=== PATIENT | male | born 1985 | race Caucasian/White ===

== ENCOUNTER 2017-04-03 18:13 | Emergency (ER) | payer SELFPAY ==
[2017-04-03 18:17] VITALS: BP 144/85; PULSE 75; TEMP 98.4; BMI 39.8
--- NOTE | 2017-04-03 19:11 | PDOC ---
History of Present Illness - General Chief Complaint: Rash Stated Complaint: ALLERGIC REACTION Time Seen by Provider: 04/03/17 18:56 History Source: Patient Exam Limitations: No Limitations - History of Present Illness Initial Comments: 04/03/17 19:11 Pt. is a 31 y/o male with PMH of Asthma who presents to the ED c/o a rash on his shoulders, back and chest. He states that he noticed the rash appear after eating a snickers. Denies itching, shortness of breath, throat tightness, lip swelling, or wheezing. Past History - Travel Traveled outside of the country in the last 30 days: No Close contact w/someone who was outside of country & ill: No - Past Medical History Allergies/Adverse Reactions: Allergies Allergy/AdvReac Type Severity Reaction Status Date / Time shellfish derived Allergy Verified 04/03/17 18:17 Home Medications: Ambulatory Orders NK [No Known Home Medication] 04/03/17 Asthma: Yes - Suicide/Smoking/Psychosocial Hx Smoking History: Never smoked Have you smoked in the past 12 months: No Information on smoking cessation initiated: No Hx Alcohol Use: No Drug/Substance Use Hx: No Substance Use Type: None Review of Systems - Review of Systems Able to Perform ROS?: Yes Comments:: 04/03/17 19:13 CONSTITUTIONAL: Absent: fever, chills, diaphoresis, generalized weakness, malaise, loss of appetite HEENT: Absent: rhinorrhea, nasal congestion, throat pain, throat swelling, difficulty swallowing, mouth swelling, ear pain, eye pain, visual Changes CARDIOVASCULAR: Absent: chest pain, loss of consciousness, palpitations, irregular heart rate, peripheral edema RESPIRATORY: Absent: cough, shortness of breath, dyspnea with exertion, orthopnea, wheezing, stridor, hemoptysis GASTROINTESTINAL: Absent: abdominal pain, abdominal distension, nausea, vomiting, diarrhea, constipation, melena, hematochezia GENITOURINARY: Absent: dysuria, frequency, urgency, hesitancy, hematuria, flank pain, genital pain MUSCULOSKELETAL: Absent: myalgia, arthralgia, joint swelling SKIN: Present: rash Absent: itching, pallor HEMATOLOGIC/IMMUNOLOGIC: Absent: easy bleeding, easy bruising, lymphadenopathy, frequent infections ENDOCRINE: Absent: unexplained weight gain, unexplained weight loss, heat intolerance, cold intolerance NEUROLOGIC: Absent: headache, focal weakness or paresthesias, dizziness, unsteady gait, seizure, mental status changes, bladder or bowel incontinence PSYCHIATRIC: Absent: anxiety, depression, suicidal or homicidal ideation, hallucinations. Is the patient limited Upper Sorbian proficient: No *Physical Exam - Vital Signs Last Vital Signs Temp Pulse Resp BP Pulse Ox 98.4 F 75 18 144/85 98 04/03/17 18:15 04/03/17 18:15 04/03/17 18:15 04/03/17 18:15 04/03/17 18:15 - Physical Exam Comments: 04/03/17 19:13 GENERAL: Well developed, well nourished. Awake and alert. No acute distress. HEENT: Normocephalic, atraumatic. PERRLA, EOMI. No conjunctival pallor. Sclera are non- icteric. Moist mucous membranes. Oropharynx is clear, no swelling of lips or tongue. NECK: Supple. Full ROM. No JVD. Carotid pulses 2+ and symmetric, without bruits. No thyromegaly. No lymphadenopathy. CARDIOVASCULAR: Regular rate and rhythm. No murmurs, rubs, or gallops. Distal pulses are 2+ and symmetric. PULMONARY: No evidence of respiratory distress. Lungs clear to auscultation bilaterally. No wheezing, rales or rhonchi. ABDOMINAL: Soft. Non-tender. Non-distended. No rebound or guarding. No organomegaly. Normoactive bowel sounds. MUSCULOSKELETAL Normal range of motion at all joints. No bony deformities or tenderness. No CVA tenderness. EXTREMITIES: No cyanosis. No clubbing. No edema. No calf tenderness. SKIN: Blanching macular rash on shoulders, chest and back. Warm and dry. Normal capillary refill. No jaundice. NEUROLOGICAL: Alert, awake, appropriate. Cranial nerves 2-12 intact. No deficits to light touch and temperature in face, upper extremities and lower extremities. No motor deficits in the in face, upper extremities and lower extremities. Normoreflexic in the upper and lower extremities. Normal speech. Toes are down- going bilaterally. Gait is normal without ataxia. PSYCHIATRIC: Cooperative. Good eye contact. Appropriate mood and affect. Medical Decision Making - Medical Decision Making 04/03/17 19:14 Pt. is a 31 y/o male past medical history of asthma who presents today with a blanching macular rash after eating a Snickers. The rash does appear to be allergic in nature although there are no hives. Instructed patient to avoid eating stickers or components of Snickers until he figures out what he had a reaction to. Gave referral to Dr. Eamon PHILLIP for allergy testing. He was told that if he experiences itching tonight he may take Benadryl. Informed patient that if he has any tongue swelling throat tightness shortness of breath he should return to the emergency department immediately. *DC/Admit/Observation/Transfer Diagnosis at time of Disposition: Rash Allergic reaction Qualifiers: Encounter type: initial encounter Qualified Code(s): T78.40XA - Allergy, unspecified, initial encounter - Discharge Dispostion Disposition: HOME Condition at time of disposition: Good Admit: No - Referrals Referrals: Daniel Knutson MD [Staff Physician] - - Patient Instructions Printed Discharge Instructions: DI for General Allergic Reactions Additional Instructions: You had a skin reaction. Avoid eating snickers until you find out what you are allergic to. You may take benadryl tonight to help with the rash. Followup with Dr. Knutson for allergy testing. Return to the ED if you have worsening rash, have difficulty breathing, wheezing , feel as if your throat was closing, or any other changes in your symptoms. - Post Discharge Activity Forms/Work/School Notes: Back to Work
== END 2017-04-03 19:15 | disposition home or self-care (01) ==
LOC: JERFT 18:13
DX: T78.40XA Allergy, unspecified, initial encounter (principal); J45.909 Unspecified asthma, uncomplicated; R21 Rash and other nonspecific skin eruption
CPT/HCPCS: 99281-25

== ENCOUNTER 2017-04-17 16:52 | Inpatient (IN) | payer SELFPAY ==
[2017-04-17] MEDS ORDERED: NALOXONE HCL 0.4 MG/ML VIAL ONE (17:03)
[2017-04-17] MEDS ORDERED: DEXAMETHASONE SOD PHOSPHATE 10 MG/1 ML VIAL ONE (17:09)
[2017-04-17] MEDS ORDERED: ALBUTEROL SO4 0.083% IH SOL 2.5 MG/3 ML VIAL.NEB. NEB ONE ×2 (17:11→17:13)
[2017-04-17] MEDS ORDERED: ALTEPLASE 100MG 100 MG IVPB ONE (17:28)
[2017-04-17] MEDS ORDERED: RACEPINEPHRINE IH SOL 2.25% 11.25 MG/0.5 ML VIAL NEB ONE (17:33)
[2017-04-17] MEDS ORDERED: SODIUM BICARBONATE 8.4% - 50 ML ONE ×2 (17:39→17:56)
[2017-04-17] MEDS ORDERED: EPINEPHrine/PF 1 MG/1 ML (1:1,000) AMPULE ONE ×2 (17:48→17:50)
[2017-04-17] MEDS ORDERED: SODIUM BICARBONATE 4.2% 5 MEQ/10 ML DISP.SYRIN IVPUSH ONE (17:56)
[2017-04-17] MEDS ORDERED: SODIUM CHLORIDE 1,000 ML with SODIUM BICARBONATE 8.4% - 150 MEQ IV SCH (18:00)
[2017-04-17] MEDS ORDERED: EPINEPHRINE 1:1,000 - 1,000 MCG in DEXTROSE 5%-WATER - 249 ML IVPB SCH (18:00)
[2017-04-17] MEDS ORDERED: NOREPINEPHRINE BITARTRATE 4 MG/4 ML ML IV ONE (18:03)
[2017-04-17] MEDS ORDERED: NOREPINEPHRINE BITARTRATE 8,000 MCG in DEXTROSE 5%-WATER - 492 ML IV SCH ×2 (18:34→18:45)
[2017-04-17] MEDS ORDERED: VANCOMYCIN 1,000 MG in DEXTROSE 5%-WATER - 250 ML IVPB ONE (18:40)
[2017-04-17] MEDS ORDERED: PIPERACILLIN/TAZOB 4.5 GM 4.5 GM in DEXTROSE 5%-WATER - 100 ML IVPB ONE (18:40)
[2017-04-17] MEDS ORDERED: KETAMINE HCL 200 MG/20 ML VIAL ONE ×2 (18:41→19:02)
[2017-04-17] MEDS ORDERED: KETAMINE HCL 200 MG/20 ML VIAL IVPUSH ONE (18:41)
[2017-04-17] MEDS: EPINEPHRINE 1:1,000 - 1,000 MCG in DEXTROSE 5%-WATER - 249 ML IVPB SCH (18:43)
[2017-04-17] MEDS ORDERED: VANCOMYCIN 1 GRAM (PRE-DOCKED) 250 ML IVPB ONE (18:44)
[2017-04-17] MEDS ORDERED: MIDAZOLAM HCL 2 MG/2 ML SINGLE DOSE VIAL ONE (19:08)
[2017-04-17] MEDS ORDERED: MIDAZOLAM HCL 2 MG/2 ML SINGLE DOSE VIAL IVPUSH ONE (19:10)
--- NOTE | 2017-04-17 19:13 | PDOC ---
*Physical Exam - Vital Signs Last Vital Signs Temp Pulse Resp BP Pulse Ox 112 H 16 106/66 100 04/17/17 18:49 04/17/17 18:49 04/17/17 18:49 04/17/17 18:49 ED Treatment Course - LABORATORY CBC & Chemistry Diagram: 04/21/17 05:45 04/21/17 05:45 - Medications Given in the ED: ED Medications Discontinued Medications Generic Name Dose Route Start Last Admin Trade Name Freq PRN Reason Stop Dose Admin Epinephrine HCl 1,000 mcg/ 250 mls @ 221 mls/hr 04/17/17 18:00 04/17/17 18:26 Dextrose IVPB Not Given TITR YOAV Protocol Ketamine HCl 100 mg 04/17/17 18:41 04/17/17 18:42 Ketalar - IVPUSH 04/17/17 18:42 100 mg ONCE ONE Administration *DC/Admit/Observation/Transfer Diagnosis at time of Disposition: Respiratory arrest, Cardiac arrest, Signs of return of spontaneous circulation - Discharge Dispostion Condition at time of disposition: Critical Admit: Yes - Referrals - Patient Instructions - Post Discharge Activity
[2017-04-17] MEDS: MIDAZOLAM 100 MG in SODIUM CHLORIDE 100 ML IVPB SCH (19:20)
[2017-04-17 19:51] LABS: MCH 28.8 pg (25.7-33.7); MEAN CELL VOLUME 87.3 fl (80-96); RDW 13.9 % (11.9-15.9); WHITE BLOOD COUNT 29.6 K/mm3 (4.0-10.0)
[2017-04-17 20:07] LABS: INR 1.04 (0.82-1.09); PROTHROMBIN TIME (PATIENT) 11.8 SEC (9.98-11.88)
[2017-04-17 20:09] LABS: ACTIVATED PTT 31.1 SECONDS (26.9-34.4)
--- NOTE | 2017-04-17 20:10 | PDOC ---
History of Present Illness - General Chief Complaint: Respiratory Arrest Stated Complaint: CARDIAC ARREST Time Seen by Provider: 04/17/17 17:57 - History of Present Illness Initial Comments: 04/17/17 19:28 31-year-old male history of asthma presents in cardiac arrest. Patient was found down in front of his halal cart across the street from the hospital 10 minutes prior to arrival to the ED. On arrival to the emergency department, pt was getting chest compressions via the Bassam. Unknown rhythm in the field. An IO was placed in the right tibia for access. The pads were placed and the Bassam was removed to place the zoll pads. Initial rhythm was asystole. THe patient was intubated via Glidescope with direct visualization of 7.0 ET tube passing through the cords. Copious amounts of emesis was suctioned from the airway. Upon auscultation, pt had poor air movement, with diminished BS on the right and diffuse mild wheezing. CPR was continued immediately for approximately 30 min with multiple doses of epinephrine and bicarbonate. Patient was also given 1 dose of narcan, dexamethasone, magnesium, calcium, and dextrose. Multiple doses of albuterol were given through the ET tube. Bedside US during pulse checks with cardiac standstill and no sign of tamponade or large pericardial effusion. While initial rhythm was asystole, the rhythm became PEA then VFib for which the patient was defibrillated 3 times at 200 J btwn chest compressions. The patient was given 300 mg of amiodarone at that time. ROSC was obtained for 1-2 minutes where an EKG revealed atrial fibrillation with no ST elevations. The patient became bradycardic and lost his pulse again with initial rhythm asystole and then PEA and then ROSC was obtained after approximately another 20 minutes of CPR. Pt's rhythm is AF, rate of 107, BP of 110/70. Low dose levophed was started for support and quickly turned off with improvement in BP to 150s systolic. CXR with good ET tube placement. A sterile US guided IJ CVC was placed with good return of dark venous blood. Vanc/Zosyn/ Azithro were ordered for PNA coverage. Given the pt's young age and possible resp arrest, I discussed possible ecmo options with Dr Christensen from CT surgery at [facility], however given pt had ROSC for 20 mins at this point, and prolonged downtime , they stated he was not an ecmo candidate. PT was accepted to Dr. Mondragon for admission in our ICU. Past History - Past Medical History Allergies/Adverse Reactions: Allergies Allergy/AdvReac Type Severity Reaction Status Date / Time No Known Drug Allergies Allergy Verified 04/17/17 18:05 shellfish derived Allergy Verified 04/17/17 17:20 Home Medications: Ambulatory Orders Albuterol Sulfate Inhaler - [Ventolin Hfa Inhaler -] 1 puff IH PRN PRN 04/17/17 Asthma: Yes COPD: No - Suicide/Smoking/Psychosocial Hx Smoking History: Current every day smoker Have you smoked in the past 12 months: Yes Number of Cigarettes Smoked Daily: 10 Information on smoking cessation initiated: No Hx Alcohol Use: No Drug/Substance Use Hx: No Substance Use Type: None *Physical Exam - Vital Signs Last Vital Signs Temp Pulse Resp BP Pulse Ox 112 H 16 106/66 100 04/17/17 18:49 04/17/17 18:49 04/17/17 18:49 04/17/17 18:49 - Physical Exam Comments: 04/17/17 20:10 GENERAL: intubated, non responsive HEAD: No signs of trauma EYES: Pupils dilated b/l, non reactive ENT: +vomitus in oropharynx LUNGS: diminished BS b/l, tight, minimal diffuse wheezing HEART: pulseless ABDOMEN: distended EXTREMITIES: no evidence of trauma, no evidence of track carrizales SKIN: diffuse mottling Procedures - Central Line Central Line Lumen: triple Central Line Position: internal jugular (R) Complications: none Post Central Line Insertion: sutured, good blood return, position confirmed w/ CXR - Bedside Ultrasound Bedside Ultrasound: Cardiac - Intubation Intubation Method: orotracheal Blade used: Glidescope Tube Size (Fr): 7.0 Tube position @ lip (cm): 21 Tube position confirmed by: Direct visualization, CO2 detector, Chest x-ray, Breath sounds Breath Sounds after Intubation: left greater than right Intubation Complications: apparent aspiration Post Intubation Xray: Yes (Tube above andrzej) Heart Score/ECG Review #1 04/17/17 20:31 Twelve-lead EKG was performed and reviewed by me. [place] fib, rate 111. Normal axis. No ST elevations. [address] depressions in leads V4 through V6 and leads 1 and 2 ED Treatment Course - LABORATORY CBC & Chemistry Diagram: 04/18/17 07:20 04/18/17 07:20 - RADIOLOGY Radiology Studies Ordered: Category Date Time Status CHEST X-RAY PORTABLE* [RAD] Stat Radiology 04/17/17 17:54 Completed CHEST X-RAY PORTABLE* [RAD] Stat Radiology 04/17/17 19:27 Ordered - Medications Given in the ED: ED Medications Discontinued Medications Generic Name Dose Route Start Last Admin Trade Name Freq PRN Reason Stop Dose Admin Epinephrine HCl 1,000 mcg/ 250 mls @ 221 mls/hr 04/17/17 18:00 04/17/17 18:26 Dextrose IVPB Not Given TITR YOAV Protocol Ketamine HCl 100 mg 04/17/17 18:41 04/17/17 18:42 Ketalar - IVPUSH 04/17/17 18:42 100 mg ONCE ONE Administration Medical Decision Making - Critical Care Time Total Critical Care Time (minutes): 120 Critical Care Statement: The care of this patient involved high complexity decision making to prevent further life threatening deterioration of the patient 's condition and/or to evaluate & treat vital organ system(s) failure or risk of failure. - Medical Decision Making 04/18/17 09:29 04/17/17 20:32 Cardiac arrest of unknown etiology, possible respiratory 2/2 asthma however it appears sxs came on rather quickly (pt's states that he was at his baseline 1 hour prior to arrest) vs cardiac (NSTEMI) vs PE given sudden onset of sxs. Neurologic etiology such as ICH also a possibility and warrants a CTH, which should be performed when pt is more stable. Pt is admitted to ICU for further mgmt where hypothermic protocol will be initiated. *DC/Admit/Observation/Transfer Diagnosis at time of Disposition: Respiratory arrest, Cardiac arrest, Signs of return of spontaneous circulation - Discharge Dispostion Condition at time of disposition: Critical Admit: Yes - Referrals - Patient Instructions - Post Discharge Activity - Attestations Physician Attestion: 04/17/17 20:33 I, Dr. Nicolas Tolentino MD, attest that this document has been prepared under my direction and personally reviewed by me in its entirety. I further attest, that it accurately reflects all work, treatment, procedures and medical decision -making performed by me.
[2017-04-17 20:25] LABS: ALBUMIN 3.4 g/dl (3.4-5.0); ANION GAP 19 (8-16); CALCIUM 8.3 mg/dL (8.5-10.1); CO2 18 mmol/L (21-32)
[2017-04-17 20:30] LABS: ARTERIAL BLD GAS O2 SATURATION 97.6 % (90-98.9); ARTERIAL BLOOD GAS HCO3 16.6 meq/L (22-26)
[2017-04-17 20:36] LABS: METHEMOGLOBIN 0.8 % (0.4-1.5)
[2017-04-17 20:42] LABS: ALLENS TEST POSITIVE; ART PUNCT SITE LEFT RADIAL; ARTERIAL BLOOD GAS BASE EXCESS -14.3 meq/l (-2-2); ARTERIAL BLOOD GAS pH 7.09 (7.35-7.45); PT. ON O2? YES
[2017-04-17 20:42] LABS: ALK PHOS 169 U/L (45-117); BILIRUBIN,TOTAL 1.1 mg/dL (0.2-1.0); CREATININE 1.7 mg/dL (0.7-1.3); SGPT/ALT 175 U/L (12-78); TOT PROT 6.4 g/dl (6.4-8.2)
[2017-04-17 20:43] LABS: LPM/O2% 100; MECH. VENT. YES; TYPE OF O2 MECH VENT
[2017-04-17 20:44] LABS: VENT RATE 14; VT/PRESS 500
[2017-04-17 20:44] LABS: CPK 1111 IU/L (39-308); SGOT/AST 247 U/L (15-37)
[2017-04-17 20:46] LABS: GLUCOSE,RANDOM 352 mg/dL (74-106); TROPONIN I 3.48 ng/ml (0.00-0.05)
[2017-04-17 20:57] LABS: METAMYELOCYTE 3 % (0-2); MYELOCYTE 3 % (0-2); PLATELET COUNT 251 K/MM3 (134-434); PLATELET ESTIMATE ADEQUATE (NORMAL); REACTIVE LYMPHOCYTES 3 % (0-80); SMUDGE CELLS FEW; TOTAL CELLS COUNTED 100
[2017-04-17] MEDS ORDERED: PROPOFOL 100 ML ONE (20:57)
[2017-04-17] MEDS ORDERED: ASPIRIN 81 MG CHEWABLE TABLETS PO ONE (21:19)
[2017-04-17] MEDS ORDERED: CLOPIDOGREL BISULFATE 300 MG TABLET PO ONE (21:20)
[2017-04-17] MEDS ORDERED: HEPARIN NA (PORCINE) 5,000 UNITS/ML 1ML VIAL IVPUSH PRN ×2 (21:20)
--- NOTE | 2017-04-17 21:22 | CON.CARD ---
Consult Consult Specialty:: cardiology Reason for Consultation:: cardiac arrest - History of Present Illness History of Present Illness: 31-year-old male history of asthma, cigarettes, obesity, presents in cardiac arrest. Patient was found down in front of his halal cart across the street from the hospital 10 minutes prior to arrival to the ED. On arrival to the emergency department, pt was getting chest compressions via the Bassam. Unknown rhythm in the field. An IO was placed in the right tibia for access. The pads were placed and the Bassam was removed to place the zoll pads. Initial rhythm was asystole. THe patient was intubated via Glidescope with direct visualization of 7.0 ET tube passing through the cords. Copious amounts of emesis was suctioned from the airway. Upon auscultation, pt had poor air movement, with diminished BS on the right and diffuse mild wheezing. CPR was continued immediately for approximately 30 min with multiple doses of epinephrine and bicarbonate. Patient was also given 1 dose of narcan, dexamethasone, magnesium, calcium, and dextrose. Multiple doses of albuterol were given through the ET tube. Bedside US during pulse checks with cardiac standstill and no sign of tamponade or large pericardial effusion. While initial rhythm was asystole, the rhythm became PEA then VFib for which the patient was defibrillated 3 times at 200 J btwn chest compressions. The patient was given 300 mg of amiodarone at that time. ROSC was obtained for 1-2 minutes where an EKG revealed atrial fibrillation with no ST elevations. The patient became bradycardic and lost his pulse again with initial rhythm asystole and then PEA and then ROSC was obtained after approximately another 20 minutes of CPR. Pt's rhythm is AF, rate of 107, BP of 110/70. Low dose levophed was started for support and quickly turned off with improvement in BP to 150s systolic. CXR with good ET tube placement. A sterile US guided IJ CVC was placed with good return of dark venous blood. Vanc/Zosyn/Azithro were ordered for PNA coverage. Given the pt's young age and possible resp arrest, Dr Tolentino discussed possible ecmo options with Dr Christensen from CT surgery at [facility], however given pt had ROSC for 20 mins at this point, and prolonged downtime, they stated he was not an ecmo candidate. PT was accepted to Dr. Mondragon for admission in our ICU. - History Source History Provided By: Family Member, Medical Record Limitations to Obtaining History: Unresponsive - Past Medical History Cardio/Vascular: Yes: AFIB (reportedly noted transiently while undergoing resuscitation) Pulmonary: Yes: Asthma Gastrointestinal: Yes: Other (elevated LFTS this admission) Renal/: Yes: Renal Inusuff Heme/Onc: No: Anemia - Alcohol/Substance Use Hx Alcohol Use: No - Smoking History Smoking history: Current every day smoker Have you smoked in the past 12 months: Yes Aproximately how many cigarettes per day: 10 - Social History Usual Living Arrangement: With Spouse Home Medications - Allergies Allergies/Adverse Reactions: Allergies Allergy/AdvReac Type Severity Reaction Status Date / Time No Known Drug Allergies Allergy Verified 04/17/17 18:05 shellfish derived Allergy Verified 04/17/17 17:20 - Home Medications Home Medications: Ambulatory Orders Albuterol Sulfate Inhaler - [Ventolin Hfa Inhaler -] 1 puff IH PRN PRN 04/17/17 Review of Systems Unable to obtain ROS, reason: pt is intubated, sedated, - Review of Systems Constitutional: reports: No Symptoms Eyes: reports: No Symptoms HENT: reports: No Symptoms Neck: reports: No Symptoms - Risk Factors Known Risk Factors: Yes: Gender, Physical Inactivity, Smoking Vital Signs: Vital Signs Temperature Pulse Rate 117 H 04/17/17 20:00 Respiratory Rate 22 04/17/17 20:00 Blood Pressure 140/92 04/17/17 20:00 O2 Sat by Pulse Oximetry (%) 100 04/17/17 20:00 Constitutional: Yes: Obese Eyes: Yes: Other (fixed pupils) HENT: Yes: Normocephalic Neck: Yes: Decreased ROM Respiratory: Yes: Intubated, Mechanically Ventilated Gastrointestinal: Yes: Soft, Abdomen, Obese Renal/: No: Anuria Cardiovascular: Yes: Tachycardia JVD: No Carotid Bruit: No PMI: Non-Displaced Heart Sounds: Yes: S1, S2 Murmur: Yes: Systolic Murmur, Grade 1 Musculoskeletal: Yes: Other Extremities: Yes: Cool Edema: No Peripheral Pulses WNL: No Peripheral Pulses: 1+ Left Doralis Pedis, 1+ Right Dorsalis Pedis Integumentary: Yes: WNL Neurological: Yes: Unresponsive Psychiatric: Yes: Other - Other Data Labs, Other Data: CBC, BMP 04/17/17 19:40 04/17/17 19:40 INR, PTT INR 1.04 (0.82-1.09) 04/17/17 19:40 Troponin, BNP 04/17/17 19:40 Troponin I 3.48 H* Troponin, BNP 04/17/17 19:40 Troponin I 3.48 H* Imaging - Results Chest X-ray: Image Reviewed (patchy consolidation) EKG: Image Reviewed (Initial EKG 17:47:29 : AF with RVR; incomplete LBBB; STT changes: r/o inferolateral ischemia EKG 3 hrs later (20:55:17): sinus tachycardia;lateral STT changes are less evident) Problem List - Problems (1) Rash Code(s): R21 - RASH AND OTHER NONSPECIFIC SKIN ERUPTION (2) Leukocytosis Code(s): D72.829 - ELEVATED WHITE BLOOD CELL COUNT, UNSPECIFIED (3) Cardiorespiratory arrest Assessment/Plan: Initial aystole; now in sinus. Intubated; Fluctuating blood pressure; Elevated TNI, with mildly elevated CK/MB relative index; f/u serially. Serial EKG (reportedly initial ST elevation, with subsequent "nonspecific" ST-T abnormalities). Marked leukocytosis and hyperglycemia. F/u cultures; HGBA1c; TSH; Hb. Blood in NG tube makes starting ASA, clopidogrel, IV heparin problematic; f/u this development, and consider starting these medications if cleared by GI, hematology. Statin also unable to be started (elevated transaminases). Hx asthma, wheezing precludes beta blockers; BP is also tenuous. Maintain hydration (worsening renal picture). ECHO for LVEF, wall motion, valve status. Code(s): I46.9 - CARDIAC ARREST, CAUSE UNSPECIFIED (4) Paroxysmal atrial fibrillation Assessment/Plan: Ntoed on initial EKG; converted to sinus tachycardia no later than 3 hours after. Obtain prior cardiac hx. Would have low threshold for starting amiodarone. On anticoagulation (if cleared by GI and neuro) for resumed acute coronary syndrome. Code(s): I48.0 - PAROXYSMAL ATRIAL FIBRILLATION
[2017-04-17] MEDS ORDERED: HEPARIN - 25,000 UNIT in SODIUM CHLORIDE 495 ML IV SCH (21:30)
[2017-04-17] MEDS ORDERED: METOPROLOL TARTRATE 25 MG TABLET (FP) PO SCH (21:30)
[2017-04-17] MEDS: FENTANYL INJECTION 500 MCG in DEXTROSE 5%-WATER - 90 ML IJ SCH (21:30)
[2017-04-17] MEDS ORDERED: HEPARIN INFUSION - 500 ML IVPB SCH (21:45)
[2017-04-17] MEDS ORDERED: ENALAPRIL MALEATE 10 MG TABLET (FP) PO SCH ×2 (22:00)
--- NOTE | 2017-04-17 22:07 | CONSULT ---
Consult Consult Specialty:: Pulmonary and critical care - History of Present Illness History of Present Illness: This is a 31 year old man with a pmhx of asthma (no home meds, no hospitalizations) presented to the ED s/p cardiac arrest of unclear etiology. Patient was in his usual state of health and on the phone with his when he reported feeling "pain", hung up the phone, and dialed 911. He was found down, pulseless and received CPR and was brought to the ED. ACLS efforts continued and he was intubated. Copious amounts of emesis were suctioned from the airway. Upon auscultation, pt had poor air movement, with diminished BS on the right and diffuse mild wheezing. ACLS efforts took place for a total of approximately 50 minutes prior to achieving ROSC (had briefly achieved ROSC at minute 30). Low dose levophed required transiently for mild hypotension. RIJ placed. Vanc/ Zosyn/Azithro were ordered for empiric antibiotic coverage. He was transferred to the ICU for further care - History Source History Provided By: Family Member - Past Medical History Pulmonary: Yes: Asthma - Alcohol/Substance Use Hx Alcohol Use: No - Smoking History Smoking history: Current every day smoker Have you smoked in the past 12 months: Yes Aproximately how many cigarettes per day: 10 Home Medications - Allergies Allergies/Adverse Reactions: Allergies Allergy/AdvReac Type Severity Reaction Status Date / Time No Known Drug Allergies Allergy Verified 04/17/17 18:05 shellfish derived Allergy Verified 04/17/17 17:20 - Home Medications Home Medications: Ambulatory Orders Albuterol Sulfate Inhaler - [Ventolin Hfa Inhaler -] 1 puff IH PRN PRN 04/17/17 Review of Systems Unable to obtain ROS, reason: as patient is intubated a Physical Exam Vital Signs: Vital Signs Temperature Pulse Rate 117 H 04/17/17 20:00 Respiratory Rate 22 04/17/17 20:00 Blood Pressure 140/92 04/17/17 20:00 O2 Sat by Pulse Oximetry (%) 100 04/17/17 20:00 Constitutional: Yes: Well Nourished, No Distress Eyes: Yes: Other (Pupils large, round, dilated, sluggish but reactive) HENT: Yes: Other (Pupils large, round, very sluggish reaction to light) Neck: Yes: WNL Cardiovascular: Yes: Regular Rate and Rhythm Respiratory: Yes: CTA Bilaterally, Accessory Muscle Use, Tachypnea Gastrointestinal: Yes: WNL Renal/: Yes: WNL Musculoskeletal: Yes: WNL Extremities: Yes: WNL Edema: LUE: 1+, RUE: 1+, LLE: 1+, RLE: 1+ Neurological: Yes: Unresponsive Labs: CBC, BMP 04/17/17 19:40 04/17/17 19:40 Imaging - Results Chest X-ray: Report Reviewed Assessment/Plan 31 year old man s/p prolonged cardiac arrest of unclear etiology; significant bandemia and leukocytosis #Please increase RR on vent to compensate for respiratory component to acidosis #Repeat ABG #Please advance ETT and repeat CXR #Please keep very sedated for ventilator synchrony to optimize gas exchange #Add Fentanyl continuous infusion for any pain from chest compressions/sedation ; continue use of Versed, consider d/c Propofol #Vancomycin and Zosyn #Check blood, urine, sputum, respiratory swab, urine antigens #Trend troponin #EKG #TTE #Therapeutic hypothermia #EEG tomorrow #Head CT when stable Prognosis is guarded. 35' mins CC time
[2017-04-17 22:08] LABS: INR 1.11 (0.82-1.09); PROTHROMBIN TIME (PATIENT) 12.5 SEC (9.98-11.88)
[2017-04-17 22:11] LABS: ACTIVATED PTT 33.2 SECONDS (26.9-34.4)
[2017-04-17 22:26] LABS: ARTERIAL BLOOD GAS PO2 85.3 mmHg (80-100)
[2017-04-17 22:28] LABS: ALLENS TEST POSITIVE
[2017-04-17 22:29] LABS: ART PUNCT SITE RIGHT BRACHIAL; LPM/O2% 100%; MECH. VENT. YES; PT. ON O2? YES; TYPE OF O2 VENT; VENT RATE 32; VT/PRESS 500
[2017-04-17] MEDS: CHLORHEXIDINE GLUCONATE 4% CLEANSER FOR DECOLONIZATION TP SCH (22:29)
[2017-04-17 22:31] LABS: ARTERIAL BLOOD GAS pH 7.22 (7.35-7.45)
[2017-04-17 22:32] LABS: ARTERIAL BLOOD GAS BASE EXCESS -12.8 meq/l (-2-2)
[2017-04-17 22:35] LABS: URINE MARIJUANA THC NEGATIVE ng/ml (CUTOFF=50)
[2017-04-17] MEDS: ATORVASTATIN CA 80 MG TABLET (FP) PO SCH (22:39)
[2017-04-17] MEDS: PROPOFOL 100 ML IVPB SCH (22:40)
[2017-04-17] MEDS: MUPIROCIN 2% TOPICAL OINTMENT FOR DECOLONIZATION NS SCH (22:41)
[2017-04-17] MEDS ORDERED: ALBUTEROL SO4 2.5/IPRATROPIUM 0.5 INH SOL 3 ML VIAL.NEB. NEB ONE (22:42)
[2017-04-17] MEDS: CHLORHEXIDINE GLUCONATE 0.12% 15ML CUP MM SCH (22:49)
[2017-04-17 22:56] LABS: CHOLESTEROL 207 mg/dL (50-200)
--- NOTE | 2017-04-17 22:59 | CON.ID ---
Consult Consult Specialty:: infectious diseases Reason for Consultation:: pneumonia resp failure - History of Present Illness History of Present Illness: 31 year old man with a pmhx of asthma admitted s/p cardiac arrest of unclear etiology. Patient was in his usual state of health and on the phone with his when he reported feeling "pain", hung up the phone, and dialed 911. He was found down, pulseless and received CPR and was brought to the ED. ACLS efforts continued and he was intubated. Copious amounts of emesis were suctioned from the airway. Upon auscultation, pt had poor air movement, with diminished BS on the right and diffuse mild wheezing. ACLS efforts took place for a total of approximately 50 minutes prior to achieving ROSC (had briefly achieved ROSC at minute 30). Low dose levophed required transiently for mild hypotension. RIJ placed. Vanc/Zosyn/Azithro were ordered for empiric antibiotic coverage. He is in the ICU for further care the above history taken from the charts as patient is intubated - History Source History Provided By: Medical Record Limitations to Obtaining History: Clinical Condition - Past Medical History Pulmonary: Yes: Asthma - Alcohol/Substance Use Hx Alcohol Use: No - Smoking History Smoking history: Current every day smoker Have you smoked in the past 12 months: Yes Aproximately how many cigarettes per day: 10 Home Medications - Allergies Allergies/Adverse Reactions: Allergies Allergy/AdvReac Type Severity Reaction Status Date / Time No Known Drug Allergies Allergy Verified 04/17/17 18:05 shellfish derived Allergy Verified 04/17/17 17:20 - Home Medications Home Medications: Ambulatory Orders Albuterol Sulfate Inhaler - [Ventolin Hfa Inhaler -] 1 puff IH PRN PRN 04/17/17 Review of Systems Unable to obtain ROS, reason: unable to obtian Physical Exam Vital Signs: Vital Signs Temperature Pulse Rate 117 H 04/17/17 20:00 Respiratory Rate 22 04/17/17 20:00 Blood Pressure 140/92 04/17/17 20:00 O2 Sat by Pulse Oximetry (%) 100 04/17/17 20:00 Constitutional: Yes: Other Eyes: Yes: Other (reactive sluggish) Cardiovascular: Yes: Tachycardia, S1, S2 Respiratory: Yes: Intubated, Mechanically Ventilated, Rhonchi Gastrointestinal: Yes: Normal Bowel Sounds, Soft Musculoskeletal: Yes: WNL Extremities: Yes: WNL Neurological: Yes: Other Psychiatric: Yes: Other Labs: CBC, BMP 04/17/17 19:40 04/17/17 19:40 Imaging - Results Chest X-ray: Report Reviewed, Image Reviewed Assessment/Plan Problem List - Problems (1) Cardiorespiratory arrest Code(s): I46.9 - CARDIAC ARREST, CAUSE UNSPECIFIED (2) Leukocytosis Code(s): D72.829 - ELEVATED WHITE BLOOD CELL COUNT, UNSPECIFIED (3) Troponin level elevated Code(s): R74.8 - ABNORMAL LEVELS OF OTHER SERUM ENZYMES (4) LFT elevation Code(s): R79.89 - OTHER SPECIFIED ABNORMAL FINDINGS OF BLOOD CHEMISTRY (5) GI bleed Code(s): K92.2 - GASTROINTESTINAL HEMORRHAGE, UNSPECIFIED plan will continue zosyn and vanco close watch on mental status high chances of having pna rest continue as per icu cc time 40 min
[2017-04-17] MEDS: ALBUTEROL SO4 2.5/IPRATROPIUM 0.5 INH SOL 3 ML VIAL.NEB. NEB SCH (23:02)
[2017-04-17 23:14] LABS: TROPONIN I 5.59 ng/ml (0.00-0.05)
[2017-04-17 23:17] LABS: AMYLASE 2462 U/L (25-115)
[2017-04-17 23:22] VITALS: BMI 40.5
[2017-04-17 23:30] LABS: URINE APPEARANCE SLCLOUDY; URINE BILIRUBIN NEGATIVE (NEGATIVE); URINE BLOOD 3+ (NEGATIVE); URINE COLOR LTYELLOW; URINE GLUCOSE (UA) 3+ (NEGATIVE); URINE KETONE NEGATIVE (NEGATIVE); URINE NITRITE NEGATIVE (NEGATIVE); URINE PROTEIN 2+ (NEGATIVE); URINE UROBILINOGEN NEGATIVE mg/dL (0.2-1.0)
[2017-04-17 23:35] LABS: URINE MUCUS FEW; URINE RBC 10 /hpf (0-3); URINE WBC 21 /hpf (3-5)
[2017-04-18 00:13] LABS: PHOSPHOROUS 7.7 mg/dL (2.5-4.9)
[2017-04-18 00:17] LABS: MAGNESIUM 3.1 mg/dL (1.8-2.4)
[2017-04-18 00:22] LABS: ALBUMIN 3.3 g/dl (3.4-5.0); ANION GAP 25 (8-16); CALCIUM 7.8 mg/dL (8.5-10.1); CO2 15 mmol/L (21-32); CREATININE 2.2 mg/dL (0.7-1.3); SGPT/ALT 185 U/L (12-78); TOT PROT 5.9 g/dl (6.4-8.2)
[2017-04-18 00:23] LABS: ALK PHOS 155 U/L (45-117)
[2017-04-18 00:25] LABS: SGOT/AST 338 U/L (15-37)
[2017-04-18 00:27] LABS: GLUCOSE,RANDOM 405 mg/dL (74-106)
[2017-04-18] MEDS: PIPERACILLIN/TAZOB 4.5 GM 100 ML IVPB SCH ×3 (01:12→17:20)
[2017-04-18] MEDS: PROPOFOL 100 ML IVPB SCH ×6 (01:12→17:39)
[2017-04-18] MEDS: INSULIN SLIDING SCALE (NOVOLOG) 1 VIAL SQ SCH ×5 (01:12→23:06)
[2017-04-18] MEDS: FENTANYL INJECTION 500 MCG in DEXTROSE 5%-WATER - 90 ML IJ SCH ×3 (01:13→17:43)
[2017-04-18] MEDS: MIDAZOLAM 100 MG in SODIUM CHLORIDE 100 ML IVPB SCH ×2 (03:00→15:21)
[2017-04-18] MEDS ORDERED: HEMOQUE CONTROL SOLUTION ONE (03:34)
[2017-04-18 07:28] LABS: ALBUMIN 3.2 g/dl (3.4-5.0); ALK PHOS 126 U/L (45-117); ANION GAP 22 (8-16); CALCIUM 7.3 mg/dL (8.5-10.1); CO2 14 mmol/L (21-32); CREATININE 2.8 mg/dL (0.7-1.3); PHOSPHOROUS 5.6 mg/dL (2.5-4.9); SGPT/ALT 185 U/L (12-78); TOT PROT 5.9 g/dl (6.4-8.2)
[2017-04-18 07:43] LABS: ACTIVATED PTT 28.2 SECONDS (26.9-34.4); INR 1.12 (0.82-1.09); PROTHROMBIN TIME (PATIENT) 12.7 SEC (9.98-11.88)
[2017-04-18 07:44] LABS: ARTERIAL BLD GAS O2 SATURATION 99.9 % (90-98.9); ARTERIAL BLOOD GAS BASE EXCESS -11.8 meq/l (-2-2); ARTERIAL BLOOD GAS HCO3 13.6 meq/L (22-26)
[2017-04-18 07:46] LABS: ALLENS TEST POSITIVE; ART PUNCT SITE LEFT RADIAL; LPM/O2% 100; PT. ON O2? YES; TYPE OF O2 MEC VENT
[2017-04-18 07:47] LABS: MECH. VENT. ESPRIT; PT'S TEMP 95.2; VENT RATE 32; VT/PRESS 500
--- NOTE | 2017-04-18 07:53 | HP ---
Admitting History and Physical - Admission History of Present Illness: 31 year old man with a pmhx of asthma (no home meds, no hospitalizations) presented to the ED s/p cardiac arrest of unclear etiology. Patient was in his usual state of health and on the phone with his when he reported feeling "pain", hung up the phone, and dialed 911. He was found down, pulseless and received CPR and was brought to the ED. ACLS efforts continued and he was intubated. Copious amounts of emesis were suctioned from the airway. Upon auscultation, pt had poor air movement, with diminished BS on the right and diffuse mild wheezing. ACLS efforts took place for a total of approximately 50 minutes prior to achieving ROSC (had briefly achieved ROSC at minute 30). Low dose levophed required transiently for mild hypotension. RIJ placed. Vanc/Zosyn/ Azithro were ordered for empiric antibiotic coverage. He is in the ICU for further care - Past Medical History Cardiovascular: Yes: AFIB (reportedly noted transiently while undergoing resuscitation) Pulmonary: Yes: Asthma - Smoking History Smoking history: Current every day smoker Have you smoked in the past 12 months: Yes Aproximately how many cigarettes per day: 10 - Alcohol/Substance Use Hx Alcohol Use: No Home Medications - Allergies Allergies/Adverse Reactions: Allergies Allergy/AdvReac Type Severity Reaction Status Date / Time No Known Drug Allergies Allergy Verified 04/17/17 18:05 shellfish derived Allergy Verified 04/17/17 17:20 - Home Medications Home Medications: Ambulatory Orders Albuterol Sulfate Inhaler - [Ventolin Hfa Inhaler -] 1 puff IH PRN PRN 04/17/17 Physical Examination Vital Signs: Vital Signs Temperature 95.1 F L 04/18/17 06:00 Pulse Rate 104 H 04/18/17 06:00 Respiratory Rate 32 H 04/18/17 06:30 Blood Pressure 127/79 04/18/17 06:00 O2 Sat by Pulse Oximetry (%) 100 04/17/17 23:27 Cardiovascular: Yes: S1, S2 Respiratory: Yes: Diminished, Intubated, Mechanically Ventilated Gastrointestinal: Yes: Hypoactive Bowel Sounds Neurological: Yes: Unresponsive Problem List - Problems (1) Cardiorespiratory arrest Assessment/Plan: UNCLEAR ETIOLOGY FOLLOW LABS VENT SUPPORT EEG NEUROLOGY PRESSERS D/W CURRENT STATUS AND FINDINGS Code(s): I46.9 - CARDIAC ARREST, CAUSE UNSPECIFIED (2) Leukocytosis Assessment/Plan: CULTURES IV ABX ID ON BOARD Code(s): D72.829 - ELEVATED WHITE BLOOD CELL COUNT, UNSPECIFIED (3) Troponin level elevated Assessment/Plan: FOLLOW CE CARDIO ON BOARD ECHO DUE TO BLOOD IN NGT UNABLE TO GIVE ASA/PLAVIX/HEPARIN Code(s): R74.8 - ABNORMAL LEVELS OF OTHER SERUM ENZYMES (4) LFT elevation Assessment/Plan: FOLLOW LABS MAYBE DUE TO ISCHEMIA GI Code(s): R79.89 - OTHER SPECIFIED ABNORMAL FINDINGS OF BLOOD CHEMISTRY (5) GI bleed Assessment/Plan: GI CONSULT FOLLOW CBC Code(s): K92.2 - GASTROINTESTINAL HEMORRHAGE, UNSPECIFIED
[2017-04-18 08:18] LABS: CPK 4647 IU/L (39-308)
[2017-04-18 08:19] LABS: MAGNESIUM 2.7 mg/dL (1.8-2.4); SGOT/AST 382 U/L (15-37)
[2017-04-18 08:23] LABS: GLUCOSE,RANDOM 420 mg/dL (74-106)
[2017-04-18 08:26] LABS: MCH 28.5 pg (25.7-33.7); MCHC 32.6 g/dl (32.0-35.9); MEAN CELL VOLUME 87.4 fl (80-96); MEAN PLT VOLUME 9.5 fl (7.5-11.1); PLATELET COUNT 165 K/MM3 (134-434); RDW 13.8 % (11.9-15.9)
[2017-04-18 09:09] LABS: THYROID STIMULATING HORMONE 0.33 uIU/ml (0.358-3.74)
[2017-04-18] MEDS ORDERED: ASPIRIN 81 MG CHEWABLE TABLETS PO SCH (10:00)
[2017-04-18] MEDS ORDERED: NOREPINEPHRINE BITARTRATE 4 MG/4 ML ML IV ONE (10:00)
[2017-04-18] MEDS ORDERED: CLOPIDOGREL BISULFATE 75 MG TABLET (FP) PO SCH (10:00)
[2017-04-18] MEDS: PANTOPRAZOLE SODIUM 80 MG in SODIUM CHLORIDE 100 ML IVPB SCH ×2 (10:03→18:53)
[2017-04-18 10:13] LABS: AMYLASE 2469 U/L (25-115)
[2017-04-18] MEDS: CHLORHEXIDINE GLUCONATE 0.12% 15ML CUP MM SCH ×2 (10:50→22:02)
[2017-04-18] MEDS: PANTOPRAZOLE SODIUM 40 MG VIAL IVPUSH SCH (10:50)
[2017-04-18] MEDS: MUPIROCIN 2% TOPICAL OINTMENT FOR DECOLONIZATION NS SCH ×2 (10:58→22:01)
[2017-04-18] MEDS ORDERED: VASOPRESSIN 20 UNITS/ML VIAL IV ONE (11:05)
[2017-04-18] MEDS ORDERED: VASOPRESSIN 50 UNITS in SODIUM CHLORIDE 97.5 ML IVPB SCH (11:15)
[2017-04-18] MEDS ORDERED: fentaNYL CITRATE 250 MCG/5 ML VIAL ONE ×2 (11:46→17:41)
[2017-04-18] MEDS: NOREPINEPHRINE BITARTRATE 8,000 MCG in DEXTROSE 5%-WATER - 492 ML IV SCH (11:57)
[2017-04-18] MEDS: ALBUTEROL SO4 2.5/IPRATROPIUM 0.5 INH SOL 3 ML VIAL.NEB. NEB SCH (12:00)
--- NOTE | 2017-04-18 12:09 | PN ---
Progress Note, Physician History of Present Illness: 31-year-old male history of asthma, cigarettes, obesity, presents in cardiac arrest. Patient was found down in front of his halal cart across the street from the hospital 10 minutes prior to arrival to the ED. On arrival to the emergency department, pt was getting chest compressions via the Bassam. Unknown rhythm in the field. An IO was placed in the right tibia for access. The pads were placed and the Bassam was removed to place the zoll pads. Initial rhythm was asystole. THe patient was intubated via Glidescope with direct visualization of 7.0 ET tube passing through the cords. Copious amounts of emesis was suctioned from the airway. Upon auscultation, pt had poor air movement, with diminished BS on the right and diffuse mild wheezing. CPR was continued immediately for approximately 30 min with multiple doses of epinephrine and bicarbonate. Patient was also given 1 dose of narcan, dexamethasone, magnesium, calcium, and dextrose. Multiple doses of albuterol were given through the ET tube. Bedside US during pulse checks with cardiac standstill and no sign of tamponade or large pericardial effusion. While initial rhythm was asystole, the rhythm became PEA then VFib for which the patient was defibrillated 3 times at 200 J btwn chest compressions. The patient was given 300 mg of amiodarone at that time. ROSC was obtained for 1-2 minutes where an EKG revealed atrial fibrillation with no ST elevations. The patient became bradycardic and lost his pulse again with initial rhythm asystole and then PEA and then ROSC was obtained after approximately another 20 minutes of CPR. Pt's rhythm is AF, rate of 107, BP of 110/70. Low dose levophed was started for support and quickly turned off with improvement in BP to 150s systolic. CXR with good ET tube placement. A sterile US guided IJ CVC was placed with good return of dark venous blood. Vanc/Zosyn/Azithro were ordered for PNA coverage. Given the pt's young age and possible resp arrest, Dr Tolentino discussed possible ecmo options with Dr Christensen from CT surgery at [facility], however given pt had ROSC for 20 mins at this point, and prolonged downtime, they stated he was not an ecmo candidate. PT was accepted to Dr. Mondragon for admission in our ICU. - Current Medication List Current Medications: Active Medications Albuterol/Ipratropium (Duoneb -) 1 amp NEB QIDR [facility] Last Admin: 04/17/17 23:02 Dose: 1 amp Atorvastatin Calcium (Lipitor -) 80 mg PO HS [facility] Last Admin: 04/17/17 22:39 Dose: 80 mg Chlorhexidine Gluconate (Hibiclens For Decolonization -) 1 applic TP HS [facility] Last Admin: 04/17/17 22:29 Dose: 1 applic Chlorhexidine Gluconate (Peridex -) 15 ml MM BID [facility] Last Admin: 04/18/17 10:50 Dose: 15 ml Epinephrine HCl 1,000 mcg/ (Dextrose) 250 mls @ 221.12 mls/hr IVPB ASDIR YOAV PRN Reason: 0.1 MCG/KG/MIN Last Admin: 04/17/17 18:43 Dose: Not Given Midazolam HCl 100 mg/ Sodium (Chloride) 100 mls @ 1 mls/hr IVPB TITR YOAV; 1 MG/ HR PRN Reason: Protocol Last Admin: 04/18/17 03:00 Dose: 8 mg/hr, 8 mls/hr Fentanyl 500 mcg/ Dextrose 100 mls @ 20 mls/hr IJ TITR YOAV PRN Reason: 100 MCG/HR Stop: 04/18/17 21:29 Last Admin: 04/18/17 11:30 Dose: 100 mcg/hr, 20 mls/hr Propofol (Diprivan -) 100 mls @ 8.845 mls/hr IVPB TITR YOAV; 10 MCG/KG/MIN PRN Reason: Protocol Last Admin: 04/18/17 10:50 Dose: 48.5 mcg/kg/min, 42.9 mls/hr Piperacillin/Tazobactam/Dextrose (Zosyn 4.5gm Ivpb (Premix)) 100 mls @ 200 mls/ hr IVPB Q8H-IV YOAV PRN Reason: Protocol Last Admin: 04/18/17 09:54 Dose: 200 mls/hr Pantoprazole Sodium 80 mg/ (Sodium Chloride) 100 mls @ 10 mls/hr IVPB Q10H YOAV PRN Reason: 8 MG/HR Last Admin: 04/18/17 10:03 Dose: 10 mls/hr Norepinephrine Bitartrate 8, (000 mcg/ Dextrose) 500 mls @ 18.75 mls/hr IV TITR YOAV; 5 MCG/MIN PRN Reason: Protocol Last Titration: 04/18/17 11:58 Dose: 10 mcg/min, 37.5 mls/hr Vasopressin 50 units/ Sodium (Chloride) 100 mls @ 4 mls/hr IVPB ASDIR YOAV; 2 UNITS/HR PRN Reason: Protocol Last Admin: 04/18/17 11:57 Dose: 2 units/hr, 4 mls/hr Insulin Aspart (Novolog Vial Sliding Scale -) 1 vial SQ ACHS YOAV PRN Reason: Protocol Last Admin: 04/18/17 11:00 Dose: 10 units Mupirocin (Bactroban Ointment (For Decolonization) -) 1 applic NS BID YOAV Stop: 04/22/17 21:59 Last Admin: 04/18/17 10:58 Dose: 1 applic Pantoprazole Sodium (Protonix Iv) 40 mg IVPUSH DAILY YOAV Last Admin: 04/18/17 10:50 Dose: Not Given - Objective Vital Signs: Vital Signs Temperature 95.1 F L 04/18/17 11:00 Pulse Rate 96 H 04/18/17 11:57 Respiratory Rate 32 H 04/18/17 11:00 Blood Pressure 70/45 04/18/17 11:57 O2 Sat by Pulse Oximetry (%) 99 04/18/17 10:00 Eyes: Yes: WNL, Conjunctiva Clear, EOM Intact HENT: Yes: WNL, Atraumatic, Normocephalic Neck: Yes: WNL, Supple, Trachea Midline Cardiovascular: Yes: WNL, Regular Rate and Rhythm Respiratory: Yes: Intubated, Mechanically Ventilated Gastrointestinal: Yes: WNL, Normal Bowel Sounds Genitourinary: Yes: WNL Musculoskeletal: Yes: WNL Extremities: Yes: WNL Edema: No Integumentary: Yes: WNL Neurological: Yes: Unresponsive ...Motor Strength: WNL Psychiatric: Yes: WNL Labs: CBC, BMP 04/18/17 07:20 04/18/17 07:20 INR, PTT INR 1.12 (0.82-1.09) 04/18/17 07:20 Laboratory Tests 04/17/17 04/17/17 04/17/17 19:40 19:40 19:40 WBC 29.6 H RBC 5.39 Hgb 15.5 Hct 47.1 MCV 87.3 MCH 28.8 MCHC 33.0 RDW 13.9 Plt Count 251 MPV 9.0 Total Counted 100 Neutrophils % No Result Required. Neutrophils % (Manual) 52 Band Neuts % (Manual) 10 Lymphocytes % No Result Required. Lymphocytes % (Manual) 26 Monocytes % (Manual) 2 L Eosinophils % (Manual) 1 Myelocytes % (Man) 3 H Smudge Cells Few Platelet Estimate Adequate Platelet Comment No clumping noted PT with INR 11.80 INR 1.04 PTT (Actin FS) 31.1 Anticoagulation Therapy Puncture Site Patient Temperature ABG pH ABG pCO2 at Pt Temp ABG pO2 at Pt Temp ABG HCO3 ABG O2 Sat (Measured) ABG O2 Content ABG Base Excess Avtar Test Carboxyhemoglobin Methemoglobin O2 Delivery Device Oxygen Flow Rate Vent Mode Vent Rate Mechanical Rate PEEP Pressure Support Vent Sodium 139 Potassium 4.1 Chloride 102 Carbon Dioxide 18 L Anion Gap 19 H BUN 15 Creatinine 1.7 H Creat Clearance w eGFR 46.94 POC Glucometer Random Glucose 352 H* Hemoglobin A1c % Lactic Acid Calcium 8.3 L Phosphorus Magnesium Total Bilirubin 1.1 H AST 247 H ALT 175 H Alkaline Phosphatase 169 H Creatine Kinase 1111 H Creatine Kinase Index 2.5 CK-MB (CK-2) 28.477 H Troponin I 3.48 H* C-Reactive Protein B-Natriuretic Peptide Total Protein 6.4 Albumin 3.4 Triglycerides Cholesterol Total LDL Cholesterol HDL Cholesterol Total Amylase Lipase TSH Urine Color Urine Appearance Urine pH Ur Specific [place] Urine Protein Urine Glucose (UA) Urine Ketones Urine Blood Urine Nitrite Urine Bilirubin Urine Urobilinogen Urine RBC Urine WBC Ur Epithelial Cells Urine Mucus Opiates Screen Methadone Screen Barbiturate Screen Phencyclidine Screen Ur Amphetamines Screen MDMA (Ecstasy) Screen Benzodiazepines Screen Cocaine Screen U Marijuana (THC) Screen 04/17/17 04/17/17 04/17/17 20:08 21:00 21:35 WBC RBC Hgb Hct MCV MCH MCHC RDW Plt Count MPV Total Counted Neutrophils % Neutrophils % (Manual) Band Neuts % (Manual) Lymphocytes % Lymphocytes % (Manual) Monocytes % (Manual) Eosinophils % (Manual) Myelocytes % (Man) Smudge Cells Platelet Estimate Platelet Comment PT with INR INR PTT (Actin FS) Anticoagulation Therapy Puncture Site Left radial Patient Temperature ABG pH 7.09 L* ABG pCO2 at Pt Temp 56.9 H ABG pO2 at Pt Temp 138.0 H ABG HCO3 16.6 L ABG O2 Sat (Measured) 97.6 ABG O2 Content 21.9 ABG Base Excess -14.3 L* Avtar Test Positive Carboxyhemoglobin 1.6 Methemoglobin 0.8 O2 Delivery Device Mech vent Oxygen Flow Rate 100 Vent Mode Hc Vent Rate 14 Mechanical Rate Yes PEEP 5.0 Pressure Support Vent 500 Sodium Potassium Chloride Carbon Dioxide Anion Gap BUN Creatinine Creat Clearance w eGFR POC Glucometer Random Glucose Hemoglobin A1c % Lactic Acid Calcium Phosphorus Magnesium Total Bilirubin AST ALT Alkaline Phosphatase Creatine Kinase Creatine Kinase Index CK-MB (CK-2) Troponin I C-Reactive Protein 1.4 H B-Natriuretic Peptide Total Protein Albumin Triglycerides Cholesterol Total LDL Cholesterol HDL Cholesterol Total Amylase Lipase TSH Urine Color Ltyellow Urine Appearance Slcloudy Urine pH 7.0 Ur Specific [place] 1.007 Urine Protein 2+ H Urine Glucose (UA) 3+ H Urine Ketones Negative Urine Blood 3+ H Urine Nitrite Negative Urine Bilirubin Negative Urine Urobilinogen Negative Urine RBC 10 Urine WBC 21 Ur Epithelial Cells Rare Urine Mucus Few Opiates Screen Methadone Screen Barbiturate Screen Phencyclidine Screen Ur Amphetamines Screen MDMA (Ecstasy) Screen Benzodiazepines Screen Cocaine Screen U Marijuana (THC) Screen 04/17/17 04/17/17 04/17/17 21:35 21:35 21:35 WBC RBC Hgb Hct MCV MCH MCHC RDW Plt Count MPV Total Counted Neutrophils % Neutrophils % (Manual) Band Neuts % (Manual) Lymphocytes % Lymphocytes % (Manual) Monocytes % (Manual) Eosinophils % (Manual) Myelocytes % (Man) Smudge Cells Platelet Estimate Platelet Comment PT with INR 12.50 H INR 1.11 PTT (Actin FS) 33.2 Anticoagulation Therapy Puncture Site Patient Temperature ABG pH ABG pCO2 at Pt Temp ABG pO2 at Pt Temp ABG HCO3 ABG O2 Sat (Measured) ABG O2 Content ABG Base Excess Avtar Test Carboxyhemoglobin Methemoglobin O2 Delivery Device Oxygen Flow Rate Vent Mode Vent Rate Mechanical Rate PEEP Pressure Support Vent Sodium Potassium Chloride Carbon Dioxide Anion Gap BUN Creatinine Creat Clearance w eGFR POC Glucometer Random Glucose Hemoglobin A1c % Lactic Acid 9.3 H* Calcium Phosphorus Magnesium Total Bilirubin AST ALT Alkaline Phosphatase Creatine Kinase Creatine Kinase Index CK-MB (CK-2) Troponin I C-Reactive Protein B-Natriuretic Peptide Total Protein Albumin Triglycerides Cholesterol Total LDL Cholesterol HDL Cholesterol Total Amylase 2462 H Lipase 198 TSH Urine Color Urine Appearance Urine pH Ur Specific [place] Urine Protein Urine Glucose (UA) Urine Ketones Urine Blood Urine Nitrite Urine Bilirubin Urine Urobilinogen Urine RBC Urine WBC Ur Epithelial Cells Urine Mucus Opiates Screen Methadone Screen Barbiturate Screen Phencyclidine Screen Ur Amphetamines Screen MDMA (Ecstasy) Screen Benzodiazepines Screen Cocaine Screen U Marijuana (THC) Screen 04/17/17 04/17/17 04/17/17 21:35 21:35 21:45 WBC RBC Hgb Hct MCV MCH MCHC RDW Plt Count MPV Total Counted Neutrophils % Neutrophils % (Manual) Band Neuts % (Manual) Lymphocytes % Lymphocytes % (Manual) Monocytes % (Manual) Eosinophils % (Manual) Myelocytes % (Man) Smudge Cells Platelet Estimate Platelet Comment PT with INR INR PTT (Actin FS) Anticoagulation Therapy Puncture Site Patient Temperature ABG pH ABG pCO2 at Pt Temp ABG pO2 at Pt Temp ABG HCO3 ABG O2 Sat (Measured) ABG O2 Content ABG Base Excess Avtar Test Carboxyhemoglobin Methemoglobin O2 Delivery Device Oxygen Flow Rate Vent Mode Vent Rate Mechanical Rate PEEP Pressure Support Vent Sodium Potassium Chloride Carbon Dioxide Anion Gap BUN Creatinine Creat Clearance w eGFR POC Glucometer Random Glucose Hemoglobin A1c % Lactic Acid Calcium Phosphorus Magnesium Total Bilirubin AST ALT Alkaline Phosphatase Creatine Kinase 2726 H Creatine Kinase Index 1.9 CK-MB (CK-2) 53.781 H Troponin I 5.59 H* D C-Reactive Protein B-Natriuretic Peptide Total Protein Albumin Triglycerides 162 H Cholesterol 207 H Total LDL Cholesterol 146 H HDL Cholesterol 37 L Total Amylase Lipase TSH Urine Color Urine Appearance Urine pH Ur Specific [place] Urine Protein Urine Glucose (UA) Urine Ketones Urine Blood Urine Nitrite Urine Bilirubin Urine Urobilinogen Urine RBC Urine WBC Ur Epithelial Cells Urine Mucus Opiates Screen Negative Methadone Screen Negative Barbiturate Screen Negative Phencyclidine Screen Negative Ur Amphetamines Screen Negative MDMA (Ecstasy) Screen Negative Benzodiazepines Screen Negative Cocaine Screen Negative U Marijuana (THC) Screen Negative 04/17/17 04/17/17 04/17/17 21:54 22:05 23:20 WBC RBC Hgb Hct MCV MCH MCHC RDW Plt Count MPV Total Counted Neutrophils % Neutrophils % (Manual) Band Neuts % (Manual) Lymphocytes % Lymphocytes % (Manual) Monocytes % (Manual) Eosinophils % (Manual) Myelocytes % (Man) Smudge Cells Platelet Estimate Platelet Comment PT with INR INR PTT (Actin FS) Anticoagulation Therapy Y Puncture Site Right brachial Patient Temperature ABG pH 7.22 L* ABG pCO2 at Pt Temp 35.2 D ABG pO2 at Pt Temp 85.3 D ABG HCO3 14.0 L* ABG O2 Sat (Measured) 95.0 ABG O2 Content 20.5 ABG Base Excess -12.8 L* Avtar Test Positive Carboxyhemoglobin Methemoglobin O2 Delivery Device Vent Oxygen Flow Rate 100% Vent Mode A/c Vent Rate 32 Mechanical Rate Yes PEEP 5.0 Pressure Support Vent 500 Sodium Potassium Chloride Carbon Dioxide Anion Gap BUN Creatinine Creat Clearance w eGFR POC Glucometer Random Glucose Hemoglobin A1c % Lactic Acid Calcium Phosphorus 7.7 H Magnesium 3.1 H Total Bilirubin AST ALT Alkaline Phosphatase Creatine Kinase Creatine Kinase Index CK-MB (CK-2) Troponin I C-Reactive Protein B-Natriuretic Peptide 88.48 Total Protein Albumin Triglycerides Cholesterol Total LDL Cholesterol HDL Cholesterol Total Amylase Lipase TSH Urine Color Urine Appearance Urine pH Ur Specific [place] Urine Protein Urine Glucose (UA) Urine Ketones Urine Blood Urine Nitrite Urine Bilirubin Urine Urobilinogen Urine RBC Urine WBC Ur Epithelial Cells Urine Mucus Opiates Screen Methadone Screen Barbiturate Screen Phencyclidine Screen Ur Amphetamines Screen MDMA (Ecstasy) Screen Benzodiazepines Screen Cocaine Screen U Marijuana (THC) Screen 04/17/17 04/18/17 04/18/17 23:20 07:20 07:20 WBC 25.0 H RBC 5.31 Hgb 15.2 Hct 46.4 MCV 87.4 MCH 28.5 MCHC 32.6 RDW 13.8 Plt Count 165 D MPV 9.5 Total Counted Neutrophils % No Result Required. Neutrophils % (Manual) Band Neuts % (Manual) Lymphocytes % No Result Required. Lymphocytes % (Manual) Monocytes % (Manual) Eosinophils % (Manual) Myelocytes % (Man) Smudge Cells Platelet Estimate Platelet Comment PT with INR 12.70 H INR 1.12 PTT (Actin FS) 28.2 Anticoagulation Therapy Puncture Site Patient Temperature ABG pH ABG pCO2 at Pt Temp ABG pO2 at Pt Temp ABG HCO3 ABG O2 Sat (Measured) ABG O2 Content ABG Base Excess Avtar Test Carboxyhemoglobin Methemoglobin O2 Delivery Device Oxygen Flow Rate Vent Mode Vent Rate Mechanical Rate PEEP Pressure Support Vent Sodium 140 Potassium 3.2 L D Chloride 100 Carbon Dioxide 15 L Anion Gap 25 H BUN 20 H D Creatinine 2.2 H D Creat Clearance w eGFR 34.86 POC Glucometer Random Glucose 405 H* Hemoglobin A1c % Lactic Acid Calcium 7.8 L Phosphorus Magnesium Total Bilirubin 2.0 H D AST 338 H D ALT 185 H Alkaline Phosphatase 155 H Creatine Kinase Creatine Kinase Index CK-MB (CK-2) Troponin I C-Reactive Protein B-Natriuretic Peptide Total Protein 5.9 L Albumin 3.3 L Triglycerides Cholesterol Total LDL Cholesterol HDL Cholesterol Total Amylase Lipase TSH Urine Color Urine Appearance Urine pH Ur Specific [place] Urine Protein Urine Glucose (UA) Urine Ketones Urine Blood Urine Nitrite Urine Bilirubin Urine Urobilinogen Urine RBC Urine WBC Ur Epithelial Cells Urine Mucus Opiates Screen Methadone Screen Barbiturate Screen Phencyclidine Screen Ur Amphetamines Screen MDMA (Ecstasy) Screen Benzodiazepines Screen Cocaine Screen U Marijuana (THC) Screen 04/18/17 04/18/17 04/18/17 07:20 07:20 07:34 WBC RBC Hgb Hct MCV MCH MCHC RDW Plt Count MPV Total Counted Neutrophils % Neutrophils % (Manual) Band Neuts % (Manual) Lymphocytes % Lymphocytes % (Manual) Monocytes % (Manual) Eosinophils % (Manual) Myelocytes % (Man) Smudge Cells Platelet Estimate Platelet Comment PT with INR INR PTT (Actin FS) Anticoagulation Therapy Puncture Site Left radial Patient Temperature 95.2 ABG pH 7.30 L ABG pCO2 at Pt Temp 27.6 L D ABG pO2 at Pt Temp 482.0 H* ABG HCO3 13.6 L* ABG O2 Sat (Measured) 99.9 H* ABG O2 Content 23.0 H ABG Base Excess -11.8 L* Avtar Test Positive Carboxyhemoglobin Methemoglobin O2 Delivery Device Mec vent Oxygen Flow Rate 100 Vent Mode A/c Vent Rate 32 Mechanical Rate Esprit PEEP 5.0 Pressure Support Vent 500 Sodium 139 Potassium 3.2 L Chloride 103 Carbon Dioxide 14 L Anion Gap 22 H BUN 24 H Creatinine 2.8 H D Creat Clearance w eGFR 26.39 POC Glucometer [phone] Random Glucose 420 H* Hemoglobin A1c % Lactic Acid Calcium 7.3 L Phosphorus 5.6 H D Magnesium 2.7 H Total Bilirubin 2.0 H AST 382 H ALT 185 H Alkaline Phosphatase 126 H Creatine Kinase 4647 H Creatine Kinase Index 2.5 CK-MB (CK-2) 118.788 H Troponin I 10.10 H* D C-Reactive Protein B-Natriuretic Peptide Total Protein 5.9 L Albumin 3.2 L Triglycerides Cholesterol Total LDL Cholesterol HDL Cholesterol Total Amylase 2469 H Lipase 204 TSH 0.33 L Urine Color Urine Appearance Urine pH Ur Specific [place] Urine Protein Urine Glucose (UA) Urine Ketones Urine Blood Urine Nitrite Urine Bilirubin Urine Urobilinogen Urine RBC Urine WBC Ur Epithelial Cells Urine Mucus Opiates Screen Methadone Screen Barbiturate Screen Phencyclidine Screen Ur Amphetamines Screen MDMA (Ecstasy) Screen Benzodiazepines Screen Cocaine Screen U Marijuana (THC) Screen 04/18/17 08:35 WBC RBC Hgb Hct MCV MCH MCHC RDW Plt Count MPV Total Counted Neutrophils % Neutrophils % (Manual) Band Neuts % (Manual) Lymphocytes % Lymphocytes % (Manual) Monocytes % (Manual) Eosinophils % (Manual) Myelocytes % (Man) Smudge Cells Platelet Estimate Platelet Comment PT with INR INR PTT (Actin FS) Anticoagulation Therapy Puncture Site Patient Temperature ABG pH ABG pCO2 at Pt Temp ABG pO2 at Pt Temp ABG HCO3 ABG O2 Sat (Measured) ABG O2 Content ABG Base Excess [place]tar Test Carboxyhemoglobin Methemoglobin O2 Delivery Device Oxygen Flow Rate Vent Mode Vent Rate Mechanical Rate PEEP Pressure Support Vent Sodium Potassium Chloride Carbon Dioxide Anion Gap BUN Creatinine Creat Clearance w eGFR POC Glucometer Random Glucose Hemoglobin A1c % 5.2 Lactic Acid Calcium Phosphorus Magnesium Total Bilirubin AST ALT Alkaline Phosphatase Creatine Kinase Creatine Kinase Index CK-MB (CK-2) Troponin I C-Reactive Protein B-Natriuretic Peptide Total Protein Albumin Triglycerides Cholesterol Total LDL Cholesterol HDL Cholesterol Total Amylase Lipase TSH Urine Color Urine Appearance Urine pH Ur Specific [place] Urine Protein Urine Glucose (UA) Urine Ketones Urine Blood Urine Nitrite Urine Bilirubin Urine Urobilinogen Urine RBC Urine WBC Ur Epithelial Cells Urine Mucus Opiates Screen Methadone Screen Barbiturate Screen Phencyclidine Screen Ur Amphetamines Screen MDMA (Ecstasy) Screen Benzodiazepines Screen Cocaine Screen U Marijuana (THC) Screen Problem List - Problems (1) Cardiorespiratory arrest Code(s): I46.9 - CARDIAC ARREST, CAUSE UNSPECIFIED (2) GI bleed Code(s): K92.2 - GASTROINTESTINAL HEMORRHAGE, UNSPECIFIED (3) LFT elevation Code(s): R79.89 - OTHER SPECIFIED ABNORMAL FINDINGS OF BLOOD CHEMISTRY (4) Leukocytosis Code(s): D72.829 - ELEVATED WHITE BLOOD CELL COUNT, UNSPECIFIED (5) Signs of return of spontaneous circulation Code(s): EJI1463 - (6) Troponin level elevated Code(s): R74.8 - ABNORMAL LEVELS OF OTHER SERUM ENZYMES (7) Allergic reaction Code(s): T78.40XA - ALLERGY, UNSPECIFIED, INITIAL ENCOUNTER Qualifiers: Encounter type: initial encounter Qualified Code(s): T78.40XA - Allergy, unspecified, initial encounter (8) Rash Code(s): R21 - RASH AND OTHER NONSPECIFIC SKIN ERUPTION Assessment/Plan s/p cardiorespiratory arrest prolong resuscitation elevated tni's septic huey ?aspiration PNA respiratory failure transient AF incomplete LBBB plan echo ICU supportive rx pressors abx mechanical ventilation neuro eval re extent of the brain damage due to prolonged resuscitation post cardiac arrest prognosis is poor cc time 37 min
[2017-04-18 12:43] LABS: TOTAL CELLS COUNTED 100
[2017-04-18 12:44] LABS: PLATELET ESTIMATE ADEQUATE (NORMAL)
[2017-04-18 12:55] LABS: FREE T4 1.21 ng/dl (0.76-1.16)
--- NOTE | 2017-04-18 14:02 | PN ---
Physical Exam: SUBJECTIVE: Patient seen and examined at bedside. Over past 24 hrs, pt hypothermic 92F, with hematuria seen via Brown, as well as elevated troponin. Troponin has reached 10 as of this AM. Will follow troponin trend. Currently resting, sedated with propofol, on vent. Family at bedside. Pt also on levophed and vaso pressors. Current vent settings: A/C RR 32, 500 TV, Fi02 100%, PEEP5 OBJECTIVE: Vital Signs Period Temp Pulse Resp BP Sys/Yeh Pulse Ox Last 24 Hr 92.7 F-95.1 F 91-120 12-38 0-174/0-115 60-100 GENERAL: The patient is vented and sedated, in no acute distress HEAD: Normal with no signs of trauma. EYES: dilated pupils, unable to assess EOM NECK: Trachea midline, full range of motion, supple. LUNGS: coarse breath sounds HEART: Regular rate and rhythm, S1, S2 without murmur, rub or gallop. ABDOMEN: Soft, nontender, nondistended, hypoactive BS EXTREMITIES: 2+ posterior tibial pulses, no edema. NEUROLOGICAL:difficult to assess as pt is sedated Laboratory Results - last 24 hr 04/17/17 04/17/17 04/17/17 19:40 19:40 19:40 WBC 29.6 H RBC 5.39 Hgb 15.5 Hct 47.1 MCV 87.3 MCH 28.8 MCHC 33.0 RDW 13.9 Plt Count 251 MPV 9.0 Total Counted 100 Neutrophils % No Result Required. Neutrophils % (Manual) 52 Band Neuts % (Manual) 10 Lymphocytes % No Result Required. Lymphocytes % (Manual) 26 Monocytes % (Manual) 2 L Eosinophils % (Manual) 1 Myelocytes % (Man) 3 H Smudge Cells Few Platelet Estimate Adequate Platelet Comment No clumping noted PT with INR 11.80 INR 1.04 PTT (Actin FS) 31.1 Anticoagulation Therapy Puncture Site Patient Temperature ABG pH ABG pCO2 at Pt Temp ABG pO2 at Pt Temp ABG HCO3 ABG O2 Sat (Measured) ABG O2 Content ABG Base Excess Avtar Test Carboxyhemoglobin Methemoglobin O2 Delivery Device Oxygen Flow Rate Vent Mode Vent Rate Mechanical Rate PEEP Pressure Support Vent Sodium 139 Potassium 4.1 Chloride 102 Carbon Dioxide 18 L Anion Gap 19 H BUN 15 Creatinine 1.7 H Creat Clearance w eGFR 46.94 POC Glucometer Random Glucose 352 H* Hemoglobin A1c % Lactic Acid Calcium 8.3 L Phosphorus Magnesium Total Bilirubin 1.1 H AST 247 H ALT 175 H Alkaline Phosphatase 169 H Creatine Kinase 1111 H Creatine Kinase Index 2.5 CK-MB (CK-2) 28.477 H Troponin I 3.48 H* C-Reactive Protein B-Natriuretic Peptide Total Protein 6.4 Albumin 3.4 Triglycerides Cholesterol Total LDL Cholesterol HDL Cholesterol Total Amylase Lipase TSH Free T4 Urine Color Urine Appearance Urine pH Ur Specific M[place]ie Urine Protein Urine Glucose (UA) Urine Ketones Urine Blood Urine Nitrite Urine Bilirubin Urine Urobilinogen Urine RBC Urine WBC Ur Epithelial Cells Urine Mucus Opiates Screen Methadone Screen Barbiturate Screen Phencyclidine Screen Ur Amphetamines Screen MDMA (Ecstasy) Screen Benzodiazepines Screen Cocaine Screen U Marijuana (THC) Screen 04/17/17 04/17/17 04/17/17 20:08 21:00 21:35 WBC RBC Hgb Hct MCV MCH MCHC RDW Plt Count MPV Total Counted Neutrophils % Neutrophils % (Manual) Band Neuts % (Manual) Lymphocytes % Lymphocytes % (Manual) Monocytes % (Manual) Eosinophils % (Manual) Myelocytes % (Man) Smudge Cells Platelet Estimate Platelet Comment PT with INR INR PTT (Actin FS) Anticoagulation Therapy Puncture Site Left radial Patient Temperature ABG pH 7.09 L* ABG pCO2 at Pt Temp 56.9 H ABG pO2 at Pt Temp 138.0 H ABG HCO3 16.6 L ABG O2 Sat (Measured) 97.6 ABG O2 Content 21.9 ABG Base Excess -14.3 L* Avtar Test Positive Carboxyhemoglobin 1.6 Methemoglobin 0.8 O2 Delivery Device Mech vent Oxygen Flow Rate 100 Vent Mode Hc Vent Rate 14 Mechanical Rate Yes PEEP 5.0 Pressure Support Vent 500 Sodium Potassium Chloride Carbon Dioxide Anion Gap BUN Creatinine Creat Clearance w eGFR POC Glucometer Random Glucose Hemoglobin A1c % Lactic Acid Calcium Phosphorus Magnesium Total Bilirubin AST ALT Alkaline Phosphatase Creatine Kinase Creatine Kinase Index CK-MB (CK-2) Troponin I C-Reactive Protein 1.4 H B-Natriuretic Peptide Total Protein Albumin Triglycerides Cholesterol Total LDL Cholesterol HDL Cholesterol Total Amylase Lipase TSH Free T4 Urine Color Ltyellow Urine Appearance Slcloudy Urine pH 7.0 Ur Specific Mousie 1.007 Urine Protein 2+ H Urine Glucose (UA) 3+ H Urine Ketones Negative Urine Blood 3+ H Urine Nitrite Negative Urine Bilirubin Negative Urine Urobilinogen Negative Urine RBC 10 Urine WBC 21 Ur Epithelial Cells Rare Urine Mucus Few Opiates Screen Methadone Screen Barbiturate Screen Phencyclidine Screen Ur Amphetamines Screen MDMA (Ecstasy) Screen Benzodiazepines Screen Cocaine Screen U Marijuana (THC) Screen 04/17/17 04/17/17 04/17/17 21:35 21:35 21:35 WBC RBC Hgb Hct MCV MCH MCHC RDW Plt Count MPV Total Counted Neutrophils % Neutrophils % (Manual) Band Neuts % (Manual) Lymphocytes % Lymphocytes % (Manual) Monocytes % (Manual) Eosinophils % (Manual) Myelocytes % (Man) Smudge Cells Platelet Estimate Platelet Comment PT with INR 12.50 H INR 1.11 PTT (Actin FS) 33.2 Anticoagulation Therapy Puncture Site Patient Temperature ABG pH ABG pCO2 at Pt Temp ABG pO2 at Pt Temp ABG HCO3 ABG O2 Sat (Measured) ABG O2 Content ABG Base Excess Avtar Test Carboxyhemoglobin Methemoglobin O2 Delivery Device Oxygen Flow Rate Vent Mode Vent Rate Mechanical Rate PEEP Pressure Support Vent Sodium Potassium Chloride Carbon Dioxide Anion Gap BUN Creatinine Creat Clearance w eGFR POC Glucometer Random Glucose Hemoglobin A1c % Lactic Acid 9.3 H* Calcium Phosphorus Magnesium Total Bilirubin AST ALT Alkaline Phosphatase Creatine Kinase Creatine Kinase Index CK-MB (CK-2) Troponin I C-Reactive Protein B-Natriuretic Peptide Total Protein Albumin Triglycerides Cholesterol Total LDL Cholesterol HDL Cholesterol Total Amylase 2462 H Lipase 198 TSH Free T4 Urine Color Urine Appearance Urine pH Ur Specific M[place]ie Urine Protein Urine Glucose (UA) Urine Ketones Urine Blood Urine Nitrite Urine Bilirubin Urine Urobilinogen Urine RBC Urine WBC Ur Epithelial Cells Urine Mucus Opiates Screen Methadone Screen Barbiturate Screen Phencyclidine Screen Ur Amphetamines Screen MDMA (Ecstasy) Screen Benzodiazepines Screen Cocaine Screen U Marijuana (THC) Screen 04/17/17 04/17/17 04/17/17 21:35 21:35 21:45 WBC RBC Hgb Hct MCV MCH MCHC RDW Plt Count MPV Total Counted Neutrophils % Neutrophils % (Manual) Band Neuts % (Manual) Lymphocytes % Lymphocytes % (Manual) Monocytes % (Manual) Eosinophils % (Manual) Myelocytes % (Man) Smudge Cells Platelet Estimate Platelet Comment PT with INR INR PTT (Actin FS) Anticoagulation Therapy Puncture Site Patient Temperature ABG pH ABG pCO2 at Pt Temp ABG pO2 at Pt Temp ABG HCO3 ABG O2 Sat (Measured) ABG O2 Content ABG Base Excess Avtar Test Carboxyhemoglobin Methemoglobin O2 Delivery Device Oxygen Flow Rate Vent Mode Vent Rate Mechanical Rate PEEP Pressure Support Vent Sodium Potassium Chloride Carbon Dioxide Anion Gap BUN Creatinine Creat Clearance w eGFR POC Glucometer Random Glucose Hemoglobin A1c % Lactic Acid Calcium Phosphorus Magnesium Total Bilirubin AST ALT Alkaline Phosphatase Creatine Kinase 2726 H Creatine Kinase Index 1.9 CK-MB (CK-2) 53.781 H Troponin I 5.59 H* D C-Reactive Protein B-Natriuretic Peptide Total Protein Albumin Triglycerides 162 H Cholesterol 207 H Total LDL Cholesterol 146 H HDL Cholesterol 37 L Total Amylase Lipase TSH Free T4 Urine Color Urine Appearance Urine pH Ur Specific [place] Urine Protein Urine Glucose (UA) Urine Ketones Urine Blood Urine Nitrite Urine Bilirubin Urine Urobilinogen Urine RBC Urine WBC Ur Epithelial Cells Urine Mucus Opiates Screen Negative Methadone Screen Negative Barbiturate Screen Negative Phencyclidine Screen Negative Ur Amphetamines Screen Negative MDMA (Ecstasy) Screen Negative Benzodiazepines Screen Negative Cocaine Screen Negative U Marijuana (THC) Screen Negative 04/17/17 04/17/17 04/17/17 21:54 22:05 23:20 WBC RBC Hgb Hct MCV MCH MCHC RDW Plt Count MPV Total Counted Neutrophils % Neutrophils % (Manual) Band Neuts % (Manual) Lymphocytes % Lymphocytes % (Manual) Monocytes % (Manual) Eosinophils % (Manual) Myelocytes % (Man) Smudge Cells Platelet Estimate Platelet Comment PT with INR INR PTT (Actin FS) Anticoagulation Therapy Y Puncture Site Right brachial Patient Temperature ABG pH 7.22 L* ABG pCO2 at Pt Temp 35.2 D ABG pO2 at Pt Temp 85.3 D ABG HCO3 14.0 L* ABG O2 Sat (Measured) 95.0 ABG O2 Content 20.5 ABG Base Excess -12.8 L* Avtar Test Positive Carboxyhemoglobin Methemoglobin O2 Delivery Device Vent Oxygen Flow Rate 100% Vent Mode A/c Vent Rate 32 Mechanical Rate Yes PEEP 5.0 Pressure Support Vent 500 Sodium Potassium Chloride Carbon Dioxide Anion Gap BUN Creatinine Creat Clearance w eGFR POC Glucometer Random Glucose Hemoglobin A1c % Lactic Acid Calcium Phosphorus 7.7 H Magnesium 3.1 H Total Bilirubin AST ALT Alkaline Phosphatase Creatine Kinase Creatine Kinase Index CK-MB (CK-2) Troponin I C-Reactive Protein B-Natriuretic Peptide 88.48 Total Protein Albumin Triglycerides Cholesterol Total LDL Cholesterol HDL Cholesterol Total Amylase Lipase TSH Free T4 Urine Color Urine Appearance Urine pH Ur Specific M[place]ie Urine Protein Urine Glucose (UA) Urine Ketones Urine Blood Urine Nitrite Urine Bilirubin Urine Urobilinogen Urine RBC Urine WBC Ur Epithelial Cells Urine Mucus Opiates Screen Methadone Screen Barbiturate Screen Phencyclidine Screen Ur Amphetamines Screen MDMA (Ecstasy) Screen Benzodiazepines Screen Cocaine Screen U Marijuana (THC) Screen 04/17/17 04/18/17 04/18/17 23:20 07:20 07:20 WBC 25.0 H RBC 5.31 Hgb 15.2 Hct 46.4 MCV 87.4 MCH 28.5 MCHC 32.6 RDW 13.8 Plt Count 165 D MPV 9.5 Total Counted 100 Neutrophils % No Result Required. Neutrophils % (Manual) 91 H* D Band Neuts % (Manual) 4 D Lymphocytes % No Result Required. Lymphocytes % (Manual) 3 L D Monocytes % (Manual) 2 L Eosinophils % (Manual) Myelocytes % (Man) Smudge Cells Platelet Estimate Adequate Platelet Comment PT with INR 12.70 H INR 1.12 PTT (Actin FS) 28.2 Anticoagulation Therapy Puncture Site Patient Temperature ABG pH ABG pCO2 at Pt Temp ABG pO2 at Pt Temp ABG HCO3 ABG O2 Sat (Measured) ABG O2 Content ABG Base Excess Avtar Test Carboxyhemoglobin Methemoglobin O2 Delivery Device Oxygen Flow Rate Vent Mode Vent Rate Mechanical Rate PEEP Pressure Support Vent Sodium 140 Potassium 3.2 L D Chloride 100 Carbon Dioxide 15 L Anion Gap 25 H BUN 20 H D Creatinine 2.2 H D Creat Clearance w eGFR 34.86 POC Glucometer Random Glucose 405 H* Hemoglobin A1c % Lactic Acid Calcium 7.8 L Phosphorus Magnesium Total Bilirubin 2.0 H D AST 338 H D ALT 185 H Alkaline Phosphatase 155 H Creatine Kinase Creatine Kinase Index CK-MB (CK-2) Troponin I C-Reactive Protein B-Natriuretic Peptide Total Protein 5.9 L Albumin 3.3 L Triglycerides Cholesterol Total LDL Cholesterol HDL Cholesterol Total Amylase Lipase TSH Free T4 Urine Color Urine Appearance Urine pH Ur Specific [place]ie Urine Protein Urine Glucose (UA) Urine Ketones Urine Blood Urine Nitrite Urine Bilirubin Urine Urobilinogen Urine RBC Urine WBC Ur Epithelial Cells Urine Mucus Opiates Screen Methadone Screen Barbiturate Screen Phencyclidine Screen Ur Amphetamines Screen MDMA (Ecstasy) Screen Benzodiazepines Screen Cocaine Screen U Marijuana (THC) Screen 04/18/17 04/18/17 04/18/17 07:20 07:20 07:34 WBC RBC Hgb Hct MCV MCH MCHC RDW Plt Count MPV Total Counted Neutrophils % Neutrophils % (Manual) Band Neuts % (Manual) Lymphocytes % Lymphocytes % (Manual) Monocytes % (Manual) Eosinophils % (Manual) Myelocytes % (Man) Smudge Cells Platelet Estimate Platelet Comment PT with INR INR PTT (Actin FS) Anticoagulation Therapy Puncture Site Left radial Patient Temperature 95.2 ABG pH 7.30 L ABG pCO2 at Pt Temp 27.6 L D ABG pO2 at Pt Temp 482.0 H* ABG HCO3 13.6 L* ABG O2 Sat (Measured) 99.9 H* ABG O2 Content 23.0 H ABG Base Excess -11.8 L* Avtar Test Positive Carboxyhemoglobin Methemoglobin O2 Delivery Device Mec vent Oxygen Flow Rate 100 Vent Mode A/c Vent Rate 32 Mechanical Rate Esprit PEEP 5.0 Pressure Support Vent 500 Sodium 139 Potassium 3.2 L Chloride 103 Carbon Dioxide 14 L Anion Gap 22 H BUN 24 H Creatinine 2.8 H D Creat Clearance w eGFR 26.39 POC Glucometer [phone] Random Glucose 420 H* Hemoglobin A1c % Lactic Acid Calcium 7.3 L Phosphorus 5.6 H D Magnesium 2.7 H Total Bilirubin 2.0 H AST 382 H ALT 185 H Alkaline Phosphatase 126 H Creatine Kinase 4647 H Creatine Kinase Index 2.5 CK-MB (CK-2) 118.788 H Troponin I 10.10 H* D C-Reactive Protein B-Natriuretic Peptide Total Protein 5.9 L Albumin 3.2 L Triglycerides Cholesterol Total LDL Cholesterol HDL Cholesterol Total Amylase 2469 H Lipase 204 TSH 0.33 L Free T4 1.21 H Urine Color Urine Appearance Urine pH Ur Specific [place] Urine Protein Urine Glucose (UA) Urine Ketones Urine Blood Urine Nitrite Urine Bilirubin Urine Urobilinogen Urine RBC Urine WBC Ur Epithelial Cells Urine Mucus Opiates Screen Methadone Screen Barbiturate Screen Phencyclidine Screen Ur Amphetamines Screen MDMA (Ecstasy) Screen Benzodiazepines Screen Cocaine Screen U Marijuana (THC) Screen 04/18/17 04/18/17 08:35 12:30 WBC RBC Hgb Hct MCV MCH MCHC RDW Plt Count MPV Total Counted Neutrophils % Neutrophils % (Manual) Band Neuts % (Manual) Lymphocytes % Lymphocytes % (Manual) Monocytes % (Manual) Eosinophils % (Manual) Myelocytes % (Man) Smudge Cells Platelet Estimate Platelet Comment PT with INR INR PTT (Actin FS) Anticoagulation Therapy Puncture Site Patient Temperature ABG pH ABG pCO2 at Pt Temp ABG pO2 at Pt Temp ABG HCO3 ABG O2 Sat (Measured) ABG O2 Content ABG Base Excess Avtar Test Carboxyhemoglobin Methemoglobin O2 Delivery Device Oxygen Flow Rate Vent Mode Vent Rate Mechanical Rate PEEP Pressure Support Vent Sodium Potassium Chloride Carbon Dioxide Anion Gap BUN Creatinine Creat Clearance w eGFR POC Glucometer > 400 Random Glucose Hemoglobin A1c % 5.2 Lactic Acid Calcium Phosphorus Magnesium Total Bilirubin AST ALT Alkaline Phosphatase Creatine Kinase Creatine Kinase Index CK-MB (CK-2) Troponin I C-Reactive Protein B-Natriuretic Peptide Total Protein Albumin Triglycerides Cholesterol Total LDL Cholesterol HDL Cholesterol Total Amylase Lipase TSH Free T4 Urine Color Urine Appearance Urine pH Ur Specific Mousie Urine Protein Urine Glucose (UA) Urine Ketones Urine Blood Urine Nitrite Urine Bilirubin Urine Urobilinogen Urine RBC Urine WBC Ur Epithelial Cells Urine Mucus Opiates Screen Methadone Screen Barbiturate Screen Phencyclidine Screen Ur Amphetamines Screen MDMA (Ecstasy) Screen Benzodiazepines Screen Cocaine Screen U Marijuana (THC) Screen Active Medications Generic Name Dose Route Start Last Admin Trade Name Freq PRN Reason Stop Dose Admin Albuterol/Ipratropium 1 amp 04/18/17 00:00 04/17/17 23:02 Duoneb - NEB 1 amp QIDR YOAV Administration Atorvastatin Calcium 80 mg 04/17/17 22:00 04/17/17 22:39 Lipitor - PO 80 mg HS YOAV Administration Chlorhexidine Gluconate 1 applic 04/17/17 22:00 04/17/17 22:29 Hibiclens For Decolonization - TP 1 applic HS YOAV Administration Chlorhexidine Gluconate 15 ml 04/17/17 22:45 04/18/17 10:50 Peridex - MM 15 ml BID YOAV Administration Epinephrine HCl 1,000 mcg/ 250 mls @ 221.12 mls/hr 04/17/17 18:15 04/17/17 18 :43 Dextrose IVPB Not Given ASDIR YOAV 0.1 MCG/KG/MIN Midazolam HCl 100 mg/ Sodium 100 mls @ 1 mls/hr 04/17/17 18:45 04/18/17 03:00 Chloride IVPB 8 mg/hr TITR YOAV 8 mls/hr Protocol Administration 1 MG/HR Fentanyl 500 mcg/ Dextrose 100 mls @ 20 mls/hr 04/17/17 21:30 04/18/17 11:30 IJ 04/18/17 21:29 100 mcg/hr TITR YOAV 20 mls/hr 100 MCG/HR Administration Propofol 100 mls @ 8.845 mls/hr 04/17/17 22:45 04/18/17 10:50 Diprivan - IVPB 48.5 mcg/kg/min TITR YOAV 42.9 mls/hr Protocol Administration 10 MCG/KG/MIN Piperacillin/Tazobactam/Dextrose 100 mls @ 200 mls/hr 04/18/17 02:00 09:54 Zosyn 4.5gm Ivpb (Premix) IVPB 200 mls/hr Q8H-IV YOAV Administration Protocol Pantoprazole Sodium 80 mg/ 100 mls @ 10 mls/hr 04/18/17 09:00 04/18/17 10:03 Sodium Chloride IVPB 10 mls/hr Q10H YOAV Administration 8 MG/HR Norepinephrine Bitartrate 8, 500 mls @ 18.75 mls/hr 04/18/17 11:15 04/18/17 11:58 000 mcg/ Dextrose IV 10 mcg/min TITR YOAV 37.5 mls/hr Protocol Titration 5 MCG/MIN Vasopressin 50 units/ Sodium 100 mls @ 4 mls/hr 04/18/17 11:15 04/18/17 11:57 Chloride IVPB 2 units/hr ASDIR YOAV 4 mls/hr Protocol Administration 2 UNITS/HR Insulin Aspart 1 vial 04/18/17 07:00 04/18/17 11:00 Novolog Vial Sliding Scale - SQ 10 units ACHS YOAV Administration Protocol Mupirocin 1 applic 04/17/17 22:00 04/18/17 10:58 Bactroban Ointment (For Decolonization) - NS 04/22/17 21:59 1 applic BID YOAV Administration Pantoprazole Sodium 40 mg 04/18/17 10:00 04/18/17 10:50 Protonix Iv IVPUSH Not Given DAILY YOAV ASSESSMENT/PLAN: 31 y/o M with Hx asthma, who presented to the ED in cardiac arrest. While pt was brought to the ED, compressions were being done. Pt then became asystolic, went into PEA, vfib and then was defibrillated three times. He then received amiodarone. Pulse was lost, and pt went back into asystole, PEA, before ROSC. Pt subsequently transferred to ICU for continued management. NEURO -sedated on propofol, on vent. Dilated pupils -Head CT w/o contrast: diffuse anoxic injury, transtentorial and tonsillar herniation, without evidence of ICH -followed by Dr. Monsalve -Once hypothermia protocol is complete, can d/c sedation -Will follow recs as per neuro CARDIO, s/p cardiac arrest -recent EKG: ST changes, QT prolongation -ECHO: cannot rule out MV vegetation -Continue to trend troponins until peak, last trop 10 -pt on levo and vaso pressors, goal MAP > 65 -Continue to monitor CVP, aim for 8-12 -Will f/u Lactate levels PULM -Will try to wean off vent as necessary -Fi02 decreased to 60% this afternoon -F/u ABG tomorrow r/o PE -F/u lower ext doppler ID -pt on vanc and zosyn (Today is Day1) ENDOCRINE -pt hyperglycemic, may be 2/2 to cardiac arrest. Will wait for HbA1c to determine -F/u HbA1c -F/u TSH, free t3, t4 RENAL -creatinine level rising -will follow UO, daily CMPs F/E/N -will follow electrolytes -once more stable, will decide dietary status Prophylaxis GI: protonix IV DVT: SCD's Disposition poor prognosis, continued ICU management. Visit type - Emergency Visit Emergency Visit: No - New Patient This patient is new to me today: Yes Date on this admission: 04/18/17 - Critical Care Critical Care patient: Yes Total Critical Care Time (in minutes): 42 Critical Care Statement: The care of this patient involved high complexity decision making to prevent further life threatening deterioration of the patient 's condition and/or to evaluate & treat vital organ system(s) failure or risk of failure.
--- NOTE | 2017-04-18 15:20 | PN ---
Teaching Attending Note Name of Resident: Iraida Henry ATTENDING PHYSICIAN STATEMENT I saw and evaluated the patient. I reviewed the resident's note and discussed the case with the resident. I agree with the resident's findings and plan as documented. SUBJECTIVE: Pt seen and examined in the ICU. Remains intubated, sedated. Started on levophed gtt. CT head showing evidence of anoxic encephalopathy and transtentorial and tonsillar herniation. OBJECTIVE: Last Vital Signs Temp Pulse Resp BP Pulse Ox 95.1 F L 98 H 32 H 112/61 60 L 04/18/17 14:00 04/18/17 14:00 04/18/17 14:00 04/18/17 14:00 04/18/17 10:00 Intake & Output 04/15/17 04/16/17 04/17/17 04/18/17 23:59 23:59 23:59 23:59 Intake Total 1800 Output Total 2200 600 Balance -2200 1200 Weight 315 lb 7.704 oz 315 lb 8 oz Gen: intubated, unresponsive Heart: RRR Lung: decreased breath sounds at the bases Abd: soft, nontender Ext: no edema CBC, BMP 04/18/17 07:20 04/18/17 07:20 Active Medications Albuterol/Ipratropium (Duoneb -) 1 amp NEB QIDR [facility] Last Admin: 04/17/17 23:02 Dose: 1 amp Atorvastatin Calcium (Lipitor -) 80 mg PO HS [facility] Last Admin: 04/17/17 22:39 Dose: 80 mg Chlorhexidine Gluconate (Hibiclens For Decolonization -) 1 applic TP HS [facility] Last Admin: 04/17/17 22:29 Dose: 1 applic Chlorhexidine Gluconate (Peridex -) 15 ml MM BID [facility] Last Admin: 04/18/17 10:50 Dose: 15 ml Epinephrine HCl 1,000 mcg/ (Dextrose) 250 mls @ 221.12 mls/hr IVPB ASDIR YOAV PRN Reason: 0.1 MCG/KG/MIN Last Admin: 04/17/17 18:43 Dose: Not Given Midazolam HCl 100 mg/ Sodium (Chloride) 100 mls @ 1 mls/hr IVPB TITR YOAV; 1 MG/ HR PRN Reason: Protocol Last Admin: 04/18/17 03:00 Dose: 8 mg/hr, 8 mls/hr Fentanyl 500 mcg/ Dextrose 100 mls @ 20 mls/hr IJ TITR YOAV PRN Reason: 100 MCG/HR Stop: 04/18/17 21:29 Last Admin: 04/18/17 11:30 Dose: 100 mcg/hr, 20 mls/hr Propofol (Diprivan -) 100 mls @ 8.845 mls/hr IVPB TITR YOAV; 10 MCG/KG/MIN PRN Reason: Protocol Last Admin: 04/18/17 10:50 Dose: 48.5 mcg/kg/min, 42.9 mls/hr Piperacillin/Tazobactam/Dextrose (Zosyn 4.5gm Ivpb (Premix)) 100 mls @ 200 mls/ hr IVPB Q8H-IV YOAV PRN Reason: Protocol Last Admin: 04/18/17 09:54 Dose: 200 mls/hr Pantoprazole Sodium 80 mg/ (Sodium Chloride) 100 mls @ 10 mls/hr IVPB Q10H YOAV PRN Reason: 8 MG/HR Last Admin: 04/18/17 10:03 Dose: 10 mls/hr Norepinephrine Bitartrate 8, (000 mcg/ Dextrose) 500 mls @ 18.75 mls/hr IV TITR YOAV; 5 MCG/MIN PRN Reason: Protocol Last Titration: 04/18/17 11:58 Dose: 10 mcg/min, 37.5 mls/hr Vasopressin 50 units/ Sodium (Chloride) 100 mls @ 4 mls/hr IVPB ASDIR YOAV; 2 UNITS/HR PRN Reason: Protocol Last Admin: 04/18/17 11:57 Dose: 2 units/hr, 4 mls/hr Insulin Aspart (Novolog Vial Sliding Scale -) 1 vial SQ ACHS YOAV PRN Reason: Protocol Last Admin: 04/18/17 11:00 Dose: 10 units Mupirocin (Bactroban Ointment (For Decolonization) -) 1 applic NS BID YOAV Stop: 04/22/17 21:59 Last Admin: 04/18/17 10:58 Dose: 1 applic Pantoprazole Sodium (Protonix Iv) 40 mg IVPUSH DAILY YOAV Last Admin: 04/18/17 10:50 Dose: Not Given ASSESSMENT AND PLAN: s/p Cardiopulmonary Arrest r/o Acute KS Anoxic Encephalopathy Septic vs Cardiogenic vs Neurogenic Shock Acute Kidney Injury Lactic Acidosis Elevated LFTs likely Ischemic Injury Hyperglycemia - complete hypothermic protocol - continue empiric antibiotics - f/u cultures - titrate pressors to maintain MAP >65 - replete lytes - trend cardiac enzymes - trend lactate, LFTs - hold sedation after hypothermia protocol complete to assess mental status - taper FiO2 to keep SpO2 >90% - DVT/GI prophylaxis - poor overall prognosis for meaningful recovery - continue ICU monitoring critical care time spent in reviewing chart, evaluating patient and formulating plan 45 min
--- NOTE | 2017-04-18 16:35 | EKG ---
Test Reason : Blood Pressure : / mmHG Vent. Rate : 097 BPM Atrial Rate : 097 BPM P-R Int : 154 ms QRS Dur : 100 ms QT Int : 444 ms P-R-T Axes : 068 064 047 degrees QTc Int : 563 ms NORMAL SINUS RHYTHM NONSPECIFIC ST ABNORMALITY PROLONGED QT ABNORMAL ECG WHEN COMPARED WITH ECG OF 17-APR-2017 20:55, T WAVE INVERSION NO LONGER EVIDENT IN INFERIOR LEADS Confirmed by PHILIP PINO, MACY ([id number]) on 04/18/2017 4:34:57 PM Referred By: ANTOLIN MCDONALD DR Confirmed By:MACY PALACIOS MD
[2017-04-18] MEDS: KCL 10 MEQ IVPB 10 MEQ/100 ML INFUS.BAG IVPB SCH ×3 (17:35→18:46)
[2017-04-18] MEDS: EPINEPHRINE 1:1,000 - 1,000 MCG in DEXTROSE 5%-WATER - 249 ML IVPB SCH (18:15)
--- NOTE | 2017-04-18 18:15 | PN ---
Progress Note (short form) - Note Progress Note: Gastric lavage performed by GI bedside. No evidence of upper GI bleed. Brown bag free of blood. Will resume ASA & Plavix at this time.
[2017-04-18 18:24] LABS: URINE LEUK ESTERASE Negative (NEGATIVE)
[2017-04-18] MEDS: ASPIRIN 81 MG CHEWABLE TABLETS NGT SCH (18:33)
[2017-04-18] MEDS: CLOPIDOGREL BISULFATE 75 MG TABLET (FP) NGT SCH (18:34)
[2017-04-18] MEDS ORDERED: HEPARIN NA (PORCINE) 5,000 UNITS/ML 1ML VIAL IVPUSH PRN (19:09)
--- NOTE | 2017-04-18 19:31 | CONSULT ---
Consult - text type - Consultation Consultation Note: NEUROLOGY CONSULTATION is greatly appreciated: Events reviewed and discussed with RNs and Resident staff. 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 Intubated in ER and pulse restored with CPR, etc. Last night was unresponsive but had rapid, shallow spontaneous respirations requiring sedation to assure ventilation. Still on Propofol, midazolam and fentanyl drips. 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 EXAM: No response to pain. No spontaneous respirations. Fixed dilated pupils. Corneals absent B/L No EOM's to Doll's head. Flaccid, areflexic tetraplegia. No response to pain IMP: No evidence of cerebral or brainstem function. SUGGEST: Taper and D/C fentanyl, propofol and midazolam. Consider cerebral Blood flow scan. Will reexamine when off sedatives. Thank you very much, Luis Monsalve MD
[2017-04-18] MEDS: CHLORHEXIDINE GLUCONATE 4% CLEANSER FOR DECOLONIZATION TP SCH (22:01)
[2017-04-18] MEDS: ATORVASTATIN CA 80 MG TABLET (FP) PO SCH (22:01)
[2017-04-18] MEDS: HEPARIN - 25,000 UNIT in SODIUM CHLORIDE 495 ML IV SCH (22:15)
[2017-04-19] MEDS ORDERED: NOREPINEPHRINE BITARTRATE 4 MG/4 ML ML IV ONE ×2 (00:09→16:58)
[2017-04-19] MEDS: ALBUTEROL SO4 2.5/IPRATROPIUM 0.5 INH SOL 3 ML VIAL.NEB. NEB SCH ×5 (00:16→23:03)
[2017-04-19] MEDS: PIPERACILLIN/TAZOB 4.5 GM 100 ML IVPB SCH ×3 (01:59→17:13)
[2017-04-19] MEDS: INSULIN SLIDING SCALE (NOVOLOG) 1 VIAL SQ SCH ×4 (06:28→23:37)
[2017-04-19] MEDS: PANTOPRAZOLE SODIUM 80 MG in SODIUM CHLORIDE 100 ML IVPB SCH (06:28)
[2017-04-19 06:46] LABS: BASOPHIL 0.2 % (0-2.0); MCH 29.1 pg (25.7-33.7); MCHC 35.5 g/dl (32.0-35.9); MEAN CELL VOLUME 82.1 fl (80-96); MEAN PLT VOLUME 9.1 fl (7.5-11.1); NEUTROPHILS 84.6 % (42.8-82.8); PLATELET COUNT 148 K/MM3 (134-434); RDW 13.5 % (11.9-15.9); WHITE BLOOD COUNT 22.3 K/mm3 (4.0-10.0)
[2017-04-19 07:10] LABS: ALBUMIN 2.6 g/dl (3.4-5.0); ANION GAP 16 (8-16); CALCIUM 7.5 mg/dL (8.5-10.1); CO2 17 mmol/L (21-32); CREATININE 4.3 mg/dL (0.7-1.3); GLUCOSE,RANDOM 82 mg/dL (74-106); SGOT/AST 152 U/L (15-37); SGPT/ALT 116 U/L (12-78)
[2017-04-19 07:11] LABS: ALK PHOS 85 U/L (45-117); BILIRUBIN,TOTAL 0.9 mg/dL (0.2-1.0)
[2017-04-19 08:00] LABS: ARTERIAL BLD GAS O2 SATURATION 99.5 % (90-98.9); ARTERIAL BLOOD GAS BASE EXCESS -6.2 meq/l (-2-2); ARTERIAL BLOOD GAS HCO3 16.1 meq/L (22-26); ARTERIAL BLOOD GAS pH 7.44 (7.35-7.45)
[2017-04-19 08:04] LABS: ALLENS TEST POSITIVE; ART PUNCT SITE LEFT BRACHIAL; LPM/O2% 60; PT. ON O2? YES; TYPE OF O2 VENT
[2017-04-19 08:05] LABS: MECH. VENT. YES; VENT RATE 32; VT/PRESS 500
[2017-04-19] MEDS ORDERED: PT OWN MED DRAWER 7, Y5N ONE ×3 (08:09→16:49)
[2017-04-19] MEDS: HEPARIN NA (PORCINE) 5,000 UNITS/ML 1ML VIAL IVPUSH PRN (08:11)
--- NOTE | 2017-04-19 08:58 | PN ---
Progress Note, Physician Chief Complaint: Pt is intubated; off sedation; unresponsive; fixed, dilated pupils. History of Present Illness: 31-year-old male history of asthma, cigarettes, obesity, presents in cardiac arrest. Patient was found down in front of his halal cart across the street from the hospital 10 minutes prior to arrival to the ED. On arrival to the emergency department, pt was getting chest compressions via the Bassam. Unknown rhythm in the field. An IO was placed in the right tibia for access. The pads were placed and the Bassam was removed to place the zoll pads. Initial rhythm was asystole. THe patient was intubated via Glidescope with direct visualization of 7.0 ET tube passing through the cords. Copious amounts of emesis was suctioned from the airway. Upon auscultation, pt had poor air movement, with diminished BS on the right and diffuse mild wheezing. CPR was continued immediately for approximately 30 min with multiple doses of epinephrine and bicarbonate. Patient was also given 1 dose of narcan, dexamethasone, magnesium, calcium, and dextrose. Multiple doses of albuterol were given through the ET tube. Bedside US during pulse checks with cardiac standstill and no sign of tamponade or large pericardial effusion. While initial rhythm was asystole, the rhythm became PEA then VFib for which the patient was defibrillated 3 times at 200 J btwn chest compressions. The patient was given 300 mg of amiodarone at that time. ROSC was obtained for 1-2 minutes where an EKG revealed atrial fibrillation with no ST elevations. The patient became bradycardic and lost his pulse again with initial rhythm asystole and then PEA and then ROSC was obtained after approximately another 20 minutes of CPR. Pt's rhythm is AF, rate of 107, BP of 110/70. Low dose levophed was started for support and quickly turned off with improvement in BP to 150s systolic. CXR with good ET tube placement. A sterile US guided IJ CVC was placed with good return of dark venous blood. Vanc/Zosyn/Azithro were ordered for PNA coverage. Given the pt's young age and possible resp arrest, Dr Tolentino discussed possible ecmo options with Dr Christensen from CT surgery at [facility], however given pt had ROSC for 20 mins at this point, and prolonged downtime, they stated he was not an ecmo candidate. PT was accepted to Dr. Mondragon for admission in our ICU. - Current Medication List Current Medications: Active Medications Albuterol/Ipratropium (Duoneb -) 1 amp NEB QIDR [facility] Last Admin: 04/19/17 06:16 Dose: 1 amp Aspirin (Asa -) 81 mg NGT DAILY [facility] Last Admin: 04/18/17 18:33 Dose: 81 mg Atorvastatin Calcium (Lipitor -) 80 mg PO HS [facility] Last Admin: 04/18/17 22:01 Dose: 80 mg Chlorhexidine Gluconate (Hibiclens For Decolonization -) 1 applic TP HS [facility] Last Admin: 04/18/17 22:01 Dose: 1 applic Chlorhexidine Gluconate (Peridex -) 15 ml MM BID [facility] Last Admin: 04/18/17 22:02 Dose: 15 ml Clopidogrel Bisulfate (Plavix -) 75 mg NGT DAILY [facility] Last Admin: 04/18/17 18:34 Dose: 75 mg Heparin Sodium (Porcine) (Heparin -) 1,000 unit IVPUSH PRN PRN PRN Reason: Heparin Heparin Sodium (Porcine) (Heparin -) 5,000 unit IVPUSH PRN PRN PRN Reason: Heparin Last Admin: 04/19/17 08:11 Dose: 5,000 unit Epinephrine HCl 1,000 mcg/ (Dextrose) 250 mls @ 221.12 mls/hr IVPB ASDIR YOAV PRN Reason: 0.1 MCG/KG/MIN Last Admin: 04/18/17 18:15 Dose: Not Given Piperacillin/Tazobactam/Dextrose (Zosyn 4.5gm Ivpb (Premix)) 100 mls @ 200 mls/ hr IVPB Q8H-IV YOAV PRN Reason: Protocol Last Admin: 04/19/17 01:59 Dose: 200 mls/hr Pantoprazole Sodium 80 mg/ (Sodium Chloride) 100 mls @ 10 mls/hr IVPB Q10H YOAV PRN Reason: 8 MG/HR Last Admin: 04/19/17 06:28 Dose: 10 mls/hr Norepinephrine Bitartrate 8, (000 mcg/ Dextrose) 500 mls @ 18.75 mls/hr IV TITR YOAV; 5 MCG/MIN PRN Reason: Protocol Last Titration: 04/19/17 07:01 Dose: 5 mcg/min, 18.75 mls/hr Vasopressin 50 units/ Sodium (Chloride) 100 mls @ 4 mls/hr IVPB ASDIR YOAV; 2 UNITS/HR PRN Reason: Protocol Last Titration: 04/19/17 03:39 Dose: 0 units/hr, 0 mls/hr Heparin Sodium (Porcine) 25, (000 unit/ Sodium Chloride) 500 mls @ 20 mls/hr IV TITR YOAV; 1,000 UNIT/HR PRN Reason: Protocol Last Titration: 04/19/17 08:05 Dose: 1,150 unit/hr, 23 mls/hr Insulin Aspart (Novolog Vial Sliding Scale -) 1 vial SQ ACHS YOAV PRN Reason: Protocol Last Admin: 04/19/17 06:28 Dose: Not Given Mupirocin (Bactroban Ointment (For Decolonization) -) 1 applic NS BID YOAV Stop: 04/22/17 21:59 Last Admin: 04/18/17 22:01 Dose: 1 applic Pantoprazole Sodium (Protonix Iv) 40 mg IVPUSH DAILY [facility] Last Admin: 04/18/17 10:50 Dose: Not Given - Objective Vital Signs: Vital Signs Temperature 98.7 F 04/19/17 06:00 Pulse Rate 109 H 04/19/17 08:00 Respiratory Rate 20 04/19/17 08:00 Blood Pressure 101/52 04/19/17 08:00 O2 Sat by Pulse Oximetry (%) 100 04/18/17 21:00 Labs: CBC, BMP 04/19/17 06:10 04/19/17 06:10 INR, PTT INR 1.12 (0.82-1.09) 04/18/17 07:20 Problem List - Problems (1) Rash Code(s): R21 - RASH AND OTHER NONSPECIFIC SKIN ERUPTION (2) Leukocytosis Code(s): D72.829 - ELEVATED WHITE BLOOD CELL COUNT, UNSPECIFIED (3) Cardiorespiratory arrest Assessment/Plan: On norepinephrine for pressure support. TNi increased to >10; elevated CK, with low relative index. Treat as NSTEMI ( regional wall motion abonrmalities on EKG; preserved LVEF). Pt may also have had VT arrest; ?hx prolonged QT syndrome. On ASA, clopidogrel; on high dose atorvastation. Telemetry: NSR; periods of sinus tachycardia. EKG: NSR; prolonged QT. Replete K+; keep 4-4.5; Mg and PO4 are WNL. CXR: no acute pathology. Mildly elevated free T4. If pt develops VT, can start amiodarone. Code(s): I46.9 - CARDIAC ARREST, CAUSE UNSPECIFIED (4) H/O prolonged Q-T interval on ECG Assessment/Plan: Pt's gave hx of pt c/o feeling bad earlier this summer while seted, then losing consciousness for about a minute.He was seen at an ER at that time. EKGs this admission show prolonged QT. It is possible pt has prolonged QT syndrome, with VT as etiology of syncopal attacks resulting in this unfortunate outcome. Code(s): Z87.898 - PERSONAL HISTORY OF OTHER SPECIFIED CONDITIONS (5) Brain Assessment/Plan: Prestent status was explained to by neurologist. Code(s): G93.82 - BRAIN (6) Smokes cigarettes Code(s): F17.210 - NICOTINE DEPENDENCE, CIGARETTES, UNCOMPLICATED (7) Hyperlipidemia Code(s): E78.5 - HYPERLIPIDEMIA, UNSPECIFIED (8) Obesity Code(s): E66.9 - OBESITY, UNSPECIFIED Assessment/Plan cc time spent: 50 minutes
--- NOTE | 2017-04-19 10:02 | PN ---
Progress Note (short form) - Note Progress Note: NEUROLOGY FOLLOW-UP: Events reviewed and discussed with Dr. Watts and ICU staff. Pt examined in presence of his and case discussed. No off all sedation. EXAM: No spontaneous respirations. No response to pain Pupils fixed and dilated. Absent corneals. No EOM's to doll's head Flaccid, areflexic tetraplegia No withdrawal to pain. IMP: No evidence of cerebral or brainstem function. No off sedation. SUGGEST: Begin brain protocol. Have pulmonary/ hadoop engineer perform apnea testing. Cerebral blood flow scan (confirmatory testing requested by the family). Thank you very much, Luis Monsalve MD
--- NOTE | 2017-04-19 10:02 | PN ---
Physical Exam: SUBJECTIVE: Patient seen and examined at bedside. 24 hr events -night staff tried to decrease levo dose, but systolic BP went into 80s, so put back on levo -heparin protocol started, as no sign of active bleed -Tmin 94.6F at midnight Today -off sedation, however pt unresponsive -intubated, on vent settings A/C: 32/500/60%/5 -CBF study unofficial report: no flow -IO access removed from RLE -updated family on current situation, they have not made a decision yet concerning GOC OBJECTIVE: Vital Signs Period Temp Pulse Resp BP Sys/Yeh Pulse Ox Last 24 Hr 94.6 F-98.7 F 91-112 12-32 70-138/38-98 60-100 GENERAL: The patient is unresponsive, intubated. Family at bedside HEAD: Normal with no signs of trauma. EYES: pupils not reactive to light, fixed and dilated ENT: serous fluid from nares NECK: Trachea midline, supple. LUNGS: rhonchi appreciated b/l HEART: tachycardic rate and rhythm, S1, S2 without murmur, rub or gallop. ABDOMEN: Soft, obese, nontender, normoactive bowel sounds EXTREMITIES: 2+ dorsalis pedis pulses, 1+ pitting edema b/l NEUROLOGICAL: unable to assess, pt unresponsive to verbal stimuli Laboratory Results - last 24 hr 04/17/17 04/18/17 04/18/17 21:00 07:20 07:20 WBC RBC Hgb Hct MCV MCH MCHC RDW Plt Count MPV Total Counted 100 Neutrophils % (Manual) 91 H* D Band Neuts % (Manual) 4 D Lymphocytes % (Manual) 3 L D Neutrophils % Monocytes % (Manual) 2 L Lymphocytes % Monocytes % Eosinophils % Basophils % Platelet Estimate Adequate PTT (Actin FS) Puncture Site ABG pH ABG pCO2 at Pt Temp ABG pO2 at Pt Temp ABG HCO3 ABG O2 Sat (Measured) ABG O2 Content ABG Base Excess Avtar Test O2 Delivery Device Oxygen Flow Rate Vent Mode Vent Rate Mechanical Rate PEEP Pressure Support Vent Sodium 139 Potassium 3.2 L Chloride 103 Carbon Dioxide 14 L Anion Gap 22 H BUN 24 H Creatinine 2.8 H D Creat Clearance w eGFR 26.39 POC Glucometer Random Glucose 420 H* Hemoglobin A1c % Calcium 7.3 L Phosphorus 5.6 H D Magnesium 2.7 H Total Bilirubin 2.0 H AST 382 H ALT 185 H Alkaline Phosphatase 126 H Creatine Kinase 4647 H Creatine Kinase Index 2.5 CK-MB (CK-2) 118.788 H Troponin I 10.10 H* D Total Protein 5.9 L Albumin 3.2 L Total Amylase 2469 H Lipase 204 TSH 0.33 L Free T4 1.21 H Free T3 Ur Leukocyte Esterase Negative 04/18/17 04/18/17 04/18/17 07:34 08:35 12:30 WBC RBC Hgb Hct MCV MCH MCHC RDW Plt Count MPV Total Counted Neutrophils % (Manual) Band Neuts % (Manual) Lymphocytes % (Manual) Neutrophils % Monocytes % (Manual) Lymphocytes % Monocytes % Eosinophils % Basophils % Platelet Estimate PTT (Actin FS) Puncture Site ABG pH ABG pCO2 at Pt Temp ABG pO2 at Pt Temp ABG HCO3 ABG O2 Sat (Measured) ABG O2 Content ABG Base Excess Avtar Test O2 Delivery Device Oxygen Flow Rate Vent Mode Vent Rate Mechanical Rate PEEP Pressure Support Vent Sodium Potassium Chloride Carbon Dioxide Anion Gap BUN Creatinine Creat Clearance w eGFR POC Glucometer 397.16605 > 400 Random Glucose Hemoglobin A1c % 5.2 Calcium Phosphorus Magnesium Total Bilirubin AST ALT Alkaline Phosphatase Creatine Kinase Creatine Kinase Index CK-MB (CK-2) Troponin I Total Protein Albumin Total Amylase Lipase TSH Free T4 Free T3 Ur Leukocyte Esterase 04/18/17 04/18/17 04/18/17 14:50 14:50 16:23 WBC RBC Hgb Hct MCV MCH MCHC RDW Plt Count MPV Total Counted Neutrophils % (Manual) Band Neuts % (Manual) Lymphocytes % (Manual) Neutrophils % Monocytes % (Manual) Lymphocytes % Monocytes % Eosinophils % Basophils % Platelet Estimate PTT (Actin FS) Puncture Site ABG pH ABG pCO2 at Pt Temp ABG pO2 at Pt Temp ABG HCO3 ABG O2 Sat (Measured) ABG O2 Content ABG Base Excess Avtar Test O2 Delivery Device Oxygen Flow Rate Vent Mode Vent Rate Mechanical Rate PEEP Pressure Support Vent Sodium Potassium Chloride Carbon Dioxide Anion Gap BUN Creatinine Creat Clearance w eGFR POC Glucometer [phone] Random Glucose Hemoglobin A1c % Calcium Phosphorus Magnesium Total Bilirubin AST ALT Alkaline Phosphatase Creatine Kinase Creatine Kinase Index CK-MB (CK-2) Troponin I 10.40 H* Total Protein Albumin Total Amylase Lipase TSH Free T4 Free T3 2.4 Ur Leukocyte Esterase 04/18/17 04/18/1704/19/17 18:30 22:14 02:00 WBC RBC Hgb Hct MCV MCH MCHC RDW Plt Count MPV Total Counted Neutrophils % (Manual) Band Neuts % (Manual) Lymphocytes % (Manual) Neutrophils % Monocytes % (Manual) Lymphocytes % Monocytes % Eosinophils % Basophils % Platelet Estimate PTT (Actin FS) Puncture Site ABG pH ABG pCO2 at Pt Temp ABG pO2 at Pt Temp ABG HCO3 ABG O2 Sat (Measured) ABG O2 Content ABG Base Excess Avtar Test O2 Delivery Device Oxygen Flow Rate Vent Mode Vent Rate Mechanical Rate PEEP Pressure Support Vent Sodium Potassium Chloride Carbon Dioxide Anion Gap BUN Creatinine Creat Clearance w eGFR POC Glucometer 178.87174 Random Glucose Hemoglobin A1c % Calcium Phosphorus Magnesium Total Bilirubin AST ALT Alkaline Phosphatase Creatine Kinase Creatine Kinase Index CK-MB (CK-2) Troponin I 10.50 H* 9.30 H* Total Protein Albumin Total Amylase Lipase TSH Free T4 Free T3 Ur Leukocyte Esterase 04/19/17 04/19/17 04/19/17 06:10 06:10 06:10 WBC 22.3 H RBC 4.54 Hgb 13.2 D Hct 37.3 D MCV 82.1 MCH 29.1 MCHC 35.5 RDW 13.5 Plt Count 148 MPV 9.1 Total Counted Neutrophils % (Manual) Band Neuts % (Manual) Lymphocytes % (Manual) Neutrophils % 84.6 H Monocytes % (Manual) Lymphocytes % 8.2 Monocytes % 7.0 Eosinophils % 0.0 Basophils % 0.2 Platelet Estimate PTT (Actin FS) 33.5 Puncture Site ABG pH ABG pCO2 at Pt Temp ABG pO2 at Pt Temp ABG HCO3 ABG O2 Sat (Measured) ABG O2 Content ABG Base Excess Avtar Test O2 Delivery Device Oxygen Flow Rate Vent Mode Vent Rate Mechanical Rate PEEP Pressure Support Vent Sodium 141 Potassium 3.5 Chloride 108 H Carbon Dioxide 17 L D Anion Gap 16 BUN 43 H D Creatinine 4.3 H D Creat Clearance w eGFR 16.09 POC Glucometer Random Glucose 82 D Hemoglobin A1c % Calcium 7.5 L Phosphorus Magnesium Total Bilirubin 0.9 D AST 152 H D ALT 116 H D Alkaline Phosphatase 85 D Creatine Kinase Creatine Kinase Index CK-MB (CK-2) Troponin I Total Protein 5.0 L Albumin 2.6 L Total Amylase Lipase TSH Free T4 Free T3 Ur Leukocyte Esterase 04/19/17 04/19/17 06:26 07:10 WBC RBC Hgb Hct MCV MCH MCHC RDW Plt Count MPV Total Counted Neutrophils % (Manual) Band Neuts % (Manual) Lymphocytes % (Manual) Neutrophils % Monocytes % (Manual) Lymphocytes % Monocytes % Eosinophils % Basophils % Platelet Estimate PTT (Actin FS) Puncture Site Left brachial ABG pH 7.44 ABG pCO2 at Pt Temp 24.1 L ABG pO2 at Pt Temp 158.0 H* ABG HCO3 16.1 L ABG O2 Sat (Measured) 99.5 H ABG O2 Content 18.3 ABG Base Excess -6.2 L Avtar Test Positive O2 Delivery Device Vent Oxygen Flow Rate 60 Vent Mode A/c Vent Rate 32 Mechanical Rate Yes PEEP 5.0 Pressure Support Vent 500 Sodium Potassium Chloride Carbon Dioxide Anion Gap BUN Creatinine Creat Clearance w eGFR POC Glucometer 81.58534 Random Glucose Hemoglobin A1c % Calcium Phosphorus Magnesium Total Bilirubin AST ALT Alkaline Phosphatase Creatine Kinase Creatine Kinase Index CK-MB (CK-2) Troponin I Total Protein Albumin Total Amylase Lipase TSH Free T4 Free T3 Ur Leukocyte Esterase Active Medications Generic Name Dose Route Start Last Admin Trade Name Freq PRN Reason Stop Dose Admin Albuterol/Ipratropium 1 amp 04/18/17 00:00 04/19/17 06:16 Duoneb - NEB 1 amp QIDR YOAV Administration Aspirin 81 mg 04/18/17 18:15 04/18/17 18:33 Asa - NGT 81 mg DAILY YOAV Administration Atorvastatin Calcium 80 mg 04/17/17 22:00 04/18/17 22:01 Lipitor - PO 80 mg HS YOAV Administration Chlorhexidine Gluconate 1 applic 04/17/17 22:00 04/18/17 22:01 Hibiclens For Decolonization - TP 1 applic HS YOAV Administration Chlorhexidine Gluconate 15 ml 04/17/17 22:45 04/18/17 22:02 Peridex - MM 15 ml BID YOAV Administration Clopidogrel Bisulfate 75 mg 04/18/17 18:15 04/18/17 18:34 Plavix - NGT 75 mg DAILY YOAV Administration Heparin Sodium (Porcine) 1,000 unit 04/18/17 19:09 Heparin - IVPUSH PRN PRN Heparin Heparin Sodium (Porcine) 5,000 unit 04/18/17 19:09 04/19/17 08:11 Heparin - IVPUSH 5,000 unit PRN PRN Administration Heparin Epinephrine HCl 1,000 mcg/ 250 mls @ 221.12 mls/hr 04/17/17 18:15 04/18/17 18 :15 Dextrose IVPB Not Given ASDIR YOAV 0.1 MCG/KG/MIN Piperacillin/Tazobactam/Dextrose 100 mls @ 200 mls/hr 04/18/17 02:00 01:59 Zosyn 4.5gm Ivpb (Premix) IVPB 200 mls/hr Q8H-IV YOAV Administration Protocol Pantoprazole Sodium 80 mg/ 100 mls @ 10 mls/hr 04/18/17 09:00 04/19/17 06:28 Sodium Chloride IVPB 10 mls/hr Q10H YOAV Administration 8 MG/HR Norepinephrine Bitartrate 8, 500 mls @ 18.75 mls/hr 04/18/17 11:15 04/19/17 07:01 000 mcg/ Dextrose IV 5 mcg/min TITR YOAV 18.75 mls/hr Protocol Titration 5 MCG/MIN Vasopressin 50 units/ Sodium 100 mls @ 4 mls/hr 04/18/17 11:15 04/19/17 03:39 Chloride IVPB 0 units/hr ASDIR YOAV 0 mls/hr Protocol Titration 2 UNITS/HR Heparin Sodium (Porcine) 25, 500 mls @ 20 mls/hr 04/18/17 19:15 04/19/17 08: 05 000 unit/ Sodium Chloride IV 1,150 unit/hr TITR YOAV 23 mls/hr Protocol Titration 1,000 UNIT/HR Insulin Aspart 1 vial 04/18/17 07:00 04/19/17 06:28 Novolog Vial Sliding Scale - SQ Not Given ACHS YOAV Protocol Mupirocin 1 applic 04/17/17 22:00 04/18/17 22:01 Bactroban Ointment (For Decolonization) - NS 04/22/17 21:59 1 applic BID YOAV Administration Pantoprazole Sodium 40 mg 04/18/17 10:00 04/18/17 10:50 Protonix Iv IVPUSH Not Given DAILY YOAV ASSESSMENT/PLAN: 31 y/o M with Hx asthma, who presented to the ED in cardiac arrest. While pt was brought to the ED, compressions were being done. Pt then became asystolic, went into PEA, vfib and then was defibrillated three times. He then received amiodarone. Pulse was lost, and pt went back into asystole, PEA, before ROSC. Pt subsequently transferred to ICU for continued management. NEURO -off sedation, however pt unresponsive. still intubated, vented -Head CT w/o contrast: diffuse anoxic injury, transtentorial and tonsillar herniation, without evidence of ICH -followed by Dr. Monsalve -hypothermia protocol is complete -unofficial CBF results: no flow CARDIO, s/p cardiac arrest -recent EKG: ST changes, QT prolongation -ECHO: cannot rule out MV vegetation -trops peaked at 10.5 (11/8, at 6pm) -pt on levo, goal MAP > 65 -Continue to monitor CVP, aim for 8-12 -will f/u lactate levels PULM -Will try to wean off vent as necessary -F/u ABG tomorrow r/o PE -negative for DVT ID -pt on vanc and zosyn (Today is Day2) -cx negative ENDOCRINE -pt hyperglycemic, may be 2/2 to cardiac arrest. Will wait for HbA1c to determine -F/u HbA1c -F/u TSH, t3 -free t4: 1.21 RENAL -creatinine level rising -will follow UO, daily CMPs F/E/N -will follow electrolytes -once more stable, will decide dietary status Prophylaxis GI: protonix IV DVT: SCD's Disposition poor prognosis, continued ICU management. Visit type - Emergency Visit Emergency Visit: No - New Patient This patient is new to me today: No - Critical Care Critical Care patient: Yes Total Critical Care Time (in minutes): 42 Critical Care Statement: The care of this patient involved high complexity decision making to prevent further life threatening deterioration of the patient 's condition and/or to evaluate & treat vital organ system(s) failure or risk of failure.
--- NOTE | 2017-04-19 10:42 | PN ---
Progress Note, Physician Chief Complaint: patient seen and examined in the ICU off sedation - Current Medication List Current Medications: Active Medications Albuterol/Ipratropium (Duoneb -) 1 amp NEB QIDR [facility] Last Admin: 04/19/17 06:16 Dose: 1 amp Aspirin (Asa -) 81 mg NGT DAILY [facility] Last Admin: 04/18/17 18:33 Dose: 81 mg Atorvastatin Calcium (Lipitor -) 80 mg PO HS [facility] Last Admin: 04/18/17 22:01 Dose: 80 mg Chlorhexidine Gluconate (Hibiclens For Decolonization -) 1 applic TP HS [facility] Last Admin: 04/18/17 22:01 Dose: 1 applic Chlorhexidine Gluconate (Peridex -) 15 ml MM BID [facility] Last Admin: 04/18/17 22:02 Dose: 15 ml Clopidogrel Bisulfate (Plavix -) 75 mg NGT DAILY [facility] Last Admin: 04/18/17 18:34 Dose: 75 mg Heparin Sodium (Porcine) (Heparin -) 1,000 unit IVPUSH PRN PRN PRN Reason: Heparin Heparin Sodium (Porcine) (Heparin -) 5,000 unit IVPUSH PRN PRN PRN Reason: Heparin Last Admin: 04/19/17 08:11 Dose: 5,000 unit Epinephrine HCl 1,000 mcg/ (Dextrose) 250 mls @ 221.12 mls/hr IVPB ASDIR YOAV PRN Reason: 0.1 MCG/KG/MIN Last Admin: 04/18/17 18:15 Dose: Not Given Piperacillin/Tazobactam/Dextrose (Zosyn 4.5gm Ivpb (Premix)) 100 mls @ 200 mls/ hr IVPB Q8H-IV YOAV PRN Reason: Protocol Last Admin: 04/19/17 01:59 Dose: 200 mls/hr Pantoprazole Sodium 80 mg/ (Sodium Chloride) 100 mls @ 10 mls/hr IVPB Q10H YOAV PRN Reason: 8 MG/HR Last Admin: 04/19/17 06:28 Dose: 10 mls/hr Norepinephrine Bitartrate 8, (000 mcg/ Dextrose) 500 mls @ 18.75 mls/hr IV TITR YOAV; 5 MCG/MIN PRN Reason: Protocol Last Titration: 04/19/17 07:01 Dose: 5 mcg/min, 18.75 mls/hr Vasopressin 50 units/ Sodium (Chloride) 100 mls @ 4 mls/hr IVPB ASDIR YOAV; 2 UNITS/HR PRN Reason: Protocol Last Titration: 04/19/17 03:39 Dose: 0 units/hr, 0 mls/hr Heparin Sodium (Porcine) 25, (000 unit/ Sodium Chloride) 500 mls @ 20 mls/hr IV TITR YOAV; 1,000 UNIT/HR PRN Reason: Protocol Last Titration: 04/19/17 08:05 Dose: 1,150 unit/hr, 23 mls/hr Insulin Aspart (Novolog Vial Sliding Scale -) 1 vial SQ ACHS YOAV PRN Reason: Protocol Last Admin: 04/19/17 06:28 Dose: Not Given Mupirocin (Bactroban Ointment (For Decolonization) -) 1 applic NS BID YOAV Stop: 04/22/17 21:59 Last Admin: 04/18/17 22:01 Dose: 1 applic Pantoprazole Sodium (Protonix Iv) 40 mg IVPUSH DAILY [facility] Last Admin: 04/18/17 10:50 Dose: Not Given - Objective Vital Signs: Vital Signs Temperature 98.7 F 04/19/17 06:00 Pulse Rate 109 H 04/19/17 08:00 Respiratory Rate 20 04/19/17 08:00 Blood Pressure 101/52 04/19/17 08:00 O2 Sat by Pulse Oximetry (%) 100 04/18/17 21:00 Constitutional: Yes: Calm Cardiovascular: Yes: Regular Rate and Rhythm, S1 Respiratory: Yes: Mechanically Ventilated Gastrointestinal: Yes: Normal Bowel Sounds, Soft Edema: No Neurological: Yes: Other (pupils fixed dilated no withdrawal to pain) Labs: CBC, BMP 04/19/17 06:10 04/19/17 06:10 INR, PTT INR 1.12 (0.82-1.09) 04/18/17 07:20 Problem List - Problems (1) Brain Assessment/Plan: neuro saw patient to get cerebral brain flow scan today ct head noted for anoxic injury and transtentorial and tonsillar herniation no withdrawal to pain pupils fixed dilated off sedation right now at bedside Code(s): G93.82 - BRAIN (2) Cardiorespiratory arrest Assessment/Plan: intubated -on ventilator icu montoring cardio/pulm on board Code(s): I46.9 - CARDIAC ARREST, CAUSE UNSPECIFIED (3) Leukocytosis Assessment/Plan: ID on board iv abx septic /cardiogenic shock on presors Code(s): D72.829 - ELEVATED WHITE BLOOD CELL COUNT, UNSPECIFIED (4) Troponin level elevated Assessment/Plan: heparin drip echo Code(s): R74.8 - ABNORMAL LEVELS OF OTHER SERUM ENZYMES
[2017-04-19] MEDS: NOREPINEPHRINE BITARTRATE 8,000 MCG in DEXTROSE 5%-WATER - 492 ML IV SCH (11:29)
[2017-04-19] MEDS: ASPIRIN 81 MG CHEWABLE TABLETS NGT SCH (11:35)
[2017-04-19] MEDS: CLOPIDOGREL BISULFATE 75 MG TABLET (FP) NGT SCH (11:37)
[2017-04-19] MEDS: PANTOPRAZOLE SODIUM 40 MG VIAL IVPUSH SCH (11:40)
[2017-04-19] MEDS: MUPIROCIN 2% TOPICAL OINTMENT FOR DECOLONIZATION NS SCH ×2 (11:46→22:17)
[2017-04-19] MEDS: CHLORHEXIDINE GLUCONATE 0.12% 15ML CUP MM SCH ×2 (11:46→22:17)
[2017-04-19] MEDS ORDERED: HEMOQUE TEST 1 EACH EACH ONE (11:49)
--- NOTE | 2017-04-19 13:15 | PN ---
Teaching Attending Note Name of Resident: Iraida Henry ATTENDING PHYSICIAN STATEMENT I saw and evaluated the patient. I reviewed the resident's note and discussed the case with the resident. I agree with the resident's findings and plan as documented. SUBJECTIVE: Pt seen and examined and examined in the ICU. Remains intubated, unresponsive off sedation. Evaluated by neurology, cranial reflexes absent. Pt with spontaneous breaths when backup rate turned down. Remains on levophed gtt, off vasopressin gtt. OBJECTIVE: Last Vital Signs Temp Pulse Resp BP Pulse Ox 98.7 F 110 H 18 98/50 98 04/19/17 10:00 04/19/17 10:00 04/19/17 11:32 04/19/17 10:00 04/19/17 09:35 Intake & Output 04/16/17 04/17/17 04/18/17 04/19/17 23:59 23:59 23:59 23:59 Intake Total 4882 1903 Output Total 2200 1100 100 Balance -2200 3782 1803 Weight 315 lb 7.704 oz 315 lb 8 oz 321 lb 13.998 oz Gen: intubated, unresponsive Heart: tachycardic, regular Lung: decreased breath sounds at the bases Abd: soft, nontender Ext: + edema CBC, BMP 04/19/17 06:10 04/19/17 06:10 Active Medications Albuterol/Ipratropium (Duoneb -) 1 amp NEB QIDR [facility] Last Admin: 04/19/17 11:32 Dose: 1 amp Aspirin (Asa -) 81 mg NGT DAILY [facility] Last Admin: 04/19/17 11:35 Dose: 81 mg Atorvastatin Calcium (Lipitor -) 80 mg PO HS [facility] Last Admin: 04/18/17 22:01 Dose: 80 mg Chlorhexidine Gluconate (Hibiclens For Decolonization -) 1 applic TP HS [facility] Last Admin: 04/18/17 22:01 Dose: 1 applic Chlorhexidine Gluconate (Peridex -) 15 ml MM BID [facility] Last Admin: 04/19/17 11:46 Dose: 15 ml Clopidogrel Bisulfate (Plavix -) 75 mg NGT DAILY [facility] Last Admin: 04/19/17 11:37 Dose: 75 mg Heparin Sodium (Porcine) (Heparin -) 1,000 unit IVPUSH PRN PRN PRN Reason: Heparin Heparin Sodium (Porcine) (Heparin -) 5,000 unit IVPUSH PRN PRN PRN Reason: Heparin Last Admin: 04/19/17 08:11 Dose: 5,000 unit Epinephrine HCl 1,000 mcg/ (Dextrose) 250 mls @ 221.12 mls/hr IVPB ASDIR YOAV PRN Reason: 0.1 MCG/KG/MIN Last Admin: 04/18/17 18:15 Dose: Not Given Piperacillin/Tazobactam/Dextrose (Zosyn 4.5gm Ivpb (Premix)) 100 mls @ 200 mls/ hr IVPB Q8H-IV [facility]OAV PRN Reason: Protocol Last Admin: 04/19/17 11:36 Dose: 200 mls/hr Pantoprazole Sodium 80 mg/ (Sodium Chloride) 100 mls @ 10 mls/hr IVPB Q10H [facility]OAV PRN Reason: 8 MG/HR Last Admin: 04/19/17 06:28 Dose: 10 mls/hr Norepinephrine Bitartrate 8, (000 mcg/ Dextrose) 500 mls @ 18.75 mls/hr IV TITR YOAV; 5 MCG/MIN PRN Reason: Protocol Last Admin: 04/19/17 11:29 Dose: 5 mcg/min, 18.75 mls/hr Vasopressin 50 units/ Sodium (Chloride) 100 mls @ 4 mls/hr IVPB ASDIR YOAV; 2 UNITS/HR PRN Reason: Protocol Last Titration: 04/19/17 11:28 Dose: 0 units/hr, 0 mls/hr Heparin Sodium (Porcine) 25, (000 unit/ Sodium Chloride) 500 mls @ 20 mls/hr IV TITR YOAV; 1,000 UNIT/HR PRN Reason: Protocol Last Titration: 04/19/17 08:05 Dose: 1,150 unit/hr, 23 mls/hr Insulin Aspart (Novolog Vial Sliding Scale -) 1 vial SQ ACHS [facility]OAV PRN Reason: Protocol Last Admin: 04/19/17 11:52 Dose: Not Given Mupirocin (Bactroban Ointment (For Decolonization) -) 1 applic NS BID [facility] Stop: 04/22/17 21:59 Last Admin: 04/19/17 11:46 Dose: 1 applic Pantoprazole Sodium (Protonix Iv) 40 mg IVPUSH DAILY [facility] Last Admin: 04/19/17 11:40 Dose: 40 mg ASSESSMENT AND PLAN: s/p Cardiopulmonary Arrest r/o Acute SC Anoxic Encephalopathy Septic vs Cardiogenic vs Neurogenic Shock Acute Kidney Injury Lactic Acidosis Elevated LFTs likely Ischemic Injury Hyperglycemia - completed hypothermic protocol - continue empiric antibiotics - f/u cultures - titrate pressors to maintain MAP >65 - trend cardiac enzymes - trend lactate, LFTs - hold all sedation to assess mental status - taper FiO2 to keep SpO2 >90% - DVT/GI prophylaxis - poor overall prognosis for meaningful recovery - not a candidate for apnea testing as he is spontaneously breathing - continue ICU monitoring critical care time spent in reviewing chart, evaluating patient and formulating plan 45 min
--- NOTE | 2017-04-19 16:02 | CONSULT ---
Consult Consult Specialty:: Nephrology Reason for Consultation:: NARINDER - History of Present Illness Chief Complaint: brought in with cardiac arrest History of Present Illness: Pt is a 31 year old male with pmhx of asthma and obesity who was brought to the ER after a cardiac arrest. Pt was found in from of his food cart which is down the street from the hospital. He was on the floor for about 10 minuted until ems arrived. Pt was brought to the ER where compressions continued for about 30 minutes. His hear rythms during the arrest included asystole, PEA, vfib and afib. ER chart was reviewed. Pt was admitted to the ICU. His renal function has been worsening. I was called to evaluate him. I discussed his care with his family. He did not have any history of kidney disease. - History Source History Provided By: Medical Record - Past Medical History Pulmonary: Yes: Asthma - Alcohol/Substance Use Hx Alcohol Use: No - Smoking History Smoking history: Current every day smoker Have you smoked in the past 12 months: Yes Aproximately how many cigarettes per day: 10 - Social History Usual Living Arrangement: With Spouse Home Medications - Allergies Allergies/Adverse Reactions: Allergies Allergy/AdvReac Type Severity Reaction Status Date / Time No Known Drug Allergies Allergy Verified 04/17/17 18:05 shellfish derived Allergy Verified 04/17/17 17:20 - Home Medications Home Medications: Ambulatory Orders Albuterol Sulfate Inhaler - [Ventolin Hfa Inhaler -] 1 puff IH PRN PRN 04/17/17 Family Disease History - Family Disease History Family History: Unable to Obtain Review of Systems Unable to obtain ROS, reason: pt intubated Physical Exam Vital Signs: Vital Signs Temperature 98.0 F 04/19/17 14:00 Pulse Rate 108 H 04/19/17 14:00 Respiratory Rate 18 04/19/17 14:12 Blood Pressure 74/42 04/19/17 14:00 O2 Sat by Pulse Oximetry (%) 98 04/19/17 10:00 Constitutional: Yes: Calm Eyes: Yes: Conjunctiva Clear HENT: Yes: Atraumatic Cardiovascular: Yes: Tachycardia, S1, S2 Respiratory: Yes: Mechanically Ventilated Gastrointestinal: Yes: Soft, Abdomen, Obese Renal/: Yes: Brown Present, Oliguria Musculoskeletal: Yes: Muscle Weakness Edema: No Integumentary: No: Rash Neurological: Yes: Lethargy Labs: CBC, BMP 11/09/17 06:10 04/19/17 06:10 Laboratory Tests 04/17/17 04/17/17 04/17/17 19:40 19:40 20:08 WBC 29.6 H Hgb Plt Count PT with INR INR PTT (Actin FS) Patient Temperature ABG pH 7.09 L* ABG pCO2 at Pt Temp ABG pO2 at Pt Temp ABG HCO3 ABG O2 Sat (Measured) Sodium Potassium Chloride Carbon Dioxide Anion Gap BUN Creatinine 1.7 H Troponin I 04/17/17 04/17/17 04/18/17 22:05 23:20 07:20 WBC 25.0 H Hgb 15.2 Plt Count 165 D PT with INR INR PTT (Actin FS) Patient Temperature ABG pH 7.22 L* ABG pCO2 at Pt Temp ABG pO2 at Pt Temp ABG HCO3 ABG O2 Sat (Measured) Sodium Potassium Chloride Carbon Dioxide Anion Gap BUN Creatinine 2.2 H D Troponin I 04/18/17 04/18/17 04/18/17 07:20 07:20 07:20 WBC Hgb Plt Count PT with INR 12.70 H INR 1.12 PTT (Actin FS) 28.2 Patient Temperature 95.2 ABG pH ABG pCO2 at Pt Temp ABG pO2 at Pt Temp ABG HCO3 ABG O2 Sat (Measured) Sodium Potassium Chloride Carbon Dioxide Anion Gap BUN Creatinine 2.8 H D Troponin I 04/19/17 04/19/17 04/19/17 02:00 06:10 06:10 WBC 22.3 H Hgb 13.2 D Plt Count 148 PT with INR INR PTT (Actin FS) Patient Temperature ABG pH ABG pCO2 at Pt Temp ABG pO2 at Pt Temp ABG HCO3 ABG O2 Sat (Measured) Sodium 141 Potassium 3.5 Chloride 108 H Carbon Dioxide 17 L D Anion Gap 16 BUN 43 H D Creatinine 4.3 H D Troponin I 9.30 H* 04/19/17 07:10 WBC Hgb Plt Count PT with INR INR PTT (Actin FS) Patient Temperature ABG pH 7.44 ABG pCO2 at Pt Temp 24.1 L ABG pO2 at Pt Temp 158.0 H* ABG HCO3 16.1 L ABG O2 Sat (Measured) 99.5 H Sodium Potassium Chloride Carbon Dioxide Anion Gap BUN Creatinine Troponin I Imaging - Results Chest X-ray: Report Reviewed Problem List - Problems (1) NARINDER (acute kidney injury) Code(s): N17.9 - ACUTE KIDNEY FAILURE, UNSPECIFIED (2) Cardiorespiratory arrest Code(s): I46.9 - CARDIAC ARREST, CAUSE UNSPECIFIED (3) LFT elevation Code(s): R79.89 - OTHER SPECIFIED ABNORMAL FINDINGS OF BLOOD CHEMISTRY (4) Obesity Code(s): E66.9 - OBESITY, UNSPECIFIED (5) Paroxysmal atrial fibrillation Code(s): I48.0 - PAROXYSMAL ATRIAL FIBRILLATION Assessment/Plan Current Medications Generic Name Dose Route Start Last Admin Trade Name Freq PRN Reason Stop Dose Admin Albuterol/Ipratropium 1 amp 04/18/17 00:00 04/19/17 11:32 Duoneb - NEB 1 amp QIDR [facility] Administration Aspirin 81 mg 04/18/17 18:15 04/19/17 11:35 Asa - NGT 81 mg DAILY [facility] Administration Atorvastatin Calcium 80 mg 04/17/17 22:00 04/18/17 22:01 Lipitor - PO 80 mg HS [facility]OAV Administration Chlorhexidine Gluconate 1 applic 04/17/17 22:00 04/18/17 22:01 Hibiclens For Decolonization - TP 1 applic HS [facility] Administration Chlorhexidine Gluconate 15 ml 04/17/17 22:45 04/19/17 11:46 Peridex - MM 15 ml BID [facility] Administration Clopidogrel Bisulfate 75 mg 04/18/17 18:15 04/19/17 11:37 Plavix - NGT 75 mg DAILY [facility] Administration Heparin Sodium (Porcine) 1,000 unit 04/18/17 19:09 Heparin - IVPUSH PRN PRN Heparin Heparin Sodium (Porcine) 5,000 unit 04/18/17 19:09 04/19/17 08:11 Heparin - IVPUSH 5,000 unit PRN PRN Administration Heparin Epinephrine HCl 1,000 mcg/ 250 mls @ 221.12 mls/hr 04/17/17 18:15 04/18/17 18 :15 Dextrose IVPB Not Given ASDIR YOAV 0.1 MCG/KG/MIN Piperacillin/Tazobactam/Dextrose 100 mls @ 200 mls/hr 04/18/17 02:00 11:36 Zosyn 4.5gm Ivpb (Premix) IVPB 200 mls/hr Q8H-IV [facility] Administration Protocol Norepinephrine Bitartrate 8, 500 mls @ 18.75 mls/hr 04/18/17 11:15 04/19/17 11:29 000 mcg/ Dextrose IV 5 mcg/min TITR YOAV 18.75 mls/hr Protocol Administration 5 MCG/MIN Vasopressin 50 units/ Sodium 100 mls @ 4 mls/hr 04/18/17 11:15 04/19/17 11:28 Chloride IVPB 0 units/hr ASDIR YOAV 0 mls/hr Protocol Titration 2 UNITS/HR Heparin Sodium (Porcine) 25, 500 mls @ 20 mls/hr 04/18/17 19:15 04/19/17 14: 30 000 unit/ Sodium Chloride IV 1,150 unit/hr TITR YOAV 23 mls/hr Protocol Titration 1,000 UNIT/HR Insulin Aspart 1 vial 04/18/17 07:00 04/19/17 16:46 Novolog Vial Sliding Scale - SQ Not Given ACHS YOAV Protocol Mupirocin 1 applic 04/17/17 22:00 04/19/17 11:46 Bactroban Ointment (For Decolonization) - NS 04/22/17 21:59 1 applic BID YOAV Administration Pantoprazole Sodium 40 mg 04/18/17 10:00 04/19/17 11:40 Protonix Iv IVPUSH 40 mg DAILY [facility] Administration Impression 1. NARINDER 2. cardiac arrest 3. respiratory failure requiring intubation 4. obesity 5. transaminitis 6. a-fib 7. shock 8. hypotension 9. anoxic encephalopathy Plan - likely etiology of NARINDER is ATN from prolonged hypotension - vent support - neuro follow up - case discussed at length with pts and multiple family members - no cerebral flow or perfusion seen on brain flow exam - cont pressors to maintain a MAP of 65 - repeat labs in am - monitor urine output - no indication for HD at this point - discussed with ICU team as well Dr Marshall
--- NOTE | 2017-04-19 17:42 | PN ---
Progress Note, Physician History of Present Illness: patient not doing well continues to be intubated going into multiorgan failure neuro note noted on pressors - Current Medication List Current Medications: Active Medications Albuterol/Ipratropium (Duoneb -) 1 amp NEB QIDR [facility] Last Admin: 04/19/17 17:36 Dose: 1 amp Aspirin (Asa -) 81 mg NGT DAILY [facility] Last Admin: 04/19/17 11:35 Dose: 81 mg Atorvastatin Calcium (Lipitor -) 80 mg PO HS [facility] Last Admin: 04/18/17 22:01 Dose: 80 mg Chlorhexidine Gluconate (Hibiclens For Decolonization -) 1 applic TP HS [facility] Last Admin: 04/18/17 22:01 Dose: 1 applic Chlorhexidine Gluconate (Peridex -) 15 ml MM BID [facility] Last Admin: 04/19/17 11:46 Dose: 15 ml Clopidogrel Bisulfate (Plavix -) 75 mg NGT DAILY [facility] Last Admin: 04/19/17 11:37 Dose: 75 mg Heparin Sodium (Porcine) (Heparin -) 1,000 unit IVPUSH PRN PRN PRN Reason: Heparin Heparin Sodium (Porcine) (Heparin -) 5,000 unit IVPUSH PRN PRN PRN Reason: Heparin Last Admin: 04/19/17 08:11 Dose: 5,000 unit Epinephrine HCl 1,000 mcg/ (Dextrose) 250 mls @ 221.12 mls/hr IVPB ASDIR YOAV PRN Reason: 0.1 MCG/KG/MIN Last Admin: 04/18/17 18:15 Dose: Not Given Piperacillin/Tazobactam/Dextrose (Zosyn 4.5gm Ivpb (Premix)) 100 mls @ 200 mls/ hr IVPB Q8H-IV [facility] PRN Reason: Protocol Last Admin: 04/19/17 17:13 Dose: 200 mls/hr Norepinephrine Bitartrate 8, (000 mcg/ Dextrose) 500 mls @ 18.75 mls/hr IV TITR YOAV; 5 MCG/MIN PRN Reason: Protocol Last Admin: 04/19/17 11:29 Dose: 5 mcg/min, 18.75 mls/hr Vasopressin 50 units/ Sodium (Chloride) 100 mls @ 4 mls/hr IVPB ASDIR YOAV; 2 UNITS/HR PRN Reason: Protocol Last Titration: 04/19/17 11:28 Dose: 0 units/hr, 0 mls/hr Heparin Sodium (Porcine) 25, (000 unit/ Sodium Chloride) 500 mls @ 20 mls/hr IV TITR YOAV; 1,000 UNIT/HR PRN Reason: Protocol Last Titration: 04/19/17 14:30 Dose: 1,150 unit/hr, 23 mls/hr Insulin Aspart (Novolog Vial Sliding Scale -) 1 vial SQ ACHS YOAV PRN Reason: Protocol Last Admin: 04/19/17 16:46 Dose: Not Given Mupirocin (Bactroban Ointment (For Decolonization) -) 1 applic NS BID [facility] Stop: 04/22/17 21:59 Last Admin: 04/19/17 11:46 Dose: 1 applic Pantoprazole Sodium (Protonix Iv) 40 mg IVPUSH DAILY [facility] Last Admin: 04/19/17 11:40 Dose: 40 mg - Objective Vital Signs: Vital Signs Temperature 98.3 F 04/19/17 16:00 Pulse Rate 115 H 04/19/17 16:00 Respiratory Rate 18 04/19/17 17:35 Blood Pressure 116/50 04/19/17 16:00 O2 Sat by Pulse Oximetry (%) 100 04/19/17 17:20 Constitutional: Yes: Other Cardiovascular: Yes: S1, S2 Respiratory: Yes: Intubated, Mechanically Ventilated Musculoskeletal: Yes: WNL Extremities: Yes: WNL Neurological: Yes: Other Labs: CBC, BMP 04/19/17 06:10 04/19/17 06:10 INR, PTT INR 1.12 (0.82-1.09) 04/18/17 07:20 Assessment/Plan emains intubated, unresponsive off sedation. Evaluated by neurology, cranial reflexes absent. n. Remains on levophed Problem List - Problems (1) Cardiorespiratory arrest Code(s): I46.9 - CARDIAC ARREST, CAUSE UNSPECIFIED (2) Leukocytosis Code(s): D72.829 - ELEVATED WHITE BLOOD CELL COUNT, UNSPECIFIED (3) Troponin level elevated Code(s): R74.8 - ABNORMAL LEVELS OF OTHER SERUM ENZYMES (4) LFT elevation Code(s): R79.89 - OTHER SPECIFIED ABNORMAL FINDINGS OF BLOOD CHEMISTRY (5) GI bleed Code(s): K92.2 - GASTROINTESTINAL HEMORRHAGE, UNSPECIFIED plan continue abx rest as per icu patient with poor prognosis rest as per primary cc time 40 min
[2017-04-19] MEDS: HEPARIN - 25,000 UNIT in SODIUM CHLORIDE 495 ML IV SCH (19:15)
[2017-04-19] MEDS ORDERED: ACETAMINOPHEN 1000 MG/100 ML VIAL (NON FORMULARY) IVPB ONE (20:09)
[2017-04-19] MEDS: ATORVASTATIN CA 80 MG TABLET (FP) PO SCH (22:17)
[2017-04-19] MEDS: CHLORHEXIDINE GLUCONATE 4% CLEANSER FOR DECOLONIZATION TP SCH (22:17)
[2017-04-20] MEDS: PIPERACILLIN/TAZOB 4.5 GM 100 ML IVPB SCH ×3 (02:53→17:11)
[2017-04-20 06:06] LABS: BASOPHIL 0.2 % (0-2.0); EOSINOPHIL 0.1 % (0-4.5); MCHC 34.1 g/dl (32.0-35.9); MEAN PLT VOLUME 9.6 fl (7.5-11.1); NEUTROPHILS 81.5 % (42.8-82.8); PLATELET COUNT 129 K/MM3 (134-434); RDW 13.6 % (11.9-15.9); WHITE BLOOD COUNT 18.2 K/mm3 (4.0-10.0)
[2017-04-20 06:29] LABS: ALBUMIN 2.1 g/dl (3.4-5.0); ALK PHOS 93 U/L (45-117); ANION GAP 13 (8-16); BILIRUBIN,TOTAL 0.8 mg/dL (0.2-1.0); CALCIUM 7.1 mg/dL (8.5-10.1); CO2 16 mmol/L (21-32); CREATININE 6.3 mg/dL (0.7-1.3); GLUCOSE,RANDOM 110 mg/dL (74-106); SGOT/AST 208 U/L (15-37); SGPT/ALT 80 U/L (12-78); TOT PROT 4.7 g/dl (6.4-8.2)
[2017-04-20] MEDS: INSULIN SLIDING SCALE (NOVOLOG) 1 VIAL SQ SCH ×4 (06:31→23:55)
[2017-04-20] MEDS: ALBUTEROL SO4 2.5/IPRATROPIUM 0.5 INH SOL 3 ML VIAL.NEB. NEB SCH ×4 (06:33→23:09)
[2017-04-20] MEDS ORDERED: NOREPINEPHRINE BITARTRATE 4 MG/4 ML ML IV ONE (06:44)
[2017-04-20 07:52] LABS: ARTERIAL BLD GAS O2 SATURATION 97.8 % (90-98.9); ARTERIAL BLOOD GAS BASE EXCESS -8.3 meq/l (-2-2); ARTERIAL BLOOD GAS HCO3 18.5 meq/L (22-26); ARTERIAL BLOOD GAS PO2 98.8 mmHg (80-100); ARTERIAL BLOOD GAS pH 7.24 (7.35-7.45)
[2017-04-20 07:57] LABS: ALLENS TEST POSITIVE; ART PUNCT SITE LEFT RADIAL; LPM/O2% 60; PT. ON O2? YES
[2017-04-20 07:58] LABS: TYPE OF O2 VENT
[2017-04-20 07:59] LABS: MECH. VENT. YES; VENT RATE 18; VT/PRESS 500
[2017-04-20] MEDS: HEPARIN NA (PORCINE) 5,000 UNITS/ML 1ML VIAL IVPUSH PRN (08:44)
[2017-04-20] MEDS: ASPIRIN 81 MG CHEWABLE TABLETS NGT SCH (09:02)
[2017-04-20] MEDS: CLOPIDOGREL BISULFATE 75 MG TABLET (FP) NGT SCH (09:02)
[2017-04-20] MEDS: PANTOPRAZOLE SODIUM 40 MG VIAL IVPUSH SCH (09:14)
[2017-04-20] MEDS: MUPIROCIN 2% TOPICAL OINTMENT FOR DECOLONIZATION NS SCH ×2 (09:15→21:49)
[2017-04-20] MEDS: CHLORHEXIDINE GLUCONATE 0.12% 15ML CUP MM SCH ×2 (09:15→21:52)
[2017-04-20] MEDS: ALBUTEROL SO4 0.083% IH SOL 2.5 MG/3 ML VIAL.NEB. NEB SCH ×4 (09:30→10:45)
[2017-04-20] MEDS ORDERED: SODIUM POLYSTYRENE SULFONATE 15 GM/60 ML BOTTLE PO ONE (09:30)
[2017-04-20] MEDS ORDERED: INSULIN REGULAR HUMAN 100 UNITS/ML *VIAL IVPUSH ONE (09:30)
[2017-04-20] MEDS ORDERED: INSULIN REGULAR HUMAN 100 UNITS/ML *VIAL ONE (09:55)
[2017-04-20] MEDS ORDERED: CEFTRIAXONE 1 GM in DEXTROSE 5%-WATER - 50 ML IVPB SCH (10:00)
[2017-04-20] MEDS ORDERED: AZITHROMYCIN IVPB 500 MG in DEXTROSE 5%-WATER - 250 ML IVPB SCH (10:00)
--- NOTE | 2017-04-20 11:19 | EKG ---
Test Reason : Blood Pressure : / mmHG Vent. Rate : 117 BPM Atrial Rate : 117 BPM P-R Int : 122 ms QRS Dur : 096 ms QT Int : 362 ms P-R-T Axes : 045 055 007 degrees QTc Int : 504 ms SINUS TACHYCARDIA ABNORMAL ECG Confirmed by VICKY CHADWICK MD ([id number]) on 04/20/2017 11:18:43 AM Referred By: Confirmed By:VICKY CHADWICK MD
--- NOTE | 2017-04-20 11:21 | EKG ---
Test Reason : Blood Pressure : / mmHG Vent. Rate : 111 BPM Atrial Rate : 136 BPM P-R Int : 000 ms QRS Dur : 118 ms QT Int : 382 ms P-R-T Axes : 000 087 207 degrees QTc Int : 519 ms ATRIAL FIBRILLATION WITH RAPID VENTRICULAR RESPONSE INCOMPLETE LEFT BUNDLE BRANCH BLOCK ABNORMAL ECG WHEN COMPARED WITH ECG OF 17-APR-2017 17:46, NO SIGNIFICANT CHANGE WAS FOUND Confirmed by VICKY CHADWICK MD ([id number]) on 04/20/2017 11:20:32 AM Referred By: Confirmed By:VICKY CHADWICK MD
--- NOTE | 2017-04-20 11:21 | EKG ---
Test Reason : Blood Pressure : / mmHG Vent. Rate : 110 BPM Atrial Rate : 093 BPM P-R Int : 000 ms QRS Dur : 114 ms QT Int : 370 ms P-R-T Axes : 000 083 200 degrees QTc Int : 500 ms ATRIAL FIBRILLATION WITH RAPID VENTRICULAR RESPONSE INCOMPLETE LEFT BUNDLE BRANCH BLOCK ABNORMAL ECG NO PREVIOUS ECGS AVAILABLE Confirmed by VICKY CHADWICK MD ([id number]) on 04/20/2017 11:20:43 AM Referred By: Confirmed By:VICKY CHADWICK MD
--- NOTE | 2017-04-20 12:14 | PN ---
Progress Note, Physician Chief Complaint: cerebral brain flow test noted- no cerebral blood flow or perfusion noted - Current Medication List Current Medications: Active Medications Albuterol/Ipratropium (Duoneb -) 1 amp NEB QIDR [facility] Last Admin: 04/20/17 06:33 Dose: 1 amp Aspirin (Asa -) 81 mg NGT DAILY [facility] Last Admin: 04/20/17 09:02 Dose: 81 mg Atorvastatin Calcium (Lipitor -) 80 mg PO HS [facility] Last Admin: 04/19/17 22:17 Dose: 80 mg Chlorhexidine Gluconate (Hibiclens For Decolonization -) 1 applic TP HS [facility] Last Admin: 04/19/17 22:17 Dose: 1 applic Chlorhexidine Gluconate (Peridex -) 15 ml MM BID [facility] Last Admin: 04/20/17 09:15 Dose: 15 ml Clopidogrel Bisulfate (Plavix -) 75 mg NGT DAILY [facility] Last Admin: 04/20/17 09:02 Dose: 75 mg Heparin Sodium (Porcine) (Heparin -) 1,000 unit IVPUSH PRN PRN PRN Reason: Heparin Heparin Sodium (Porcine) (Heparin -) 5,000 unit IVPUSH PRN PRN PRN Reason: Heparin Last Admin: 04/20/17 08:44 Dose: 5,000 unit Piperacillin/Tazobactam/Dextrose (Zosyn 4.5gm Ivpb (Premix)) 100 mls @ 200 mls/ hr IVPB Q8H-IV [facility] PRN Reason: Protocol Last Admin: 04/20/17 09:04 Dose: 200 mls/hr Norepinephrine Bitartrate 8, (000 mcg/ Dextrose) 500 mls @ 18.75 mls/hr IV TITR YOAV; 5 MCG/MIN PRN Reason: Protocol Last Titration: 04/20/17 07:19 Dose: 7 mcg/min, 26.25 mls/hr Heparin Sodium (Porcine) 25, (000 unit/ Sodium Chloride) 500 mls @ 20 mls/hr IV TITR YOAV; 1,000 UNIT/HR PRN Reason: Protocol Last Titration: 04/20/17 08:40 Dose: 1,300 unit/hr, 26 mls/hr Insulin Aspart (Novolog Vial Sliding Scale -) 1 vial SQ ACHS YOAV PRN Reason: Protocol Last Admin: 04/20/17 10:38 Dose: Not Given Mupirocin (Bactroban Ointment (For Decolonization) -) 1 applic NS BID [facility] Stop: 04/22/17 21:59 Last Admin: 04/20/17 09:15 Dose: 1 applic Pantoprazole Sodium (Protonix Iv) 40 mg IVPUSH DAILY [facility] Last Admin: 04/20/17 09:14 Dose: 40 mg - Objective Vital Signs: Vital Signs Temperature 99.4 F 04/20/17 06:00 Pulse Rate 115 H 04/20/17 10:20 Respiratory Rate 18 04/20/17 11:49 Blood Pressure 111/51 04/20/17 07:19 O2 Sat by Pulse Oximetry (%) 97 04/20/17 10:20 Labs: CBC, BMP 04/20/17 05:45 04/20/17 05:45 INR, PTT INR 1.12 (0.82-1.09) 04/18/17 07:20 Problem List - Problems (1) Brain Assessment/Plan: neuro saw patient to get cerebral brain flow scan today ct head noted for anoxic injury and transtentorial and tonsillar herniation no withdrawal to pain pupils fixed dilated off sedation right now at bedside Code(s): G93.82 - BRAIN (2) Cardiorespiratory arrest Assessment/Plan: intubated -on ventilator icu montoring cardio/pulm on board Code(s): I46.9 - CARDIAC ARREST, CAUSE UNSPECIFIED (3) Leukocytosis Assessment/Plan: ID on board iv abx septic /cardiogenic shock on presors elevated WBC Code(s): D72.829 - ELEVATED WHITE BLOOD CELL COUNT, UNSPECIFIED (4) Troponin level elevated Assessment/Plan: heparin drip echo Code(s): R74.8 - ABNORMAL LEVELS OF OTHER SERUM ENZYMES (5) NARINDER (acute kidney injury) Assessment/Plan: renal on board elevated bun/cr noted Code(s): N17.9 - ACUTE KIDNEY FAILURE, UNSPECIFIED (6) LFT elevation Assessment/Plan: multiorgan failure- Code(s): R79.89 - OTHER SPECIFIED ABNORMAL FINDINGS OF BLOOD CHEMISTRY
--- NOTE | 2017-04-20 12:52 | PN ---
Physical Exam: SUBJECTIVE: Patient seen and examined at bedside. 24 hr events -levophed decreased to 7 mcg -as per nurse, pt has not been overbreathing the vent -CVP 9 -oliguric, but with change of del angel, 1600 ml out. Seen on bladder scan -Tmax 100.5F Today -spontaneous respirations seen on rounds -continued on vent, A/C: RR18/500 TV/ 60% FiO2/ PEEP 5 -family at bedside OBJECTIVE: Vital Signs Period Temp Pulse Resp BP Sys/Yeh Pulse Ox Last 24 Hr 98.0 F-100.5 F 108-132 18-21 74-140/41-65 97-100 GENERAL: The patient is unresponsive, intubated. Family at bedside HEAD: Normal with no signs of trauma. EYES: pupils not reactive to light, fixed and dilated ENT: serous fluid from nares NECK: Trachea midline, supple. LUNGS: rhonchi appreciated b/l. spontaneous respirations HEART: tachycardic rate and rhythm, S1, S2 without murmur, rub or gallop. ABDOMEN: Soft, obese, nontender, normoactive bowel sounds EXTREMITIES: 2+ dorsalis pedis pulses, 1+ pitting edema b/l NEUROLOGICAL: unable to assess, pt unresponsive to verbal stimuli Laboratory Results - last 24 hr 04/19/17 04/19/17 04/19/17 06:10 10:31 10:31 WBC RBC Hgb Hct MCV MCH MCHC RDW Plt Count MPV Neutrophils % Lymphocytes % Monocytes % Eosinophils % Basophils % PTT (Actin FS) Puncture Site ABG pH ABG pCO2 at Pt Temp ABG pO2 at Pt Temp ABG HCO3 ABG O2 Sat (Measured) ABG O2 Content ABG Base Excess Avtar Test O2 Delivery Device Oxygen Flow Rate Vent Rate Mechanical Rate PEEP Pressure Support Vent Sodium Potassium Chloride Carbon Dioxide Anion Gap BUN Creatinine Creat Clearance w eGFR POC Glucometer Random Glucose Calcium Total Bilirubin AST ALT Alkaline Phosphatase Troponin I 12.20 H* D Total Protein Albumin U Random Total Protein 111 H Ur Random Sodium 56 Ur Random Potassium 16.2 Ur Random Chloride 28 Urine Creatinine 21.0 Protein/Creatinin Ratio 5.3 Blood Type Antibody Screen 04/19/17 04/19/17 04/19/17 14:15 16:45 23:35 WBC RBC Hgb Hct MCV MCH MCHC RDW Plt Count MPV Neutrophils % Lymphocytes % Monocytes % Eosinophils % Basophils % PTT (Actin FS) 54.0 H D Puncture Site ABG pH ABG pCO2 at Pt Temp ABG pO2 at Pt Temp ABG HCO3 ABG O2 Sat (Measured) ABG O2 Content ABG Base Excess Avtar Test O2 Delivery Device Oxygen Flow Rate Vent Rate Mechanical Rate PEEP Pressure Support Vent Sodium Potassium Chloride Carbon Dioxide Anion Gap BUN Creatinine Creat Clearance w eGFR POC Glucometer 99.23292 128.55647 Random Glucose Calcium Total Bilirubin AST ALT Alkaline Phosphatase Troponin I Total Protein Albumin U Random Total Protein Ur Random Sodium Ur Random Potassium Ur Random Chloride Urine Creatinine Protein/Creatinin Ratio Blood Type Antibody Screen 04/20/17 04/20/17 04/20/17 05:45 05:45 05:45 WBC 18.2 H RBC 4.01 Hgb 11.6 L D Hct 34.1 L MCV 85.0 MCH 29.0 MCHC 34.1 RDW 13.6 Plt Count 129 L MPV 9.6 Neutrophils % 81.5 Lymphocytes % 9.1 Monocytes % 9.1 Eosinophils % 0.1 D Basophils % 0.2 PTT (Actin FS) 37.7 H D Puncture Site ABG pH ABG pCO2 at Pt Temp ABG pO2 at Pt Temp ABG HCO3 ABG O2 Sat (Measured) ABG O2 Content ABG Base Excess Avtar Test O2 Delivery Device Oxygen Flow Rate Vent Rate Mechanical Rate PEEP Pressure Support Vent Sodium Potassium Chloride Carbon Dioxide Anion Gap BUN Creatinine Creat Clearance w eGFR POC Glucometer Random Glucose Calcium Total Bilirubin AST ALT Alkaline Phosphatase Troponin I Total Protein Albumin U Random Total Protein Ur Random Sodium Ur Random Potassium Ur Random Chloride Urine Creatinine Protein/Creatinin Ratio Blood Type O POSITIVE Antibody Screen Negative 04/20/17 04/20/17 04/20/17 05:45 05:50 07:20 WBC RBC Hgb Hct MCV MCH MCHC RDW Plt Count MPV Neutrophils % Lymphocytes % Monocytes % Eosinophils % Basophils % PTT (Actin FS) Puncture Site Left radial ABG pH 7.24 L* D ABG pCO2 at Pt Temp 44.8 D ABG pO2 at Pt Temp 98.8 D ABG HCO3 18.5 L ABG O2 Sat (Measured) 97.8 ABG O2 Content 17.0 ABG Base Excess -8.3 L Avtar Test Positive O2 Delivery Device Vent Oxygen Flow Rate 60 Vent Rate 18 Mechanical Rate Yes PEEP 5.0 Pressure Support Vent 500 Sodium 139 Potassium 5.3 H D Chloride 110 H Carbon Dioxide 16 L Anion Gap 13 BUN 50 H Creatinine 6.3 H D Creat Clearance w eGFR 10.35 POC Glucometer 121.35707 Random Glucose 110 H D Calcium 7.1 L Total Bilirubin 0.8 AST 208 H D ALT 80 H D Alkaline Phosphatase 93 Troponin I Total Protein 4.7 L Albumin 2.1 L U Random Total Protein Ur Random Sodium Ur Random Potassium Ur Random Chloride Urine Creatinine Protein/Creatinin Ratio Blood Type Antibody Screen 04/20/17 10:34 WBC RBC Hgb Hct MCV MCH MCHC RDW Plt Count MPV Neutrophils % Lymphocytes % Monocytes % Eosinophils % Basophils % PTT (Actin FS) Puncture Site ABG pH ABG pCO2 at Pt Temp ABG pO2 at Pt Temp ABG HCO3 ABG O2 Sat (Measured) ABG O2 Content ABG Base Excess Avtar Test O2 Delivery Device Oxygen Flow Rate Vent Rate Mechanical Rate PEEP Pressure Support Vent Sodium Potassium Chloride Carbon Dioxide Anion Gap BUN Creatinine Creat Clearance w eGFR POC Glucometer 110.10638 Random Glucose Calcium Total Bilirubin AST ALT Alkaline Phosphatase Troponin I Total Protein Albumin U Random Total Protein Ur Random Sodium Ur Random Potassium Ur Random Chloride Urine Creatinine Protein/Creatinin Ratio Blood Type Antibody Screen Active Medications Generic Name Dose Route Start Last Admin Trade Name Freq PRN Reason Stop Dose Admin Albuterol/Ipratropium 1 amp 04/18/17 00:00 04/20/17 06:33 Duoneb - NEB 1 amp QIDR YOAV Administration Aspirin 81 mg 04/18/17 18:15 04/20/17 09:02 Asa - NGT 81 mg DAILY YOAV Administration Atorvastatin Calcium 80 mg 04/17/17 22:00 04/19/17 22:17 Lipitor - PO 80 mg HS YOAV Administration Chlorhexidine Gluconate 1 applic 04/17/17 22:00 04/19/17 22:17 Hibiclens For Decolonization - TP 1 applic HS YOAV Administration Chlorhexidine Gluconate 15 ml 04/17/17 22:45 04/20/17 09:15 Peridex - MM 15 ml BID YOAV Administration Clopidogrel Bisulfate 75 mg 04/18/17 18:15 04/20/17 09:02 Plavix - NGT 75 mg DAILY YOAV Administration Heparin Sodium (Porcine) 1,000 unit 04/18/17 19:09 Heparin - IVPUSH PRN PRN Heparin Heparin Sodium (Porcine) 5,000 unit 04/18/17 19:09 04/20/17 08:44 Heparin - IVPUSH 5,000 unit PRN PRN Administration Heparin Piperacillin/Tazobactam/Dextrose 100 mls @ 200 mls/hr 04/18/17 02:00 09:04 Zosyn 4.5gm Ivpb (Premix) IVPB 200 mls/hr Q8H-IV YOAV Administration Protocol Norepinephrine Bitartrate 8, 500 mls @ 18.75 mls/hr 04/18/17 11:15 04/20/17 07:19 000 mcg/ Dextrose IV 7 mcg/min TITR YOAV 26.25 mls/hr Protocol Titration 5 MCG/MIN Heparin Sodium (Porcine) 25, 500 mls @ 20 mls/hr 04/18/17 19:15 04/20/17 08: 40 000 unit/ Sodium Chloride IV 1,300 unit/hr TITR YOAV 26 mls/hr Protocol Titration 1,000 UNIT/HR Insulin Aspart 1 vial 04/18/17 07:00 04/20/17 10:38 Novolog Vial Sliding Scale - SQ Not Given ACHS YOAV Protocol Mupirocin 1 applic 04/17/17 22:00 04/20/17 09:15 Bactroban Ointment (For Decolonization) - NS 04/22/17 21:59 1 applic BID YOAV Administration Pantoprazole Sodium 40 mg 04/18/17 10:00 04/20/17 09:14 Protonix Iv IVPUSH 40 mg DAILY YOAV Administration ASSESSMENT/PLAN: 31 y/o M with Hx asthma, who presented to the ED in cardiac arrest. While pt was brought to the ED, compressions were being done. Pt then became asystolic, went into PEA, vfib and then was defibrillated three times. He then received amiodarone. Pulse was lost, and pt went back into asystole, PEA, before ROSC. Pt subsequently transferred to ICU for continued management. NEURO -off sedation, however pt still unresponsive. still intubated, vented -Head CT w/o contrast: diffuse anoxic injury, transtentorial and tonsillar herniation, without evidence of ICH -followed by Dr. Monsalve -hypothermia protocol is complete -CBF results: no flow CARDIO, s/p cardiac arrest -recent EKG: ST changes, QT prolongation -ECHO: cannot rule out MV vegetation -trops peaked at 10.5 (04/18, at 6pm) -pt on levo, goal MAP > 65 -Continue to monitor CVP, aim for 8-12 PULM -Will try to wean off vent as necessary -spontaneous respirations seen on rounds- not candidate for apnea testing r/o PE -negative for DVT ID -pt on vanc and zosyn (Today is Day3) -vanc trough before next dose -cx negative ENDOCRINE -pt hyperglycemic, may be 2/2 to cardiac arrest. Will wait for HbA1c to determine -F/u HbA1c -F/u TSH, t3 -free t4: 1.21 RENAL -creatinine level rising - today 6.3 -will follow UO, daily CMPs PALLIATIVE -continued discussions with family, to discuss GOC - is waiting for rest of family in order to make decision F/E/N -will follow electrolytes -once more stable, will decide dietary status Prophylaxis GI: protonix IV DVT: SCD's Disposition poor prognosis, continued ICU management. Visit type - Emergency Visit Emergency Visit: No - New Patient This patient is new to me today: No - Critical Care Critical Care patient: Yes Total Critical Care Time (in minutes): 40 Critical Care Statement: The care of this patient involved high complexity decision making to prevent further life threatening deterioration of the patient 's condition and/or to evaluate & treat vital organ system(s) failure or risk of failure.
--- NOTE | 2017-04-20 12:55 | PN ---
Teaching Attending Note Name of Resident: Iraida Henry ATTENDING PHYSICIAN STATEMENT I saw and evaluated the patient. I reviewed the resident's note and discussed the case with the resident. I agree with the resident's findings and plan as documented. SUBJECTIVE: Patient seen and examined and examined in the ICU. Remains intubated, unresponsive off sedation. Patient with spontaneous respirations when on non-supported mode of vent. Remains on 7 mcq NE for hemodynamic support. Intake & Output 04/17/17 04/18/17 04/19/17 04/20/17 23:59 23:59 23:59 23:59 Intake Total 4882 3640 475.1 Output Total 2200 1636 179 9024 Balance -2200 3782 3365 -1124.9 Weight 315 lb 7.704 oz 315 lb 8 oz 321 lb 13.998 oz 3306 lb 14.94 oz Last Vital Signs Temp Pulse Resp BP Pulse Ox 99.3 F 114 H 18 115/65 97 04/20/17 12:00 04/20/17 12:00 04/20/17 12:00 04/20/17 12:00 04/20/17 10:20 Active Medications Albuterol/Ipratropium (Duoneb -) 1 amp NEB QIDR [facility] Last Admin: 04/20/17 06:33 Dose: 1 amp Aspirin (Asa -) 81 mg NGT DAILY [facility] Last Admin: 04/20/17 09:02 Dose: 81 mg Atorvastatin Calcium (Lipitor -) 80 mg PO HS [facility] Last Admin: 04/19/17 22:17 Dose: 80 mg Chlorhexidine Gluconate (Hibiclens For Decolonization -) 1 applic TP HS [facility] Last Admin: 04/19/17 22:17 Dose: 1 applic Chlorhexidine Gluconate (Peridex -) 15 ml MM BID [facility] Last Admin: 04/20/17 09:15 Dose: 15 ml Clopidogrel Bisulfate (Plavix -) 75 mg NGT DAILY [facility] Last Admin: 04/20/17 09:02 Dose: 75 mg Heparin Sodium (Porcine) (Heparin -) 1,000 unit IVPUSH PRN PRN PRN Reason: Heparin Heparin Sodium (Porcine) (Heparin -) 5,000 unit IVPUSH PRN PRN PRN Reason: Heparin Last Admin: 04/20/17 08:44 Dose: 5,000 unit Piperacillin/Tazobactam/Dextrose (Zosyn 4.5gm Ivpb (Premix)) 100 mls @ 200 mls/ hr IVPB Q8H-IV YOAV PRN Reason: Protocol Last Admin: 04/20/17 09:04 Dose: 200 mls/hr Norepinephrine Bitartrate 8, (000 mcg/ Dextrose) 500 mls @ 18.75 mls/hr IV TITR YOAV; 5 MCG/MIN PRN Reason: Protocol Last Titration: 04/20/17 07:19 Dose: 7 mcg/min, 26.25 mls/hr Heparin Sodium (Porcine) 25, (000 unit/ Sodium Chloride) 500 mls @ 20 mls/hr IV TITR YOAV; 1,000 UNIT/HR PRN Reason: Protocol Last Titration: 04/20/17 08:40 Dose: 1,300 unit/hr, 26 mls/hr Insulin Aspart (Novolog Vial Sliding Scale -) 1 vial SQ ACHS YOAV PRN Reason: Protocol Last Admin: 04/20/17 10:38 Dose: Not Given Mupirocin (Bactroban Ointment (For Decolonization) -) 1 applic NS BID YOAV Stop: 04/22/17 21:59 Last Admin: 04/20/17 09:15 Dose: 1 applic Pantoprazole Sodium (Protonix Iv) 40 mg IVPUSH DAILY YOAV Last Admin: 04/20/17 09:14 Dose: 40 mg Gen: intubated, unresponsive Heart: tachycardic, regular Lung: decreased breath sounds at the bases Abd: soft, nontender Ext: + edema Laboratory Results - last 24 hr 04/19/17 04/19/17 04/19/17 06:10 10:31 10:31 WBC RBC Hgb Hct MCV MCH MCHC RDW Plt Count MPV Neutrophils % Lymphocytes % Monocytes % Eosinophils % Basophils % PTT (Actin FS) Puncture Site ABG pH ABG pCO2 at Pt Temp ABG pO2 at Pt Temp ABG HCO3 ABG O2 Sat (Measured) ABG O2 Content ABG Base Excess Avtar Test O2 Delivery Device Oxygen Flow Rate Vent Rate Mechanical Rate PEEP Pressure Support Vent Sodium Potassium Chloride Carbon Dioxide Anion Gap BUN Creatinine Creat Clearance w eGFR POC Glucometer Random Glucose Calcium Total Bilirubin AST ALT Alkaline Phosphatase Troponin I 12.20 H* D Total Protein Albumin U Random Total Protein 111 H Ur Random Sodium 56 Ur Random Potassium 16.2 Ur Random Chloride 28 Urine Creatinine 21.0 Protein/Creatinin Ratio 5.3 Blood Type Antibody Screen 04/19/17 04/19/17 04/19/17 14:15 16:45 23:35 WBC RBC Hgb Hct MCV MCH MCHC RDW Plt Count MPV Neutrophils % Lymphocytes % Monocytes % Eosinophils % Basophils % PTT (Actin FS) 54.0 H D Puncture Site ABG pH ABG pCO2 at Pt Temp ABG pO2 at Pt Temp ABG HCO3 ABG O2 Sat (Measured) ABG O2 Content ABG Base Excess Avtar Test O2 Delivery Device Oxygen Flow Rate Vent Rate Mechanical Rate PEEP Pressure Support Vent Sodium Potassium Chloride Carbon Dioxide Anion Gap BUN Creatinine Creat Clearance w eGFR POC Glucometer 99.98501 128.87862 Random Glucose Calcium Total Bilirubin AST ALT Alkaline Phosphatase Troponin I Total Protein Albumin U Random Total Protein Ur Random Sodium Ur Random Potassium Ur Random Chloride Urine Creatinine Protein/Creatinin Ratio Blood Type Antibody Screen 04/20/17 04/20/17 04/20/17 05:45 05:45 05:45 WBC 18.2 H RBC 4.01 Hgb 11.6 L D Hct 34.1 L MCV 85.0 MCH 29.0 MCHC 34.1 RDW 13.6 Plt Count 129 L MPV 9.6 Neutrophils % 81.5 Lymphocytes % 9.1 Monocytes % 9.1 Eosinophils % 0.1 D Basophils % 0.2 PTT (Actin FS) 37.7 H D Puncture Site ABG pH ABG pCO2 at Pt Temp ABG pO2 at Pt Temp ABG HCO3 ABG O2 Sat (Measured) ABG O2 Content ABG Base Excess Avtar Test O2 Delivery Device Oxygen Flow Rate Vent Rate Mechanical Rate PEEP Pressure Support Vent Sodium Potassium Chloride Carbon Dioxide Anion Gap BUN Creatinine Creat Clearance w eGFR POC Glucometer Random Glucose Calcium Total Bilirubin AST ALT Alkaline Phosphatase Troponin I Total Protein Albumin U Random Total Protein Ur Random Sodium Ur Random Potassium Ur Random Chloride Urine Creatinine Protein/Creatinin Ratio Blood Type O POSITIVE Antibody Screen Negative 04/20/17 04/20/17 04/20/17 05:45 05:50 07:20 WBC RBC Hgb Hct MCV MCH MCHC RDW Plt Count MPV Neutrophils % Lymphocytes % Monocytes % Eosinophils % Basophils % PTT (Actin FS) Puncture Site Left radial ABG pH 7.24 L* D ABG pCO2 at Pt Temp 44.8 D ABG pO2 at Pt Temp 98.8 D ABG HCO3 18.5 L ABG O2 Sat (Measured) 97.8 ABG O2 Content 17.0 ABG Base Excess -8.3 L Avtar Test Positive O2 Delivery Device Vent Oxygen Flow Rate 60 Vent Rate 18 Mechanical Rate Yes PEEP 5.0 Pressure Support Vent 500 Sodium 139 Potassium 5.3 H D Chloride 110 H Carbon Dioxide 16 L Anion Gap 13 BUN 50 H Creatinine 6.3 H D Creat Clearance w eGFR 10.35 POC Glucometer 121.60752 Random Glucose 110 H D Calcium 7.1 L Total Bilirubin 0.8 AST 208 H D ALT 80 H D Alkaline Phosphatase 93 Troponin I Total Protein 4.7 L Albumin 2.1 L U Random Total Protein Ur Random Sodium Ur Random Potassium Ur Random Chloride Urine Creatinine Protein/Creatinin Ratio Blood Type Antibody Screen 04/20/17 10:34 WBC RBC Hgb Hct MCV MCH MCHC RDW Plt Count MPV Neutrophils % Lymphocytes % Monocytes % Eosinophils % Basophils % PTT (Actin FS) Puncture Site ABG pH ABG pCO2 at Pt Temp ABG pO2 at Pt Temp ABG HCO3 ABG O2 Sat (Measured) ABG O2 Content ABG Base Excess Avtar Test O2 Delivery Device Oxygen Flow Rate Vent Rate Mechanical Rate PEEP Pressure Support Vent Sodium Potassium Chloride Carbon Dioxide Anion Gap BUN Creatinine Creat Clearance w eGFR POC Glucometer 110.37638 Random Glucose Calcium Total Bilirubin AST ALT Alkaline Phosphatase Troponin I Total Protein Albumin U Random Total Protein Ur Random Sodium Ur Random Potassium Ur Random Chloride Urine Creatinine Protein/Creatinin Ratio Blood Type Antibody Screen CXR: No change ASSESSMENT AND PLAN: S/P Cardiopulmonary Arrest (?) Acute CO Anoxic Encephalopathy Septic vs Cardiogenic vs Neurogenic Shock Acute Kidney Injury Lactic Acidosis Elevated LFTs likely Ischemic Injury Hyperglycemia - completed hypothermic protocol - Noted empiric antibiotics - titrate pressors to maintain MAP >65 - hold all sedation to assess mental status - taper FiO2 to keep SpO2 >90% - DVT/GI prophylaxis - poor overall prognosis for meaningful recovery - not a candidate for apnea testing as he is spontaneously breathing - continue ICU monitoring Dr Richardson critical care time spent in reviewing chart, evaluating patient and formulating plan 45 min
--- NOTE | 2017-04-20 13:08 | PN ---
Progress Note, Physician Chief Complaint: patient seen and examined in icu. off sedation on pressors had a meeting with Dr. Richardson and the family including the about the current condition of the patient patient was noted to have spontaneous breath today on non-supported mode today - Current Medication List Current Medications: Active Medications Albuterol/Ipratropium (Duoneb -) 1 amp NEB QIDR [facility] Last Admin: 04/20/17 06:33 Dose: 1 amp Aspirin (Asa -) 81 mg NGT DAILY [facility] Last Admin: 04/20/17 09:02 Dose: 81 mg Atorvastatin Calcium (Lipitor -) 80 mg PO HS YOAV Last Admin: 04/19/17 22:17 Dose: 80 mg Chlorhexidine Gluconate (Hibiclens For Decolonization -) 1 applic TP HS [facility] Last Admin: 04/19/17 22:17 Dose: 1 applic Chlorhexidine Gluconate (Peridex -) 15 ml MM BID YOAV Last Admin: 04/20/17 09:15 Dose: 15 ml Clopidogrel Bisulfate (Plavix -) 75 mg NGT DAILY [facility] Last Admin: 04/20/17 09:02 Dose: 75 mg Heparin Sodium (Porcine) (Heparin -) 1,000 unit IVPUSH PRN PRN PRN Reason: Heparin Heparin Sodium (Porcine) (Heparin -) 5,000 unit IVPUSH PRN PRN PRN Reason: Heparin Last Admin: 04/20/17 08:44 Dose: 5,000 unit Piperacillin/Tazobactam/Dextrose (Zosyn 4.5gm Ivpb (Premix)) 100 mls @ 200 mls/ hr IVPB Q8H-IV YOAV PRN Reason: Protocol Last Admin: 04/20/17 09:04 Dose: 200 mls/hr Norepinephrine Bitartrate 8, (000 mcg/ Dextrose) 500 mls @ 18.75 mls/hr IV TITR YOAV; 5 MCG/MIN PRN Reason: Protocol Last Titration: 04/20/17 07:19 Dose: 7 mcg/min, 26.25 mls/hr Heparin Sodium (Porcine) 25, (000 unit/ Sodium Chloride) 500 mls @ 20 mls/hr IV TITR YOAV; 1,000 UNIT/HR PRN Reason: Protocol Last Titration: 04/20/17 08:40 Dose: 1,300 unit/hr, 26 mls/hr Insulin Aspart (Novolog Vial Sliding Scale -) 1 vial SQ ACHS [facility] PRN Reason: Protocol Last Admin: 04/20/17 10:38 Dose: Not Given Mupirocin (Bactroban Ointment (For Decolonization) -) 1 applic NS BID [facility] Stop: 04/22/17 21:59 Last Admin: 04/20/17 09:15 Dose: 1 applic Pantoprazole Sodium (Protonix Iv) 40 mg IVPUSH DAILY [facility] Last Admin: 04/20/17 09:14 Dose: 40 mg - Objective Vital Signs: Vital Signs Temperature 99.3 F 04/20/17 12:00 Pulse Rate 117 H 04/20/17 13:01 Respiratory Rate 18 04/20/17 13:01 Blood Pressure 116/63 04/20/17 13:01 O2 Sat by Pulse Oximetry (%) 97 04/20/17 10:20 Constitutional: Yes: Calm, Other (intubated) Neck: Yes: Other Cardiovascular: Yes: Tachycardia, S1, S2 Respiratory: Yes: Mechanically Ventilated Gastrointestinal: Yes: Soft Labs: CBC, BMP 04/20/17 05:45 04/20/17 05:45 INR, PTT INR 1.12 (0.82-1.09) 04/18/17 07:20 Problem List - Problems (1) Cardiorespiratory arrest Assessment/Plan: intubated -on ventilator, pressors, off sedation icu montoring cardio/pulm on board unclear eitology spontaneous respirations noted on non supported mode today cerebral brain flow scan noted shows no blood flow or perfusion to the brain Code(s): I46.9 - CARDIAC ARREST, CAUSE UNSPECIFIED (2) Leukocytosis Assessment/Plan: ID on board iv abx septic /cardiogenic shock on presors elevated WBC Code(s): D72.829 - ELEVATED WHITE BLOOD CELL COUNT, UNSPECIFIED (3) Troponin level elevated Assessment/Plan: heparin drip echo noted shows basal posterlateral wall akinesis ? acute NE Code(s): R74.8 - ABNORMAL LEVELS OF OTHER SERUM ENZYMES (4) NARINDER (acute kidney injury) Assessment/Plan: renal on board elevated bun/cr noted renal and bladder ultrasound shows morphologically normal kidney NARINDER possibly secondary to ischemia ? Code(s): N17.9 - ACUTE KIDNEY FAILURE, UNSPECIFIED (5) LFT elevation Assessment/Plan: will monitor the liver function elevated posssibly secondary to ischemia? Code(s): R79.89 - OTHER SPECIFIED ABNORMAL FINDINGS OF BLOOD CHEMISTRY
--- NOTE | 2017-04-20 13:58 | PN ---
Progress Note, Physician History of Present Illness: Pt seen and examined at bedside. He remains in the ICU. Pt remains intubated. Discussed with ICU team, he does take spontaneous breaths. His renal function continues to worsen. - Current Medication List Current Medications: Active Medications Albuterol/Ipratropium (Duoneb -) 1 amp NEB QIDR [facility] Last Admin: 04/20/17 06:33 Dose: 1 amp Aspirin (Asa -) 81 mg NGT DAILY [facility] Last Admin: 04/20/17 09:02 Dose: 81 mg Atorvastatin Calcium (Lipitor -) 80 mg PO HS [facility] Last Admin: 04/19/17 22:17 Dose: 80 mg Chlorhexidine Gluconate (Hibiclens For Decolonization -) 1 applic TP HS [facility] Last Admin: 04/19/17 22:17 Dose: 1 applic Chlorhexidine Gluconate (Peridex -) 15 ml MM BID [facility] Last Admin: 04/20/17 09:15 Dose: 15 ml Clopidogrel Bisulfate (Plavix -) 75 mg NGT DAILY [facility] Last Admin: 04/20/17 09:02 Dose: 75 mg Heparin Sodium (Porcine) (Heparin -) 1,000 unit IVPUSH PRN PRN PRN Reason: Heparin Heparin Sodium (Porcine) (Heparin -) 5,000 unit IVPUSH PRN PRN PRN Reason: Heparin Last Admin: 04/20/17 08:44 Dose: 5,000 unit Piperacillin/Tazobactam/Dextrose (Zosyn 4.5gm Ivpb (Premix)) 100 mls @ 200 mls/ hr IVPB Q8H-IV YOAV PRN Reason: Protocol Last Admin: 04/20/17 09:04 Dose: 200 mls/hr Norepinephrine Bitartrate 8, (000 mcg/ Dextrose) 500 mls @ 18.75 mls/hr IV TITR YOAV; 5 MCG/MIN PRN Reason: Protocol Last Titration: 04/20/17 07:19 Dose: 7 mcg/min, 26.25 mls/hr Heparin Sodium (Porcine) 25, (000 unit/ Sodium Chloride) 500 mls @ 20 mls/hr IV TITR YOAV; 1,000 UNIT/HR PRN Reason: Protocol Last Titration: 04/20/17 08:40 Dose: 1,300 unit/hr, 26 mls/hr Insulin Aspart (Novolog Vial Sliding Scale -) 1 vial SQ ACHS YOAV PRN Reason: Protocol Last Admin: 04/20/17 10:38 Dose: Not Given Mupirocin (Bactroban Ointment (For Decolonization) -) 1 applic NS BID [facility] Stop: 04/22/17 21:59 Last Admin: 04/20/17 09:15 Dose: 1 applic Pantoprazole Sodium (Protonix Iv) 40 mg IVPUSH DAILY [facility] Last Admin: 04/20/17 09:14 Dose: 40 mg - Objective Vital Signs: Vital Signs Temperature 99.3 F 04/20/17 12:00 Pulse Rate 117 H 04/20/17 13:01 Respiratory Rate 18 04/20/17 13:01 Blood Pressure 116/63 04/20/17 13:01 O2 Sat by Pulse Oximetry (%) 97 04/20/17 10:20 Constitutional: Yes: Calm Eyes: Yes: Conjunctiva Clear HENT: Yes: Atraumatic Cardiovascular: Yes: Tachycardia, S1, S2 Respiratory: Yes: Mechanically Ventilated Gastrointestinal: Yes: Soft, Abdomen, Obese Genitourinary: Yes: Brown Present Musculoskeletal: Yes: Muscle Weakness Edema: Yes Edema: LUE: Trace, RUE: Trace, LLE: Trace, RLE: Trace Integumentary: No: Rash Neurological: Yes: Lethargy Labs: CBC, BMP 04/20/17 05:45 04/20/17 05:45 INR, PTT INR 1.12 (0.82-1.09) 04/18/17 07:20 - ....Imaging Chest X-ray: Report Reviewed Problem List - Problems (1) NARINDER (acute kidney injury) Code(s): N17.9 - ACUTE KIDNEY FAILURE, UNSPECIFIED (2) Cardiorespiratory arrest Code(s): I46.9 - CARDIAC ARREST, CAUSE UNSPECIFIED (3) LFT elevation Code(s): R79.89 - OTHER SPECIFIED ABNORMAL FINDINGS OF BLOOD CHEMISTRY (4) Obesity Code(s): E66.9 - OBESITY, UNSPECIFIED (5) Paroxysmal atrial fibrillation Code(s): I48.0 - PAROXYSMAL ATRIAL FIBRILLATION Assessment/Plan Current Medications Generic Name Dose Route Start Last Admin Trade Name Freq PRN Reason Stop Dose Admin Albuterol/Ipratropium 1 amp 04/18/17 00:00 04/20/17 06:33 Duoneb - NEB 1 amp QIDR YOAV Administration Aspirin 81 mg 04/18/17 18:15 04/20/17 09:02 Asa - NGT 81 mg DAILY YOAV Administration Atorvastatin Calcium 80 mg 04/17/17 22:00 04/19/17 22:17 Lipitor - PO 80 mg HS YOAV Administration Chlorhexidine Gluconate 1 applic 04/17/17 22:00 04/19/17 22:17 Hibiclens For Decolonization - TP 1 applic HS YOAV Administration Chlorhexidine Gluconate 15 ml 04/17/17 22:45 04/20/17 09:15 Peridex - MM 15 ml BID YOAV Administration Clopidogrel Bisulfate 75 mg 04/18/17 18:15 04/20/17 09:02 Plavix - NGT 75 mg DAILY YO[facility] Administration Heparin Sodium (Porcine) 1,000 unit 04/18/17 19:09 Heparin - IVPUSH PRN PRN Heparin Heparin Sodium (Porcine) 5,000 unit 04/18/17 19:09 04/20/17 08:44 Heparin - IVPUSH 5,000 unit PRN PRN Administration Heparin Piperacillin/Tazobactam/Dextrose 100 mls @ 200 mls/hr 04/18/17 02:00 09:04 Zosyn 4.5gm Ivpb (Premix) IVPB 200 mls/hr Q8H-IV YOAV Administration Protocol Norepinephrine Bitartrate 8, 500 mls @ 18.75 mls/hr 04/18/17 11:15 04/20/17 07:19 000 mcg/ Dextrose IV 7 mcg/min TITR YOAV 26.25 mls/hr Protocol Titration 5 MCG/MIN Heparin Sodium (Porcine) 25, 500 mls @ 20 mls/hr 04/18/17 19:15 04/20/17 08: 40 000 unit/ Sodium Chloride IV 1,300 unit/hr TITR YOAV 26 mls/hr Protocol Titration 1,000 UNIT/HR Insulin Aspart 1 vial 04/18/17 07:00 04/20/17 10:38 Novolog Vial Sliding Scale - SQ Not Given ACHS [facility] Protocol Mupirocin 1 applic 04/17/17 22:00 04/20/17 09:15 Bactroban Ointment (For Decolonization) - NS 04/22/17 21:59 1 applic BID YOAV Administration Pantoprazole Sodium 40 mg 04/18/17 10:00 04/20/17 09:14 Protonix Iv IVPUSH 40 mg DAILY YO[facility] Administration Impression 1. NARINDER 2. cardiac arrest 3. respiratory failure requiring intubation 4. obesity 5. transaminitis 6. a-fib 7. shock 8. hypotension 9. anoxic encephalopathy 10. hyperkalemia Plan - renal function continues to worsen - pt likely has ATN - cont vent support - cont pressors to a MAP of 65 - monitor renal function and urine output - potassium treated medically - may need HD if renal function continues to worsen or potassium becomes difficult to control - discussed with ICU team - prognosis is poor - will follow closely Dr Marshall
--- NOTE | 2017-04-20 15:22 | PN ---
Progress Note, Physician History of Present Illness: 31-year-old male history of asthma, cigarettes, obesity, presents in cardiac arrest. Patient was found down in front of his halal cart across the street from the hospital 10 minutes prior to arrival to the ED. On arrival to the emergency department, pt was getting chest compressions via the Bassam. Unknown rhythm in the field. An IO was placed in the right tibia for access. The pads were placed and the Bassam was removed to place the zoll pads. Initial rhythm was asystole. THe patient was intubated via Glidescope with direct visualization of 7.0 ET tube passing through the cords. Copious amounts of emesis was suctioned from the airway. Upon auscultation, pt had poor air movement, with diminished BS on the right and diffuse mild wheezing. CPR was continued immediately for approximately 30 min with multiple doses of epinephrine and bicarbonate. Patient was also given 1 dose of narcan, dexamethasone, magnesium, calcium, and dextrose. Multiple doses of albuterol were given through the ET tube. Bedside US during pulse checks with cardiac standstill and no sign of tamponade or large pericardial effusion. While initial rhythm was asystole, the rhythm became PEA then VFib for which the patient was defibrillated 3 times at 200 J btwn chest compressions. The patient was given 300 mg of amiodarone at that time. ROSC was obtained for 1-2 minutes where an EKG revealed atrial fibrillation with no ST elevations. The patient became bradycardic and lost his pulse again with initial rhythm asystole and then PEA and then ROSC was obtained after approximately another 20 minutes of CPR. Pt's rhythm is AF, rate of 107, BP of 110/70. Low dose levophed was started for support and quickly turned off with improvement in BP to 150s systolic. CXR with good ET tube placement. A sterile US guided IJ CVC was placed with good return of dark venous blood. Vanc/Zosyn/Azithro were ordered for PNA coverage. Given the pt's young age and possible resp arrest, Dr Tolentino discussed possible ecmo options with Dr Christensen from CT surgery at [facility], however given pt had ROSC for 20 mins at this point, and prolonged downtime, they stated he was not an ecmo candidate. PT was accepted to Dr. Mondragon for admission in our ICU. - Current Medication List Current Medications: Active Medications Albuterol/Ipratropium (Duoneb -) 1 amp NEB QIDR [facility] Last Admin: 04/20/17 06:33 Dose: 1 amp Aspirin (Asa -) 81 mg NGT DAILY [facility] Last Admin: 04/20/17 09:02 Dose: 81 mg Atorvastatin Calcium (Lipitor -) 80 mg PO HS [facility] Last Admin: 04/19/17 22:17 Dose: 80 mg Chlorhexidine Gluconate (Hibiclens For Decolonization -) 1 applic TP HS [facility] Last Admin: 04/19/17 22:17 Dose: 1 applic Chlorhexidine Gluconate (Peridex -) 15 ml MM BID [facility] Last Admin: 04/20/17 09:15 Dose: 15 ml Clopidogrel Bisulfate (Plavix -) 75 mg NGT DAILY [facility] Last Admin: 04/20/17 09:02 Dose: 75 mg Heparin Sodium (Porcine) (Heparin -) 1,000 unit IVPUSH PRN PRN PRN Reason: Heparin Heparin Sodium (Porcine) (Heparin -) 5,000 unit IVPUSH PRN PRN PRN Reason: Heparin Last Admin: 04/20/17 08:44 Dose: 5,000 unit Piperacillin/Tazobactam/Dextrose (Zosyn 4.5gm Ivpb (Premix)) 100 mls @ 200 mls/ hr IVPB Q8H-IV YOAV PRN Reason: Protocol Last Admin: 04/20/17 09:04 Dose: 200 mls/hr Norepinephrine Bitartrate 8, (000 mcg/ Dextrose) 500 mls @ 18.75 mls/hr IV TITR YOAV; 5 MCG/MIN PRN Reason: Protocol Last Titration: 04/20/17 07:19 Dose: 7 mcg/min, 26.25 mls/hr Heparin Sodium (Porcine) 25, (000 unit/ Sodium Chloride) 500 mls @ 20 mls/hr IV TITR YOAV; 1,000 UNIT/HR PRN Reason: Protocol Last Titration: 04/20/17 08:40 Dose: 1,300 unit/hr, 26 mls/hr Insulin Aspart (Novolog Vial Sliding Scale -) 1 vial SQ ACHS YOAV PRN Reason: Protocol Last Admin: 04/20/17 10:38 Dose: Not Given Mupirocin (Bactroban Ointment (For Decolonization) -) 1 applic NS BID [facility] Stop: 04/22/17 21:59 Last Admin: 04/20/17 09:15 Dose: 1 applic Pantoprazole Sodium (Protonix Iv) 40 mg IVPUSH DAILY [facility] Last Admin: 04/20/17 09:14 Dose: 40 mg - Objective Vital Signs: Vital Signs Temperature 99.3 F 04/20/17 12:00 Pulse Rate 117 H 04/20/17 13:01 Respiratory Rate 18 04/20/17 13:01 Blood Pressure 116/63 04/20/17 13:01 O2 Sat by Pulse Oximetry (%) 97 04/20/17 10:20 Eyes: Yes: Other (fixed dilated) HENT: Yes: WNL, Atraumatic, Normocephalic Neck: Yes: WNL, Supple, Trachea Midline Cardiovascular: Yes: WNL, Regular Rate and Rhythm Respiratory: Yes: Mechanically Ventilated Gastrointestinal: Yes: WNL, Normal Bowel Sounds Genitourinary: Yes: WNL Musculoskeletal: Yes: WNL Extremities: Yes: WNL Edema: No Integumentary: Yes: WNL Neurological: Yes: Unresponsive ...Motor Strength: WNL Psychiatric: Yes: WNL Labs: CBC, BMP 04/20/17 05:45 04/20/17 05:45 INR, PTT INR 1.12 (0.82-1.09) 04/18/17 07:20 Problem List - Problems (1) Cardiorespiratory arrest Code(s): I46.9 - CARDIAC ARREST, CAUSE UNSPECIFIED (2) GI bleed Code(s): K92.2 - GASTROINTESTINAL HEMORRHAGE, UNSPECIFIED (3) LFT elevation Code(s): R79.89 - OTHER SPECIFIED ABNORMAL FINDINGS OF BLOOD CHEMISTRY (4) Leukocytosis Code(s): D72.829 - ELEVATED WHITE BLOOD CELL COUNT, UNSPECIFIED (5) Signs of return of spontaneous circulation Code(s): XOG2304 - (6) Troponin level elevated Code(s): R74.8 - ABNORMAL LEVELS OF OTHER SERUM ENZYMES (7) Allergic reaction Code(s): T78.40XA - ALLERGY, UNSPECIFIED, INITIAL ENCOUNTER Qualifiers: Encounter type: initial encounter Qualified Code(s): T78.40XA - Allergy, unspecified, initial encounter (8) Rash Code(s): R21 - RASH AND OTHER NONSPECIFIC SKIN ERUPTION Assessment/Plan (1) Rash Code(s): R21 - RASH AND OTHER NONSPECIFIC SKIN ERUPTION (2) Leukocytosis Code(s): D72.829 - ELEVATED WHITE BLOOD CELL COUNT, UNSPECIFIED (3) Cardiorespiratory arrest Assessment/Plan: On norepinephrine for pressure support. TNi increased to >10; elevated CK, with low relative index. Treat as NSTEMI ( regional wall motion abonrmalities on EKG; preserved LVEF). Pt may also have had VT arrest; ?hx prolonged QT syndrome. On ASA, clopidogrel; on high dose atorvastation. Telemetry: NSR; periods of sinus tachycardia. EKG: NSR; prolonged QT. Replete K+; keep 4-4.5; Mg and PO4 are WNL. CXR: no acute pathology. Mildly elevated free T4. If pt develops VT, can start amiodarone. Code(s): I46.9 - CARDIAC ARREST, CAUSE UNSPECIFIED (4) H/O prolonged Q-T interval on ECG Assessment/Plan: Pt's gave hx of pt c/o feeling bad earlier this summer while seted, then losing consciousness for about a minute.He was seen at an ER at that time. EKGs this admission show prolonged QT. It is possible pt has prolonged QT syndrome, with VT as etiology of syncopal attacks resulting in this unfortunate outcome. Code(s): Z87.898 - PERSONAL HISTORY OF OTHER SPECIFIED CONDITIONS (5) Brain Assessment/Plan: Prestent status was explained to by neurologist. no brain perfusion some spontaneus respirations noted Code(s): G93.82 - BRAIN (6) Smokes cigarettes Code(s): F17.210 - NICOTINE DEPENDENCE, CIGARETTES, UNCOMPLICATED (7) Hyperlipidemia Code(s): E78.5 - HYPERLIPIDEMIA, UNSPECIFIED (8) Obesity Code(s): E66.9 - OBESITY, UNSPECIFIED Assessment/Plan cc time spent: 50 minutes
--- NOTE | 2017-04-20 16:36 | PN ---
Progress Note, Physician History of Present Illness: continues to be intubated spontaneous breath as per icu team - Current Medication List Current Medications: Active Medications Albuterol/Ipratropium (Duoneb -) 1 amp NEB QIDR [facility] Last Admin: 04/20/17 11:45 Dose: 1 amp Aspirin (Asa -) 81 mg NGT DAILY [facility] Last Admin: 04/20/17 09:02 Dose: 81 mg Atorvastatin Calcium (Lipitor -) 80 mg PO HS [facility] Last Admin: 04/19/17 22:17 Dose: 80 mg Chlorhexidine Gluconate (Hibiclens For Decolonization -) 1 applic TP HS [facility] Last Admin: 04/19/17 22:17 Dose: 1 applic Chlorhexidine Gluconate (Peridex -) 15 ml MM BID [facility] Last Admin: 04/20/17 09:15 Dose: 15 ml Clopidogrel Bisulfate (Plavix -) 75 mg NGT DAILY [facility] Last Admin: 04/20/17 09:02 Dose: 75 mg Heparin Sodium (Porcine) (Heparin -) 1,000 unit IVPUSH PRN PRN PRN Reason: Heparin Heparin Sodium (Porcine) (Heparin -) 5,000 unit IVPUSH PRN PRN PRN Reason: Heparin Last Admin: 04/20/17 08:44 Dose: 5,000 unit Piperacillin/Tazobactam/Dextrose (Zosyn 4.5gm Ivpb (Premix)) 100 mls @ 200 mls/ hr IVPB Q8H-IV YOAV PRN Reason: Protocol Last Admin: 04/20/17 09:04 Dose: 200 mls/hr Norepinephrine Bitartrate 8, (000 mcg/ Dextrose) 500 mls @ 18.75 mls/hr IV TITR YOAV; 5 MCG/MIN PRN Reason: Protocol Last Titration: 04/20/17 07:19 Dose: 7 mcg/min, 26.25 mls/hr Heparin Sodium (Porcine) 25, (000 unit/ Sodium Chloride) 500 mls @ 20 mls/hr IV TITR YOAV; 1,000 UNIT/HR PRN Reason: Protocol Last Titration: 04/20/17 08:40 Dose: 1,300 unit/hr, 26 mls/hr Insulin Aspart (Novolog Vial Sliding Scale -) 1 vial SQ ACHS YOAV PRN Reason: Protocol Last Admin: 04/20/17 10:38 Dose: Not Given Mupirocin (Bactroban Ointment (For Decolonization) -) 1 applic NS BID [facility] Stop: 04/22/17 21:59 Last Admin: 04/20/17 09:15 Dose: 1 applic Pantoprazole Sodium (Protonix Iv) 40 mg IVPUSH DAILY [facility] Last Admin: 04/20/17 09:14 Dose: 40 mg - Objective Vital Signs: Vital Signs Temperature 99.3 F 04/20/17 12:00 Pulse Rate 117 H 04/20/17 13:01 Respiratory Rate 18 04/20/17 14:10 Blood Pressure 116/63 04/20/17 13:01 O2 Sat by Pulse Oximetry (%) 97 04/20/17 10:20 Constitutional: Yes: Other Cardiovascular: Yes: S1, S2 Respiratory: Yes: Intubated, Mechanically Ventilated Gastrointestinal: Yes: Normal Bowel Sounds, Soft Musculoskeletal: Yes: WNL Extremities: Yes: WNL Labs: CBC, BMP 04/20/17 05:45 04/20/17 05:45 INR, PTT INR 1.12 (0.82-1.09) 04/18/17 07:20 Assessment/Plan emains intubated, unresponsive off sedation. Evaluated by neurology, cranial reflexes absent. n. Remains on levophed Problem List - Problems (1) Cardiorespiratory arrest Code(s): I46.9 - CARDIAC ARREST, CAUSE UNSPECIFIED (2) Leukocytosis Code(s): D72.829 - ELEVATED WHITE BLOOD CELL COUNT, UNSPECIFIED (3) Troponin level elevated Code(s): R74.8 - ABNORMAL LEVELS OF OTHER SERUM ENZYMES (4) LFT elevation Code(s): R79.89 - OTHER SPECIFIED ABNORMAL FINDINGS OF BLOOD CHEMISTRY (5) GI bleed Code(s): K92.2 - GASTROINTESTINAL HEMORRHAGE, UNSPECIFIED plan continue abx rest as per icu patient with poor prognosis rest as per primary cc time 40 min
--- NOTE | 2017-04-20 19:37 | PN ---
Progress Note (short form) - Note Progress Note: NEUROLOGY FOLLOW-UP: Events reviewed. Patient examined with family present. Both Drs Giancarlo (04/19) and Dylan (04/20) indicate that this patient exhibited spontaneous respirations. Remains off sedation. Exam: Pt is disconnected from the ventilator x 3 mins without spontaneous respirations. I allowed pulse to reach 125 and reconnected the vent. No response to pain. Pupils fixed and dilated. No corneal responses No EOM's to Doll's head. No withdrawal to pinch. IMP: No evidence of cerebral or brainstem function. Suggest: The Pulmonary intensivists will follow his respiratory status. Please call if I can be of further assistance. Thank you very much Luis Monsalve MD
[2017-04-20 19:54] LABS: URINE APPEARANCE CLOUDY; URINE BILIRUBIN NEGATIVE (NEGATIVE); URINE BLOOD 2+ (NEGATIVE); URINE COLOR LTYELLOW; URINE GLUCOSE (UA) NEGATIVE (NEGATIVE); URINE KETONE NEGATIVE (NEGATIVE); URINE NITRITE NEGATIVE (NEGATIVE); URINE PROTEIN NEGATIVE (NEGATIVE); URINE UROBILINOGEN NEGATIVE mg/dL (0.2-1.0)
[2017-04-20 20:02] LABS: URINE BACTERIA RARE /hpf (NONE SEEN); URINE MUCUS RARE; URINE RBC 2; URINE WBC 7; YEAST FEW
[2017-04-20 20:03] LABS: SODIUM,RANDOM URINE 12 MMOL/L
[2017-04-20 21:31] LABS: URINE LEUK ESTERASE TRACE (NEGATIVE)
[2017-04-20] MEDS: CHLORHEXIDINE GLUCONATE 4% CLEANSER FOR DECOLONIZATION TP SCH (21:52)
[2017-04-20] MEDS: ATORVASTATIN CA 80 MG TABLET (FP) PO SCH (21:52)
[2017-04-20 23:42] LABS: ARTERIAL BLD GAS O2 SATURATION 97.1 % (90-98.9); ARTERIAL BLOOD GAS BASE EXCESS -7.6 meq/l (-2-2); ARTERIAL BLOOD GAS HCO3 18.5 meq/L (22-26); ARTERIAL BLOOD GAS PO2 91.6 mmHg (80-100); ARTERIAL BLOOD GAS pH 7.27 (7.35-7.45)
[2017-04-20 23:44] LABS: ALLENS TEST POSITIVE; ART PUNCT SITE LEFT RADIAL; LPM/O2% 60; PT. ON O2? YES; TYPE OF O2 MECH VENT
[2017-04-20 23:45] LABS: MECH. VENT. YES; VENT RATE 18; VT/PRESS 500
[2017-04-20] MEDS ORDERED: PNEUMOC 13-VAL CONJ-DIP CRM/PF 0.5 ML DISP.SYRIN IM ONE (23:46)
[2017-04-21] MEDS: PIPERACILLIN/TAZOB 4.5 GM 100 ML IVPB SCH ×3 (01:27→17:36)
[2017-04-21] MEDS ORDERED: NOREPINEPHRINE BITARTRATE 4 MG/4 ML ML IV ONE ×2 (01:55→23:20)
[2017-04-21 06:30] LABS: BASOPHIL 0.2 % (0-2.0); EOSINOPHIL 1.1 % (0-4.5); MCH 28.7 pg (25.7-33.7); MEAN CELL VOLUME 84.5 fl (80-96); MEAN PLT VOLUME 9.3 fl (7.5-11.1); NEUTROPHILS 83.8 % (42.8-82.8); PLATELET COUNT 120 K/MM3 (134-434); RDW 13.8 % (11.9-15.9); WHITE BLOOD COUNT 17.4 K/mm3 (4.0-10.0)
[2017-04-21] MEDS: ALBUTEROL SO4 2.5/IPRATROPIUM 0.5 INH SOL 3 ML VIAL.NEB. NEB SCH ×4 (06:56→23:56)
[2017-04-21 07:10] LABS: ANION GAP 16 (8-16); CALCIUM 7.8 mg/dL (8.5-10.1); CO2 16 mmol/L (21-32); GLUCOSE,RANDOM 105 mg/dL (74-106)
[2017-04-21 07:19] LABS: CREATININE 7.7 mg/dL (0.7-1.3)
[2017-04-21 07:42] LABS: ARTERIAL BLD GAS O2 SATURATION 98.1 % (90-98.9); ARTERIAL BLOOD GAS BASE EXCESS -6.5 meq/l (-2-2); ARTERIAL BLOOD GAS HCO3 17.3 meq/L (22-26); ARTERIAL BLOOD GAS pH 7.37 (7.35-7.45)
[2017-04-21 07:43] LABS: ALLENS TEST POSITIVE
[2017-04-21 07:44] LABS: ART PUNCT SITE LEFT RADIAL; LPM/O2% 60; PT. ON O2? YES; TYPE OF O2 VENT
[2017-04-21 07:45] LABS: MECH. VENT. YES; VENT RATE 26; VT/PRESS 500
--- NOTE | 2017-04-21 07:58 | PN ---
Progress Note, Physician Chief Complaint: Coverage for [employer] Intubated. Unresponsive. TELE: NSR, Sinus tach, rare single VPCs - Current Medication List Current Medications: Active Medications Albuterol/Ipratropium (Duoneb -) 1 amp NEB QIDR [facility] Last Admin: 04/21/17 06:56 Dose: 1 amp Aspirin (Asa -) 81 mg NGT DAILY [facility] Last Admin: 04/20/17 09:02 Dose: 81 mg Atorvastatin Calcium (Lipitor -) 80 mg PO HS [facility] Last Admin: 04/20/17 21:52 Dose: 80 mg Chlorhexidine Gluconate (Peridex -) 15 ml MM BID [facility] Last Admin: 04/20/17 21:52 Dose: 15 ml Clopidogrel Bisulfate (Plavix -) 75 mg NGT DAILY [facility] Last Admin: 04/20/17 09:02 Dose: 75 mg Heparin Sodium (Porcine) (Heparin -) 1,000 unit IVPUSH PRN PRN PRN Reason: Heparin Heparin Sodium (Porcine) (Heparin -) 5,000 unit IVPUSH PRN PRN PRN Reason: Heparin Last Admin: 04/20/17 08:44 Dose: 5,000 unit Piperacillin/Tazobactam/Dextrose (Zosyn 4.5gm Ivpb (Premix)) 100 mls @ 200 mls/ hr IVPB Q8H-IV YOAV PRN Reason: Protocol Last Admin: 04/21/17 01:27 Dose: 200 mls/hr Norepinephrine Bitartrate 8, (000 mcg/ Dextrose) 500 mls @ 18.75 mls/hr IV TITR YOAV; 5 MCG/MIN PRN Reason: Protocol Last Titration: 04/21/17 07:00 Dose: 7 mcg/min, 26.25 mls/hr Heparin Sodium (Porcine) 25, (000 unit/ Sodium Chloride) 500 mls @ 20 mls/hr IV TITR YOAV; 1,000 UNIT/HR PRN Reason: Protocol Last Titration: 04/20/17 15:00 Dose: 1,300 unit/hr, 26 mls/hr Pantoprazole Sodium (Protonix Iv) 40 mg IVPUSH DAILY [facility] Last Admin: 04/20/17 09:14 Dose: 40 mg Pneumococcal Polyvalent Vaccine (Pneumovax -) 0.5 ml IM .ONCE ONE Stop: 04/21/17 10:01 - Objective Vital Signs: Vital Signs Temperature 98.8 F 04/21/17 06:00 Pulse Rate 95 H 04/21/17 07:00 Respiratory Rate 26 H 04/21/17 07:20 Blood Pressure 107/58 04/21/17 07:00 O2 Sat by Pulse Oximetry (%) 100 04/21/17 00:51 HENT: Yes: Other (+ ETT) Cardiovascular: Yes: Regular Rate and Rhythm Respiratory: Yes: Other (= breath sounds b/l) Gastrointestinal: Yes: Soft Edema: No Labs: CBC, BMP 04/21/17 05:45 04/21/17 05:45 INR, PTT INR 1.12 (0.82-1.09) 04/18/17 07:20 Microbiology 04/17/17 19:40 Blood - Peripheral Venous Blood Culture - Preliminary NO GROWTH OBTAINED AFTER 72 HOURS, INCUBATION TO CONTINUE FOR 2 DAYS. 04/17/17 19:40 Blood - Peripheral Venous Blood Culture - Preliminary NO GROWTH OBTAINED AFTER 72 HOURS, INCUBATION TO CONTINUE FOR 2 DAYS. Laboratory Tests 04/20/17 04/21/17 04/21/17 15:00 05:45 05:45 WBC 17.4 H Hgb 11.3 L Plt Count 120 L PTT (Actin FS) 57.8 H D Pending ABG pH ABG pCO2 at Pt Temp ABG pO2 at Pt Temp Oxygen Flow Rate Vent Mode Vent Rate Sodium Potassium BUN Creatinine 04/21/17 04/21/17 05:45 07:10 WBC Hgb Plt Count PTT (Actin FS) ABG pH 7.37 ABG pCO2 at Pt Temp 31.0 L D ABG pO2 at Pt Temp 107.0 H Oxygen Flow Rate 60 Vent Mode A/c Vent Rate 26 Sodium 143 Potassium 4.4 BUN 61 H D Creatinine 7.7 H* D - ....Imaging EKG: Image Reviewed Assessment/Plan - Assessment/Plan (1) Cardiorespiratory arrest Assessment/Plan: On norepinephrine for pressure support. Treat as NSTEMI (preserved LVEF). Pt may also have had VT arrest; ?hx prolonged QT syndrome. On ASA, clopidogrel; on high dose atorvastation. Telemetry: NSR; periods of sinus tachycardia. Replete K+; keep 4-4.5; Keep Mg around 2.0 If pt develops VT, can start amiodarone. Code(s): I46.9 - CARDIAC ARREST, CAUSE UNSPECIFIED (2) H/O prolonged Q-T interval on ECG Assessment/Plan: Pt's gave hx of pt c/o feeling bad earlier this summer while seted, then losing consciousness for about a minute.He was seen at an ER at that time. EKGs this admission show prolonged QT. It is possible pt has prolonged QT syndrome, with VT as etiology of syncopal attacks resulting in this unfortunate outcome. Code(s): Z87.898 - PERSONAL HISTORY OF OTHER SPECIFIED CONDITIONS (3) Brain Assessment/Plan: Prestent status was explained to by neurologist. no brain perfusion some spontaneus respirations noted Code(s): G93.82 - BRAIN Coverage for [place]igh
[2017-04-21] MEDS ORDERED: PNEUMOCOCCAL 23 VACCINE 0.5 ML VIAL IM ONE (10:00)
[2017-04-21] MEDS: PANTOPRAZOLE SODIUM 40 MG VIAL IVPUSH SCH (10:09)
[2017-04-21] MEDS: CLOPIDOGREL BISULFATE 75 MG TABLET (FP) NGT SCH (10:09)
[2017-04-21] MEDS: ASPIRIN 81 MG CHEWABLE TABLETS NGT SCH (10:09)
[2017-04-21] MEDS: CHLORHEXIDINE GLUCONATE 0.12% 15ML CUP MM SCH ×2 (10:10→22:54)
--- NOTE | 2017-04-21 10:20 | PN ---
Progress Note (short form) - Note Progress Note: PULMONARY/CCM Pt seen and examined in the ICU. Remains intubated, unresponsive off sedation on levophed gtt. No clear spontaneous breaths when back up rate lowered. Last Vital Signs Temp Pulse Resp BP Pulse Ox 98.1 F 95 H 26 H 103/57 100 04/21/17 08:00 04/21/17 08:00 04/21/17 09:00 04/21/17 08:00 04/21/17 09:00 Intake & Output 04/18/17 04/19/17 04/20/17 04/21/17 23:59 23:59 23:59 23:59 Intake Total 4882 3640 1023.1 724 Output Total 0073 522 4546 800 Balance 3782 3365 -1376.9 -76 Weight 315 lb 8 oz 321 lb 13.998 oz 330 lb 6 oz 326 lb 15.128 oz Gen: intubated, unresponsive Heart: RRR Lung: decreased breath sounds at the bases Abd: soft, nontender Ext: + edema CBC, BMP 04/21/17 05:45 04/21/17 05:45 Active Medications Albuterol/Ipratropium (Duoneb -) 1 amp NEB QIDR [facility] Last Admin: 04/21/17 06:56 Dose: 1 amp Aspirin (Asa -) 81 mg NGT DAILY [facility] Last Admin: 04/21/17 10:09 Dose: 81 mg Atorvastatin Calcium (Lipitor -) 80 mg PO HS [facility] Last Admin: 04/20/17 21:52 Dose: 80 mg Chlorhexidine Gluconate (Peridex -) 15 ml MM BID [facility] Last Admin: 04/21/17 10:10 Dose: 15 ml Clopidogrel Bisulfate (Plavix -) 75 mg NGT DAILY [facility] Last Admin: 04/21/17 10:09 Dose: 75 mg Heparin Sodium (Porcine) (Heparin -) 1,000 unit IVPUSH PRN PRN PRN Reason: Heparin Heparin Sodium (Porcine) (Heparin -) 5,000 unit IVPUSH PRN PRN PRN Reason: Heparin Last Admin: 04/20/17 08:44 Dose: 5,000 unit Piperacillin/Tazobactam/Dextrose (Zosyn 4.5gm Ivpb (Premix)) 100 mls @ 200 mls/ hr IVPB Q8H-IV [facility] PRN Reason: Protocol Last Admin: 04/21/17 09:29 Dose: 200 mls/hr Norepinephrine Bitartrate 8, (000 mcg/ Dextrose) 500 mls @ 18.75 mls/hr IV TITR [facility]; 5 MCG/MIN PRN Reason: Protocol Last Titration: 04/21/17 07:00 Dose: 7 mcg/min, 26.25 mls/hr Heparin Sodium (Porcine) 25, (000 unit/ Sodium Chloride) 500 mls @ 20 mls/hr IV TITR [facility]; 1,000 UNIT/HR PRN Reason: Protocol Last Titration: 04/20/17 15:00 Dose: 1,300 unit/hr, 26 mls/hr Pantoprazole Sodium (Protonix Iv) 40 mg IVPUSH DAILY [facility] Last Admin: 04/21/17 10:09 Dose: 40 mg A/P s/p Cardiopulmonary Arrest r/o Acute AL Anoxic Encephalopathy Septic vs Cardiogenic vs Neurogenic Shock Acute Kidney Injury Lactic Acidosis Elevated LFTs likely Ischemic Injury Hyperglycemia - will perform apnea test - continue empiric antibiotics - titrate pressors to maintain MAP >65 - hold all sedation to assess mental status - taper FiO2 to keep SpO2 >90% - DVT/GI prophylaxis - poor overall prognosis for meaningful recovery - continue ICU monitoring critical care time spent in reviewing chart, evaluating patient and formulating plan 45 min
--- NOTE | 2017-04-21 10:21 | PN ---
Progress Note (short form) - Note Progress Note: RENAL Pt seen and examined he is intubated and unresponsive Last Vital Signs Temp Pulse Resp BP Pulse Ox 98.1 F 95 H 26 H 103/57 100 04/21/17 08:00 04/21/17 08:00 04/21/17 09:00 04/21/17 08:00 04/21/17 09:00 heent fixed and dilated pupils cvs s1s2 rr abd soft ext +edema making some urine neuro unresponsive, has some spontaneous breaths when the machine is stopped skin no obvious rash Current Medications Generic Name Dose Route Start Last Admin Trade Name Freq PRN Reason Stop Dose Admin Albuterol/Ipratropium 1 amp 04/18/17 00:00 04/21/17 06:56 Duoneb - NEB 1 amp QIDR [facility] Administration Aspirin 81 mg 04/18/17 18:15 04/21/17 10:09 Asa - NGT 81 mg DAILY [facility] Administration Atorvastatin Calcium 80 mg 04/17/17 22:00 04/20/17 21:52 Lipitor - PO 80 mg HS [facility] Administration Chlorhexidine Gluconate 15 ml 04/17/17 22:45 04/21/17 10:10 Peridex - MM 15 ml BID [facility] Administration Clopidogrel Bisulfate 75 mg 04/18/17 18:15 04/21/17 10:09 Plavix - NGT 75 mg DAILY [facility] Administration Heparin Sodium (Porcine) 1,000 unit 04/18/17 19:09 Heparin - IVPUSH PRN PRN Heparin Heparin Sodium (Porcine) 5,000 unit 04/18/17 19:09 04/20/17 08:44 Heparin - IVPUSH 5,000 unit PRN PRN Administration Heparin Piperacillin/Tazobactam/Dextrose 100 mls @ 200 mls/hr 04/18/17 02:00 09:29 Zosyn 4.5gm Ivpb (Premix) IVPB 200 mls/hr Q8H-IV [facility] Administration Protocol Norepinephrine Bitartrate 8, 500 mls @ 18.75 mls/hr 04/18/17 11:15 04/21/17 07:00 000 mcg/ Dextrose IV 7 mcg/min TITR [facility] 26.25 mls/hr Protocol Titration 5 MCG/MIN Heparin Sodium (Porcine) 25, 500 mls @ 20 mls/hr 04/18/17 19:15 04/20/17 15: 00 000 unit/ Sodium Chloride IV 1,300 unit/hr TITR [facility] 26 mls/hr Protocol Titration 1,000 UNIT/HR Pantoprazole Sodium 40 mg 04/18/17 10:00 04/21/17 10:09 Protonix Iv IVPUSH 40 mg DAILY [facility] Administration CBC, BMP 04/21/17 05:45 04/21/17 05:45 1. NARINDER 2. cardiac arrest 3. respiratory failure requiring intubation 4. obesity 5. transaminitis 6. a-fib 7. shock 8. hypotension 9. anoxic encephalopathy 10. hyperkalemia Plan I had a discussion with patients and CCM. If patient is brain I would not consider dialysis unless its a bridge to harvesting his organs. If he is not brain , uremia may make it more difficult for him to have any sort of response. He does not meet emergent criteria for hemodialysis. So will delay this decision until tomorrow. MV
[2017-04-21 10:29] LABS: ARTERIAL BLD GAS O2 SATURATION 99.5 % (90-98.9); ARTERIAL BLOOD GAS BASE EXCESS -7.3 meq/l (-2-2); ARTERIAL BLOOD GAS HCO3 17.7 meq/L (22-26); ARTERIAL BLOOD GAS pH 7.31 (7.35-7.45)
[2017-04-21 10:30] LABS: ALLENS TEST POSITIVE; ART PUNCT SITE LEFT RADIAL; LPM/O2% 100%; PT. ON O2? YES; TYPE OF O2 MEC VENT
[2017-04-21 10:31] LABS: VENT RATE 26; VT/PRESS 500
[2017-04-21 10:42] LABS: ARTERIAL BLD GAS O2 SATURATION 98.7 % (90-98.9); ARTERIAL BLOOD GAS BASE EXCESS -7.4 meq/l (-2-2); ARTERIAL BLOOD GAS HCO3 19.5 meq/L (22-26); ARTERIAL BLOOD GAS pH 7.24 (7.35-7.45)
[2017-04-21 10:44] LABS: ALLENS TEST POSITIVE; ART PUNCT SITE LEFT RADIAL; LPM/O2% 15; PT. ON O2? YES; TYPE OF O2 N/C
[2017-04-21 10:47] LABS: ARTERIAL BLOOD GAS pH 7.19 (7.35-7.45)
[2017-04-21 10:49] LABS: ALLENS TEST POSITIVE; ART PUNCT SITE LEFT RADIAL; LPM/O2% 15; PT. ON O2? YES; TYPE OF O2 N/C
--- NOTE | 2017-04-21 10:56 | PN ---
Progress Note (short form) - Note Progress Note: CCM Apnea performed, baseline pCO2 35. Pt removed from mechanical ventilation and observed, no spontaneous breaths noted. ABG at 5 minutes with pCO2 54.4 and pH 7.19. Previous brain scan without cerebral blood flow. Pt clinically brain . Robert Mondragon MD
[2017-04-21] MEDS: HEPARIN - 25,000 UNIT in SODIUM CHLORIDE 495 ML IV SCH (11:11)
[2017-04-21] MEDS ORDERED: LORazepam 2 MG/ML SDV VIAL ONE (14:32)
--- NOTE | 2017-04-21 14:55 | EKG ---
Test Reason : Blood Pressure : / mmHG Vent. Rate : 095 BPM Atrial Rate : 095 BPM P-R Int : 150 ms QRS Dur : 094 ms QT Int : 390 ms P-R-T Axes : 045 054 034 degrees QTc Int : 490 ms NORMAL SINUS RHYTHM NONSPECIFIC T WAVE ABNORMALITY PROLONGED QT ABNORMAL ECG WHEN COMPARED WITH ECG OF 18-APR-2017 09:17, NONSPECIFIC T WAVE ABNORMALITY NOW EVIDENT IN INFERIOR LEADS NONSPECIFIC T WAVE ABNORMALITY NOW EVIDENT IN ANTERIOR LEADS QT HAS SHORTENED REPEAT EKG IF CLINICALLY INDICATED Confirmed by WON HOUSTON MD ([id number] on 04/21/2017 2:55:18 PM Referred By: Kaitlynn COHEN Confirmed By:WON HOUSTON MD
[2017-04-21] MEDS ORDERED: LORazepam 2 MG/ML SDV VIAL IVPUSH PRN (15:16)
[2017-04-21] MEDS ORDERED: PT OWN MED DRAWER 7, Y5N ONE ×3 (16:25→22:14)
--- NOTE | 2017-04-21 17:02 | PN ---
Progress Note, Physician History of Present Illness: continues to be intubated spontaneous breath as per icu team patient probably brain family thinking over - Current Medication List Current Medications: Active Medications Albuterol/Ipratropium (Duoneb -) 1 amp NEB QIDR [facility] Last Admin: 04/21/17 11:20 Dose: 1 amp Aspirin (Asa -) 81 mg NGT DAILY [facility] Last Admin: 04/21/17 10:09 Dose: 81 mg Atorvastatin Calcium (Lipitor -) 80 mg PO HS [facility] Last Admin: 04/20/17 21:52 Dose: 80 mg Chlorhexidine Gluconate (Peridex -) 15 ml MM BID [facility] Last Admin: 04/21/17 10:10 Dose: 15 ml Clopidogrel Bisulfate (Plavix -) 75 mg NGT DAILY [facility] Last Admin: 04/21/17 10:09 Dose: 75 mg Heparin Sodium (Porcine) (Heparin -) 1,000 unit IVPUSH PRN PRN PRN Reason: Heparin Heparin Sodium (Porcine) (Heparin -) 5,000 unit IVPUSH PRN PRN PRN Reason: Heparin Last Admin: 04/20/17 08:44 Dose: 5,000 unit Piperacillin/Tazobactam/Dextrose (Zosyn 4.5gm Ivpb (Premix)) 100 mls @ 200 mls/ hr IVPB Q8H-IV [facility] PRN Reason: Protocol Last Admin: 04/21/17 09:29 Dose: 200 mls/hr Norepinephrine Bitartrate 8, (000 mcg/ Dextrose) 500 mls @ 18.75 mls/hr IV TITR [facility]; 5 MCG/MIN PRN Reason: Protocol Last Titration: 04/21/17 07:00 Dose: 7 mcg/min, 26.25 mls/hr Heparin Sodium (Porcine) 25, (000 unit/ Sodium Chloride) 500 mls @ 20 mls/hr IV TITR [facility]; 1,000 UNIT/HR PRN Reason: Protocol Last Admin: 04/21/17 11:11 Dose: 1,300 unit/hr, 26 mls/hr Lorazepam (Ativan Injection -) 2 mg IVPUSH Q2H PRN PRN Reason: SEIZURES Last Admin: 04/21/17 14:35 Dose: 2 mg Pantoprazole Sodium (Protonix Iv) 40 mg IVPUSH DAILY [facility] Last Admin: 04/21/17 10:09 Dose: 40 mg - Objective Vital Signs: Vital Signs Temperature 97.9 F 04/21/17 14:00 Pulse Rate 95 H 04/21/17 14:00 Respiratory Rate 26 H 04/21/17 16:38 Blood Pressure 111/61 04/21/17 14:00 O2 Sat by Pulse Oximetry (%) 100 04/21/17 09:00 Constitutional: Yes: Obese, Other Cardiovascular: Yes: Regular Rate and Rhythm Respiratory: Yes: Intubated, Mechanically Ventilated Gastrointestinal: Yes: Hypoactive Bowel Sounds, Other Musculoskeletal: Yes: WNL Extremities: Yes: WNL Labs: CBC, BMP 04/21/17 05:45 04/21/17 05:45 INR, PTT INR 1.12 (0.82-1.09) 04/18/17 07:20 Assessment/Plan emains intubated, unresponsive off sedation. Evaluated by neurology, cranial reflexes absent. n. Remains on levophed Problem List - Problems (1) Cardiorespiratory arrest Code(s): I46.9 - CARDIAC ARREST, CAUSE UNSPECIFIED (2) Leukocytosis Code(s): D72.829 - ELEVATED WHITE BLOOD CELL COUNT, UNSPECIFIED (3) Troponin level elevated Code(s): R74.8 - ABNORMAL LEVELS OF OTHER SERUM ENZYMES (4) LFT elevation Code(s): R79.89 - OTHER SPECIFIED ABNORMAL FINDINGS OF BLOOD CHEMISTRY (5) GI bleed Code(s): K92.2 - GASTROINTESTINAL HEMORRHAGE, UNSPECIFIED plan continue abx rest as per icu patient with poor prognosis rest as per primary await for family plan cc time 40 min
--- NOTE | 2017-04-21 18:01 | PN ---
Progress Note, Physician Chief Complaint: Respiratory arrest History of Present Illness: Patient came in with respiratory arrest, on mechanical vent clinically brain on brain flow scan and upon taking off the mechanical vent family apprehensive about terminal weaning, awaiting family arrival from [place] and discussion with the [facility]. Starting to have seizure activity - Current Medication List Current Medications: Active Medications Albuterol/Ipratropium (Duoneb -) 1 amp NEB QIDR [facility] Last Admin: 04/21/17 11:20 Dose: 1 amp Aspirin (Asa -) 81 mg NGT DAILY [facility] Last Admin: 04/21/17 10:09 Dose: 81 mg Atorvastatin Calcium (Lipitor -) 80 mg PO HS [facility] Last Admin: 04/20/17 21:52 Dose: 80 mg Chlorhexidine Gluconate (Peridex -) 15 ml MM BID [facility] Last Admin: 04/21/17 10:10 Dose: 15 ml Clopidogrel Bisulfate (Plavix -) 75 mg NGT DAILY [facility] Last Admin: 04/21/17 10:09 Dose: 75 mg Heparin Sodium (Porcine) (Heparin -) 1,000 unit IVPUSH PRN PRN PRN Reason: Heparin Heparin Sodium (Porcine) (Heparin -) 5,000 unit IVPUSH PRN PRN PRN Reason: Heparin Last Admin: 04/20/17 08:44 Dose: 5,000 unit Piperacillin/Tazobactam/Dextrose (Zosyn 4.5gm Ivpb (Premix)) 100 mls @ 200 mls/ hr IVPB Q8H-IV [facility] PRN Reason: Protocol Last Admin: 04/21/17 17:36 Dose: 200 mls/hr Norepinephrine Bitartrate 8, (000 mcg/ Dextrose) 500 mls @ 18.75 mls/hr IV TITR [facility]; 5 MCG/MIN PRN Reason: Protocol Last Titration: 04/21/17 07:00 Dose: 7 mcg/min, 26.25 mls/hr Heparin Sodium (Porcine) 25, (000 unit/ Sodium Chloride) 500 mls @ 20 mls/hr IV TITR [facility]; 1,000 UNIT/HR PRN Reason: Protocol Last Admin: 04/21/17 11:11 Dose: 1,300 unit/hr, 26 mls/hr Lorazepam (Ativan Injection -) 2 mg IVPUSH Q2H PRN PRN Reason: SEIZURES Last Admin: 04/21/17 14:35 Dose: 2 mg Pantoprazole Sodium (Protonix Iv) 40 mg IVPUSH DAILY [facility] Last Admin: 04/21/17 10:09 Dose: 40 mg - Objective Vital Signs: Vital Signs Temperature 97.9 F 04/21/17 14:00 Pulse Rate 95 H 04/21/17 14:00 Respiratory Rate 26 H 04/21/17 16:38 Blood Pressure 111/61 04/21/17 14:00 O2 Sat by Pulse Oximetry (%) 100 04/21/17 09:00 Constitutional: Yes: Well Nourished, No Distress Cardiovascular: Yes: Regular Rate and Rhythm Respiratory: Yes: Mechanically Ventilated Labs: CBC, BMP 04/21/17 05:45 04/21/17 05:45 INR, PTT INR 1.12 (0.82-1.09) 04/18/17 07:20 Problem List - Problems (1) NARINDER (acute kidney injury) Assessment/Plan: -nephrology consult -discussed the implications of dialysis vs no dialysis - is unsure Code(s): N17.9 - ACUTE KIDNEY FAILURE, UNSPECIFIED (2) Cardiorespiratory arrest Assessment/Plan: -clinically brain -on IVF -mechanical vent -pulmonary on board -Organ donation should the family consider Code(s): I46.9 - CARDIAC ARREST, CAUSE UNSPECIFIED (3) Brain Code(s): G93.82 - BRAIN (4) LFT elevation Assessment/Plan: likely 2/2 to ischemia Code(s): R79.89 - OTHER SPECIFIED ABNORMAL FINDINGS OF BLOOD CHEMISTRY Assessment/Plan see problem list
[2017-04-21] MEDS: ATORVASTATIN CA 80 MG TABLET (FP) PO SCH (22:54)
[2017-04-21] MEDS: NOREPINEPHRINE BITARTRATE 8,000 MCG in DEXTROSE 5%-WATER - 492 ML IV SCH (23:50)
[2017-04-22] MEDS: HEPARIN - 25,000 UNIT in SODIUM CHLORIDE 495 ML IV SCH (00:50)
[2017-04-22] MEDS: PIPERACILLIN/TAZOB 4.5 GM 100 ML IVPB SCH ×3 (01:10→18:56)
[2017-04-22] MEDS: ALBUTEROL SO4 2.5/IPRATROPIUM 0.5 INH SOL 3 ML VIAL.NEB. NEB SCH ×4 (06:01→23:03)
[2017-04-22 06:47] LABS: BASOPHIL 0.3 % (0-2.0); EOSINOPHIL 3.3 % (0-4.5); MCH 28.3 pg (25.7-33.7); MCHC 33.3 g/dl (32.0-35.9); MEAN CELL VOLUME 84.8 fl (80-96); MEAN PLT VOLUME 9.2 fl (7.5-11.1); NEUTROPHILS 78.9 % (42.8-82.8); PLATELET COUNT 142 K/MM3 (134-434); RDW 14.1 % (11.9-15.9); WHITE BLOOD COUNT 14.3 K/mm3 (4.0-10.0)
[2017-04-22 07:21] LABS: ALBUMIN 1.8 g/dl (3.4-5.0); ALK PHOS 181 U/L (45-117); ANION GAP 13 (8-16); BILIRUBIN,TOTAL 1.1 mg/dL (0.2-1.0); CALCIUM 8.1 mg/dL (8.5-10.1); CO2 18 mmol/L (21-32); GLUCOSE,RANDOM 101 mg/dL (74-106); PHOSPHOROUS 4.5 mg/dL (2.5-4.9); SGOT/AST 254 U/L (15-37); SGPT/ALT 50 U/L (12-78)
[2017-04-22 07:26] LABS: CREATININE 8.2 mg/dL (0.7-1.3)
[2017-04-22 07:39] LABS: ARTERIAL BLD GAS O2 SATURATION 97.2 % (90-98.9); ARTERIAL BLOOD GAS BASE EXCESS -6.9 meq/l (-2-2); ARTERIAL BLOOD GAS HCO3 17.1 meq/L (22-26); ARTERIAL BLOOD GAS PO2 84.7 mmHg (80-100); ARTERIAL BLOOD GAS pH 7.37 (7.35-7.45)
[2017-04-22 07:41] LABS: ALLENS TEST POSITIVE; ART PUNCT SITE RIGHT RADIAL; LPM/O2% 60; PT. ON O2? YES
[2017-04-22 07:42] LABS: MECH. VENT. YES; TYPE OF O2 MEC VENT; VENT RATE 26; VT/PRESS 500
--- NOTE | 2017-04-22 08:44 | PN ---
Progress Note, Physician Chief Complaint: intubated, at bedside Remains on pressors AC mode Unresponsive TELE: No sig V ectopy - Current Medication List Current Medications: Active Medications Albuterol/Ipratropium (Duoneb -) 1 amp NEB QIDR [facility] Last Admin: 04/22/17 06:01 Dose: 1 amp Aspirin (Asa -) 81 mg NGT DAILY [facility] Last Admin: 04/21/17 10:09 Dose: 81 mg Atorvastatin Calcium (Lipitor -) 80 mg PO HS [facility] Last Admin: 04/21/17 22:54 Dose: 80 mg Chlorhexidine Gluconate (Peridex -) 15 ml MM BID [facility] Last Admin: 04/21/17 22:54 Dose: 15 ml Clopidogrel Bisulfate (Plavix -) 75 mg NGT DAILY [facility] Last Admin: 04/21/17 10:09 Dose: 75 mg Heparin Sodium (Porcine) (Heparin -) 1,000 unit IVPUSH PRN PRN PRN Reason: Heparin Heparin Sodium (Porcine) (Heparin -) 5,000 unit IVPUSH PRN PRN PRN Reason: Heparin Last Admin: 04/20/17 08:44 Dose: 5,000 unit Piperacillin/Tazobactam/Dextrose (Zosyn 4.5gm Ivpb (Premix)) 100 mls @ 200 mls/ hr IVPB Q8H-IV [facility] PRN Reason: Protocol Last Admin: 04/22/17 01:10 Dose: 200 mls/hr Norepinephrine Bitartrate 8, (000 mcg/ Dextrose) 500 mls @ 18.75 mls/hr IV TITR [facility]; 5 MCG/MIN PRN Reason: Protocol Last Titration: 04/22/17 07:13 Dose: 5 mcg/min, 18.75 mls/hr Heparin Sodium (Porcine) 25, (000 unit/ Sodium Chloride) 500 mls @ 20 mls/hr IV TITR [facility]; 1,000 UNIT/HR PRN Reason: Protocol Last Admin: 04/22/17 00:50 Dose: 1,300 unit/hr, 26 mls/hr Lorazepam (Ativan Injection -) 2 mg IVPUSH Q2H PRN PRN Reason: SEIZURES Last Admin: 04/21/17 14:35 Dose: 2 mg Pantoprazole Sodium (Protonix Iv) 40 mg IVPUSH DAILY [facility] Last Admin: 04/21/17 10:09 Dose: 40 mg - Objective Vital Signs: Vital Signs Temperature 97.5 F L 04/22/17 06:00 Pulse Rate 94 H 04/22/17 07:13 Respiratory Rate 26 H 04/22/17 07:11 Blood Pressure 85/34 04/22/17 07:13 O2 Sat by Pulse Oximetry (%) 100 04/22/17 04:48 Constitutional: Yes: Other (+ ETT) Cardiovascular: Yes: Regular Rate and Rhythm, Other (no murmurs) Respiratory: Yes: Other (= breath sounds b/l, no rales, no wheezing) Gastrointestinal: Yes: Soft, Abdomen, Obese Edema: No Neurological: Yes: Other (Unresponsive) Labs: CBC, BMP 04/22/17 05:45 04/22/17 05:45 INR, PTT INR 1.12 (0.82-1.09) 04/18/17 07:20 Microbiology 04/17/17 19:40 Blood - Peripheral Venous Blood Culture - Preliminary NO GROWTH OBTAINED AFTER 96 HOURS, INCUBATION TO CONTINUE FOR 1 DAYS. 04/17/17 19:40 Blood - Peripheral Venous Blood Culture - Preliminary NO GROWTH OBTAINED AFTER 96 HOURS, INCUBATION TO CONTINUE FOR 1 DAYS. Laboratory Tests 04/22/17 04/22/17 05:45 05:45 WBC 14.3 H Hgb 10.8 L Plt Count 142 Sodium 148 H Potassium 4.1 BUN 71 H Creatinine 8.2 H* Calcium 8.1 L Total Bilirubin 1.1 H D AST 254 H D ALT 50 D Alkaline Phosphatase 181 H D - ....Imaging EKG: Image Reviewed Assessment/Plan Assessment/Plan (1) Cardiorespiratory arrest Assessment/Plan: On norepinephrine for pressure support. Treating as NSTEMI (preserved LVEF). Pt may also have had VT arrest; ?hx prolonged QT syndrome. On ASA, clopidogrel and atorvastation. Replete K+; keep 4-4.5; Keep Mg around 2.0 If pt develops VT, can start amiodarone. Code(s): I46.9 - CARDIAC ARREST, CAUSE UNSPECIFIED (2) H/O prolonged Q-T interval on ECG Assessment/Plan: Pt's gave hx of pt c/o feeling bad earlier this summer while seated, then losing consciousness for about a minute.He was seen at an ER at that time. EKGs this admission show prolonged QT. It is possible pt has prolonged QT syndrome, with VT as etiology of syncopal attacks resulting in this unfortunate outcome. Code(s): Z87.898 - PERSONAL HISTORY OF OTHER SPECIFIED CONDITIONS (3) Brain Assessment/Plan: -status was explained to by neurologist. no brain perfusion some spontaneus respirations noted Code(s): G93.82 - BRAIN Poor prognosis for meaningful recovery Coverage for [facility]
[2017-04-22] MEDS ORDERED: PT OWN MED DRAWER 7, Y5N ONE ×2 (09:04→17:59)
[2017-04-22] MEDS: ASPIRIN 81 MG CHEWABLE TABLETS NGT SCH (09:21)
[2017-04-22] MEDS: CLOPIDOGREL BISULFATE 75 MG TABLET (FP) NGT SCH (09:21)
--- NOTE | 2017-04-22 09:42 | PN ---
Progress Note (short form) - Note Progress Note: PULMONARY/CCM Pt seen and examined in the ICU. Apnea test performed yesterday consistent with clinical brain . Remains intubated, unresponsive. Last Vital Signs Temp Pulse Resp BP Pulse Ox 97.5 F L 91 H 26 H 112/69 99 04/22/17 06:00 04/22/17 08:00 04/22/17 09:00 04/22/17 08:00 04/22/17 09:00 Intake & Output 04/19/17 04/20/17 04/21/17 04/22/17 23:59 23:59 23:59 23:59 Intake Total 3640 1023.1 1856 370 Output Total 275 2400 2300 600 Balance 3365 -1376.9 -444 -230 Weight 321 lb 13.998 oz 330 lb 6 oz 326 lb 15.128 oz 313 lb 7.957 oz Gen: intubated, unresponsive Heart: RRR Lung: decreased breath sounds at the bases Abd: soft, nontender Ext: trace edema CBC, BMP 04/22/17 05:45 04/22/17 05:45 Active Medications Albuterol/Ipratropium (Duoneb -) 1 amp NEB QIDR [facility] Last Admin: 04/22/17 06:01 Dose: 1 amp Aspirin (Asa -) 81 mg NGT DAILY [facility] Last Admin: 04/22/17 09:21 Dose: 81 mg Atorvastatin Calcium (Lipitor -) 80 mg PO HS [facility] Last Admin: 04/21/17 22:54 Dose: 80 mg Chlorhexidine Gluconate (Peridex -) 15 ml MM BID [facility] Last Admin: 04/21/17 22:54 Dose: 15 ml Clopidogrel Bisulfate (Plavix -) 75 mg NGT DAILY [facility] Last Admin: 04/22/17 09:21 Dose: 75 mg Heparin Sodium (Porcine) (Heparin -) 1,000 unit IVPUSH PRN PRN PRN Reason: Heparin Heparin Sodium (Porcine) (Heparin -) 5,000 unit IVPUSH PRN PRN PRN Reason: Heparin Last Admin: 04/20/17 08:44 Dose: 5,000 unit Piperacillin/Tazobactam/Dextrose (Zosyn 4.5gm Ivpb (Premix)) 100 mls @ 200 mls/ hr IVPB Q8H-IV [facility] PRN Reason: Protocol Last Admin: 04/22/17 01:10 Dose: 200 mls/hr Norepinephrine Bitartrate 8, (000 mcg/ Dextrose) 500 mls @ 18.75 mls/hr IV TITR [facility]; 5 MCG/MIN PRN Reason: Protocol Last Titration: 04/22/17 07:13 Dose: 5 mcg/min, 18.75 mls/hr Heparin Sodium (Porcine) 25, (000 unit/ Sodium Chloride) 500 mls @ 20 mls/hr IV TITR [facility]; 1,000 UNIT/HR PRN Reason: Protocol Last Admin: 04/22/17 00:50 Dose: 1,300 unit/hr, 26 mls/hr Lorazepam (Ativan Injection -) 2 mg IVPUSH Q2H PRN PRN Reason: SEIZURES Last Admin: 04/21/17 14:35 Dose: 2 mg Pantoprazole Sodium (Protonix Iv) 40 mg IVPUSH DAILY [facility] Last Admin: 04/21/17 10:09 Dose: 40 mg A/P s/p Cardiopulmonary Arrest r/o Acute NM Anoxic Encephalopathy Septic vs Cardiogenic vs Neurogenic Shock Acute Kidney Injury Lactic Acidosis Elevated LFTs likely Ischemic Injury Hyperglycemia Clinical Brain - continue empiric antibiotics - titrate pressors to maintain MAP >65 - hold all sedation - taper FiO2 to keep SpO2 >90% - DVT/GI prophylaxis - poor overall prognosis for meaningful recovery - not a candidate for dialysis as pt clinically brain - continue ICU monitoring - continue discussions with family regarding compassionate extubation critical care time spnet in reviewing chart, evaluating patient and formulating plan 35 min
[2017-04-22] MEDS: SODIUM CHLORIDE 0.45% 1,000 ML IV SCH (10:16)
--- NOTE | 2017-04-22 10:32 | PN ---
Progress Note (short form) - Note Progress Note: RENAL Pt seen and examined he is intubated and unresponsive Last Vital Signs Temp Pulse Resp BP Pulse Ox 98.1 F 92 H 26 H 132/78 99 04/22/17 10:00 04/22/17 10:00 04/22/17 10:00 04/22/17 10:00 04/22/17 09:00 heent fixed and dilated pupils cvs s1s2 rr abd soft ext +edema making some urine neuro unresponsive, has some spontaneous breaths when the machine is stopped skin no obvious rash Current Medications Generic Name Dose Route Start Last Admin Trade Name Freq PRN Reason Stop Dose Admin Albuterol/Ipratropium 1 amp 04/18/17 00:00 04/22/17 06:01 Duoneb - NEB 1 amp QIDR [facility] Administration Aspirin 81 mg 04/18/17 18:15 04/22/17 09:21 Asa - NGT 81 mg DAILY [facility] Administration Atorvastatin Calcium 80 mg 04/17/17 22:00 04/21/17 22:54 Lipitor - PO 80 mg HS [facility] Administration Chlorhexidine Gluconate 15 ml 04/17/17 22:45 04/21/17 22:54 Peridex - MM 15 ml BID [facility] Administration Clopidogrel Bisulfate 75 mg 04/18/17 18:15 04/22/17 09:21 Plavix - NGT 75 mg DAILY [facility] Administration Heparin Sodium (Porcine) 1,000 unit 04/18/17 19:09 Heparin - IVPUSH PRN PRN Heparin Heparin Sodium (Porcine) 5,000 unit 04/18/17 19:09 04/20/17 08:44 Heparin - IVPUSH 5,000 unit PRN PRN Administration Heparin Piperacillin/Tazobactam/Dextrose 100 mls @ 200 mls/hr 04/18/17 02:00 10:15 Zosyn 4.5gm Ivpb (Premix) IVPB 200 mls/hr Q8H-IV [facility] Administration Protocol Norepinephrine Bitartrate 8, 500 mls @ 18.75 mls/hr 04/18/17 11:15 04/22/17 07:13 000 mcg/ Dextrose IV 5 mcg/min TITR [facility] 18.75 mls/hr Protocol Titration 5 MCG/MIN Heparin Sodium (Porcine) 25, 500 mls @ 20 mls/hr 04/18/17 19:15 04/22/17 00: 50 000 unit/ Sodium Chloride IV 1,300 unit/hr TITR [facility] 26 mls/hr Protocol Administration 1,000 UNIT/HR Sodium Chloride 1,000 mls @ 83 mls/hr 04/22/17 10:15 04/22/17 10:16 1/2 Normal Saline IV 83 mls/hr ASDIR [facility] Administration Lorazepam 2 mg 04/21/17 15:16 04/21/17 14:35 Ativan Injection - IVPUSH 2 mg Q2H PRN Administration SEIZURES Pantoprazole Sodium 40 mg 04/18/17 10:00 04/21/17 10:09 Protonix Iv IVPUSH 40 mg DAILY [facility] Administration CBC, BMP 04/22/17 05:45 04/22/17 05:45 1. NARINDER 2. cardiac arrest- brain 3. respiratory failure requiring intubation 4. obesity 5. transaminitis 6. a-fib 7. shock 8. hypotension 9. anoxic encephalopathy 10. hyperkalemia Plan Pts seems to accept his brain would continue current management. She wants some family members to see him would keep on fluids. He will likely develop DI. Regional transplant team already present should family accept donation MV
--- NOTE | 2017-04-22 12:53 | PN ---
Progress Note, Physician History of Present Illness: continues to be intubated no changes - Current Medication List Current Medications: Active Medications Albuterol/Ipratropium (Duoneb -) 1 amp NEB QIDR [facility] Last Admin: 04/22/17 11:30 Dose: 1 amp Aspirin (Asa -) 81 mg NGT DAILY YOAV Last Admin: 04/22/17 09:21 Dose: 81 mg Atorvastatin Calcium (Lipitor -) 80 mg PO HS YOAV Last Admin: 04/21/17 22:54 Dose: 80 mg Chlorhexidine Gluconate (Peridex -) 15 ml MM BID YOAV Last Admin: 04/21/17 22:54 Dose: 15 ml Clopidogrel Bisulfate (Plavix -) 75 mg NGT DAILY [facility] Last Admin: 04/22/17 09:21 Dose: 75 mg Heparin Sodium (Porcine) (Heparin -) 1,000 unit IVPUSH PRN PRN PRN Reason: Heparin Heparin Sodium (Porcine) (Heparin -) 5,000 unit IVPUSH PRN PRN PRN Reason: Heparin Last Admin: 04/20/17 08:44 Dose: 5,000 unit Piperacillin/Tazobactam/Dextrose (Zosyn 4.5gm Ivpb (Premix)) 100 mls @ 200 mls/ hr IVPB Q8H-IV YOAV PRN Reason: Protocol Last Admin: 04/22/17 10:15 Dose: 200 mls/hr Norepinephrine Bitartrate 8, (000 mcg/ Dextrose) 500 mls @ 18.75 mls/hr IV TITR YOAV; 5 MCG/MIN PRN Reason: Protocol Last Titration: 04/22/17 07:13 Dose: 5 mcg/min, 18.75 mls/hr Heparin Sodium (Porcine) 25, (000 unit/ Sodium Chloride) 500 mls @ 20 mls/hr IV TITR YOAV; 1,000 UNIT/HR PRN Reason: Protocol Last Admin: 04/22/17 00:50 Dose: 1,300 unit/hr, 26 mls/hr Sodium Chloride (1/2 Normal Saline) 1,000 mls @ 83 mls/hr IV ASDIR YOAV Last Admin: 04/22/17 10:16 Dose: 83 mls/hr Lorazepam (Ativan Injection -) 2 mg IVPUSH Q2H PRN PRN Reason: SEIZURES Last Admin: 04/21/17 14:35 Dose: 2 mg Pantoprazole Sodium (Protonix Iv) 40 mg IVPUSH DAILY YOAV Last Admin: 04/21/17 10:09 Dose: 40 mg - Objective Vital Signs: Vital Signs Temperature 98.1 F 04/22/17 10:00 Pulse Rate 92 H 04/22/17 10:00 Respiratory Rate 26 H 04/22/17 11:20 Blood Pressure 132/78 04/22/17 10:00 O2 Sat by Pulse Oximetry (%) 99 04/22/17 09:00 Constitutional: Yes: Other Cardiovascular: Yes: S1, S2 Respiratory: Yes: Intubated, Mechanically Ventilated Gastrointestinal: Yes: Hypoactive Bowel Sounds Labs: CBC, BMP 04/22/17 05:45 04/22/17 05:45 INR, PTT INR 1.12 (0.82-1.09) 04/18/17 07:20 - ....Imaging Chest X-ray: Report Reviewed, Image Reviewed Assessment/Plan emains intubated, unresponsive off sedation. Evaluated by neurology, cranial reflexes absent. n. Remains on levophed Problem List - Problems (1) Cardiorespiratory arrest Code(s): I46.9 - CARDIAC ARREST, CAUSE UNSPECIFIED (2) Leukocytosis Code(s): D72.829 - ELEVATED WHITE BLOOD CELL COUNT, UNSPECIFIED (3) Troponin level elevated Code(s): R74.8 - ABNORMAL LEVELS OF OTHER SERUM ENZYMES (4) LFT elevation Code(s): R79.89 - OTHER SPECIFIED ABNORMAL FINDINGS OF BLOOD CHEMISTRY (5) GI bleed Code(s): K92.2 - GASTROINTESTINAL HEMORRHAGE, UNSPECIFIED plan continue current mgmt rest as per icu patient with poor prognosis rest as per primary await for family plan cc time 40 min
[2017-04-22] MEDS ORDERED: NOREPINEPHRINE BITARTRATE 4 MG/4 ML ML IV ONE (18:00)
[2017-04-22] MEDS: CHLORHEXIDINE GLUCONATE 0.12% 15ML CUP MM SCH ×2 (18:44→21:39)
[2017-04-22] MEDS: PANTOPRAZOLE SODIUM 40 MG VIAL IVPUSH SCH (18:44)
[2017-04-22] MEDS: ATORVASTATIN CA 80 MG TABLET (FP) PO SCH (21:39)
--- NOTE | 2017-04-22 22:11 | PN ---
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 Starting to have seizure activity - Current Medication List Current Medications: Active Medications Albuterol/Ipratropium (Duoneb -) 1 amp NEB QIDR [facility] Last Admin: 04/22/17 18:15 Dose: 1 amp Aspirin (Asa -) 81 mg NGT DAILY [facility] Last Admin: 04/22/17 09:21 Dose: 81 mg Atorvastatin Calcium (Lipitor -) 80 mg PO HS YOAV Last Admin: 04/22/17 21:39 Dose: 80 mg Chlorhexidine Gluconate (Peridex -) 15 ml MM BID [facility] Last Admin: 04/22/17 21:39 Dose: 15 ml Clopidogrel Bisulfate (Plavix -) 75 mg NGT DAILY [facility] Last Admin: 04/22/17 09:21 Dose: 75 mg Heparin Sodium (Porcine) (Heparin -) 1,000 unit IVPUSH PRN PRN PRN Reason: Heparin Heparin Sodium (Porcine) (Heparin -) 5,000 unit IVPUSH PRN PRN PRN Reason: Heparin Last Admin: 04/20/17 08:44 Dose: 5,000 unit Piperacillin/Tazobactam/Dextrose (Zosyn 4.5gm Ivpb (Premix)) 100 mls @ 200 mls/ hr IVPB Q8H-IV YOAV PRN Reason: Protocol Last Admin: 04/22/17 18:56 Dose: 200 mls/hr Norepinephrine Bitartrate 8, (000 mcg/ Dextrose) 500 mls @ 18.75 mls/hr IV TITR YOAV; 5 MCG/MIN PRN Reason: Protocol Last Titration: 04/22/17 07:13 Dose: 5 mcg/min, 18.75 mls/hr Heparin Sodium (Porcine) 25, (000 unit/ Sodium Chloride) 500 mls @ 20 mls/hr IV TITR YOAV; 1,000 UNIT/HR PRN Reason: Protocol Last Admin: 04/22/17 00:50 Dose: 1,300 unit/hr, 26 mls/hr Sodium Chloride (1/2 Normal Saline) 1,000 mls @ 83 mls/hr IV ASDIR YOAV Last Admin: 04/22/17 10:16 Dose: 83 mls/hr Lorazepam (Ativan Injection -) 2 mg IVPUSH Q2H PRN PRN Reason: SEIZURES Last Admin: 04/21/17 14:35 Dose: 2 mg Pantoprazole Sodium (Protonix Iv) 40 mg IVPUSH DAILY [facility] Last Admin: 04/22/17 18:44 Dose: 40 mg - Objective Vital Signs: Vital Signs Temperature 99.2 F 04/22/17 21:59 Pulse Rate 94 H 04/22/17 21:59 Respiratory Rate 26 H 04/22/17 21:59 Blood Pressure 92/50 04/22/17 21:59 O2 Sat by Pulse Oximetry (%) 99 04/22/17 21:00 Constitutional: Yes: Well Nourished, No Distress Cardiovascular: Yes: Regular Rate and Rhythm Respiratory: Yes: Mechanically Ventilated Gastrointestinal: Yes: Abdomen, Obese Labs: CBC, BMP 04/22/17 05:45 04/22/17 05:45 INR, PTT INR 1.12 (0.82-1.09) 04/18/17 07:20 Problem List - Problems (1) NARINDER (acute kidney injury) Assessment/Plan: -nephrology consult -discussed the implications of dialysis vs no dialysis - is unsure Code(s): N17.9 - ACUTE KIDNEY FAILURE, UNSPECIFIED (2) Cardiorespiratory arrest Assessment/Plan: -clinically brain -on IVF -mechanical vent -pulmonary on board -Organ donation should the family consider Code(s): I46.9 - CARDIAC ARREST, CAUSE UNSPECIFIED (3) Brain Assessment/Plan: - accepts the clinical course -awaiting on family -compassionate weaning when ready Code(s): G93.82 - BRAIN (4) LFT elevation Assessment/Plan: likely 2/2 to ischemia Code(s): R79.89 - OTHER SPECIFIED ABNORMAL FINDINGS OF BLOOD CHEMISTRY Assessment/Plan see problem list
[2017-04-23] MEDS ORDERED: PT OWN MED DRAWER 7, Y5N ONE ×2 (01:39→13:32)
[2017-04-23] MEDS: PIPERACILLIN/TAZOB 4.5 GM 100 ML IVPB SCH ×3 (01:41→17:05)
[2017-04-23 06:20] LABS: BASOPHIL 0.2 % (0-2.0); EOSINOPHIL 4.8 % (0-4.5); MCH 29.2 pg (25.7-33.7); MCHC 34.2 g/dl (32.0-35.9); MEAN CELL VOLUME 85.4 fl (80-96); MEAN PLT VOLUME 9.2 fl (7.5-11.1); NEUTROPHILS 70.8 % (42.8-82.8); PLATELET COUNT 167 K/MM3 (134-434); RDW 14.4 % (11.9-15.9)
[2017-04-23 07:05] LABS: ALBUMIN 1.7 g/dl (3.4-5.0); ANION GAP 14 (8-16); CO2 16 mmol/L (21-32); GLUCOSE,RANDOM 91 mg/dL (74-106)
[2017-04-23 07:16] LABS: ALK PHOS 301 U/L (45-117); BILIRUBIN,TOTAL 1.4 mg/dL (0.2-1.0); PHOSPHOROUS 6.2 mg/dL (2.5-4.9); SGPT/ALT 46 U/L (12-78); TOT PROT 5.1 g/dl (6.4-8.2)
[2017-04-23 07:56] LABS: MAGNESIUM 3.2 mg/dL (1.8-2.4); SGOT/AST 231 U/L (15-37)
[2017-04-23] MEDS: SODIUM CHLORIDE 0.45% 1,000 ML IV SCH ×3 (08:00→13:43)
[2017-04-23 08:12] LABS: ARTERIAL BLD GAS O2 SATURATION 98.6 % (90-98.9); ARTERIAL BLOOD GAS HCO3 16.8 meq/L (22-26); ARTERIAL BLOOD GAS pH 7.32 (7.35-7.45)
[2017-04-23 08:13] LABS: ALLENS TEST POSITIVE; ART PUNCT SITE RIGHT RADIAL; PT. ON O2? YES
[2017-04-23 08:14] LABS: LPM/O2% 60; MECH. VENT. YES; TYPE OF O2 VENT; VENT RATE 26; VT/PRESS 500
[2017-04-23] MEDS ORDERED: INSULIN REGULAR HUMAN 100 UNITS/ML *VIAL IVPUSH ONE (08:36)
[2017-04-23] MEDS ORDERED: DEXTROSE 50%-WATER - 25 GM/50 ML VIAL IVPUSH ONE (08:37)
[2017-04-23] MEDS ORDERED: DEXTROSE 50%-WATER 25 GM/50 ML DISP.SYRIN ONE (09:28)
[2017-04-23] MEDS: ASPIRIN 81 MG CHEWABLE TABLETS NGT SCH (09:30)
[2017-04-23] MEDS: CLOPIDOGREL BISULFATE 75 MG TABLET (FP) NGT SCH (09:31)
[2017-04-23] MEDS: PANTOPRAZOLE SODIUM 40 MG VIAL IVPUSH SCH (09:31)
[2017-04-23] MEDS: CHLORHEXIDINE GLUCONATE 0.12% 15ML CUP MM SCH ×2 (09:33→23:00)
--- NOTE | 2017-04-23 09:47 | PN ---
Physical Exam: SUBJECTIVE: Patient seen and examined at bedside. No acute events overnight. Pt intubated not sedated. OBJECTIVE: Vital Signs Period Temp Pulse Resp BP Sys/Yeh Pulse Ox Last 24 Hr 98.1 F-99.6 F 92-100 14-26 92-132/49-78 99-100 GENERAL:Pt intubated. HEAD: Normal with no signs of trauma. EYES: Nonreactive pupils. sclera anicteric, conjunctiva clear. No ptosis. ENT: Intubated NECK: Trachea midline, full range of motion, supple. LUNGS: Breath sounds equal, clear to auscultation bilaterally, no wheezes, no crackles, no accessory muscle use. HEART: Regular rate and rhythm, S1, S2 without murmur, rub or gallop. ABDOMEN: Soft, nondistended, normoactive bowel sounds, no guarding, no rebound, no hepatosplenomegaly, no masses. EXTREMITIES: 2+ pulses, warm, well-perfused, no edema. NEUROLOGICAL: Inubated PSYCH: Intubated SKIN: Warm, dry, normal turgor, no rashes or lesions noted Laboratory Results - last 24 hr 04/23/17 04/23/17 04/23/17 06:00 06:00 06:00 WBC 10.0 D RBC 3.57 L Hgb 10.4 L Hct 30.5 L MCV 85.4 MCH 29.2 MCHC 34.2 RDW 14.4 Plt Count 167 MPV 9.2 Neutrophils % 70.8 Lymphocytes % 12.2 D Monocytes % 12.0 H Eosinophils % 4.8 H Basophils % 0.2 PTT (Actin FS) 38.2 H Puncture Site ABG pH ABG pCO2 at Pt Temp ABG pO2 at Pt Temp ABG HCO3 ABG O2 Sat (Measured) ABG O2 Content ABG Base Excess Avtar Test O2 Delivery Device Oxygen Flow Rate Vent Mode Vent Rate Mechanical Rate PEEP Pressure Support Vent Sodium 150 H Potassium 5.2 H D Chloride 120 H Carbon Dioxide 16 L Anion Gap 14 BUN 82 H Creatinine 9.0 H* Creat Clearance w eGFR 6.77 Random Glucose 91 Calcium 8.0 L Phosphorus 6.2 H D Magnesium 3.2 H Total Bilirubin 1.4 H D AST 231 H ALT 46 Alkaline Phosphatase 301 H D Total Protein 5.1 L Albumin 1.7 L 04/23/17 07:15 WBC RBC Hgb Hct MCV MCH MCHC RDW Plt Count MPV Neutrophils % Lymphocytes % Monocytes % Eosinophils % Basophils % PTT (Actin FS) Puncture Site Right radial ABG pH 7.32 L ABG pCO2 at Pt Temp 33.8 L ABG pO2 at Pt Temp 125.0 H D ABG HCO3 16.8 L ABG O2 Sat (Measured) 98.6 ABG O2 Content 13.8 L ABG Base Excess -8.0 L Avtar Test Positive O2 Delivery Device Vent Oxygen Flow Rate 60 Vent Mode A/c Vent Rate 26 Mechanical Rate Yes PEEP 5.0 Pressure Support Vent 500 Sodium Potassium Chloride Carbon Dioxide Anion Gap BUN Creatinine Creat Clearance w eGFR Random Glucose Calcium Phosphorus Magnesium Total Bilirubin AST ALT Alkaline Phosphatase Total Protein Albumin Active Medications Generic Name Dose Route Start Last Admin Trade Name Freq PRN Reason Stop Dose Admin Aspirin 81 mg 04/18/17 18:15 04/23/17 09:30 Asa - NGT 81 mg DAILY YOAV Administration Atorvastatin Calcium 80 mg 04/17/17 22:00 04/22/17 21:39 Lipitor - PO 80 mg HS YOAV Administration Chlorhexidine Gluconate 15 ml 04/17/17 22:45 04/23/17 09:33 Peridex - MM 15 ml BID YOAV Administration Clopidogrel Bisulfate 75 mg 04/18/17 18:15 04/23/17 09:31 Plavix - NGT 75 mg DAILY YOAV Administration Heparin Sodium (Porcine) 1,000 unit 04/18/17 19:09 Heparin - IVPUSH PRN PRN Heparin Heparin Sodium (Porcine) 5,000 unit 04/18/17 19:09 04/20/17 08:44 Heparin - IVPUSH 5,000 unit PRN PRN Administration Heparin Piperacillin/Tazobactam/Dextrose 100 mls @ 200 mls/hr 04/18/17 02:00 01:41 Zosyn 4.5gm Ivpb (Premix) IVPB 200 mls/hr Q8H-IV YOAV Administration Protocol Norepinephrine Bitartrate 8, 500 mls @ 18.75 mls/hr 04/18/17 11:15 04/22/17 07:13 000 mcg/ Dextrose IV 5 mcg/min TITR YOAV 18.75 mls/hr Protocol Titration 5 MCG/MIN Heparin Sodium (Porcine) 25, 500 mls @ 20 mls/hr 04/18/17 19:15 04/22/17 00: 50 000 unit/ Sodium Chloride IV 1,300 unit/hr TITR YOAV 26 mls/hr Protocol Administration 1,000 UNIT/HR Sodium Chloride 1,000 mls @ 83 mls/hr 04/22/17 10:15 04/23/17 08:00 1/2 Normal Saline IV 83 mls/hr ASDIR YOAV Administration Lorazepam 2 mg 04/21/17 15:16 04/21/17 14:35 Ativan Injection - IVPUSH 2 mg Q2H PRN Administration SEIZURES Pantoprazole Sodium 40 mg 04/18/17 10:00 04/23/17 09:31 Protonix Iv IVPUSH 40 mg DAILY YOAV Administration ASSESSMENT/PLAN: Pt is a 31 M w/ no significant PMH who was brought to ED in cardiac arrest of unknown origin. Pt was coded in ED for approximately 50 min and transferred to ICU. Pt has made no meaningful clinical improvement and has been declared braindead. #s/p cardiopulm arrest -unable to r/o [place]. Pt made troponin, but source unclear -heparin -ASA -plavix #Anoxic encephalopathy -Pt required nearly an hour of resuscitation with several shocks before ROSC was achieved -Pt currently intubated #Shock -etiology unclear: septic/cardiogenic/neurogenic -currently on pressors and fluids #NARINDER -recent [employer] 9.0 -likely 2/2 hypoperfusion -will not need HD at this time considering clinical picture #Lactic acidosis -2/2 shock #Team to discuss goals of care with family #Ppx -on heparin #Dispo -goals of care discussions Braulio Christopher MD PGY-1 ICU case discussed with attending Visit type - Emergency Visit Emergency Visit: No - New Patient This patient is new to me today: No - Critical Care Critical Care patient: No - Discharge Referral Referred to [facility] No
[2017-04-23] MEDS ORDERED: BENZOIN/ALOE VERA/STORAX/TOLU 58 ML BOTTLE ONE (11:27)
[2017-04-23] MEDS: HEPARIN NA (PORCINE) 5,000 UNITS/ML 1ML VIAL IVPUSH PRN (11:30)
--- NOTE | 2017-04-23 13:05 | PN ---
Progress Note, Physician History of Present Illness: Pt seen and examined at bedside. He remains in the ICU. He had an apnea test that was done and was consistent with brain . - Current Medication List Current Medications: Active Medications Aspirin (Asa -) 81 mg NGT DAILY YOAV Last Admin: 04/23/17 09:30 Dose: 81 mg Atorvastatin Calcium (Lipitor -) 80 mg PO HS YOAV Last Admin: 04/22/17 21:39 Dose: 80 mg Chlorhexidine Gluconate (Peridex -) 15 ml MM BID YOAV Last Admin: 04/23/17 09:33 Dose: 15 ml Clopidogrel Bisulfate (Plavix -) 75 mg NGT DAILY YOAV Last Admin: 04/23/17 09:31 Dose: 75 mg Heparin Sodium (Porcine) (Heparin -) 1,000 unit IVPUSH PRN PRN PRN Reason: Heparin Heparin Sodium (Porcine) (Heparin -) 5,000 unit IVPUSH PRN PRN PRN Reason: Heparin Last Admin: 04/23/17 11:30 Dose: 5,000 unit Piperacillin/Tazobactam/Dextrose (Zosyn 4.5gm Ivpb (Premix)) 100 mls @ 200 mls/ hr IVPB Q8H-IV YOAV PRN Reason: Protocol Last Admin: 04/23/17 09:37 Dose: 200 mls/hr Norepinephrine Bitartrate 8, (000 mcg/ Dextrose) 500 mls @ 18.75 mls/hr IV TITR YOAV; 5 MCG/MIN PRN Reason: Protocol Last Titration: 04/22/17 07:13 Dose: 5 mcg/min, 18.75 mls/hr Heparin Sodium (Porcine) 25, (000 unit/ Sodium Chloride) 500 mls @ 20 mls/hr IV TITR YOAV; 1,000 UNIT/HR PRN Reason: Protocol Last Titration: 04/23/17 11:30 Dose: 1,450 unit/hr, 29 mls/hr Sodium Chloride (1/2 Normal Saline) 1,000 mls @ 83 mls/hr IV ASDIR YOAV Last Admin: 04/23/17 08:00 Dose: 83 mls/hr Lorazepam (Ativan Injection -) 2 mg IVPUSH Q2H PRN PRN Reason: SEIZURES Last Admin: 04/21/17 14:35 Dose: 2 mg Pantoprazole Sodium (Protonix Iv) 40 mg IVPUSH DAILY YOAV Last Admin: 04/23/17 09:31 Dose: 40 mg - Objective Vital Signs: Vital Signs Temperature 99.0 F 04/23/17 10:00 Pulse Rate 91 H 04/23/17 12:00 Respiratory Rate 26 H 04/23/17 12:00 Blood Pressure 105/51 04/23/17 12:00 O2 Sat by Pulse Oximetry (%) 97 04/23/17 10:19 Constitutional: Yes: Calm HENT: Yes: Atraumatic Neck: Yes: Supple Respiratory: Yes: Mechanically Ventilated Gastrointestinal: Yes: Soft, Abdomen, Obese Genitourinary: Yes: Brown Present Musculoskeletal: Yes: Muscle Weakness Edema: Yes Edema: LUE: Trace, RUE: Trace Integumentary: Yes: WNL Neurological: Yes: Lethargy Labs: CBC, BMP 04/23/17 06:00 04/23/17 06:00 INR, PTT INR 1.12 (0.82-1.09) 04/18/17 07:20 Problem List - Problems (1) NARINDER (acute kidney injury) Code(s): N17.9 - ACUTE KIDNEY FAILURE, UNSPECIFIED (2) Cardiorespiratory arrest Code(s): I46.9 - CARDIAC ARREST, CAUSE UNSPECIFIED (3) LFT elevation Code(s): R79.89 - OTHER SPECIFIED ABNORMAL FINDINGS OF BLOOD CHEMISTRY (4) Obesity Code(s): E66.9 - OBESITY, UNSPECIFIED (5) Paroxysmal atrial fibrillation Code(s): I48.0 - PAROXYSMAL ATRIAL FIBRILLATION Assessment/Plan Current Medications Generic Name Dose Route Start Last Admin Trade Name Dylonq PRN Reason Stop Dose Admin Aspirin 81 mg 04/18/17 18:15 04/23/17 09:30 Asa - NGT 81 mg DAILY YOAV Administration Atorvastatin Calcium 80 mg 04/17/17 22:00 04/22/17 21:39 Lipitor - PO 80 mg HS YOAV Administration Chlorhexidine Gluconate 15 ml 04/17/17 22:45 04/23/17 09:33 Peridex - MM 15 ml BID YOAV Administration Clopidogrel Bisulfate 75 mg 04/18/17 18:15 04/23/17 09:31 Plavix - NGT 75 mg DAILY YOAV Administration Heparin Sodium (Porcine) 1,000 unit 04/18/17 19:09 Heparin - IVPUSH PRN PRN Heparin Heparin Sodium (Porcine) 5,000 unit 04/18/17 19:09 04/23/17 11:30 Heparin - IVPUSH 5,000 unit PRN PRN Administration Heparin Piperacillin/Tazobactam/Dextrose 100 mls @ 200 mls/hr 04/18/17 02:00 09:37 Zosyn 4.5gm Ivpb (Premix) IVPB 200 mls/hr Q8H-IV YOAV Administration Protocol Norepinephrine Bitartrate 8, 500 mls @ 18.75 mls/hr 04/18/17 11:15 04/22/17 07:13 000 mcg/ Dextrose IV 5 mcg/min TITR YOAV 18.75 mls/hr Protocol Titration 5 MCG/MIN Heparin Sodium (Porcine) 25, 500 mls @ 20 mls/hr 04/18/17 19:15 04/23/17 11: 30 000 unit/ Sodium Chloride IV 1,450 unit/hr TITR YOAV 29 mls/hr Protocol Titration 1,000 UNIT/HR Sodium Chloride 1,000 mls @ 83 mls/hr 04/22/17 10:15 04/23/17 08:00 1/2 Normal Saline IV 83 mls/hr ASDIR YOAV Administration Lorazepam 2 mg 04/21/17 15:16 04/21/17 14:35 Ativan Injection - IVPUSH 2 mg Q2H PRN Administration SEIZURES Pantoprazole Sodium 40 mg 04/18/17 10:00 04/23/17 09:31 Protonix Iv IVPUSH 40 mg DAILY YOAV Administration Laboratory Tests 04/21/17 05:45 MARCELINA Screen Pending c-ANCA Pending Proteinase 3 (PR3) Pending p-ANCA Pending Atypical p-ANCA Pending Myeloperoxidase Ab Pending Hepatitis A Ab Total Pending Hep Bs Antigen Pending Hep Bs Antibody Pending Hep B Core Total Ab Pending Hepatitis C Antibody <0.1 Impression 1. NARINDER 2. cardiac arrest 3. respiratory failure requiring intubation 4. obesity 5. transaminitis 6. a-fib 7. shock 8. hypotension 9. anoxic encephalopathy 10. hyperkalemia 11. hypernatremia 12. brain Plan - case discussed with pts at bedside at length - renal function continues to worsen - sodium is starting to rise, cont hypotonic fluid, pt likely is developing DI - monitor urine output, may need ddavp if urine output increase - check urine osm - pulm note reviewed, pt failed apnea test - will need to clarify GOC - monitor electrolytes - vent support - poor candidate for HD, still considering GOC - will follow closely Dr Marshall
--- NOTE | 2017-04-23 13:27 | PN ---
Progress Note, Physician History of Present Illness: 31-year-old male history of asthma, cigarettes, obesity, presents in cardiac arrest. Patient was found down in front of his halal cart across the street from the hospital 10 minutes prior to arrival to the ED. On arrival to the emergency department, pt was getting chest compressions via the [place]. Unknown rhythm in the field. An IO was placed in the right tibia for access. The pads were placed and the Bassam was removed to place the zoll pads. Initial rhythm was asystole. THe patient was intubated via Glidescope with direct visualization of 7.0 ET tube passing through the cords. Copious amounts of emesis was suctioned from the airway. Upon auscultation, pt had poor air movement, with diminished BS on the right and diffuse mild wheezing. CPR was continued immediately for approximately 30 min with multiple doses of epinephrine and bicarbonate. Patient was also given 1 dose of narcan, dexamethasone, magnesium, calcium, and dextrose. Multiple doses of albuterol were given through the ET tube. Bedside US during pulse checks with cardiac standstill and no sign of tamponade or large pericardial effusion. While initial rhythm was asystole, the rhythm became PEA then VFib for which the patient was defibrillated 3 times at 200 J btwn chest compressions. The patient was given 300 mg of amiodarone at that time. ROSC was obtained for 1-2 minutes where an EKG revealed atrial fibrillation with no ST elevations. The patient became bradycardic and lost his pulse again with initial rhythm asystole and then PEA and then ROSC was obtained after approximately another 20 minutes of CPR. Pt's rhythm is AF, rate of 107, BP of 110/70. Low dose levophed was started for support and quickly turned off with improvement in BP to 150s systolic. CXR with good ET tube placement. A sterile US guided IJ CVC was placed with good return of dark venous blood. Vanc/Zosyn/Azithro were ordered for PNA coverage. Given the pt's young age and possible resp arrest, Dr Tolentino discussed possible ecmo options with Dr Christensen from CT surgery at [facility], however given pt had ROSC for 20 mins at this point, and prolonged downtime, they stated he was not an ecmo candidate. PT was accepted to Dr. Mondragon for admission in our ICU. - Current Medication List Current Medications: Active Medications Aspirin (Asa -) 81 mg NGT DAILY [facility] Last Admin: 04/23/17 09:30 Dose: 81 mg Atorvastatin Calcium (Lipitor -) 80 mg PO HS YOAV Last Admin: 04/22/17 21:39 Dose: 80 mg Chlorhexidine Gluconate (Peridex -) 15 ml MM BID YOAV Last Admin: 04/23/17 09:33 Dose: 15 ml Clopidogrel Bisulfate (Plavix -) 75 mg NGT DAILY [facility] Last Admin: 04/23/17 09:31 Dose: 75 mg Heparin Sodium (Porcine) (Heparin -) 1,000 unit IVPUSH PRN PRN PRN Reason: Heparin Heparin Sodium (Porcine) (Heparin -) 5,000 unit IVPUSH PRN PRN PRN Reason: Heparin Last Admin: 04/23/17 11:30 Dose: 5,000 unit Piperacillin/Tazobactam/Dextrose (Zosyn 4.5gm Ivpb (Premix)) 100 mls @ 200 mls/ hr IVPB Q8H-IV YOAV PRN Reason: Protocol Last Admin: 04/23/17 09:37 Dose: 200 mls/hr Norepinephrine Bitartrate 8, (000 mcg/ Dextrose) 500 mls @ 18.75 mls/hr IV TITR YOAV; 5 MCG/MIN PRN Reason: Protocol Last Titration: 04/22/17 07:13 Dose: 5 mcg/min, 18.75 mls/hr Heparin Sodium (Porcine) 25, (000 unit/ Sodium Chloride) 500 mls @ 20 mls/hr IV TITR YOAV; 1,000 UNIT/HR PRN Reason: Protocol Last Titration: 04/23/17 11:30 Dose: 1,450 unit/hr, 29 mls/hr Sodium Chloride (1/2 Normal Saline) 1,000 mls @ 83 mls/hr IV ASDIR YOAV Last Admin: 04/23/17 10:15 Dose: Not Given Lorazepam (Ativan Injection -) 2 mg IVPUSH Q2H PRN PRN Reason: SEIZURES Last Admin: 04/21/17 14:35 Dose: 2 mg Pantoprazole Sodium (Protonix Iv) 40 mg IVPUSH DAILY [facility] Last Admin: 04/23/17 09:31 Dose: 40 mg - Objective Vital Signs: Vital Signs Temperature 99.0 F 04/23/17 10:00 Pulse Rate 91 H 04/23/17 12:00 Respiratory Rate 26 H 04/23/17 12:00 Blood Pressure 105/51 04/23/17 12:00 O2 Sat by Pulse Oximetry (%) 97 04/23/17 10:19 Eyes: Yes: WNL, Conjunctiva Clear, EOM Intact HENT: Yes: WNL, Atraumatic, Normocephalic Neck: Yes: WNL, Supple, Trachea Midline Cardiovascular: Yes: WNL, Regular Rate and Rhythm Respiratory: Yes: Intubated, Mechanically Ventilated Gastrointestinal: Yes: WNL, Normal Bowel Sounds Genitourinary: Yes: WNL Musculoskeletal: Yes: WNL Extremities: Yes: WNL Edema: No Integumentary: Yes: WNL Neurological: Yes: Unresponsive ...Motor Strength: WNL Psychiatric: Yes: WNL Labs: CBC, BMP 04/23/17 06:00 04/23/17 06:00 INR, PTT INR 1.12 (0.82-1.09) 04/18/17 07:20 Problem List - Problems (1) Cardiorespiratory arrest Code(s): I46.9 - CARDIAC ARREST, CAUSE UNSPECIFIED (2) GI bleed Code(s): K92.2 - GASTROINTESTINAL HEMORRHAGE, UNSPECIFIED (3) LFT elevation Code(s): R79.89 - OTHER SPECIFIED ABNORMAL FINDINGS OF BLOOD CHEMISTRY (4) Leukocytosis Code(s): D72.829 - ELEVATED WHITE BLOOD CELL COUNT, UNSPECIFIED (5) Signs of return of spontaneous circulation Code(s): [id number] - (6) Troponin level elevated Code(s): R74.8 - ABNORMAL LEVELS OF OTHER SERUM ENZYMES (7) Allergic reaction Code(s): T78.40XA - ALLERGY, UNSPECIFIED, INITIAL ENCOUNTER Qualifiers: Encounter type: initial encounter Qualified Code(s): T78.40XA - Allergy, unspecified, initial encounter (8) Rash Code(s): R21 - RASH AND OTHER NONSPECIFIC SKIN ERUPTION Assessment/Plan (1) Cardiorespiratory arrest Assessment/Plan: On norepinephrine for pressure support. Treating as NSTEMI (preserved LVEF). Pt may also have had VT arrest; ?hx prolonged QT syndrome. On ASA, clopidogrel and atorvastation. Replete K+; keep 4-4.5; Keep Mg around 2.0 If pt develops VT, can start amiodarone. Code(s): I46.9 - CARDIAC ARREST, CAUSE UNSPECIFIED (2) H/O prolonged Q-T interval on ECG Assessment/Plan: Pt's gave hx of pt c/o feeling bad earlier this summer while seated, then losing consciousness for about a minute.He was seen at an ER at that time. EKGs this admission show prolonged QT. It is possible pt has prolonged QT syndrome, with VT as etiology of syncopal attacks resulting in this unfortunate outcome. Code(s): Z87.898 - PERSONAL HISTORY OF OTHER SPECIFIED CONDITIONS (3) Brain Assessment/Plan: -status was explained to by neurologist. no brain perfusion some spontaneus respirations noted Code(s): G93.82 - BRAIN
[2017-04-23] MEDS: HEPARIN - 25,000 UNIT in SODIUM CHLORIDE 495 ML IV SCH (13:42)
--- NOTE | 2017-04-23 14:13 | PN ---
Teaching Attending Note Name of Resident: Braulio Christopher ATTENDING PHYSICIAN STATEMENT I saw and evaluated the patient. I reviewed the resident's note and discussed the case with the resident. I agree with the resident's findings and plan as documented. SUBJECTIVE: Pt seen and examined in the ICU. Remains intubated, unresponsive. Clinical exam unchanged. OBJECTIVE: Last Vital Signs Temp Pulse Resp BP Pulse Ox 99.0 F 84 26 H 96/52 97 04/23/17 14:00 04/23/17 14:00 04/23/17 14:04 04/23/17 14:00 04/23/17 10:19 Intake & Output 04/20/17 04/21/17 04/22/17 04/23/17 23:59 23:59 23:59 23:59 Intake Total 1023.1 1856 370 553.6 Output Total 2400 2300 2400 1100 Balance -1376.9 -444 -2030 -546.4 Weight 330 lb 6 oz 326 lb 15.128 oz 313 lb 7.957 oz 313 lb Gen: intubated, unresponsive HEENT: fixed and dilated pupils Heart: RRR Lung: decreased breath sounds at the bases Abd: soft, nontender Ext: + edema CBC, BMP 04/23/17 06:00 04/23/17 06:00 Active Medications Aspirin (Asa -) 81 mg NGT DAILY [facility] Last Admin: 04/23/17 09:30 Dose: 81 mg Atorvastatin Calcium (Lipitor -) 80 mg PO HS [facility] Last Admin: 04/22/17 21:39 Dose: 80 mg Chlorhexidine Gluconate (Peridex -) 15 ml MM BID [facility] Last Admin: 04/23/17 09:33 Dose: 15 ml Clopidogrel Bisulfate (Plavix -) 75 mg NGT DAILY [facility] Last Admin: 04/23/17 09:31 Dose: 75 mg Heparin Sodium (Porcine) (Heparin -) 1,000 unit IVPUSH PRN PRN PRN Reason: Heparin Heparin Sodium (Porcine) (Heparin -) 5,000 unit IVPUSH PRN PRN PRN Reason: Heparin Last Admin: 04/23/17 11:30 Dose: 5,000 unit Piperacillin/Tazobactam/Dextrose (Zosyn 4.5gm Ivpb (Premix)) 100 mls @ 200 mls/ hr IVPB Q8H-IV [facility] PRN Reason: Protocol Last Admin: 04/23/17 09:37 Dose: 200 mls/hr Norepinephrine Bitartrate 8, (000 mcg/ Dextrose) 500 mls @ 18.75 mls/hr IV TITR [facility]; 5 MCG/MIN PRN Reason: Protocol Last Titration: 04/22/17 07:13 Dose: 5 mcg/min, 18.75 mls/hr Heparin Sodium (Porcine) 25, (000 unit/ Sodium Chloride) 500 mls @ 20 mls/hr IV TITR [facility]; 1,000 UNIT/HR PRN Reason: Protocol Last Admin: 04/23/17 13:42 Dose: 1,450 unit/hr, 29 mls/hr Sodium Chloride (1/2 Normal Saline) 1,000 mls @ 83 mls/hr IV ASDIR [facility] Last Admin: 04/23/17 13:43 Dose: 83 mls/hr Lorazepam (Ativan Injection -) 2 mg IVPUSH Q2H PRN PRN Reason: SEIZURES Last Admin: 04/21/17 14:35 Dose: 2 mg Pantoprazole Sodium (Protonix Iv) 40 mg IVPUSH DAILY [facility] Last Admin: 04/23/17 09:31 Dose: 40 mg ASSESSMENT AND PLAN: s/p Cardiopulmonary Arrest r/o Acute [place] Anoxic Encephalopathy Septic vs Cardiogenic vs Neurogenic Shock Acute Kidney Injury Lactic Acidosis Elevated LFTs likely Ischemic Injury Hyperglycemia Clinical Brain - continue empiric antibiotics - titrate pressors to maintain MAP >65 - hold all sedation - taper FiO2 to keep SpO2 >90% - DVT/GI prophylaxis - poor overall prognosis for meaningful recovery - not a candidate for dialysis as pt clinically brain - continue ICU monitoring - continue discussions with family regarding compassionate extubation critical care time spnet in reviewing chart, evaluating patient and formulating plan 35 min
--- NOTE | 2017-04-23 14:42 | PN ---
Progress Note, Physician Chief Complaint: patient seen in icu weekend events reviwed clinically brain apnea test consistent with brain - Current Medication List Current Medications: Active Medications Aspirin (Asa -) 81 mg NGT DAILY [facility] Last Admin: 04/23/17 09:30 Dose: 81 mg Atorvastatin Calcium (Lipitor -) 80 mg PO HS [facility] Last Admin: 04/22/17 21:39 Dose: 80 mg Chlorhexidine Gluconate (Peridex -) 15 ml MM BID [facility] Last Admin: 04/23/17 09:33 Dose: 15 ml Clopidogrel Bisulfate (Plavix -) 75 mg NGT DAILY [facility] Last Admin: 04/23/17 09:31 Dose: 75 mg Heparin Sodium (Porcine) (Heparin -) 1,000 unit IVPUSH PRN PRN PRN Reason: Heparin Heparin Sodium (Porcine) (Heparin -) 5,000 unit IVPUSH PRN PRN PRN Reason: Heparin Last Admin: 04/23/17 11:30 Dose: 5,000 unit Piperacillin/Tazobactam/Dextrose (Zosyn 4.5gm Ivpb (Premix)) 100 mls @ 200 mls/ hr IVPB Q8H-IV [facility] PRN Reason: Protocol Last Admin: 04/23/17 09:37 Dose: 200 mls/hr Norepinephrine Bitartrate 8, (000 mcg/ Dextrose) 500 mls @ 18.75 mls/hr IV TITR [facility]; 5 MCG/MIN PRN Reason: Protocol Last Titration: 04/22/17 07:13 Dose: 5 mcg/min, 18.75 mls/hr Heparin Sodium (Porcine) 25, (000 unit/ Sodium Chloride) 500 mls @ 20 mls/hr IV TITR [facility]; 1,000 UNIT/HR PRN Reason: Protocol Last Admin: 04/23/17 13:42 Dose: 1,450 unit/hr, 29 mls/hr Sodium Chloride (1/2 Normal Saline) 1,000 mls @ 83 mls/hr IV ASDIR [facility] Last Admin: 04/23/17 13:43 Dose: 83 mls/hr Lorazepam (Ativan Injection -) 2 mg IVPUSH Q2H PRN PRN Reason: SEIZURES Last Admin: 04/21/17 14:35 Dose: 2 mg Pantoprazole Sodium (Protonix Iv) 40 mg IVPUSH DAILY [facility] Last Admin: 04/23/17 09:31 Dose: 40 mg - Objective Vital Signs: Vital Signs Temperature 99.0 F 04/23/17 14:00 Pulse Rate 84 04/23/17 14:00 Respiratory Rate 26 H 04/23/17 14:04 Blood Pressure 96/52 04/23/17 14:00 O2 Sat by Pulse Oximetry (%) 97 04/23/17 10:19 Constitutional: Yes: Other (intubated off sedation) Eyes: Yes: Other (dilated pupils) Cardiovascular: Yes: Regular Rate and Rhythm, S1, S2 Respiratory: Yes: Mechanically Ventilated Gastrointestinal: Yes: Soft Edema: Yes Labs: CBC, BMP 04/23/17 06:00 INR, PTT INR 1.12 (0.82-1.09) 04/18/17 07:20 Problem List - Problems (1) Cardiorespiratory arrest Assessment/Plan: intubated -on ventilator, pressors, off sedation icu montoring clinically brain no spontaneous respiration noted Code(s): I46.9 - CARDIAC ARREST, CAUSE UNSPECIFIED (2) Leukocytosis Assessment/Plan: ID on board iv abx septic /cardiogenic shock on presors Code(s): D72.829 - ELEVATED WHITE BLOOD CELL COUNT, UNSPECIFIED (3) Troponin level elevated Assessment/Plan: heparin drip echo noted shows basal posterlateral wall akinesis NSTEMi aspirin statin,plavix Code(s): R74.8 - ABNORMAL LEVELS OF OTHER SERUM ENZYMES (4) NARINDER (acute kidney injury) Assessment/Plan: family to decide [facility] Code(s): N17.9 - ACUTE KIDNEY FAILURE, UNSPECIFIED (5) LFT elevation Assessment/Plan: will monitor the liver function elevated posssibly secondary to ischemia? Code(s): R79.89 - OTHER SPECIFIED ABNORMAL FINDINGS OF BLOOD CHEMISTRY (6) Brain Assessment/Plan: cerebral brain flow scan noted shows no blood flow to brain apnea test on 04/21 consistent with brain family to decided [facility] came to room twice today to talk to but she was not in the room and not in waiting room either
[2017-04-23] MEDS ORDERED: NOREPINEPHRINE BITARTRATE 4 MG/4 ML ML IV ONE ×2 (15:11→20:28)
[2017-04-23 15:13] LABS: ANION GAP 15 (8-16); CALCIUM 8.7 mg/dL (8.5-10.1); CO2 17 mmol/L (21-32); GLUCOSE,RANDOM 59 mg/dL (74-106)
[2017-04-23] MEDS: NOREPINEPHRINE BITARTRATE 8,000 MCG in DEXTROSE 5%-WATER - 492 ML IV SCH (15:13)
[2017-04-23 15:32] LABS: CREATININE 9.3 mg/dL (0.7-1.3)
--- NOTE | 2017-04-23 16:57 | PN ---
Progress Note, Physician History of Present Illness: no changes pupils dilated and fixed - Current Medication List Current Medications: Active Medications Aspirin (Asa -) 81 mg NGT DAILY [facility] Last Admin: 04/23/17 09:30 Dose: 81 mg Atorvastatin Calcium (Lipitor -) 80 mg PO HS [facility] Last Admin: 04/22/17 21:39 Dose: 80 mg Chlorhexidine Gluconate (Peridex -) 15 ml MM BID [facility] Last Admin: 04/23/17 09:33 Dose: 15 ml Clopidogrel Bisulfate (Plavix -) 75 mg NGT DAILY [facility] Last Admin: 04/23/17 09:31 Dose: 75 mg Heparin Sodium (Porcine) (Heparin -) 1,000 unit IVPUSH PRN PRN PRN Reason: Heparin Heparin Sodium (Porcine) (Heparin -) 5,000 unit IVPUSH PRN PRN PRN Reason: Heparin Last Admin: 04/23/17 11:30 Dose: 5,000 unit Piperacillin/Tazobactam/Dextrose (Zosyn 4.5gm Ivpb (Premix)) 100 mls @ 200 mls/ hr IVPB Q8H-IV [facility] PRN Reason: Protocol Last Admin: 04/23/17 09:37 Dose: 200 mls/hr Norepinephrine Bitartrate 8, (000 mcg/ Dextrose) 500 mls @ 18.75 mls/hr IV TITR [facility]; 5 MCG/MIN PRN Reason: Protocol Last Admin: 04/23/17 15:13 Dose: 5 mcg/min, 18.75 mls/hr Heparin Sodium (Porcine) 25, (000 unit/ Sodium Chloride) 500 mls @ 20 mls/hr IV TITR [facility]; 1,000 UNIT/HR PRN Reason: Protocol Last Admin: 04/23/17 13:42 Dose: 1,450 unit/hr, 29 mls/hr Sodium Chloride (1/2 Normal Saline) 1,000 mls @ 83 mls/hr IV ASDIR [facility] Last Admin: 04/23/17 13:43 Dose: 83 mls/hr Lorazepam (Ativan Injection -) 2 mg IVPUSH Q2H PRN PRN Reason: SEIZURES Last Admin: 04/21/17 14:35 Dose: 2 mg Pantoprazole Sodium (Protonix Iv) 40 mg IVPUSH DAILY [facility] Last Admin: 04/23/17 09:31 Dose: 40 mg - Objective Vital Signs: Vital Signs Temperature 99.0 F 04/23/17 14:00 Pulse Rate 85 04/23/17 15:13 Respiratory Rate 26 H 04/23/17 14:04 Blood Pressure 98/56 04/23/17 15:13 O2 Sat by Pulse Oximetry (%) 97 04/23/17 10:19 Constitutional: Yes: Other HENT: Yes: Other (pupils dilated and fixed) Cardiovascular: Yes: Regular Rate and Rhythm, S1, S2 Respiratory: Yes: Intubated, Mechanically Ventilated Gastrointestinal: Yes: Soft Musculoskeletal: Yes: WNL Extremities: Yes: WNL Labs: CBC, BMP 04/23/17 06:00 04/23/17 12:15 INR, PTT INR 1.12 (0.82-1.09) 04/18/17 07:20 - ....Imaging Chest X-ray: Report Reviewed, Image Reviewed Assessment/Plan emains intubated, unresponsive off sedation. Evaluated by neurology, cranial reflexes absent. n. Remains on levophed Problem List - Problems (1) Cardiorespiratory arrest Code(s): I46.9 - CARDIAC ARREST, CAUSE UNSPECIFIED (2) Leukocytosis Code(s): D72.829 - ELEVATED WHITE BLOOD CELL COUNT, UNSPECIFIED (3) Troponin level elevated Code(s): R74.8 - ABNORMAL LEVELS OF OTHER SERUM ENZYMES (4) LFT elevation Code(s): R79.89 - OTHER SPECIFIED ABNORMAL FINDINGS OF BLOOD CHEMISTRY (5) GI bleed Code(s): K92.2 - GASTROINTESTINAL HEMORRHAGE, UNSPECIFIED 1. NARINDER 2. cardiac arrest 3. respiratory failure requiring intubation 4. obesity 5. transaminitis 6. a-fib 7. shock 8. hypotension 9. anoxic encephalopathy 10. hyperkalemia 11. hypernatremia 12. brain plan continue current mgmt rest as per icu patient with poor prognosis rest as per primary await for family plan cc time 40 min
[2017-04-23] MEDS: ATORVASTATIN CA 80 MG TABLET (FP) PO SCH (22:58)
[2017-04-24] MEDS: PIPERACILLIN/TAZOB 4.5 GM 100 ML IVPB SCH ×3 (02:29→19:14)
[2017-04-24 06:34] LABS: MCH 29.3 pg (25.7-33.7); MCHC 34.2 g/dl (32.0-35.9); MEAN CELL VOLUME 85.8 fl (80-96); MEAN PLT VOLUME 9.6 fl (7.5-11.1); PLATELET COUNT 158 K/MM3 (134-434); RDW 14.9 % (11.9-15.9); WHITE BLOOD COUNT 10.1 K/mm3 (4.0-10.0)
--- NOTE | 2017-04-24 09:25 | PN ---
Progress Note, Physician - Current Medication List Current Medications: Active Medications Aspirin (Asa -) 81 mg NGT DAILY [facility] Last Admin: 04/23/17 09:30 Dose: 81 mg Atorvastatin Calcium (Lipitor -) 80 mg PO HS [facility] Last Admin: 04/23/17 22:58 Dose: Not Given Chlorhexidine Gluconate (Peridex -) 15 ml MM BID [facility] Last Admin: 04/23/17 23:00 Dose: 15 ml Clopidogrel Bisulfate (Plavix -) 75 mg NGT DAILY [facility] Last Admin: 04/23/17 09:31 Dose: 75 mg Heparin Sodium (Porcine) (Heparin -) 1,000 unit IVPUSH PRN PRN PRN Reason: Heparin Heparin Sodium (Porcine) (Heparin -) 5,000 unit IVPUSH PRN PRN PRN Reason: Heparin Last Admin: 04/23/17 11:30 Dose: 5,000 unit Piperacillin/Tazobactam/Dextrose (Zosyn 4.5gm Ivpb (Premix)) 100 mls @ 200 mls/ hr IVPB Q8H-IV [facility] PRN Reason: Protocol Last Admin: 04/24/17 02:29 Dose: 200 mls/hr Norepinephrine Bitartrate 8, (000 mcg/ Dextrose) 500 mls @ 18.75 mls/hr IV TITR [facility]; 5 MCG/MIN PRN Reason: Protocol Last Titration: 04/24/17 08:20 Dose: 4 mcg/min, 15 mls/hr Heparin Sodium (Porcine) 25, (000 unit/ Sodium Chloride) 500 mls @ 20 mls/hr IV TITR [facility]; 1,000 UNIT/HR PRN Reason: Protocol Last Titration: 04/24/17 08:15 Dose: 1,550 unit/hr, 31 mls/hr Sodium Chloride (1/2 Normal Saline) 1,000 mls @ 83 mls/hr IV ASDIR [facility] Last Admin: 04/23/17 13:43 Dose: 83 mls/hr Lorazepam (Ativan Injection -) 2 mg IVPUSH Q2H PRN PRN Reason: SEIZURES Last Admin: 04/21/17 14:35 Dose: 2 mg Pantoprazole Sodium (Protonix Iv) 40 mg IVPUSH DAILY [facility] Last Admin: 04/23/17 09:31 Dose: 40 mg - Objective Vital Signs: Vital Signs Temperature 99.4 F 04/24/17 06:00 Pulse Rate 88 04/24/17 08:20 Respiratory Rate 26 H 04/24/17 07:11 Blood Pressure 123/64 04/24/17 08:20 O2 Sat by Pulse Oximetry (%) 100 04/24/17 04:06 Labs: CBC, BMP 04/24/17 06:15 04/23/17 12:15 INR, PTT INR 1.12 (0.82-1.09) 04/18/17 07:20 Problem List - Problems (1) Cardiorespiratory arrest Code(s): I46.9 - CARDIAC ARREST, CAUSE UNSPECIFIED (2) Leukocytosis Code(s): D72.829 - ELEVATED WHITE BLOOD CELL COUNT, UNSPECIFIED (3) Troponin level elevated Code(s): R74.8 - ABNORMAL LEVELS OF OTHER SERUM ENZYMES (4) LFT elevation Code(s): R79.89 - OTHER SPECIFIED ABNORMAL FINDINGS OF BLOOD CHEMISTRY (5) GI bleed Code(s): K92.2 - GASTROINTESTINAL HEMORRHAGE, UNSPECIFIED Assessment/Plan - Problems (1) Cardiorespiratory arrest Assessment/Plan: intubated -on ventilator, pressors, off sedation icu montoring clinically brain no spontaneous respiration noted Code(s): I46.9 - CARDIAC ARREST, CAUSE UNSPECIFIED (2) Leukocytosis Assessment/Plan: ID on board iv abx septic /cardiogenic shock on presors Code(s): D72.829 - ELEVATED WHITE BLOOD CELL COUNT, UNSPECIFIED (3) Troponin level elevated Assessment/Plan: heparin drip echo noted shows basal posterlateral wall akinesis NSTEMi aspirin statin,plavix Code(s): R74.8 - ABNORMAL LEVELS OF OTHER SERUM ENZYMES (4) NARINDER (acute kidney injury) Assessment/Plan: family to decide [facility] Code(s): N17.9 - ACUTE KIDNEY FAILURE, UNSPECIFIED (5) LFT elevation Assessment/Plan: will monitor the liver function elevated possibly secondary to ischemia? Code(s): R79.89 - OTHER SPECIFIED ABNORMAL FINDINGS OF BLOOD CHEMISTRY (6) Brain Assessment/Plan: cerebral brain flow scan noted shows no blood flow to brain apnea test on 04/21 consistent with brain family to decided [facility]
[2017-04-24] MEDS: ASPIRIN 81 MG CHEWABLE TABLETS NGT SCH (11:41)
[2017-04-24] MEDS: CLOPIDOGREL BISULFATE 75 MG TABLET (FP) NGT SCH (11:41)
[2017-04-24] MEDS: PANTOPRAZOLE SODIUM 40 MG VIAL IVPUSH SCH (11:41)
[2017-04-24 12:41] LABS: ARTERIAL BLD GAS O2 SATURATION 99.3 % (90-98.9); ARTERIAL BLOOD GAS BASE EXCESS -8.8 meq/l (-2-2); ARTERIAL BLOOD GAS HCO3 15.8 meq/L (22-26); ARTERIAL BLOOD GAS pH 7.33 (7.35-7.45)
[2017-04-24 12:43] LABS: ALLENS TEST POSITIVE
[2017-04-24 12:44] LABS: ART PUNCT SITE RIGHT RADIAL; LPM/O2% 60; PT. ON O2? YES
[2017-04-24 12:48] LABS: MECH. VENT. YES; TYPE OF O2 VENT
[2017-04-24 12:49] LABS: VENT RATE 26; VT/PRESS 500
--- NOTE | 2017-04-24 12:50 | PN ---
Teaching Attending Note Name of Resident: Braulio Christopher ATTENDING PHYSICIAN STATEMENT I saw and evaluated the patient. I reviewed the resident's note and discussed the case with the resident. I agree with the resident's findings and plan as documented. SUBJECTIVE: Pt seen and examined in the ICU. Clinically unchanged, remains intubated, unresponsive on pressor support. Will repeat apnea test as initial test showing rise in pCO2 19.6. OBJECTIVE: Last Vital Signs Temp Pulse Resp BP Pulse Ox 100.0 F H 83 26 H 111/58 100 04/24/17 08:00 04/24/17 11:32 04/24/17 10:28 04/24/17 11:32 04/24/17 04:06 Intake & Output 04/21/17 04/22/17 04/23/17 04/24/17 23:59 23:59 23:59 23:59 Intake Total 4240 156 9587.9 1146.4 Output Total 2300 2400 2050 500 Balance -444 -2030 553.9 646.4 Weight 326 lb 15.128 oz 313 lb 7.957 oz 313 lb 312 lb 11.2 oz Gen: intubated, unresponsive Heart: RRR Lung: scattered wheezes Abd: soft, nontender Ext: trace edema CBC, BMP 04/24/17 06:15 04/23/17 12:15 Active Medications Aspirin (Asa -) 81 mg NGT DAILY [facility] Last Admin: 04/24/17 11:41 Dose: 81 mg Atorvastatin Calcium (Lipitor -) 80 mg PO HS [facility] Last Admin: 04/23/17 22:58 Dose: Not Given Chlorhexidine Gluconate (Peridex -) 15 ml MM BID [facility] Last Admin: 04/23/17 23:00 Dose: 15 ml Clopidogrel Bisulfate (Plavix -) 75 mg NGT DAILY [facility] Last Admin: 04/24/17 11:41 Dose: 75 mg Heparin Sodium (Porcine) (Heparin -) 1,000 unit IVPUSH PRN PRN PRN Reason: Heparin Heparin Sodium (Porcine) (Heparin -) 5,000 unit IVPUSH PRN PRN PRN Reason: Heparin Last Admin: 04/23/17 11:30 Dose: 5,000 unit Piperacillin/Tazobactam/Dextrose (Zosyn 4.5gm Ivpb (Premix)) 100 mls @ 200 mls/ hr IVPB Q8H-IV [facility] PRN Reason: Protocol Last Admin: 04/24/17 11:42 Dose: 200 mls/hr Norepinephrine Bitartrate 8, (000 mcg/ Dextrose) 500 mls @ 18.75 mls/hr IV TITR [facility]; 5 MCG/MIN PRN Reason: Protocol Last Titration: 04/24/17 11:32 Dose: 2 mcg/min, 7.5 mls/hr Heparin Sodium (Porcine) 25, (000 unit/ Sodium Chloride) 500 mls @ 20 mls/hr IV TITR [facility]; 1,000 UNIT/HR PRN Reason: Protocol Last Titration: 04/24/17 08:15 Dose: 1,550 unit/hr, 31 mls/hr Sodium Chloride (1/2 Normal Saline) 1,000 mls @ 83 mls/hr IV ASDIR [facility] Last Admin: 04/23/17 13:43 Dose: 83 mls/hr Lorazepam (Ativan Injection -) 2 mg IVPUSH Q2H PRN PRN Reason: SEIZURES Last Admin: 04/21/17 14:35 Dose: 2 mg Pantoprazole Sodium (Protonix Iv) 40 mg IVPUSH DAILY [facility] Last Admin: 04/24/17 11:41 Dose: 40 mg ASSESSMENT AND PLAN: s/p Cardiopulmonary Arrest r/o Acute [place] Anoxic Encephalopathy Septic vs Cardiogenic vs Neurogenic Shock Acute Kidney Injury Lactic Acidosis Elevated LFTs likely Ischemic Injury Hyperglycemia Clinical Brain - will repeat apnea test to document rise in pCO2 >20 - continue empiric antibiotics - titrate pressors to maintain MAP >65 - hold all sedation - taper FiO2 to keep SpO2 >90% - DVT/GI prophylaxis - poor overall prognosis for meaningful recovery - not a candidate for dialysis as pt clinically brain - continue ICU monitoring - continue discussions with family regarding compassionate extubation critical care time spnet in reviewing chart, evaluating patient and formulating plan 35 min
[2017-04-24 13:30] LABS: ARTERIAL BLD GAS O2 SATURATION 99.7 % (90-98.9); ARTERIAL BLOOD GAS BASE EXCESS -9.3 meq/l (-2-2); ARTERIAL BLOOD GAS HCO3 16.2 meq/L (22-26); ARTERIAL BLOOD GAS pH 7.28 (7.35-7.45)
[2017-04-24 13:32] LABS: ALLENS TEST POSITIVE
[2017-04-24 13:33] LABS: LPM/O2% 100; MECH. VENT. YES; PT. ON O2? YES
--- NOTE | 2017-04-24 13:53 | PN ---
Physical Exam: SUBJECTIVE: Patient seen and examined at bedside. No change from prior. OBJECTIVE: Vital Signs Period Temp Pulse Resp BP Sys/Yeh Pulse Ox Last 24 Hr 98.9 F-100.2 F 83-93 24-26 96-142/52-88 100-100 GENERAL:Pt intubated. HEAD: Normal with no signs of trauma. EYES: Nonreactive pupils. sclera anicteric, conjunctiva clear. No ptosis. ENT: Intubated NECK: Trachea midline, full range of motion, supple. LUNGS: Breath sounds equal, clear to auscultation bilaterally, no wheezes, no crackles, no accessory muscle use. HEART: Regular rate and rhythm, S1, S2 without murmur, rub or gallop. ABDOMEN: Soft, nondistended, normoactive bowel sounds, no guarding, no rebound, no hepatosplenomegaly, no masses. EXTREMITIES: 2+ pulses, warm, well-perfused, no edema. NEUROLOGICAL: Inubated PSYCH: Intubated SKIN: Warm, dry, normal turgor, no rashes or lesions noted Laboratory Results - last 24 hr 04/20/17 04/21/17 04/23/17 16:56 05:45 12:15 WBC RBC Hgb Hct MCV MCH MCHC RDW Plt Count MPV PTT (Actin FS) Puncture Site ABG pH ABG pCO2 at Pt Temp ABG pO2 at Pt Temp ABG HCO3 ABG O2 Sat (Measured) ABG O2 Content ABG Base Excess Avtar Test O2 Delivery Device Oxygen Flow Rate Vent Mode Vent Rate Mechanical Rate PEEP Pressure Support Vent Sodium 150 H Potassium 4.7 Chloride 118 H Carbon Dioxide 17 L Anion Gap 15 BUN 85 H Creatinine 9.3 H* POC Glucometer 91.81019 Random Glucose 59 L D Calcium 8.7 Urine Osmolality MARCELINA Screen Negative Hep A IgM Ab Confirm Negative Hepatitis A Ab Total Positive H Hep Bs Antigen Negative Hep Bs Antibody Non reactive Hep B Core Total Ab Negative 04/23/17 04/23/17 04/24/17 17:15 17:30 06:15 WBC 10.1 H RBC 3.55 L Hgb 10.4 L Hct 30.4 L MCV 85.8 MCH 29.3 MCHC 34.2 RDW 14.9 Plt Count 158 MPV 9.6 PTT (Actin FS) 50.9 H D Puncture Site ABG pH ABG pCO2 at Pt Temp ABG pO2 at Pt Temp ABG HCO3 ABG O2 Sat (Measured) ABG O2 Content ABG Base Excess Avtar Test O2 Delivery Device Oxygen Flow Rate Vent Mode Vent Rate Mechanical Rate PEEP Pressure Support Vent Sodium Potassium Chloride Carbon Dioxide Anion Gap BUN Creatinine POC Glucometer Random Glucose Calcium Urine Osmolality 240 L MARCELINA Screen Hep A IgM Ab Confirm Hepatitis A Ab Total Hep Bs Antigen Hep Bs Antibody Hep B Core Total Ab 04/24/17 04/24/17 04/24/17 06:15 12:25 13:23 WBC RBC Hgb Hct MCV MCH MCHC RDW Plt Count MPV PTT (Actin FS) 45.1 H Puncture Site Right radial ABG pH 7.33 L 7.28 L ABG pCO2 at Pt Temp 31.0 L 35.7 ABG pO2 at Pt Temp 165.0 H* 276.0 H* ABG HCO3 15.8 L 16.2 L ABG O2 Sat (Measured) 99.3 H 99.7 H* ABG O2 Content 14.3 L 14.6 L ABG Base Excess -8.8 L -9.3 L Avtar Test Positive Positive O2 Delivery Device Vent Oxygen Flow Rate 60 100 Vent Mode A/c Vent Rate 26 Mechanical Rate Yes Yes PEEP 5.0 Pressure Support Vent 500 Sodium Potassium Chloride Carbon Dioxide Anion Gap BUN Creatinine POC Glucometer Random Glucose Calcium Urine Osmolality MARCELINA Screen Hep A IgM Ab Confirm Hepatitis A Ab Total Hep Bs Antigen Hep Bs Antibody Hep B Core Total Ab Active Medications Generic Name Dose Route Start Last Admin Trade Name Freq PRN Reason Stop Dose Admin Aspirin 81 mg 04/18/17 18:15 04/24/17 11:41 Asa - NGT 81 mg DAILY [facility] Administration Atorvastatin Calcium 80 mg 04/17/17 22:00 04/23/17 22:58 Lipitor - PO Not Given HS [facility] Chlorhexidine Gluconate 15 ml 04/17/17 22:45 04/23/17 23:00 Peridex - MM 15 ml BID [facility] Administration Clopidogrel Bisulfate 75 mg 04/18/17 18:15 04/24/17 11:41 Plavix - NGT 75 mg DAILY [facility] Administration Heparin Sodium (Porcine) 1,000 unit 04/18/17 19:09 Heparin - IVPUSH PRN PRN Heparin Heparin Sodium (Porcine) 5,000 unit 04/18/17 19:09 04/23/17 11:30 Heparin - IVPUSH 5,000 unit PRN PRN Administration Heparin Piperacillin/Tazobactam/Dextrose 100 mls @ 200 mls/hr 04/18/17 02:00 11:42 Zosyn 4.5gm Ivpb (Premix) IVPB 200 mls/hr Q8H-IV [facility] Administration Protocol Norepinephrine Bitartrate 8, 500 mls @ 18.75 mls/hr 04/18/17 11:15 04/24/17 11:32 000 mcg/ Dextrose IV 2 mcg/min TITR [facility] 7.5 mls/hr Protocol Titration 5 MCG/MIN Heparin Sodium (Porcine) 25, 500 mls @ 20 mls/hr 04/18/17 19:15 04/24/17 08: 15 000 unit/ Sodium Chloride IV 1,550 unit/hr TITR [facility] 31 mls/hr Protocol Titration 1,000 UNIT/HR Sodium Chloride 1,000 mls @ 83 mls/hr 04/22/17 10:15 04/23/17 13:43 1/2 Normal Saline IV 83 mls/hr ASDIR [facility] Administration Lorazepam 2 mg 04/21/17 15:16 04/21/17 14:35 Ativan Injection - IVPUSH 2 mg Q2H PRN Administration SEIZURES Pantoprazole Sodium 40 mg 04/18/17 10:00 04/24/17 11:41 Protonix Iv IVPUSH 40 mg DAILY [facility] Administration ASSESSMENT/PLAN: Pt is a 31 M w/ no significant PMH who was brought to ED in cardiac arrest of unknown origin. Pt was coded in ED for approximately 50 min and transferred to ICU. Pt has made no meaningful clinical improvement and has been declared braindead. #s/p cardiopulm arrest -unable to r/o NC. Pt made troponin, but source unclear -heparin -ASA -plavix #Anoxic encephalopathy -Pt required nearly an hour of resuscitation with several shocks before ROSC was achieved -Pt currently intubated #Shock -etiology unclear: septic/cardiogenic/neurogenic -currently on pressors and fluids #NARINDER -recent [employer] 9.0 -likely 2/2 hypoperfusion -will not need HD at this time considering clinical picture #Lactic acidosis -2/2 shock #Team to discuss goals of care with family -Decision was made by family today to compassionately wean the patient. #Ppx -on heparin #Dispo -goals of care discussions Braulio Christopher MD PGY-1 ICU case discussed with attending Visit type - Emergency Visit Emergency Visit: No - New Patient This patient is new to me today: No - Critical Care Critical Care patient: Yes Total Critical Care Time (in minutes): 35 Critical Care Statement: The care of this patient involved high complexity decision making to prevent further life threatening deterioration of the patient 's condition and/or to evaluate & treat vital organ system(s) failure or risk of failure. - Discharge Referral Referred to [facility] Med P.C.: No
[2017-04-24 13:55] LABS: ARTERIAL BLD GAS O2 SATURATION 95.2 % (90-98.9); ARTERIAL BLOOD GAS HCO3 19.7 meq/L (22-26)
[2017-04-24 13:56] LABS: PT. ON O2? YES
--- NOTE | 2017-04-24 14:00 | PN ---
Progress Note (short form) - Note Progress Note: PULMONARY/CCM Repeat apnea test performed. Baseline pCO2 35, pt disconnected from the vent and placed on high flow O2 via the ETT. Pt observed for 10 minutes without any evidence of spontaneous respirations. At 10 minutes, SBP dropped to 80s, ABG drawn and placed back on mechanical ventilation. ABG at 10 minutes showing pCO2 71.7 with pH 7.0. Pt clinically brain . Robert Mondragon MD
--- NOTE | 2017-04-24 15:34 | PN ---
Progress Note, Physician History of Present Illness: Pt seen and examined at bedside. He remain in the ICU. Apnea test was done again and he is braindead. Family are at bedside and are planning an extubation today. - Current Medication List Current Medications: Active Medications Aspirin (Asa -) 81 mg NGT DAILY [facility] Last Admin: 04/24/17 11:41 Dose: 81 mg Atorvastatin Calcium (Lipitor -) 80 mg PO HS [facility] Last Admin: 04/23/17 22:58 Dose: Not Given Chlorhexidine Gluconate (Peridex -) 15 ml MM BID [facility] Last Admin: 04/23/17 23:00 Dose: 15 ml Clopidogrel Bisulfate (Plavix -) 75 mg NGT DAILY [facility] Last Admin: 04/24/17 11:41 Dose: 75 mg Heparin Sodium (Porcine) (Heparin -) 1,000 unit IVPUSH PRN PRN PRN Reason: Heparin Heparin Sodium (Porcine) (Heparin -) 5,000 unit IVPUSH PRN PRN PRN Reason: Heparin Last Admin: 04/23/17 11:30 Dose: 5,000 unit Piperacillin/Tazobactam/Dextrose (Zosyn 4.5gm Ivpb (Premix)) 100 mls @ 200 mls/ hr IVPB Q8H-IV [facility] PRN Reason: Protocol Last Admin: 04/24/17 11:42 Dose: 200 mls/hr Norepinephrine Bitartrate 8, (000 mcg/ Dextrose) 500 mls @ 18.75 mls/hr IV TITR [facility]; 5 MCG/MIN PRN Reason: Protocol Last Titration: 04/24/17 11:32 Dose: 2 mcg/min, 7.5 mls/hr Heparin Sodium (Porcine) 25, (000 unit/ Sodium Chloride) 500 mls @ 20 mls/hr IV TITR [facility]; 1,000 UNIT/HR PRN Reason: Protocol Last Titration: 04/24/17 08:15 Dose: 1,550 unit/hr, 31 mls/hr Sodium Chloride (1/2 Normal Saline) 1,000 mls @ 83 mls/hr IV ASDIR [facility] Last Admin: 04/23/17 13:43 Dose: 83 mls/hr Pantoprazole Sodium (Protonix Iv) 40 mg IVPUSH DAILY [facility] Last Admin: 04/24/17 11:41 Dose: 40 mg - Objective Vital Signs: Vital Signs Temperature 100.0 F H 04/24/17 08:00 Pulse Rate 88 04/24/17 12:00 Respiratory Rate 24 04/24/17 12:00 Blood Pressure 142/88 04/24/17 12:00 O2 Sat by Pulse Oximetry (%) 100 04/24/17 04:06 Constitutional: Yes: Calm Cardiovascular: Yes: S1, S2 Respiratory: Yes: Mechanically Ventilated Gastrointestinal: Yes: Soft, Abdomen, Obese Genitourinary: Yes: Brown Present Musculoskeletal: Yes: Muscle Weakness Edema: Yes Neurological: Yes: Lethargy Labs: CBC, BMP 04/24/17 06:15 04/23/17 12:15 INR, PTT INR 1.12 (0.82-1.09) 04/18/17 07:20 Problem List - Problems (1) NARINDER (acute kidney injury) Code(s): N17.9 - ACUTE KIDNEY FAILURE, UNSPECIFIED (2) Cardiorespiratory arrest Code(s): I46.9 - CARDIAC ARREST, CAUSE UNSPECIFIED (3) LFT elevation Code(s): R79.89 - OTHER SPECIFIED ABNORMAL FINDINGS OF BLOOD CHEMISTRY (4) Obesity Code(s): E66.9 - OBESITY, UNSPECIFIED (5) Paroxysmal atrial fibrillation Code(s): I48.0 - PAROXYSMAL ATRIAL FIBRILLATION Assessment/Plan Current Medications Generic Name Dose Route Start Last Admin Trade Name Freq PRN Reason Stop Dose Admin Aspirin 81 mg 04/18/17 18:15 04/24/17 11:41 Asa - NGT 81 mg DAILY [facility] Administration Atorvastatin Calcium 80 mg 04/17/17 22:00 04/23/17 22:58 Lipitor - PO Not Given HS [facility] Chlorhexidine Gluconate 15 ml 04/17/17 22:45 04/23/17 23:00 Peridex - MM 15 ml BID [facility] Administration Clopidogrel Bisulfate 75 mg 04/18/17 18:15 04/24/17 11:41 Plavix - NGT 75 mg DAILY [facility] Administration Heparin Sodium (Porcine) 1,000 unit 04/18/17 19:09 Heparin - IVPUSH PRN PRN Heparin Heparin Sodium (Porcine) 5,000 unit 04/18/17 19:09 04/23/17 11:30 Heparin - IVPUSH 5,000 unit PRN PRN Administration Heparin Piperacillin/Tazobactam/Dextrose 100 mls @ 200 mls/hr 04/18/17 02:00 11:42 Zosyn 4.5gm Ivpb (Premix) IVPB 200 mls/hr Q8H-IV [facility] Administration Protocol Norepinephrine Bitartrate 8, 500 mls @ 18.75 mls/hr 04/18/17 11:15 04/24/17 11:32 000 mcg/ Dextrose IV 2 mcg/min TITR [facility] 7.5 mls/hr Protocol Titration 5 MCG/MIN Heparin Sodium (Porcine) 25, 500 mls @ 20 mls/hr 04/18/17 19:15 04/24/17 08: 15 000 unit/ Sodium Chloride IV 1,550 unit/hr TITR [facility] 31 mls/hr Protocol Titration 1,000 UNIT/HR Sodium Chloride 1,000 mls @ 83 mls/hr 04/22/17 10:15 04/23/17 13:43 1/2 Normal Saline IV 83 mls/hr ASDIR [facility] Administration Pantoprazole Sodium 40 mg 04/18/17 10:00 04/24/17 11:41 Protonix Iv IVPUSH 40 mg DAILY [facility] Administration Impression 1. NARINDER 2. cardiac arrest 3. respiratory failure requiring intubation 4. obesity 5. transaminitis 6. a-fib 7. shock 8. hypotension 9. anoxic encephalopathy 10. hyperkalemia 11. hypernatremia 12. brain Plan - renal function continues to worsen - discussed with family at length today - repeat apnea test was done today - family have decided to extubate him today - discussed with ICU team - cont supportive care - pulm note reviewed, pt failed apnea test - vent support - will follow closely Dr Marshall
--- NOTE | 2017-04-24 15:58 | PN ---
Progress Note, Physician History of Present Illness: not improving patient brain - Current Medication List Current Medications: Active Medications Aspirin (Asa -) 81 mg NGT DAILY [facility] Last Admin: 04/24/17 11:41 Dose: 81 mg Atorvastatin Calcium (Lipitor -) 80 mg PO HS [facility] Last Admin: 04/23/17 22:58 Dose: Not Given Chlorhexidine Gluconate (Peridex -) 15 ml MM BID [facility] Last Admin: 04/23/17 23:00 Dose: 15 ml Clopidogrel Bisulfate (Plavix -) 75 mg NGT DAILY [facility] Last Admin: 04/24/17 11:41 Dose: 75 mg Heparin Sodium (Porcine) (Heparin -) 1,000 unit IVPUSH PRN PRN PRN Reason: Heparin Heparin Sodium (Porcine) (Heparin -) 5,000 unit IVPUSH PRN PRN PRN Reason: Heparin Last Admin: 04/23/17 11:30 Dose: 5,000 unit Piperacillin/Tazobactam/Dextrose (Zosyn 4.5gm Ivpb (Premix)) 100 mls @ 200 mls/ hr IVPB Q8H-IV [facility] PRN Reason: Protocol Last Admin: 04/24/17 11:42 Dose: 200 mls/hr Norepinephrine Bitartrate 8, (000 mcg/ Dextrose) 500 mls @ 18.75 mls/hr IV TITR [facility]; 5 MCG/MIN PRN Reason: Protocol Last Titration: 04/24/17 11:32 Dose: 2 mcg/min, 7.5 mls/hr Heparin Sodium (Porcine) 25, (000 unit/ Sodium Chloride) 500 mls @ 20 mls/hr IV TITR [facility]; 1,000 UNIT/HR PRN Reason: Protocol Last Titration: 04/24/17 08:15 Dose: 1,550 unit/hr, 31 mls/hr Sodium Chloride (1/2 Normal Saline) 1,000 mls @ 83 mls/hr IV ASDIR [facility] Last Admin: 04/23/17 13:43 Dose: 83 mls/hr Pantoprazole Sodium (Protonix Iv) 40 mg IVPUSH DAILY [facility] Last Admin: 04/24/17 11:41 Dose: 40 mg - Objective Vital Signs: Vital Signs Temperature 100.2 F H 04/24/17 14:00 Pulse Rate 115 H 04/24/17 14:00 Respiratory Rate 26 H 04/24/17 14:00 Blood Pressure 166/107 04/24/17 14:00 O2 Sat by Pulse Oximetry (%) 100 04/24/17 04:06 Cardiovascular: Yes: S1, S2 Respiratory: Yes: Intubated, Mechanically Ventilated Gastrointestinal: Yes: Soft Edema: LLE: 1+, RLE: 1+ Labs: CBC, BMP 04/24/17 06:15 04/23/17 12:15 INR, PTT INR 1.12 (0.82-1.09) 04/18/17 07:20 Assessment/Plan emains intubated, unresponsive off sedation. Evaluated by neurology, cranial reflexes absent. n. Remains on levophed Problem List - Problems (1) Cardiorespiratory arrest Code(s): I46.9 - CARDIAC ARREST, CAUSE UNSPECIFIED (2) Leukocytosis Code(s): D72.829 - ELEVATED WHITE BLOOD CELL COUNT, UNSPECIFIED (3) Troponin level elevated Code(s): R74.8 - ABNORMAL LEVELS OF OTHER SERUM ENZYMES (4) LFT elevation Code(s): R79.89 - OTHER SPECIFIED ABNORMAL FINDINGS OF BLOOD CHEMISTRY (5) GI bleed Code(s): K92.2 - GASTROINTESTINAL HEMORRHAGE, UNSPECIFIED 1. NARINDER 2. cardiac arrest 3. respiratory failure requiring intubation 4. obesity 5. transaminitis 6. a-fib 7. shock 8. hypotension 9. anoxic encephalopathy 10. hyperkalemia 11. hypernatremia 12. brain plan continue current mgmt no function rest as per icu
[2017-04-24] MEDS ORDERED: PT OWN MED DRAWER 7, Y5N ONE (19:06)
--- NOTE | 2017-04-24 22:20 | PN ---
Progress Note (short form) - Note Progress Note: Patient family adamantly wanting patient to be transferred to another facility. Family member named Chanelle, claims he spoke with a physician at [place]. I spoke with transfer center at [place], patient is NOT accepted. I spoke with neurology ICU physician, Dr. Azar , who states, by policy, they do not accept patients who are brain . Case discussed with primary.
[2017-04-24] MEDS: HEPARIN - 25,000 UNIT in SODIUM CHLORIDE 495 ML IV SCH (23:09)
[2017-04-24] MEDS: ATORVASTATIN CA 80 MG TABLET (FP) PO SCH (23:11)
[2017-04-24] MEDS ORDERED: NOREPINEPHRINE BITARTRATE 4 MG/4 ML ML IV ONE (23:17)
[2017-04-24] MEDS: CHLORHEXIDINE GLUCONATE 0.12% 15ML CUP MM SCH (23:29)
[2017-04-24] MEDS: SODIUM CHLORIDE 0.45% 1,000 ML IV SCH (23:30)
[2017-04-25 00:10] LABS: C-ANCA <1:20 titer (Neg:<1:20); MYELOPEROXIDASE ANTIBODY <9.0 U/mL (0.0-9.0); P-ANCA <1:20 titer (Neg:<1:20); PROTEINASE-3 ANTIBODY <3.5 U/mL (0.0-3.5)
[2017-04-25] MEDS: PIPERACILLIN/TAZOB 4.5 GM 100 ML IVPB SCH (02:00)
--- NOTE | 2017-04-25 08:33 | PN ---
Progress Note, Physician - Current Medication List Current Medications: Active Medications Aspirin (Asa -) 81 mg NGT DAILY [facility] Last Admin: 04/24/17 11:41 Dose: 81 mg Atorvastatin Calcium (Lipitor -) 80 mg PO HS [facility] Last Admin: 04/24/17 23:11 Dose: Not Given Chlorhexidine Gluconate (Peridex -) 15 ml MM BID [facility] Last Admin: 04/24/17 23:29 Dose: 15 ml Clopidogrel Bisulfate (Plavix -) 75 mg NGT DAILY [facility] Last Admin: 04/24/17 11:41 Dose: 75 mg Heparin Sodium (Porcine) (Heparin -) 1,000 unit IVPUSH PRN PRN PRN Reason: Heparin Heparin Sodium (Porcine) (Heparin -) 5,000 unit IVPUSH PRN PRN PRN Reason: Heparin Last Admin: 04/23/17 11:30 Dose: 5,000 unit Norepinephrine Bitartrate 8, (000 mcg/ Dextrose) 500 mls @ 18.75 mls/hr IV TITR [facility]; 5 MCG/MIN PRN Reason: Protocol Last Titration: 04/24/17 20:00 Dose: 0 mcg/min, 0 mls/hr Heparin Sodium (Porcine) 25, (000 unit/ Sodium Chloride) 500 mls @ 20 mls/hr IV TITR [facility]; 1,000 UNIT/HR PRN Reason: Protocol Last Admin: 04/24/17 23:09 Dose: 1,550 unit/hr, 31 mls/hr Sodium Chloride (1/2 Normal Saline) 1,000 mls @ 83 mls/hr IV ASDIR [facility] Last Admin: 04/24/17 23:30 Dose: 83 mls/hr Pantoprazole Sodium (Protonix Iv) 40 mg IVPUSH DAILY [facility] Last Admin: 04/24/17 11:41 Dose: 40 mg - Objective Vital Signs: Vital Signs Temperature 99.2 F 04/25/17 02:00 Pulse Rate 76 04/25/17 06:00 Respiratory Rate 26 H 04/25/17 06:30 Blood Pressure 92/50 04/25/17 06:00 O2 Sat by Pulse Oximetry (%) 100 04/25/17 01:09 Labs: CBC, BMP 04/24/17 06:15 04/23/17 12:15 INR, PTT INR 1.12 (0.82-1.09) 04/18/17 07:20 Problem List - Problems (1) Cardiorespiratory arrest Code(s): I46.9 - CARDIAC ARREST, CAUSE UNSPECIFIED (2) Leukocytosis Code(s): D72.829 - ELEVATED WHITE BLOOD CELL COUNT, UNSPECIFIED (3) Troponin level elevated Code(s): R74.8 - ABNORMAL LEVELS OF OTHER SERUM ENZYMES (4) LFT elevation Code(s): R79.89 - OTHER SPECIFIED ABNORMAL FINDINGS OF BLOOD CHEMISTRY (5) GI bleed Code(s): K92.2 - GASTROINTESTINAL HEMORRHAGE, UNSPECIFIED Assessment/Plan - Problems (1) Cardiorespiratory arrest Assessment/Plan: intubated -on ventilator, pressors, off sedation icu montoring clinically brain no spontaneous respiration noted Code(s): I46.9 - CARDIAC ARREST, CAUSE UNSPECIFIED (2) Leukocytosis Assessment/Plan: ID on board iv abx septic /cardiogenic shock on presors Code(s): D72.829 - ELEVATED WHITE BLOOD CELL COUNT, UNSPECIFIED (3) Troponin level elevated Assessment/Plan: heparin drip echo noted shows basal posterlateral wall akinesis NSTEMi aspirin statin,plavix Code(s): R74.8 - ABNORMAL LEVELS OF OTHER SERUM ENZYMES (4) NARINDER (acute kidney injury) Assessment/Plan: family to decide [facility] Code(s): N17.9 - ACUTE KIDNEY FAILURE, UNSPECIFIED (5) LFT elevation Assessment/Plan: will monitor the liver function elevated possibly secondary to ischemia? Code(s): R79.89 - OTHER SPECIFIED ABNORMAL FINDINGS OF BLOOD CHEMISTRY (6) Brain Assessment/Plan: cerebral brain flow scan noted shows no blood flow to brain apnea test on 04/21 consistent with brain family to decided [facility] Transfer center at [place] contacted, patient is NOT accepted. neurology ICU physician, Dr. Azar , who states, by policy, they do not accept patients who are brain .
[2017-04-25] MEDS: CHLORHEXIDINE GLUCONATE 0.12% 15ML CUP MM SCH (10:52)
[2017-04-25] MEDS: ASPIRIN 81 MG CHEWABLE TABLETS NGT SCH (10:53)
[2017-04-25] MEDS: PANTOPRAZOLE SODIUM 40 MG VIAL IVPUSH SCH (10:53)
--- NOTE | 2017-04-25 10:57 | PN ---
Teaching Attending Note Name of Resident: Braulio Christopher ATTENDING PHYSICIAN STATEMENT I saw and evaluated the patient. I reviewed the resident's note and discussed the case with the resident. I agree with the resident's findings and plan as documented. SUBJECTIVE: Pt seen and examined in the ICU. Apnea test repeated yesterday confirming brain . Was to be compassionately extubated yesterday but was not due to family conflict. OBJECTIVE: Last Vital Signs Temp Pulse Resp BP Pulse Ox 98.4 F 76 26 H 101/61 100 04/25/17 08:00 04/25/17 06:00 04/25/17 09:00 04/25/17 08:00 04/25/17 09:00 Intake & Output 04/22/17 04/23/17 04/24/17 04/25/17 23:59 23:59 23:59 23:59 Intake Total 370 2603.9 3220.4 770 Output Total 2400 2050 2500 200 Balance -2030 553.9 720.4 570 Weight 313 lb 7.957 oz 313 lb 312 lb 11.2 oz 324 lb 3 oz Gen: intubated, unresponsive Heart: RRR Lung: decreased breath sounds at the bases Abd: soft, nontender Ext: + edema CBC, BMP 04/24/17 06:15 04/23/17 12:15 Active Medications Aspirin (Asa -) 81 mg NGT DAILY [facility] Last Admin: 04/25/17 10:53 Dose: 81 mg Atorvastatin Calcium (Lipitor -) 80 mg PO HS [facility] Last Admin: 04/24/17 23:11 Dose: Not Given Chlorhexidine Gluconate (Peridex -) 15 ml MM BID [facility] Last Admin: 04/25/17 10:52 Dose: 15 ml Clopidogrel Bisulfate (Plavix -) 75 mg NGT DAILY [facility] Last Admin: 04/24/17 11:41 Dose: 75 mg Heparin Sodium (Porcine) (Heparin -) 1,000 unit IVPUSH PRN PRN PRN Reason: Heparin Heparin Sodium (Porcine) (Heparin -) 5,000 unit IVPUSH PRN PRN PRN Reason: Heparin Last Admin: 04/23/17 11:30 Dose: 5,000 unit Norepinephrine Bitartrate 8, (000 mcg/ Dextrose) 500 mls @ 18.75 mls/hr IV TITR [facility]; 5 MCG/MIN PRN Reason: Protocol Last Titration: 04/24/17 20:00 Dose: 0 mcg/min, 0 mls/hr Heparin Sodium (Porcine) 25, (000 unit/ Sodium Chloride) 500 mls @ 20 mls/hr IV TITR [facility]; 1,000 UNIT/HR PRN Reason: Protocol Last Admin: 04/24/17 23:09 Dose: 1,550 unit/hr, 31 mls/hr Sodium Chloride (1/2 Normal Saline) 1,000 mls @ 83 mls/hr IV ASDIR [facility] Last Admin: 04/24/17 23:30 Dose: 83 mls/hr Pantoprazole Sodium (Protonix Iv) 40 mg IVPUSH DAILY [facility] Last Admin: 04/25/17 10:53 Dose: 40 mg ASSESSMENT AND PLAN: s/p Cardiopulmonary Arrest r/o Acute PR Anoxic Encephalopathy Septic vs Cardiogenic vs Neurogenic Shock Acute Kidney Injury Lactic Acidosis Elevated LFTs likely Ischemic Injury Hyperglycemia Clinical Brain - hold all sedation - taper FiO2 to keep SpO2 >90% - DVT/GI prophylaxis - poor overall prognosis for meaningful recovery - not a candidate for dialysis as pt clinically brain - continue ICU monitoring - continue discussions with family regarding compassionate extubation
--- NOTE | 2017-04-25 11:29 | PN ---
Physical Exam: SUBJECTIVE: Patient seen and examined at bedside. No change from prior. Pt remains intubated with fixed dilated pupils. OBJECTIVE: Vital Signs Period Temp Pulse Resp BP Sys/Yeh Pulse Ox Last 24 Hr 98.4 F-100.2 F 76-115 24-26 92-166/50-107 100-100 GENERAL:Pt intubated. HEAD: Normal with no signs of trauma. EYES: Nonreactive pupils. sclera anicteric, conjunctiva clear. No ptosis. ENT: Intubated NECK: Trachea midline, full range of motion, supple. LUNGS: Breath sounds equal, clear to auscultation bilaterally, no wheezes, no crackles, no accessory muscle use. HEART: Regular rate and rhythm, S1, S2 without murmur, rub or gallop. ABDOMEN: Soft, nondistended, normoactive bowel sounds, no guarding, no rebound, no hepatosplenomegaly, no masses. EXTREMITIES: 2+ pulses, warm, well-perfused, no edema. NEUROLOGICAL: Inubated PSYCH: Intubated SKIN: Warm, dry, normal turgor, no rashes or lesions noted Laboratory Results - last 24 hr 04/21/17 04/24/17 04/24/17 05:45 12:25 13:23 Puncture Site Right radial Y ABG pH 7.33 L 7.28 L ABG pCO2 at Pt Temp 31.0 L 35.7 ABG pO2 at Pt Temp 165.0 H* 276.0 H* ABG HCO3 15.8 L 16.2 L ABG O2 Sat (Measured) 99.3 H 99.7 H* ABG O2 Content 14.3 L 14.6 L ABG Base Excess -8.8 L -9.3 L Avtar Test Positive Positive O2 Delivery Device Vent Oxygen Flow Rate 60 100 Vent Mode A/c Vent Rate 26 Mechanical Rate Yes Yes PEEP 5.0 Pressure Support Vent 500 c-ANCA <1:20 Proteinase 3 (PR3) <3.5 p-ANCA <1:20 Atypical p-ANCA <1:20 Myeloperoxidase Ab <9.0 04/24/17 13:30 Puncture Site Y ABG pH 7.00 L* D ABG pCO2 at Pt Temp 71.7 H* D ABG pO2 at Pt Temp 108.0 H D ABG HCO3 19.7 L ABG O2 Sat (Measured) 95.2 ABG O2 Content 13.9 L ABG Base Excess Y Avtar Test Y O2 Delivery Device Oxygen Flow Rate Yes Vent Mode Vent Rate Mechanical Rate PEEP Pressure Support Vent c-ANCA Proteinase 3 (PR3) p-ANCA Atypical p-ANCA Myeloperoxidase Ab Active Medications Generic Name Dose Route Start Last Admin Trade Name Freq PRN Reason Stop Dose Admin Aspirin 81 mg 04/18/17 18:15 04/25/17 10:53 Asa - NGT 81 mg DAILY [facility] Administration Atorvastatin Calcium 80 mg 04/17/17 22:00 04/24/17 23:11 Lipitor - PO Not Given HS [facility] Chlorhexidine Gluconate 15 ml 04/17/17 22:45 04/25/17 10:52 Peridex - MM 15 ml BID [facility] Administration Clopidogrel Bisulfate 75 mg 04/18/17 18:15 04/24/17 11:41 Plavix - NGT 75 mg DAILY [facility] Administration Heparin Sodium (Porcine) 1,000 unit 04/18/17 19:09 Heparin - IVPUSH PRN PRN Heparin Heparin Sodium (Porcine) 5,000 unit 04/18/17 19:09 04/23/17 11:30 Heparin - IVPUSH 5,000 unit PRN PRN Administration Heparin Norepinephrine Bitartrate 8, 500 mls @ 18.75 mls/hr 04/18/17 11:15 04/24/17 20:00 000 mcg/ Dextrose IV 0 mcg/min TITR [facility] 0 mls/hr Protocol Titration 5 MCG/MIN Heparin Sodium (Porcine) 25, 500 mls @ 20 mls/hr 04/18/17 19:15 04/24/17 23: 09 000 unit/ Sodium Chloride IV 1,550 unit/hr TITR [facility] 31 mls/hr Protocol Administration 1,000 UNIT/HR Sodium Chloride 1,000 mls @ 83 mls/hr 04/22/17 10:15 04/24/17 23:30 1/2 Normal Saline IV 83 mls/hr ASDIR [facility] Administration Pantoprazole Sodium 40 mg 04/18/17 10:00 04/25/17 10:53 Protonix Iv IVPUSH 40 mg DAILY [facility] Administration ASSESSMENT/PLAN: Pt is a 31 M w/ no significant PMH who was brought to ED in cardiac arrest of unknown origin. Pt was coded in ED for approximately 50 min and transferred to ICU. Pt has made no meaningful clinical improvement and has been declared braindead. #s/p cardiopulm arrest -unable to r/o ND. Pt made troponin, but source unclear -ASA -plavix #Anoxic encephalopathy -Pt required nearly an hour of resuscitation with several shocks before ROSC was achieved -Pt currently intubated #Shock -etiology unclear: septic/cardiogenic/neurogenic -currently on pressors and fluids #NARINDER -recent [facility] 9.0 -likely 2/2 hypoperfusion -will not need HD at this time considering clinical picture #Lactic acidosis -2/2 shock #Team to discuss goals of care with family -Decision was made by family today to compassionately wean the patient. #Ppx -Hep SubQ #Dispo -goals of care discussions -Ethics consulted Braulio Christopher MD PGY-1 ICU case discussed with attending Visit type - Emergency Visit Emergency Visit: No - New Patient This patient is new to me today: No - Critical Care Critical Care patient: No - Discharge Referral Referred to [facility] No
--- NOTE | 2017-04-25 12:29 | PN ---
Progress Note, Physician History of Present Illness: Pt seen and examined at bedside. He remains in the ICU. He was not extubated yesterday as family have changed their mind and are still deciding on GOC. - Current Medication List Current Medications: Active Medications Aspirin (Asa -) 81 mg NGT DAILY [facility] Last Admin: 04/25/17 10:53 Dose: 81 mg Atorvastatin Calcium (Lipitor -) 80 mg PO HS [facility] Last Admin: 04/24/17 23:11 Dose: Not Given Chlorhexidine Gluconate (Peridex -) 15 ml MM BID [facility] Last Admin: 04/25/17 10:52 Dose: 15 ml Clopidogrel Bisulfate (Plavix -) 75 mg NGT DAILY [facility] Last Admin: 04/24/17 11:41 Dose: 75 mg Heparin Sodium (Porcine) (Heparin -) 5,000 unit SQ BID [facility] Norepinephrine Bitartrate 8, (000 mcg/ Dextrose) 500 mls @ 18.75 mls/hr IV TITR [facility]; 5 MCG/MIN PRN Reason: Protocol Last Titration: 04/24/17 20:00 Dose: 0 mcg/min, 0 mls/hr Sodium Chloride (1/2 Normal Saline) 1,000 mls @ 83 mls/hr IV ASDIR [facility] Last Admin: 04/24/17 23:30 Dose: 83 mls/hr Pantoprazole Sodium (Protonix Iv) 40 mg IVPUSH DAILY [facility] Last Admin: 04/25/17 10:53 Dose: 40 mg - Objective Vital Signs: Vital Signs Temperature 98.4 F 04/25/17 08:00 Pulse Rate 76 04/25/17 10:15 Respiratory Rate 26 H 04/25/17 12:00 Blood Pressure 96/53 04/25/17 12:00 O2 Sat by Pulse Oximetry (%) 97 04/25/17 10:15 Constitutional: Yes: Calm HENT: Yes: Atraumatic Cardiovascular: Yes: S1, S2 Respiratory: Yes: Mechanically Ventilated Gastrointestinal: Yes: Soft, Abdomen, Obese Genitourinary: Yes: Brown Present Musculoskeletal: Yes: Muscle Weakness Edema: Yes Edema: LUE: Trace, RUE: Trace Neurological: Yes: Lethargy Labs: CBC, BMP 04/24/17 06:15 04/23/17 12:15 INR, PTT INR 1.12 (0.82-1.09) 04/18/17 07:20 Problem List - Problems (1) NARINDER (acute kidney injury) Code(s): N17.9 - ACUTE KIDNEY FAILURE, UNSPECIFIED (2) Cardiorespiratory arrest Code(s): I46.9 - CARDIAC ARREST, CAUSE UNSPECIFIED (3) LFT elevation Code(s): R79.89 - OTHER SPECIFIED ABNORMAL FINDINGS OF BLOOD CHEMISTRY (4) Obesity Code(s): E66.9 - OBESITY, UNSPECIFIED (5) Paroxysmal atrial fibrillation Code(s): I48.0 - PAROXYSMAL ATRIAL FIBRILLATION Assessment/Plan Current Medications Generic Name Dose Route Start Last Admin Trade Name Freq PRN Reason Stop Dose Admin Aspirin 81 mg 04/18/17 18:15 04/25/17 10:53 Asa - NGT 81 mg DAILY [facility] Administration Atorvastatin Calcium 80 mg 04/17/17 22:00 04/24/17 23:11 Lipitor - PO Not Given HS [facility] Chlorhexidine Gluconate 15 ml 04/17/17 22:45 04/25/17 10:52 Peridex - MM 15 ml BID [facility] Administration Clopidogrel Bisulfate 75 mg 04/18/17 18:15 04/24/17 11:41 Plavix - NGT 75 mg DAILY [facility] Administration Heparin Sodium (Porcine) 5,000 unit 04/25/17 22:00 Heparin - SQ BID [facility] Norepinephrine Bitartrate 8, 500 mls @ 18.75 mls/hr 04/18/17 11:15 04/24/17 20:00 000 mcg/ Dextrose IV 0 mcg/min TITR [facility] 0 mls/hr Protocol Titration 5 MCG/MIN Sodium Chloride 1,000 mls @ 83 mls/hr 04/22/17 10:15 04/24/17 23:30 1/2 Normal Saline IV 83 mls/hr ASDIR [facility] Administration Pantoprazole Sodium 40 mg 04/18/17 10:00 04/25/17 10:53 Protonix Iv IVPUSH 40 mg DAILY [facility] Administration Impression 1. NARINDER 2. cardiac arrest 3. respiratory failure requiring intubation 4. obesity 5. transaminitis 6. a-fib 7. shock 8. hypotension 9. anoxic encephalopathy 10. hyperkalemia 11. hypernatremia 12. brain Plan - no new labs today - extubation was held yesterday as family are deciding on GOC - [facility] did not accept transfer - discussed with ICU team - no new labs to review - monitor BP - discussed with family - cont supportive care - pulm note reviewed, pt failed apnea test - vent support Dr Marshall
[2017-04-26] MEDS: HEPARIN NA (PORCINE) 5,000 UNITS/ML 1ML VIAL SQ SCH ×3 (00:01→21:34)
[2017-04-26] MEDS: ATORVASTATIN CA 80 MG TABLET (FP) PO SCH (00:01)
[2017-04-26] MEDS: CHLORHEXIDINE GLUCONATE 0.12% 15ML CUP MM SCH ×3 (00:02→21:33)
--- NOTE | 2017-04-26 09:03 | PN ---
Physical Exam: SUBJECTIVE: Patient seen and examined at bedside. No change from prior. Pt remains intubated with fixed dilated pupils. OBJECTIVE: Vital Signs Period Temp Pulse Resp BP Sys/Yeh Pulse Ox Last 24 Hr 98.0 F-98.4 F 76-102 24-26 92-123/52-68 96-97 GENERAL:Pt intubated. HEAD: Normal with no signs of trauma. EYES: Nonreactive pupils. sclera anicteric, conjunctiva clear. No ptosis. ENT: Intubated NECK: Trachea midline, full range of motion, supple. LUNGS: Breath sounds equal, clear to auscultation bilaterally, no wheezes, no crackles, no accessory muscle use. HEART: Regular rate and rhythm, S1, S2 without murmur, rub or gallop. ABDOMEN: Soft, nondistended, normoactive bowel sounds, no guarding, no rebound, no hepatosplenomegaly, no masses. EXTREMITIES: 2+ pulses, warm, well-perfused, no edema. NEUROLOGICAL: Inubated PSYCH: Intubated SKIN: Warm, dry, normal turgor, no rashes or lesions noted Active Medications Generic Name Dose Route Start Last Admin Trade Name Freq PRN Reason Stop Dose Admin Aspirin 81 mg 04/18/17 18:15 04/25/17 10:53 Asa - NGT 81 mg DAILY YOAV Administration Atorvastatin Calcium 80 mg 04/17/17 22:00 04/26/17 00:01 Lipitor - PO 80 mg HS YOAV Administration Chlorhexidine Gluconate 15 ml 04/17/17 22:45 04/26/17 00:02 Peridex - MM 15 ml BID YOAV Administration Clopidogrel Bisulfate 75 mg 04/18/17 18:15 04/24/17 11:41 Plavix - NGT 75 mg DAILY YOAV Administration Heparin Sodium (Porcine) 5,000 unit 04/25/17 22:00 04/26/17 00:01 Heparin - SQ 5,000 unit BID YOAV Administration Norepinephrine Bitartrate 8, 500 mls @ 18.75 mls/hr 04/18/17 11:15 04/24/17 20:00 000 mcg/ Dextrose IV 0 mcg/min TITR YOAV 0 mls/hr Protocol Titration 5 MCG/MIN Sodium Chloride 1,000 mls @ 83 mls/hr 04/22/17 10:15 04/24/17 23:30 1/2 Normal Saline IV 83 mls/hr ASDIR YOAV Administration Pantoprazole Sodium 40 mg 04/18/17 10:00 04/25/17 10:53 Protonix Iv IVPUSH 40 mg DAILY YOAV Administration ASSESSMENT/PLAN: Pt is a 31 M w/ no significant PMH who was brought to ED in cardiac arrest of unknown origin. Pt was coded in ED for approximately 50 min and transferred to ICU. Pt has made no meaningful clinical improvement and has been declared braindead. #s/p cardiopulm arrest -unable to r/o [place]. Pt made troponin, but source unclear -heparin -ASA -plavix #Anoxic encephalopathy -Pt required nearly an hour of resuscitation with several shocks before ROSC was achieved -Pt currently intubated #Shock -etiology unclear: septic/cardiogenic/neurogenic -IVF #NARINDER -recent [employer] 9.0 -likely 2/2 hypoperfusion -will not need HD at this time considering clinical picture #Lactic acidosis -2/2 shock #Team to discuss goals of care with family -Decision was made by family today to compassionately wean the patient. #Ppx -Heparin held as pt had small bleed from mouth #Dispo -goals of care discussions Braulio Christopher MD PGY-1 ICU case discussed with attending Visit type - Emergency Visit Emergency Visit: No - New Patient This patient is new to me today: No - Critical Care Critical Care patient: No - Discharge Referral Referred to [facility] Med P.C.: No
--- NOTE | 2017-04-26 09:32 | PN ---
Progress Note, Physician - Current Medication List Current Medications: Active Medications Aspirin (Asa -) 81 mg NGT DAILY [facility] Last Admin: 04/25/17 10:53 Dose: 81 mg Atorvastatin Calcium (Lipitor -) 80 mg PO HS [facility] Last Admin: 04/26/17 00:01 Dose: 80 mg Chlorhexidine Gluconate (Peridex -) 15 ml MM BID [facility] Last Admin: 04/26/17 00:02 Dose: 15 ml Clopidogrel Bisulfate (Plavix -) 75 mg NGT DAILY [facility] Last Admin: 04/24/17 11:41 Dose: 75 mg Heparin Sodium (Porcine) (Heparin -) 5,000 unit SQ BID [facility] Last Admin: 04/26/17 00:01 Dose: 5,000 unit Norepinephrine Bitartrate 8, (000 mcg/ Dextrose) 500 mls @ 18.75 mls/hr IV TITR YOAV; 5 MCG/MIN PRN Reason: Protocol Last Titration: 04/24/17 20:00 Dose: 0 mcg/min, 0 mls/hr Sodium Chloride (1/2 Normal Saline) 1,000 mls @ 83 mls/hr IV ASDIR [facility] Last Admin: 04/24/17 23:30 Dose: 83 mls/hr Pantoprazole Sodium (Protonix Iv) 40 mg IVPUSH DAILY [facility] Last Admin: 04/25/17 10:53 Dose: 40 mg - Objective Vital Signs: Vital Signs Temperature 98.4 F 04/26/17 02:00 Pulse Rate 85 04/26/17 09:08 Respiratory Rate 26 H 04/26/17 08:53 Blood Pressure 101/52 04/26/17 08:00 O2 Sat by Pulse Oximetry (%) 96 04/26/17 09:08 Cardiovascular: Yes: S1, S2 Respiratory: Yes: Mechanically Ventilated Labs: CBC, BMP 04/24/17 06:15 04/23/17 12:15 INR, PTT INR 1.12 (0.82-1.09) 04/18/17 07:20 Problem List - Problems (1) Cardiorespiratory arrest Code(s): I46.9 - CARDIAC ARREST, CAUSE UNSPECIFIED (2) Leukocytosis Code(s): D72.829 - ELEVATED WHITE BLOOD CELL COUNT, UNSPECIFIED (3) Troponin level elevated Code(s): R74.8 - ABNORMAL LEVELS OF OTHER SERUM ENZYMES (4) LFT elevation Code(s): R79.89 - OTHER SPECIFIED ABNORMAL FINDINGS OF BLOOD CHEMISTRY (5) GI bleed Code(s): K92.2 - GASTROINTESTINAL HEMORRHAGE, UNSPECIFIED Assessment/Plan - Problems (1) Cardiorespiratory arrest Assessment/Plan: intubated -on ventilator, pressors, off sedation icu montoring clinically brain no spontaneous respiration noted Code(s): I46.9 - CARDIAC ARREST, CAUSE UNSPECIFIED (2) Leukocytosis Assessment/Plan: ID on board iv abx septic /cardiogenic shock on presors Code(s): D72.829 - ELEVATED WHITE BLOOD CELL COUNT, UNSPECIFIED (3) Troponin level elevated Assessment/Plan: heparin drip echo noted shows basal posterlateral wall akinesis NSTEMi aspirin statin,plavix Code(s): R74.8 - ABNORMAL LEVELS OF OTHER SERUM ENZYMES (4) NARINDER (acute kidney injury) Assessment/Plan: family to decide [facility] Code(s): N17.9 - ACUTE KIDNEY FAILURE, UNSPECIFIED (5) LFT elevation Assessment/Plan: will monitor the liver function elevated possibly secondary to ischemia? Code(s): R79.89 - OTHER SPECIFIED ABNORMAL FINDINGS OF BLOOD CHEMISTRY (6) Brain Assessment/Plan: cerebral brain flow scan noted shows no blood flow to brain apnea test on 04/21 consistent with brain family to decided [facility] Transfer center at [place] contacted, patient is NOT accepted. neurology ICU physician, Dr. Azar , who states, by policy, they do not accept patients who are brain .
[2017-04-26] MEDS ORDERED: PT OWN MED DRAWER 7, Y5N ONE (10:27)
[2017-04-26] MEDS: PANTOPRAZOLE SODIUM 40 MG VIAL IVPUSH SCH (10:29)
[2017-04-26] MEDS: SODIUM CHLORIDE 0.45% 1,000 ML IV SCH (10:30)
--- NOTE | 2017-04-26 11:00 | PN ---
Teaching Attending Note Name of Resident: Braulio Christopher ATTENDING PHYSICIAN STATEMENT I saw and evaluated the patient. I reviewed the resident's note and discussed the case with the resident. I agree with the resident's findings and plan as documented. SUBJECTIVE: Patient seen and examined in the ICU. No decision made by the family. No overall change in clinical condition. Intake & Output 04/23/17 04/24/17 04/25/17 04/26/17 23:59 23:59 23:59 23:59 Intake Total 2603.9 3220.4 2114 901 Output Total 2050 2500 800 500 Balance 553.9 720.4 1314 401 Weight 313 lb 312 lb 11.2 oz 324 lb 3 oz 326 lb 1.019 oz Last Vital Signs Temp Pulse Resp BP Pulse Ox 98.4 F 85 26 H 101/52 96 04/26/17 02:00 04/26/17 09:08 04/26/17 10:00 04/26/17 08:00 04/26/17 09:08 Active Medications Aspirin (Asa -) 81 mg NGT DAILY [facility] Last Admin: 04/25/17 10:53 Dose: 81 mg Atorvastatin Calcium (Lipitor -) 80 mg PO HS [facility] Last Admin: 04/26/17 00:01 Dose: 80 mg Chlorhexidine Gluconate (Peridex -) 15 ml MM BID [facility] Last Admin: 04/26/17 10:29 Dose: 15 ml Clopidogrel Bisulfate (Plavix -) 75 mg NGT DAILY [facility] Last Admin: 04/24/17 11:41 Dose: 75 mg Heparin Sodium (Porcine) (Heparin -) 5,000 unit SQ BID [facility] Last Admin: 04/26/17 00:01 Dose: 5,000 unit Norepinephrine Bitartrate 8, (000 mcg/ Dextrose) 500 mls @ 18.75 mls/hr IV TITR YOAV; 5 MCG/MIN PRN Reason: Protocol Last Titration: 04/24/17 20:00 Dose: 0 mcg/min, 0 mls/hr Sodium Chloride (1/2 Normal Saline) 1,000 mls @ 83 mls/hr IV ASDIR [facility] Last Admin: 04/26/17 10:30 Dose: 83 mls/hr Pantoprazole Sodium (Protonix Iv) 40 mg IVPUSH DAILY [facility] Last Admin: 04/26/17 10:29 Dose: 40 mg Gen: intubated, unresponsive Heart: RRR Lung: decreased breath sounds at the bases Abd: soft, nontender Ext: + edema ASSESSMENT AND PLAN: s/p Cardiopulmonary Arrest r/o Acute [place] Anoxic Encephalopathy Septic vs Cardiogenic vs Neurogenic Shock Acute Kidney Injury Lactic Acidosis Elevated LFTs likely Ischemic Injury Hyperglycemia Clinical Brain Awaiting family decision for compassionate extubation. May ethics consult. Dr Richardson Critical care time spent in reviewing chart, evaluating patient and formulating plan - 36 minutes.
--- NOTE | 2017-04-26 13:32 | PN ---
Progress Note, Physician History of Present Illness: Pt seen and examined. No new labs. Pt was pronounced brain . - Current Medication List Current Medications: Active Medications Chlorhexidine Gluconate (Peridex -) 15 ml MM BID [facility] Last Admin: 04/26/17 10:29 Dose: 15 ml Heparin Sodium (Porcine) (Heparin -) 5,000 unit SQ BID [facility] Last Admin: 04/26/17 00:01 Dose: 5,000 unit Sodium Chloride (1/2 Normal Saline) 1,000 mls @ 83 mls/hr IV ASDIR [facility] Last Admin: 04/26/17 10:30 Dose: 83 mls/hr Pantoprazole Sodium (Protonix Iv) 40 mg IVPUSH DAILY [facility] Last Admin: 04/26/17 10:29 Dose: 40 mg - Objective Vital Signs: Vital Signs Temperature 98.4 F 04/26/17 02:00 Pulse Rate 85 04/26/17 09:08 Respiratory Rate 26 H 04/26/17 12:24 Blood Pressure 101/52 04/26/17 08:00 O2 Sat by Pulse Oximetry (%) 96 04/26/17 09:08 Constitutional: Yes: Calm Eyes: Yes: Conjunctiva Clear Cardiovascular: Yes: S1, S2 Respiratory: Yes: Mechanically Ventilated Gastrointestinal: Yes: Soft, Abdomen, Obese Genitourinary: Yes: Brown Present, Hematuria Edema: Yes Edema: LUE: Trace, RUE: Trace Neurological: Yes: Lethargy Labs: CBC, BMP 04/24/17 06:15 04/23/17 12:15 INR, PTT INR 1.12 (0.82-1.09) 04/18/17 07:20 Problem List - Problems (1) NARINDER (acute kidney injury) Code(s): N17.9 - ACUTE KIDNEY FAILURE, UNSPECIFIED (2) Cardiorespiratory arrest Code(s): I46.9 - CARDIAC ARREST, CAUSE UNSPECIFIED (3) LFT elevation Code(s): R79.89 - OTHER SPECIFIED ABNORMAL FINDINGS OF BLOOD CHEMISTRY (4) Obesity Code(s): E66.9 - OBESITY, UNSPECIFIED (5) Paroxysmal atrial fibrillation Code(s): I48.0 - PAROXYSMAL ATRIAL FIBRILLATION Assessment/Plan Current Medications Generic Name Dose Route Start Last Admin Trade Name Freq PRN Reason Stop Dose Admin Chlorhexidine Gluconate 15 ml 04/17/17 22:45 04/26/17 10:29 Peridex - MM 15 ml BID YOAV Administration Heparin Sodium (Porcine) 5,000 unit 04/25/17 22:00 04/26/17 00:01 Heparin - SQ 5,000 unit BID YOAV Administration Sodium Chloride 1,000 mls @ 83 mls/hr 04/22/17 10:15 04/26/17 10:30 1/2 Normal Saline IV 83 mls/hr ASDIR YOAV Administration Pantoprazole Sodium 40 mg 04/18/17 10:00 04/26/17 10:29 Protonix Iv IVPUSH 40 mg DAILY YOAV Administration Impression 1. NARINDER 2. cardiac arrest 3. respiratory failure requiring intubation 4. obesity 5. transaminitis 6. a-fib 7. shock 8. hypotension 9. anoxic encephalopathy 10. hyperkalemia 11. hypernatremia 12. brain Plan - no new labs - hematuria today - ethics committee called - discussed with ICU team - family still deciding on GOC - monitor BP - cont supportive care - vent support Dr Marshall
[2017-04-26] MEDS: CLOPIDOGREL BISULFATE 75 MG TABLET (FP) NGT SCH (14:47)
[2017-04-26] MEDS: ASPIRIN 81 MG CHEWABLE TABLETS NGT SCH (14:47)
--- NOTE | 2017-04-26 15:39 | PN ---
Progress Note, Physician History of Present Illness: no changes brain - Current Medication List Current Medications: Active Medications Chlorhexidine Gluconate (Peridex -) 15 ml MM BID [facility] Last Admin: 04/26/17 10:29 Dose: 15 ml Heparin Sodium (Porcine) (Heparin -) 5,000 unit SQ BID [facility] Last Admin: 04/26/17 11:00 Dose: 5,000 unit Sodium Chloride (1/2 Normal Saline) 1,000 mls @ 83 mls/hr IV ASDIR [facility] Last Admin: 04/26/17 10:30 Dose: 83 mls/hr Pantoprazole Sodium (Protonix Iv) 40 mg IVPUSH DAILY [facility] Last Admin: 04/26/17 10:29 Dose: 40 mg - Objective Vital Signs: Vital Signs Temperature 98.4 F 04/26/17 02:00 Pulse Rate 85 04/26/17 09:08 Respiratory Rate 26 H 04/26/17 14:08 Blood Pressure 101/52 04/26/17 08:00 O2 Sat by Pulse Oximetry (%) 96 04/26/17 09:08 Cardiovascular: Yes: S1, S2 Respiratory: Yes: Intubated, Mechanically Ventilated Gastrointestinal: Yes: Soft Musculoskeletal: Yes: WNL Edema: LLE: 1+, RLE: 1+ Neurological: Yes: Other (brain ) Labs: CBC, BMP 04/24/17 06:15 04/23/17 12:15 INR, PTT INR 1.12 (0.82-1.09) 04/18/17 07:20 Assessment/Plan emains intubated, unresponsive off sedation. Evaluated by neurology, cranial reflexes absent. n. Remains on levophed Problem List - Problems (1) Cardiorespiratory arrest Code(s): I46.9 - CARDIAC ARREST, CAUSE UNSPECIFIED (2) Leukocytosis Code(s): D72.829 - ELEVATED WHITE BLOOD CELL COUNT, UNSPECIFIED (3) Troponin level elevated Code(s): R74.8 - ABNORMAL LEVELS OF OTHER SERUM ENZYMES (4) LFT elevation Code(s): R79.89 - OTHER SPECIFIED ABNORMAL FINDINGS OF BLOOD CHEMISTRY (5) GI bleed Code(s): K92.2 - GASTROINTESTINAL HEMORRHAGE, UNSPECIFIED 1. NARINDER 2. cardiac arrest 3. respiratory failure requiring intubation 4. obesity 5. transaminitis 6. a-fib 7. shock 8. hypotension 9. anoxic encephalopathy 10. hyperkalemia 11. hypernatremia 12. brain plan continue current mgmt rest as per icu patient with poor prognosis rest as per primary await for family plan
--- NOTE | 2017-04-26 16:06 | PN ---
Progress Note, Physician History of Present Illness: no changes family still on fence - Current Medication List Current Medications: Active Medications Chlorhexidine Gluconate (Peridex -) 15 ml MM BID [facility] Last Admin: 04/26/17 10:29 Dose: 15 ml Heparin Sodium (Porcine) (Heparin -) 5,000 unit SQ BID [facility] Last Admin: 04/26/17 11:00 Dose: 5,000 unit Sodium Chloride (1/2 Normal Saline) 1,000 mls @ 83 mls/hr IV ASDIR [facility] Last Admin: 04/26/17 10:30 Dose: 83 mls/hr Pantoprazole Sodium (Protonix Iv) 40 mg IVPUSH DAILY [facility] Last Admin: 04/26/17 10:29 Dose: 40 mg - Objective Vital Signs: Vital Signs Temperature 98.4 F 04/26/17 02:00 Pulse Rate 85 04/26/17 09:08 Respiratory Rate 26 H 04/26/17 14:08 Blood Pressure 101/52 04/26/17 08:00 O2 Sat by Pulse Oximetry (%) 96 04/26/17 09:08 Cardiovascular: Yes: S1, S2 Respiratory: Yes: Intubated, Mechanically Ventilated Gastrointestinal: Yes: Soft Musculoskeletal: Yes: WNL Extremities: Yes: Other Edema: LLE: 1+, RLE: 1+ Neurological: Yes: Other Labs: CBC, BMP 04/24/17 06:15 04/23/17 12:15 INR, PTT INR 1.12 (0.82-1.09) 04/18/17 07:20 Assessment/Plan emains intubated, unresponsive off sedation. Evaluated by neurology, cranial reflexes absent. n. Remains on levophed Problem List - Problems (1) Cardiorespiratory arrest Code(s): I46.9 - CARDIAC ARREST, CAUSE UNSPECIFIED (2) Leukocytosis Code(s): D72.829 - ELEVATED WHITE BLOOD CELL COUNT, UNSPECIFIED (3) Troponin level elevated Code(s): R74.8 - ABNORMAL LEVELS OF OTHER SERUM ENZYMES (4) LFT elevation Code(s): R79.89 - OTHER SPECIFIED ABNORMAL FINDINGS OF BLOOD CHEMISTRY (5) GI bleed Code(s): K92.2 - GASTROINTESTINAL HEMORRHAGE, UNSPECIFIED 1. NARINDER 2. cardiac arrest 3. respiratory failure requiring intubation 4. obesity 5. transaminitis 6. a-fib 7. shock 8. hypotension 9. anoxic encephalopathy 10. hyperkalemia 11. hypernatremia 12. brain plan continue current mgmt rest as per icu patient brain rest as per primary await for family plan
[2017-04-27] MEDS: PANTOPRAZOLE SODIUM 40 MG VIAL IVPUSH SCH (10:00)
[2017-04-27] MEDS: HEPARIN NA (PORCINE) 5,000 UNITS/ML 1ML VIAL SQ SCH ×2 (10:00→21:48)
--- NOTE | 2017-04-27 10:34 | PN ---
Progress Note (short form) - Note Progress Note: Ethics Note: Patients history and physical findings were reviewed. Testing for brain were completed and patient parameters of coma, brainstem testing and Apnea testing appear to have been met. Family is being given the opportunity to decide on the timing of compassionate extubation. If there is a refusal to take that step then an Ethics Committee meeting can be called which would require the Attending MD, Neurology MD and family to be present to discuss these decisions.
[2017-04-27] MEDS: SODIUM CHLORIDE 0.45% 1,000 ML IV SCH ×2 (11:00→20:00)
--- NOTE | 2017-04-27 12:02 | PN ---
Teaching Attending Note Name of Resident: Braulio Christopher ATTENDING PHYSICIAN STATEMENT I saw and evaluated the patient. I reviewed the resident's note and discussed the case with the resident. I agree with the resident's findings and plan as documented. SUBJECTIVE: Patient seen and examined in the ICU. Still no decision made by the family. No overall change in clinical condition. Apnea testing performed on 04/24 confirmed brain : PCO2 increased from 35.7 to 71.7. Intake & Output 04/24/17 04/25/17 04/26/17 04/27/17 23:59 23:59 23:59 23:59 Intake Total 3220.4 2114 1897 996 Output Total 2500 800 2200 1100 Balance 720.4 1314 -303 -104 Weight 312 lb 11.2 oz 324 lb 3 oz 326 lb 1.019 oz 325 lb 9.964 oz Last Vital Signs Temp Pulse Resp BP Pulse Ox 97.7 F 94 H 26 H 103/53 96 04/27/17 02:00 04/27/17 09:30 04/27/17 11:18 04/27/17 06:00 04/27/17 10:16 Active Medications Chlorhexidine Gluconate (Peridex -) 15 ml MM BID [facility] Last Admin: 04/26/17 21:33 Dose: 15 ml Heparin Sodium (Porcine) (Heparin -) 5,000 unit SQ BID [facility] Last Admin: 04/27/17 10:00 Dose: 5,000 unit Sodium Chloride (1/2 Normal Saline) 1,000 mls @ 83 mls/hr IV ASDIR [facility] Last Admin: 04/26/17 10:30 Dose: 83 mls/hr Pantoprazole Sodium (Protonix Iv) 40 mg IVPUSH DAILY [facility] Last Admin: 04/27/17 10:00 Dose: 40 mg Gen: intubated, unresponsive Heart: RRR Lung: decreased breath sounds at the bases Abd: soft, nontender Ext: + edema ASSESSMENT AND PLAN: s/p Cardiopulmonary Arrest r/o Acute [place] Anoxic Encephalopathy Septic vs Cardiogenic vs Neurogenic Shock Acute Kidney Injury Lactic Acidosis Elevated LFTs likely Ischemic Injury Hyperglycemia Clinical Brain Awaiting family decision for compassionate extubation. October ethics consult / hospital intervention. Dr Richardson
[2017-04-27] MEDS: CHLORHEXIDINE GLUCONATE 0.12% 15ML CUP MM SCH ×2 (13:00→21:47)
--- NOTE | 2017-04-27 13:24 | PN ---
Progress Note, Physician Chief Complaint: intubated off pressors and sedation clinically brain awaiting family to arrive on sunday to decide compassionate extubation - Current Medication List Current Medications: Active Medications Chlorhexidine Gluconate (Peridex -) 15 ml MM BID [facility] Last Admin: 04/27/17 13:00 Dose: 15 ml Heparin Sodium (Porcine) (Heparin -) 5,000 unit SQ BID [facility] Last Admin: 04/27/17 10:00 Dose: 5,000 unit Sodium Chloride (1/2 Normal Saline) 1,000 mls @ 83 mls/hr IV ASDIR [facility] Last Admin: 04/27/17 11:00 Dose: 83 mls/hr Pantoprazole Sodium (Protonix Iv) 40 mg IVPUSH DAILY [facility] Last Admin: 04/27/17 10:00 Dose: 40 mg - Objective Vital Signs: Vital Signs Temperature 97.7 F 04/27/17 02:00 Pulse Rate 94 H 04/27/17 09:30 Respiratory Rate 26 H 04/27/17 11:18 Blood Pressure 103/53 04/27/17 06:00 O2 Sat by Pulse Oximetry (%) 96 04/27/17 10:16 Constitutional: Yes: Other (intubated) Cardiovascular: Yes: Regular Rate and Rhythm, S1, S2 Respiratory: Yes: Mechanically Ventilated Gastrointestinal: Yes: Soft Edema: Yes Labs: CBC, BMP 04/24/17 06:15 04/23/17 12:15 INR, PTT INR 1.12 (0.82-1.09) 04/18/17 07:20 Problem List - Problems (1) Brain Assessment/Plan: [place] and then decide compassionate extubation on fluids and heparin subq all pressor ,abx,sedation stopped cerebral brain flow scan noted shows no blood flow to brain apnea test on 04/21 consistent with brain family to decided [facility] (2) Cardiorespiratory arrest Assessment/Plan: intubated -on ventilator, off pressors, off sedation clinically brain awaiting [place] from [place] to decide compassionate extubation Code(s): I46.9 - CARDIAC ARREST, CAUSE UNSPECIFIED (3) Leukocytosis Assessment/Plan: no more abx clinically brain no lab work Code(s): D72.829 - ELEVATED WHITE BLOOD CELL COUNT, UNSPECIFIED (4) Troponin level elevated Assessment/Plan: heparin drip stopped -clinincally brain echo noted shows basal posterlateral wall akinesis stopped asa and plavix bc of hematuria yesterday 04/26 Code(s): R74.8 - ABNORMAL LEVELS OF OTHER SERUM ENZYMES (5) NARINDER (acute kidney injury) Assessment/Plan: family to decide [facility] Code(s): N17.9 - ACUTE KIDNEY FAILURE, UNSPECIFIED (6) LFT elevation Assessment/Plan: no more lab work Code(s): R79.89 - OTHER SPECIFIED ABNORMAL FINDINGS OF BLOOD CHEMISTRY
--- NOTE | 2017-04-27 16:22 | PN ---
Progress Note, Physician History of Present Illness: Pt seen at bedside. No new changes. is at bedside. - Current Medication List Current Medications: Active Medications Chlorhexidine Gluconate (Peridex -) 15 ml MM BID [facility] Last Admin: 04/27/17 13:00 Dose: 15 ml Heparin Sodium (Porcine) (Heparin -) 5,000 unit SQ BID [facility] Last Admin: 04/27/17 10:00 Dose: 5,000 unit Sodium Chloride (1/2 Normal Saline) 1,000 mls @ 83 mls/hr IV ASDIR [facility] Last Admin: 04/27/17 11:00 Dose: 83 mls/hr Pantoprazole Sodium (Protonix Iv) 40 mg IVPUSH DAILY [facility] Last Admin: 04/27/17 10:00 Dose: 40 mg - Objective Vital Signs: Vital Signs Temperature 97.8 F 04/27/17 14:00 Pulse Rate 93 H 04/27/17 16:00 Respiratory Rate 26 H 04/27/17 16:00 Blood Pressure 104/54 04/27/17 16:00 O2 Sat by Pulse Oximetry (%) 96 04/27/17 10:16 Constitutional: Yes: Calm Eyes: Yes: Conjunctiva Clear HENT: Yes: Atraumatic Neck: Yes: Supple Cardiovascular: Yes: S1, S2 Respiratory: Yes: Mechanically Ventilated Genitourinary: Yes: Brown Present, Other (hematuria improved) Musculoskeletal: Yes: Muscle Weakness Edema: No Neurological: Yes: Lethargy Labs: CBC, BMP 04/24/17 06:15 04/23/17 12:15 INR, PTT INR 1.12 (0.82-1.09) 04/18/17 07:20 Problem List - Problems (1) NARINDER (acute kidney injury) Code(s): N17.9 - ACUTE KIDNEY FAILURE, UNSPECIFIED (2) Cardiorespiratory arrest Code(s): I46.9 - CARDIAC ARREST, CAUSE UNSPECIFIED (3) LFT elevation Code(s): R79.89 - OTHER SPECIFIED ABNORMAL FINDINGS OF BLOOD CHEMISTRY (4) Obesity Code(s): E66.9 - OBESITY, UNSPECIFIED (5) Paroxysmal atrial fibrillation Code(s): I48.0 - PAROXYSMAL ATRIAL FIBRILLATION Assessment/Plan Current Medications Generic Name Dose Route Start Last Admin Trade Name Freq PRN Reason Stop Dose Admin Chlorhexidine Gluconate 15 ml 04/17/17 22:45 04/27/17 13:00 Peridex - MM 15 ml BID YOAV Administration Heparin Sodium (Porcine) 5,000 unit 04/25/17 22:00 04/27/17 10:00 Heparin - SQ 5,000 unit BID YOAV Administration Sodium Chloride 1,000 mls @ 83 mls/hr 04/22/17 10:15 04/27/17 11:00 1/2 Normal Saline IV 83 mls/hr ASDIR YOAV Administration Pantoprazole Sodium 40 mg 04/18/17 10:00 04/27/17 10:00 Protonix Iv IVPUSH 40 mg DAILY YOAV Administration Impression 1. NARINDER 2. cardiac arrest 3. respiratory failure requiring intubation 4. obesity 5. transaminitis 6. a-fib 7. shock 8. hypotension 9. anoxic encephalopathy 10. hyperkalemia 11. hypernatremia 12. brain Plan - pt maintaining urine output - no new labs to review - family are still considering GOC - discussed with ICU team - monitor BP - cont supportive care - vent support Dr Marshall
--- NOTE | 2017-04-28 07:56 | PN ---
Progress Note (short form) - Note Progress Note: PULM/CCM SUBJECTIVE: -pt is brain , awaiting family Vital Signs Temp 98.9 F 04/28/17 06:00 Pulse 96 H 04/28/17 06:00 Resp 26 H 04/28/17 07:21 BP 96/81 04/28/17 06:00 Pulse Ox 98 04/27/17 19:57 Intake & Output 04/27/17 04/27/17 04/28/17 11:59 23:59 11:59 Intake Total 996 996 996 Output Total 1100 2100 900 Balance -104 -1104 96 Weight 147.7 kg 148.126 kg Intake: IV 996 996 996 1/2 Normal Saline 1,000 996 996 996 ml @ 83 mls/hr IV ASDIR YOAV Rx#:[id number] Output: Urine 1100 2100 900 Brown 1100 2100 900 Other: Voiding Method Indwelling Catheter Indwelling Catheter Bowel Movement No # Bowel Movements 0 Weight Measurement Method Built in Bedscale Built in Bedscale Active Medications Chlorhexidine Gluconate (Peridex -) 15 ml MM BID [facility] Last Admin: 04/27/17 21:47 Dose: 15 ml Heparin Sodium (Porcine) (Heparin -) 5,000 unit SQ BID [facility] Last Admin: 04/27/17 21:48 Dose: Not Given Sodium Chloride (1/2 Normal Saline) 1,000 mls @ 83 mls/hr IV ASDIR [facility] Last Admin: 04/27/17 20:00 Dose: 83 mls/hr Pantoprazole Sodium (Protonix Iv) 40 mg IVPUSH DAILY [facility] Last Admin: 04/27/17 10:00 Dose: 40 mg Gen: intubated, unresponsive Heart: RRR Lung: decreased breath sounds at the bases Abd: soft Ext: + edema ASSESSMENT AND PLAN: s/p Cardiopulmonary Arrest r/o Acute [place] Anoxic Encephalopathy Septic vs Cardiogenic vs Neurogenic Shock Acute Kidney Injury Lactic Acidosis Elevated LFTs likely Ischemic Injury Hyperglycemia Clinical Brain Awaiting family decision for compassionate extubation. May ethics consult / hospital intervention. Patrick Chan, ACNP [id number]
--- NOTE | 2017-04-28 10:25 | PN ---
Physical Exam: SUBJECTIVE: Patient seen and examined at bedside. No change from prior. Pt remains intubated with fixed dilated pupils. OBJECTIVE: Vital Signs Period Temp Pulse Resp BP Sys/Yeh Pulse Ox Last 24 Hr 97.8 F-98.9 F 93-96 24-26 89-127/45-81 94-98 GENERAL:Pt intubated. HEAD: Normal with no signs of trauma. EYES: Nonreactive pupils. sclera anicteric, conjunctiva clear. No ptosis. ENT: Intubated NECK: Trachea midline, full range of motion, supple. LUNGS: Breath sounds equal, clear to auscultation bilaterally, no wheezes, no crackles, no accessory muscle use. HEART: Regular rate and rhythm, S1, S2 without murmur, rub or gallop. ABDOMEN: Soft, nondistended, normoactive bowel sounds, no guarding, no rebound, no hepatosplenomegaly, no masses. EXTREMITIES: 2+ pulses, warm, well-perfused, no edema. NEUROLOGICAL: Inubated PSYCH: Intubated SKIN: Warm, dry, normal turgor, no rashes or lesions noted Active Medications Generic Name Dose Route Start Last Admin Trade Name Freq PRN Reason Stop Dose Admin Chlorhexidine Gluconate 15 ml 04/17/17 22:45 04/27/17 21:47 Peridex - MM 15 ml BID YOAV Administration Heparin Sodium (Porcine) 5,000 unit 04/25/17 22:00 04/27/17 21:48 Heparin - SQ Not Given BID YOAV Sodium Chloride 1,000 mls @ 83 mls/hr 04/22/17 10:15 04/27/17 20:00 1/2 Normal Saline IV 83 mls/hr ASDIR YOAV Administration Pantoprazole Sodium 40 mg 04/18/17 10:00 04/27/17 10:00 Protonix Iv IVPUSH 40 mg DAILY YOAV Administration ASSESSMENT/PLAN: Pt is a 31 M w/ no significant PMH who was brought to ED in cardiac arrest of unknown origin. Pt was coded in ED for approximately 50 min and transferred to ICU. Pt has made no meaningful clinical improvement and has been declared braindead. #s/p cardiopulm arrest -unable to r/o KS. Pt made troponin, but source unclear -ASA -plavix #Anoxic encephalopathy -Pt required nearly an hour of resuscitation with several shocks before ROSC was achieved -Pt currently intubated #Shock -etiology unclear: septic/cardiogenic/neurogenic -IVF #NARINDER -recent Head Of Ethics And Compliance 9.0 -likely 2/2 hypoperfusion -will not need HD at this time considering clinical picture #Lactic acidosis -2/2 shock #Team to discuss goals of care with family -Decision was made by family today to compassionately wean the patient. #Ppx -Heparin held as pt had small bleed from mouth #Dispo -goals of care discussions Braulio Christopher MD PGY-1 ICU case discussed with attending Visit type - Emergency Visit Emergency Visit: No - New Patient This patient is new to me today: No - Critical Care Critical Care patient: No - Discharge Referral Referred to [facility] Med [facility].C[facility] No
[2017-04-28] MEDS: PANTOPRAZOLE SODIUM 40 MG VIAL IVPUSH SCH (10:27)
[2017-04-28] MEDS: HEPARIN NA (PORCINE) 5,000 UNITS/ML 1ML VIAL SQ SCH ×2 (10:37→21:05)
[2017-04-28] MEDS: CHLORHEXIDINE GLUCONATE 0.12% 15ML CUP MM SCH ×2 (10:38→21:11)
--- NOTE | 2017-04-28 12:33 | PN ---
Progress Note, Physician Chief Complaint: PATIENT BRAIN AWAIT FAMILY FOR COMPASSIONATE EXTUBATION - Current Medication List Current Medications: Active Medications Chlorhexidine Gluconate (Peridex -) 15 ml MM BID [facility] Last Admin: 04/28/17 10:38 Dose: 15 ml Heparin Sodium (Porcine) (Heparin -) 5,000 unit SQ BID [facility] Last Admin: 04/28/17 10:37 Dose: Not Given Sodium Chloride (1/2 Normal Saline) 1,000 mls @ 83 mls/hr IV ASDIR [facility] Last Admin: 04/27/17 20:00 Dose: 83 mls/hr Pantoprazole Sodium (Protonix Iv) 40 mg IVPUSH DAILY [facility] Last Admin: 04/28/17 10:27 Dose: 40 mg - Objective Vital Signs: Vital Signs Temperature 98.5 F 04/28/17 09:51 Pulse Rate 95 H 04/28/17 10:19 Respiratory Rate 26 H 04/28/17 12:03 Blood Pressure 95/48 04/28/17 09:51 O2 Sat by Pulse Oximetry (%) 97 04/28/17 10:20 Constitutional: Yes: Severe Distress Respiratory: Yes: Mechanically Ventilated Labs: CBC, BMP 04/24/17 06:15 04/23/17 12:15 INR, PTT INR 1.12 (0.82-1.09) 04/18/17 07:20 Problem List - Problems (1) Brain Code(s): G93.82 - BRAIN (2) Cardiorespiratory arrest Code(s): I46.9 - CARDIAC ARREST, CAUSE UNSPECIFIED Assessment/Plan INTUBATED, VENT SUPPORT AWAIT FAMILY FOR COMPASSIONATE EXTUBATION
--- NOTE | 2017-04-28 17:05 | PN ---
Progress Note (short form) - Note Progress Note: coverage for dr arellano Problems 1. NARINDER 2. cardiac arrest 3. respiratory failure requiring intubation 4. obesity 5. transaminitis 6. a-fib 7. shock 8. hypotension 9. anoxic encephalopathy 10. hyperkalemia 11. hypernatremia 12. brain Last Vital Signs Temp Pulse Resp BP Pulse Ox 98.5 F 97 H 26 H 99/48 97 04/28/17 09:51 04/28/17 14:00 04/28/17 16:21 04/28/17 14:00 04/28/17 10:20 on vent dark urine, good volume no new labs CBC, BMP 04/24/17 06:15 04/23/17 12:15 Plan - pt maintaining urine output - no new labs to review - family are still considering GOC - discussed with ICU team - monitor BP - cont supportive care - vent support
[2017-04-28] MEDS: SODIUM CHLORIDE 0.45% 1,000 ML IV SCH (21:11)
[2017-04-29] MEDS: SODIUM CHLORIDE 0.45% 1,000 ML IV SCH (08:53)
[2017-04-29] MEDS: HEPARIN NA (PORCINE) 5,000 UNITS/ML 1ML VIAL SQ SCH (09:10)
[2017-04-29] MEDS: CHLORHEXIDINE GLUCONATE 0.12% 15ML CUP MM SCH (09:11)
[2017-04-29] MEDS: PANTOPRAZOLE SODIUM 40 MG VIAL IVPUSH SCH (09:12)
--- NOTE | 2017-04-29 12:14 | PN ---
Progress Note, Physician Chief Complaint: PATIENT BRAIN AWAIT FAMILY FOR COMPASSIONATE EXTUBATION - Objective Vital Signs: Vital Signs Temperature 99.4 F 04/29/17 10:00 Pulse Rate 109 H 04/29/17 10:15 Respiratory Rate 26 H 04/29/17 11:47 Blood Pressure 108/55 04/29/17 10:00 O2 Sat by Pulse Oximetry (%) 97 04/29/17 10:16 Constitutional: Yes: Severe Distress Respiratory: Yes: Mechanically Ventilated Labs: CBC, BMP 04/24/17 06:15 04/23/17 12:15 INR, PTT INR 1.12 (0.82-1.09) 04/18/17 07:20 Problem List - Problems (1) Brain Code(s): G93.82 - BRAIN (2) Cardiorespiratory arrest Code(s): I46.9 - CARDIAC ARREST, CAUSE UNSPECIFIED Assessment/Plan INTUBATED, VENT SUPPORT AWAIT FAMILY FOR COMPASSIONATE EXTUBATION
--- NOTE | 2017-04-29 16:40 | PN ---
Progress Note (short form) - Note Progress Note: coverage for dr arellano Problems 1. NARINDER 2. cardiac arrest 3. respiratory failure requiring intubation 4. obesity 5. transaminitis 6. a-fib 7. shock 8. hypotension 9. anoxic encephalopathy 10. hyperkalemia 11. hypernatremia 12. brain Last Vital Signs Temp Pulse Resp BP Pulse Ox 99.3 F 111 H 26 H 94/58 97 04/29/17 16:00 04/29/17 16:00 04/29/17 16:00 04/29/17 16:00 04/29/17 10:16 on vent dark urine, good volume no new labs Plan on comfort measures Will sign off today
--- NOTE | 2017-04-29 20:22 | PN ---
Progress Note (short form) - Note Progress Note: PULM/CCM SUBJECTIVE: -pt is brain , awaiting family No medications Exam Gen: intubated, unresponsive Heart: RRR Lung: decreased breath sounds at the bases Abd: soft Ext: + edema Neuro: occasional spinal reflexes (explained this phenomena to , appears to understand this is not improvement or change in clinical brain ) ASSESSMENT AND PLAN: Clinical Brain Awaiting parents arrival. Suggest ethics consult / hospital intervention. Patrick Chan, ACNP [id number]
--- NOTE | 2017-04-30 11:58 | PN ---
Teaching Attending Note Name of Resident: Iraida Henry ATTENDING PHYSICIAN STATEMENT I saw and evaluated the patient. I reviewed the resident's note and discussed the case with the resident. I agree with the resident's findings and plan as documented. SUBJECTIVE: Pt seen and examined in the ICU. Clinically unchanged, intubated and unresponsive. Awaiting family from [place]. OBJECTIVE: Last Vital Signs Temp Pulse Resp BP Pulse Ox 99.5 F 115 H 26 H 90/44 96 04/30/17 02:00 04/30/17 09:33 04/30/17 11:22 04/30/17 06:00 04/30/17 09:34 Intake & Output 04/27/17 04/28/17 04/29/17 04/30/17 23:59 23:59 23:59 23:59 Intake Total 1991 1991 1286.5 Output Total 3200 3600 3200 350 Balance -1208 -1608 -1913.5 -350 Weight 325 lb 9.964 oz 326 lb 9 oz 327 lb 1.6 oz Gen: intubated, unresponsive Heart: tachycardic, regular Lung: decreased breath sounds at the bases Abd: soft, nontender Ext: + edema CBC, BMP 04/24/17 06:15 04/23/17 12:15 ASSESSMENT AND PLAN: s/p Cardiopulmonary Arrest r/o Acute [place] Anoxic Encephalopathy Acute Kidney Injury Lactic Acidosis Elevated LFTs likely Ischemic Injury Clinical Brain - hold all sedation - taper FiO2 to keep SpO2 >90% - DVT/GI prophylaxis - not a candidate for dialysis as pt clinically brain - discussed with , awaiting family and probable extubation today
--- NOTE | 2017-04-30 12:27 | PN ---
Progress Note, Physician History of Present Illness: Pt seen and examined at bedside. They are waiting for his parents to come in from [place]. - Objective Vital Signs: Vital Signs Temperature 99.5 F 04/30/17 02:00 Pulse Rate 109 H 04/30/17 12:00 Respiratory Rate 26 H 04/30/17 12:00 Blood Pressure 95/42 04/30/17 12:00 O2 Sat by Pulse Oximetry (%) 96 04/30/17 10:00 Constitutional: Yes: Calm Neck: Yes: Supple Cardiovascular: Yes: S1, S2 Respiratory: Yes: Mechanically Ventilated Gastrointestinal: Yes: Abdomen, Obese Genitourinary: Yes: Brown Present Edema: Yes Edema: LUE: Trace, RUE: Trace Neurological: Yes: Lethargy Labs: CBC, BMP 04/24/17 06:15 04/23/17 12:15 INR, PTT INR 1.12 (0.82-1.09) 04/18/17 07:20 Problem List - Problems (1) NARINDER (acute kidney injury) Code(s): N17.9 - ACUTE KIDNEY FAILURE, UNSPECIFIED (2) Cardiorespiratory arrest Code(s): I46.9 - CARDIAC ARREST, CAUSE UNSPECIFIED (3) LFT elevation Code(s): R79.89 - OTHER SPECIFIED ABNORMAL FINDINGS OF BLOOD CHEMISTRY (4) Obesity Code(s): E66.9 - OBESITY, UNSPECIFIED (5) Paroxysmal atrial fibrillation Code(s): I48.0 - PAROXYSMAL ATRIAL FIBRILLATION Assessment/Plan Impression 1. NARINDER 2. cardiac arrest 3. respiratory failure requiring intubation 4. obesity 5. transaminitis 6. a-fib 7. shock 8. hypotension 9. anoxic encephalopathy 10. hyperkalemia 11. hypernatremia 12. brain Plan - no new labs - family coming today to make decision - discussed with - discussed with ICU - cont supportive care - vent support Dr Marshall
--- NOTE | 2017-04-30 13:03 | PN ---
Progress Note, Physician Chief Complaint: patient intubated unresponsive at beside awaiting family to come in today to decide no labs no medications - Objective Vital Signs: Vital Signs Temperature 99.5 F 04/30/17 02:00 Pulse Rate 109 H 04/30/17 12:00 Respiratory Rate 26 H 04/30/17 12:00 Blood Pressure 95/42 04/30/17 12:00 O2 Sat by Pulse Oximetry (%) 96 04/30/17 10:00 Constitutional: Yes: Other (intubated) Cardiovascular: Yes: S1, S2 Respiratory: Yes: Mechanically Ventilated Gastrointestinal: Yes: Soft Edema: Yes Labs: CBC, BMP 04/24/17 06:15 04/23/17 12:15 INR, PTT INR 1.12 (0.82-1.09) 04/18/17 07:20 Problem List - Problems (1) Brain Assessment/Plan: awaiting family to come from [place] today and then decide compassionate extubation clinically brain (2) Cardiorespiratory arrest Assessment/Plan: intubated -on ventilator, off pressors, off sedation clinically brain awaiting family to come from [place] to decide compassionate extubation Code(s): I46.9 - CARDIAC ARREST, CAUSE UNSPECIFIED (3) Leukocytosis Assessment/Plan: no more abx clinically brain no lab work Code(s): D72.829 - ELEVATED WHITE BLOOD CELL COUNT, UNSPECIFIED (4) Troponin level elevated Assessment/Plan: heparin drip stopped -clinically brain echo noted shows basal posterlateral wall akinesis stopped asa and plavix bc of hematuria yesterday 04/26 Code(s): R74.8 - ABNORMAL LEVELS OF OTHER SERUM ENZYMES (5) NARINDER (acute kidney injury) Assessment/Plan: clinically brain not a candidate for hD Code(s): N17.9 - ACUTE KIDNEY FAILURE, UNSPECIFIED (6) LFT elevation Assessment/Plan: no more lab work Code(s): R79.89 - OTHER SPECIFIED ABNORMAL FINDINGS OF BLOOD CHEMISTRY Assessment/Plan awaiting family to come today from [place] to decide about compasionate extubation
--- NOTE | 2017-04-30 14:11 | PN ---
Physical Exam: SUBJECTIVE: Patient seen and examined at bedside. 24 hr events None Today -Pt clinically brain , awaiting family decision -Intubated, on vent - at bedside OBJECTIVE: Vital Signs Period Temp Pulse Resp BP Sys/Yeh Pulse Ox Last 24 Hr 99.1 F-99.5 F 108-115 26-26 89-104/42-58 96-96 GENERAL: The patient is intubated, on vent, sedated HEAD: Normal with no signs of trauma. EYES: pupils not reactive to light, edematous eyelids, injected sclera b/l NECK: Trachea midline, supple. LUNGS: coarse breath sounds bilaterally, diminished HEART: tachycardic rate and rhythm, S1, S2 without murmur, rub or gallop. ABDOMEN: soft, obese, distended abdomen EXTREMITIES: 1+ dorsalis pedis pulses, warm, well-perfused, 1+ pitting edema b/l NEUROLOGICAL: pt clinically braindead, without reflexes ASSESSMENT/PLAN: 31 y/o M with Hx asthma, who presented to the ED in cardiac arrest. While pt was brought to the ED, compressions were being done. Pt then became asystolic, went into PEA, vfib and then was defibrillated three times. He then received amiodarone. Pulse was lost, and pt went back into asystole, PEA, before ROSC. Pt subsequently transferred to ICU for continued management. NEURO -pt still unresponsive. still intubated, vented -Head CT w/o contrast: diffuse anoxic injury, transtentorial and tonsillar herniation, without evidence of ICH -CBF results: no flow CARDIO, s/p cardiac arrest -recent EKG: ST changes, QT prolongation -ECHO: cannot rule out MV vegetation -trops peaked at 10.5 (11/8, at 6pm) PULM r/o PE -negative for DVT RENAL -creatinine level rising PALLIATIVE -awaiting decision by family -if pt still here today, will need to remove central line and place peripheral line F/E/N -will follow electrolytes Disposition poor prognosis, continued ICU management. Visit type - Emergency Visit Emergency Visit: No - New Patient This patient is new to me today: No - Critical Care Critical Care patient: Yes Total Critical Care Time (in minutes): 42 Critical Care Statement: The care of this patient involved high complexity decision making to prevent further life threatening deterioration of the patient 's condition and/or to evaluate & treat vital organ system(s) failure or risk of failure.
--- NOTE | 2017-04-30 20:03 | PN ---
Progress Note (short form) - Note Progress Note: More family arrived today. Family called to [facility] and requested transfer. I spoke with transfer center (Dr. Castro) who denied transfer due to pt's clinical status. Family informed. Covering primary made aware. Family to discuss with primary in am.
--- NOTE | 2017-05-01 08:29 | PN ---
Progress Note, Physician History of Present Illness: D/W PTS AND BROTHER AT BESIDE PT WITH SOME MUSCULAR TWITCHING AND FAMILY WANT NEURO FOLLOW UP DISCUSSED WITH PATIENT FAMILY CURRENT STATUS THEY ALSO WANT TO DISCUSS WITH RENAL - Objective Vital Signs: Vital Signs Temperature 97.7 F 05/01/17 04:00 Pulse Rate 111 H 05/01/17 08:00 Respiratory Rate 26 H 05/01/17 08:00 Blood Pressure 91/45 05/01/17 08:00 O2 Sat by Pulse Oximetry (%) 96 04/30/17 20:43 Cardiovascular: Yes: S1, S2 Respiratory: Yes: Mechanically Ventilated Neurological: Yes: Unresponsive Labs: CBC, BMP 04/24/17 06:15 04/23/17 12:15 INR, PTT INR 1.12 (0.82-1.09) 04/18/17 07:20 Problem List - Problems (1) Cardiorespiratory arrest Code(s): I46.9 - CARDIAC ARREST, CAUSE UNSPECIFIED (2) Leukocytosis Code(s): D72.829 - ELEVATED WHITE BLOOD CELL COUNT, UNSPECIFIED (3) Troponin level elevated Code(s): R74.8 - ABNORMAL LEVELS OF OTHER SERUM ENZYMES (4) LFT elevation Code(s): R79.89 - OTHER SPECIFIED ABNORMAL FINDINGS OF BLOOD CHEMISTRY (5) GI bleed Code(s): K92.2 - GASTROINTESTINAL HEMORRHAGE, UNSPECIFIED Assessment/Plan Transfer center at [place] contacted, patient is NOT accepted. neurology ICU physician, Dr. Azar , who states, by policy, they do not accept patients who are brain . TRANSFER [facility]--PT NOT ACCEPTED - Problems (1) Brain Assessment/Plan: awaiting family to come from [place] to decide compassionate extubation THEY WANT TO DISCUSS WITH NEURO clinically brain (2) Cardiorespiratory arrest Assessment/Plan: intubated -on ventilator, off pressors, off sedation clinically brain awaiting family to decide compassionate extubation Code(s): I46.9 - CARDIAC ARREST, CAUSE UNSPECIFIED (3) Leukocytosis Assessment/Plan: no more abx clinically brain Code(s): D72.829 - ELEVATED WHITE BLOOD CELL COUNT, UNSPECIFIED (4) Troponin level elevated Assessment/Plan: heparin drip stopped -clinically brain echo noted shows basal posterlateral wall akinesis Code(s): R74.8 - ABNORMAL LEVELS OF OTHER SERUM ENZYMES (5) NARINDER (acute kidney injury) Assessment/Plan: clinically brain not a candidate for hD RENAL FOLLOW UP PER FAMILY REQUEST Code(s): N17.9 - ACUTE KIDNEY FAILURE, UNSPECIFIED (6) LFT elevation Assessment/Plan: ABOVE Code(s): R79.89 - OTHER SPECIFIED ABNORMAL FINDINGS OF BLOOD CHEMISTRY
--- NOTE | 2017-05-01 08:44 | PN ---
Physical Exam: SUBJECTIVE: Patient seen and examined at bedside. 24 hr events -Denied by [facility] for transfer -Family discussion this AM Today - and brother at bedside -unable to place peripheral lines, as pt extremities ext. edematous OBJECTIVE: Vital Signs Period Temp Pulse Resp BP Sys/Yeh Pulse Ox Last 24 Hr 97.7 F 109-118 24-26 81-107/38-84 96-96 GENERAL: The patient is intubated, on vent, sedated HEAD: edematous EYES: pupils non reactive to light, edematous eyelids, injected sclera b/l, watery discharge from eyes b/l NECK: Trachea midline, supple. LUNGS: coarse breath sounds bilaterally, diminished HEART: tachycardic rate and rhythm, S1, S2 without murmur, rub or gallop. ABDOMEN: soft, obese, distended abdomen EXTREMITIES: 1+ dorsalis pedis pulses, warm, 1+ pitting edema b/l, edematous extremities NEUROLOGICAL: pt clinically braindead, without reflexes ASSESSMENT/PLAN: 31 y/o M with Hx asthma, who presented to the ED in cardiac arrest. While pt was brought to the ED, compressions were being done. Pt then became asystolic, went into PEA, vfib and then was defibrillated three times. He then received amiodarone. Pulse was lost, and pt went back into asystole, PEA, before ROSC. Pt subsequently transferred to ICU for continued management. NEURO -pt still unresponsive. still intubated, vented -Head CT w/o contrast: diffuse anoxic injury, transtentorial and tonsillar herniation, without evidence of ICH -CBF results: no flow CARDIO, s/p cardiac arrest -recent EKG: ST changes, QT prolongation -ECHO: cannot rule out MV vegetation -trops peaked at 10.5 (11/8, at 6pm) PULM r/o PE -negative for DVT RENAL -creatinine level rising PALLIATIVE -awaiting decision by family -all decisions through F/E/N -will follow electrolytes -unable to place peripheral lines as pt extremities extremely edematous Disposition poor prognosis, continued ICU management Visit type - Emergency Visit Emergency Visit: No - New Patient This patient is new to me today: No - Critical Care Critical Care patient: Yes Total Critical Care Time (in minutes): 42 Critical Care Statement: The care of this patient involved high complexity decision making to prevent further life threatening deterioration of the patient 's condition and/or to evaluate & treat vital organ system(s) failure or risk of failure.
[2017-05-01 13:14] LABS: BASOPHIL 1.2 % (0-2.0); EOSINOPHIL 5.9 % (0-4.5); MCH 27.7 pg (25.7-33.7); MCHC 31.6 g/dl (32.0-35.9); MEAN CELL VOLUME 87.9 fl (80-96); MEAN PLT VOLUME 9.1 fl (7.5-11.1); NEUTROPHILS 52.4 % (42.8-82.8); PLATELET COUNT 250 K/MM3 (134-434); RDW 16.2 % (11.9-15.9); WHITE BLOOD COUNT 8.2 K/mm3 (4.0-10.0)
[2017-05-01 13:34] LABS: INR 1.72 (0.82-1.09); PROTHROMBIN TIME (PATIENT) 19.4 SEC (9.98-11.88)
[2017-05-01 14:17] LABS: ALBUMIN 1.6 g/dl (3.4-5.0); ANION GAP 13 (8-16); BILIRUBIN,TOTAL 2.6 mg/dL (0.2-1.0); CO2 16 mmol/L (21-32); GLUCOSE,RANDOM 75 mg/dL (74-106); SGOT/AST 371 U/L (15-37); SGPT/ALT 102 U/L (12-78); TOT PROT 6.5 g/dl (6.4-8.2)
[2017-05-01 14:22] LABS: ALK PHOS 407 U/L (45-117)
--- NOTE | 2017-05-01 14:39 | PN ---
Progress Note, Physician History of Present Illness: Pt seen and examined at bedside. His father has arrived and is at bedside. Care was discussed with them at length. - Objective Vital Signs: Vital Signs Temperature 98.0 F 05/01/17 10:00 Pulse Rate 110 H 05/01/17 12:00 Respiratory Rate 26 H 05/01/17 14:29 Blood Pressure 92/44 05/01/17 12:00 O2 Sat by Pulse Oximetry (%) 96 05/01/17 09:00 Constitutional: Yes: Calm Cardiovascular: Yes: S1, S2 Respiratory: Yes: Mechanically Ventilated Gastrointestinal: Yes: Soft, Abdomen, Obese Genitourinary: Yes: Brown Present Musculoskeletal: Yes: Muscle Weakness Edema: LUE: Trace, RUE: Trace Neurological: Yes: Lethargy Labs: CBC, BMP 05/01/17 12:30 INR, PTT INR 1.72 (0.82-1.09) H D 05/01/17 12:30 Problem List - Problems (1) NARINDER (acute kidney injury) Code(s): N17.9 - ACUTE KIDNEY FAILURE, UNSPECIFIED (2) Cardiorespiratory arrest Code(s): I46.9 - CARDIAC ARREST, CAUSE UNSPECIFIED (3) LFT elevation Code(s): R79.89 - OTHER SPECIFIED ABNORMAL FINDINGS OF BLOOD CHEMISTRY (4) Obesity Code(s): E66.9 - OBESITY, UNSPECIFIED (5) Paroxysmal atrial fibrillation Code(s): I48.0 - PAROXYSMAL ATRIAL FIBRILLATION Assessment/Plan Impression 1. NARINDER 2. cardiac arrest 3. respiratory failure requiring intubation 4. obesity 5. transaminitis 6. a-fib 7. shock 8. hypotension 9. anoxic encephalopathy 10. hyperkalemia 11. hypernatremia 12. brain Plan - ethics meeting/family meeting today - discussed with family at length today - pt making urine - not a dialysis candidate - labs pending - cont supportive care as family decides on GOC - vent support Dr Marshall
--- NOTE | 2017-05-01 15:25 | PN ---
Progress Note (short form) - Note Progress Note: CCM Labs were inadvertently ordered, metabolic derangements noted and consistent with central diabetes insipidus. Pt has been declared clinically brain confirmed by an apnea test. Pt is not a candidate for further treatment. Robert Mondragon MD
--- NOTE | 2017-05-01 16:46 | PN ---
Progress Note (short form) - Note Progress Note: Ethics: There was a formal ethics meeting today at 2 PM in the palliative care medical reception area attended by the family of Susan including his , father, brother and brother in law. The meeting was also attended by palliative care nurse Mellissa Muir, representatives of performance improvement and risk management, [facility] care Charmaine Reynolds and myself Zac Velez M.D.. ICU physician Dr. Robert Mondragon was also present and there was a telephone conversation with Dr. Luis Monsalve the neurologist who has certified brain of the patient. The family was given every chance to ask questions and give their opinion on the patient's current status and they were informed that although legally when brain is declared by the appropriate physician testing and even further confirmed by a brain flow study which showed no flow of blood to the brain the hospital can disconnect the ventilator on the patient but is making every effort to accommodate them so that they understand the diagnosis and the appropriate next step. They seem to understand the consultants diagnosis but they still seem emotionally resistant to the compassionate weaning of Susan off the ventilator. They had asked for further oriental orthodox input concerning these decisions although there have been previous connections made during this admission and confirmed by Rev. Reynolds. The hospital administration will make every effort to try to accommodate him at least for the next 24 hours. It is also my understanding that attempts were made to have the patient transferred to tertiary care centers but he was not accepted. His who is the primary surrogate seems ready to agree to the start of compassionate weaning . The meaning adjourned in approximately 1 hour.
--- NOTE | 2017-05-01 18:09 | PN ---
Progress Note (short form) - Note Progress Note: Was called by Rosa Maria Banks, senior operations manager at [facility] transfer center. Miss Banks informed me that they have received 6-8 calls from pt's family today requesting transfer to [facility]. She asked that we reemphasize to family that transfers must be initiated by hospital staff and to reiterate to family that the patient is not a candidate for transfer to [facility]. Spoke with family and conveyed that message. Family stated understanding. It was also mentioned to family that an effort was made when pt was initially brought to ED to transfer to [facility] for ECMO or other therapy, but he was not a candidate at that time either. Family stated understanding.
--- NOTE | 2017-05-02 08:27 | PN ---
Progress Note, Physician - Objective Vital Signs: Vital Signs Temperature 98 F 05/02/17 02:00 Pulse Rate 110 H 05/02/17 06:00 Respiratory Rate 26 H 05/02/17 07:18 Blood Pressure 64/34 05/02/17 06:00 O2 Sat by Pulse Oximetry (%) 96 05/01/17 21:04 Labs: CBC, BMP 05/01/17 12:30 05/01/17 12:30 INR, PTT INR 1.72 (0.82-1.09) H D 05/01/17 12:30 Problem List - Problems (1) Cardiorespiratory arrest Code(s): I46.9 - CARDIAC ARREST, CAUSE UNSPECIFIED (2) Leukocytosis Code(s): D72.829 - ELEVATED WHITE BLOOD CELL COUNT, UNSPECIFIED (3) Troponin level elevated Code(s): R74.8 - ABNORMAL LEVELS OF OTHER SERUM ENZYMES (4) LFT elevation Code(s): R79.89 - OTHER SPECIFIED ABNORMAL FINDINGS OF BLOOD CHEMISTRY (5) GI bleed Code(s): K92.2 - GASTROINTESTINAL HEMORRHAGE, UNSPECIFIED Assessment/Plan 05/02 DISCUSSED WITH PLAN OF COMPASIONATE EXTUBATION. SHE IS ON BOARD AND UNDERSTANDS-- WILL WAIT FOR FAMILY TO BE PRESENT Transfer center at [facility], patient is NOT accepted. neurology ICU physician, Dr. Azar , who states, by policy, they do not accept patients who are brain . TRANSFER [facility]--PT NOT ACCEPTED - Problems (1) Brain Assessment/Plan: [place] to decide compassionate extubation THEY WANT TO DISCUSS WITH NEURO clinically brain (2) Cardiorespiratory arrest Assessment/Plan: intubated -on ventilator, off pressors, off sedation clinically brain awaiting family to decide compassionate extubation Code(s): I46.9 - CARDIAC ARREST, CAUSE UNSPECIFIED (3) Leukocytosis Assessment/Plan: no more abx clinically brain Code(s): D72.829 - ELEVATED WHITE BLOOD CELL COUNT, UNSPECIFIED (4) Troponin level elevated Assessment/Plan: heparin drip stopped -clinically brain echo noted shows basal posterlateral wall akinesis Code(s): R74.8 - ABNORMAL LEVELS OF OTHER SERUM ENZYMES (5) NARINDER (acute kidney injury) Assessment/Plan: clinically brain not a candidate for hD RENAL FOLLOW UP PER FAMILY REQUEST Code(s): N17.9 - ACUTE KIDNEY FAILURE, UNSPECIFIED (6) LFT elevation Assessment/Plan: ABOVE Code(s): R79.89 - OTHER SPECIFIED ABNORMAL FINDINGS OF BLOOD CHEMISTRY
--- NOTE | 2017-05-02 09:23 | PN ---
Physical Exam: SUBJECTIVE: Patient seen and examined at bedside. Status unchanged. Pt intubated and vented. Ethics meeting occurred yesterday. Will wait for further directions. Not candidate for dialysis OBJECTIVE: Vital Signs Period Temp Pulse Resp BP Sys/Yeh Pulse Ox Last 24 Hr 98 F-98.8 F 109-120 26-26 64-98/34-48 96-96 GENERAL: The patient is intubated, on vent, sedated HEAD: edematous EYES: pupils non reactive to light, edematous eyelids, injected sclera b/l, watery discharge from eyes b/l NECK: Trachea midline, supple. LUNGS: coarse breath sounds bilaterally, diminished HEART: tachycardic rate and rhythm, S1, S2 without murmur, rub or gallop. ABDOMEN: soft, obese, distended abdomen EXTREMITIES: 1+ dorsalis pedis pulses, warm, 1+ pitting edema b/l, edematous extremities NEUROLOGICAL: pt clinically braindead, without reflexes Laboratory Results - last 24 hr 05/01/17 05/01/17 05/01/17 12:30 12:30 12:30 WBC 8.2 RBC 3.40 L Hgb 9.4 L Hct 29.9 L MCV 87.9 MCH 27.7 MCHC 31.6 L RDW 16.2 H Plt Count 250 D MPV 9.1 Neutrophils % 52.4 D Lymphocytes % 32.6 D Monocytes % 7.9 Eosinophils % 5.9 H Basophils % 1.2 D PT with INR 19.40 H INR 1.72 H D Sodium 172 H* D Potassium 6.8 H* D Chloride 143 H D Carbon Dioxide 16 L Anion Gap 13 BUN 162 H* D Creatinine 16.0 H* D Creat Clearance w eGFR 3.53 Random Glucose 75 D Calcium 10.0 Total Bilirubin 2.6 H D AST 371 H D ALT 102 H D Alkaline Phosphatase 407 H D Total Protein 6.5 D Albumin 1.6 L ASSESSMENT/PLAN: 31 y/o M with Hx asthma, who presented to the ED in cardiac arrest. While pt was brought to the ED, compressions were being done. Pt then became asystolic, went into PEA, vfib and then was defibrillated three times. He then received amiodarone. Pulse was lost, and pt went back into asystole, PEA, before ROSC. Pt subsequently transferred to ICU for continued management. NEURO -pt still unresponsive. still intubated, vented -Head CT w/o contrast: diffuse anoxic injury, transtentorial and tonsillar herniation, without evidence of ICH -CBF results: no flow CARDIO, s/p cardiac arrest -recent EKG: ST changes, QT prolongation -ECHO: cannot rule out MV vegetation -trops peaked at 10.5 (11/8, at 6pm) PULM r/o PE -negative for DVT RENAL -creatinine level rising PALLIATIVE -awaiting decision by family -all decisions through -not candidate for dialysis F/E/N -unable to place peripheral lines as pt extremities extremely edematous Disposition poor prognosis, continued ICU management Visit type - Emergency Visit Emergency Visit: No - New Patient This patient is new to me today: No - Critical Care Critical Care patient: Yes Total Critical Care Time (in minutes): 42 Critical Care Statement: The care of this patient involved high complexity decision making to prevent further life threatening deterioration of the patient 's condition and/or to evaluate & treat vital organ system(s) failure or risk of failure.
--- NOTE | 2017-05-02 12:13 | PN ---
Teaching Attending Note Name of Resident: Iraida Henry ATTENDING PHYSICIAN STATEMENT I saw and evaluated the patient. I reviewed the resident's note and discussed the case with the resident. I agree with the resident's findings and plan as documented. SUBJECTIVE: Pt seen and examined in the ICU. Unchanged, intubated and unresponsive. Extended ethics meeting yesterday with , father and other family members. appears to have accepted brain but father has not. OBJECTIVE: Last Vital Signs Temp Pulse Resp BP Pulse Ox 98 F 110 H 26 H 83/46 96 05/02/17 02:00 05/02/17 10:00 05/02/17 10:00 05/02/17 10:00 05/01/17 21:04 Intake & Output 04/29/17 04/30/17 05/01/17 05/02/17 23:59 23:59 23:59 23:59 Intake Total 1286.5 100 0 Output Total 3200 1850 500 100 Balance -1913.5 -1850 -400 -100 Weight 327 lb 1.6 oz Gen: intubated, unresponsive Heart: tachycardic, regular Lung: scattered rhonchi Abd: soft, nontender Ext: + edema CBC, BMP 05/01/17 12:30 05/01/17 12:30 ASSESSMENT AND PLAN: s/p Cardiopulmonary Arrest r/o Acute [place] Anoxic Encephalopathy Acute Kidney Injury Lactic Acidosis Elevated LFTs likely Ischemic Injury Clinical Brain - awaiting consensus from family regarding extubation - not a candidate for dialysis as pt clinically brain
--- NOTE | 2017-05-02 12:55 | PN ---
Progress Note, Physician History of Present Illness: Pt seen and examined at bedside. No new events. - Objective Vital Signs: Vital Signs Temperature 98 F 05/02/17 02:00 Pulse Rate 104 H 05/02/17 12:00 Respiratory Rate 26 H 05/02/17 12:00 Blood Pressure 90/47 05/02/17 12:00 O2 Sat by Pulse Oximetry (%) 96 05/01/17 21:04 Constitutional: Yes: Calm HENT: Yes: Atraumatic Cardiovascular: Yes: S1, S2 Respiratory: Yes: Mechanically Ventilated Gastrointestinal: Yes: Soft, Abdomen, Obese Genitourinary: Yes: Brown Present Edema: No Neurological: Yes: Lethargy Labs: CBC, BMP 05/01/17 12:30 05/01/17 12:30 INR, PTT INR 1.72 (0.82-1.09) H D 05/01/17 12:30 Problem List - Problems (1) NARINDER (acute kidney injury) Code(s): N17.9 - ACUTE KIDNEY FAILURE, UNSPECIFIED (2) Cardiorespiratory arrest Code(s): I46.9 - CARDIAC ARREST, CAUSE UNSPECIFIED (3) LFT elevation Code(s): R79.89 - OTHER SPECIFIED ABNORMAL FINDINGS OF BLOOD CHEMISTRY (4) Obesity Code(s): E66.9 - OBESITY, UNSPECIFIED (5) Paroxysmal atrial fibrillation Code(s): I48.0 - PAROXYSMAL ATRIAL FIBRILLATION Assessment/Plan Impression 1. NARINDER 2. cardiac arrest 3. respiratory failure requiring intubation 4. obesity 5. transaminitis 6. a-fib 7. shock 8. hypotension 9. anoxic encephalopathy 10. hyperkalemia 11. hypernatremia 12. brain Plan - no new events - discussed with pts last night, see yesterdays notes in addendum - did not want hd therapy - possible extubation today - cont supportive care as family decides on GOC - vent support - discussed with ICU Dr Marshall
[2017-05-02 20:01] VITALS: TEMP 99
--- NOTE | 2017-05-03 07:59 | PN ---
Progress Note (short form) - Note Progress Note: (1) Brain Assessment/Plan: FAMILY STILL NOT WILLING TO EXTUBATE AT BESIDE THEY UNDERSTAND STATUS AND BRAIN Problem List - Problems (1) Cardiorespiratory arrest Code(s): I46.9 - CARDIAC ARREST, CAUSE UNSPECIFIED (2) Leukocytosis Code(s): D72.829 - ELEVATED WHITE BLOOD CELL COUNT, UNSPECIFIED (3) Troponin level elevated Code(s): R74.8 - ABNORMAL LEVELS OF OTHER SERUM ENZYMES (4) LFT elevation Code(s): R79.89 - OTHER SPECIFIED ABNORMAL FINDINGS OF BLOOD CHEMISTRY (5) GI bleed Code(s): K92.2 - GASTROINTESTINAL HEMORRHAGE, UNSPECIFIED
--- NOTE | 2017-05-03 09:31 | PN ---
Physical Exam: SUBJECTIVE: Patient seen and examined at bedside. 24 hr events -No acute events overnight Today -No change in status. Awaiting family decision OBJECTIVE: Vital Signs Period Temp Pulse Resp BP Sys/Yeh Pulse Ox Last 24 Hr 99 F-99 F 98-110 26-26 64-94/37-59 97-98 GENERAL: The patient is intubated, on vent, sedated HEAD: edematous EYES: pupils non reactive to light, edematous eyelids, injected sclera b/l, watery discharge from eyes b/l NECK: Trachea midline, supple. LUNGS: coarse breath sounds bilaterally, diminished HEART: tachycardic rate and rhythm, S1, S2 without murmur, rub or gallop. ABDOMEN: soft, obese, distended abdomen EXTREMITIES: 1+ dorsalis pedis pulses, warm, 1+ pitting edema b/l, edematous extremities NEUROLOGICAL: pt clinically braindead, without reflexes ASSESSMENT/PLAN: 31 y/o M with Hx asthma, who presented to the ED in cardiac arrest. While pt was brought to the ED, compressions were being done. Pt then became asystolic, went into PEA, vfib and then was defibrillated three times. He then received amiodarone. Pulse was lost, and pt went back into asystole, PEA, before ROSC. Pt subsequently transferred to ICU for continued management. NEURO -pt still unresponsive. still intubated, vented -Head CT w/o contrast: diffuse anoxic injury, transtentorial and tonsillar herniation, without evidence of ICH -CBF results: no flow CARDIO, s/p cardiac arrest -ECHO: cannot rule out MV vegetation -trops peaked at 10.5 (11/8, at 6pm) PULM r/o PE -negative for DVT RENAL -creatinine level rising PALLIATIVE -awaiting decision by family -not candidate for dialysis as pt brain F/E/N -unable to place peripheral lines as pt extremities extremely edematous Disposition poor prognosis, continued ICU management Visit type - Emergency Visit Emergency Visit: No - New Patient This patient is new to me today: No - Critical Care Critical Care patient: Yes Total Critical Care Time (in minutes): 42 Critical Care Statement: The care of this patient involved high complexity decision making to prevent further life threatening deterioration of the patient 's condition and/or to evaluate & treat vital organ system(s) failure or risk of failure.
--- NOTE | 2017-05-03 11:07 | PN ---
Teaching Attending Note Name of Resident: Iraida Henry ATTENDING PHYSICIAN STATEMENT I saw and evaluated the patient. I reviewed the resident's note and discussed the case with the resident. I agree with the resident's findings and plan as documented. SUBJECTIVE: Patient seen and examined in the ICU. No change in clinical condition. Exam consistent with brain . Events of ethics meeting noted. Still no consensus about GOC from certain family members. Intake & Output 04/30/17 05/01/17 05/02/17 05/03/17 23:59 23:59 23:59 23:59 Intake Total 100 0 0 Output Total 1850 500 100 50 Balance -1850 -400 -100 -50 Last Vital Signs Temp Pulse Resp BP Pulse Ox 99 F 96 H 24 78/38 98 05/03/17 02:00 05/03/17 10:00 05/03/17 10:00 05/03/17 10:00 05/02/17 21:41 Gen: intubated, unresponsive Heart: tachycardic, regular Lung: scattered rhonchi Abd: soft, nontender Ext: + edema ASSESSMENT AND PLAN: Confirmed brain s/p Cardiopulmonary Arrest Acute [place] Anoxic Encephalopathy Acute Kidney Injury Lactic Acidosis Elevated LFTs likely Ischemic Injury Clinical Brain - awaiting consensus from family regarding extubation. We can however extubate based on the [facility] Brain policy and our own hospital policy. - not a candidate for dialysis as pt clinically brain Dr Richardson
--- NOTE | 2017-05-03 13:40 | PN ---
Progress Note (short form) - Note Progress Note: Long discussions with the family throughout the day. I was initially told that we sould be allowed for extubation this evening. Family returned and informed me that the patient's father with known cardiac disease has decided to return to [place] tomorrow and does not want his son to come off of support until Sunday. The family informed me that hospital agents told them that our institution would be willing to wait until Sunday to take Mr Carlos off the respirator. I have not confirmed this information. By [place] law and our hospital policy the patient was declared and confirmed by supporting information to be brain the previous week. Although he is brain , I will enter a DNR/DNI order so no further interventions such as CPR will be performed in the event of Cardiopulmonary arrest.
--- NOTE | 2017-05-03 14:08 | PN ---
Progress Note, Physician History of Present Illness: Pt remain in ICU. No new events. - Objective Vital Signs: Vital Signs Temperature 99 F 05/03/17 02:00 Pulse Rate 86 05/03/17 14:00 Respiratory Rate 24 05/03/17 14:00 Blood Pressure 53/36 05/03/17 14:00 O2 Sat by Pulse Oximetry (%) 98 05/02/17 21:41 Constitutional: Yes: Calm HENT: Yes: Atraumatic Cardiovascular: Yes: S1, S2 Respiratory: Yes: Mechanically Ventilated Gastrointestinal: Yes: Soft Genitourinary: Yes: Brown Present Musculoskeletal: Yes: Muscle Weakness Edema: Yes Neurological: Yes: Lethargy Labs: CBC, BMP 05/01/17 12:30 05/01/17 12:30 INR, PTT INR 1.72 (0.82-1.09) H D 05/01/17 12:30 Problem List - Problems (1) NARINDER (acute kidney injury) Code(s): N17.9 - ACUTE KIDNEY FAILURE, UNSPECIFIED (2) Cardiorespiratory arrest Code(s): I46.9 - CARDIAC ARREST, CAUSE UNSPECIFIED (3) LFT elevation Code(s): R79.89 - OTHER SPECIFIED ABNORMAL FINDINGS OF BLOOD CHEMISTRY (4) Obesity Code(s): E66.9 - OBESITY, UNSPECIFIED (5) Paroxysmal atrial fibrillation Code(s): I48.0 - PAROXYSMAL ATRIAL FIBRILLATION Assessment/Plan Impression 1. NARINDER 2. cardiac arrest 3. respiratory failure requiring intubation 4. obesity 5. transaminitis 6. a-fib 7. shock 8. hypotension 9. anoxic encephalopathy 10. hyperkalemia 11. hypernatremia 12. brain Plan - awaiting family to make decision - discussed with ICU team - did not want hd therapy - vent support Dr Marshall
[2017-05-03 21:58] VITALS: BP 48/32; PULSE 86
--- NOTE | 2017-05-07 14:35 | DS ---
Physical Examination Vital Signs: Vital Signs Temperature 99 F 05/03/17 02:00 Pulse Rate 86 05/03/17 21:57 Respiratory Rate 22 05/03/17 21:57 Blood Pressure 48/32 05/03/17 21:57 O2 Sat by Pulse Oximetry (%) 98 05/03/17 20:39 Labs: CBC, BMP 05/01/17 12:30 05/01/17 12:30 Discharge Summary Reason For Visit: RESPIRATORY ARREST Hospital Course: 31 year old man with a pmhx of asthma (no home meds, no hospitalizations) presented to the ED s/p cardiac arrest of unclear etiology. Patient was in his usual state of health and on the phone with his when he reported feeling "pain", hung up the phone, and dialed 911. He was found down, pulseless and received CPR and was brought to the ED. ACLS efforts continued and he was intubated. Copious amounts of emesis were suctioned from the airway. Upon auscultation, pt had poor air movement, with diminished BS on the right and diffuse mild wheezing. ACLS efforts took place for a total of approximately 50 minutes prior to achieving ROSC (had briefly achieved ROSC at minute 30). Low dose levophed required transiently for mild hypotension. RIJ placed. Vanc/Zosyn/ Azithro were ordered for empiric antibiotic coverage. He is in the ICU for further care - Past Medical History Cardiovascular: Yes: AFIB (reportedly noted transiently while undergoing resuscitation) Pulmonary: Yes: Asthma patient was intubated and admited to icu on pressors and sabx had positive troponin started on iv heparin drip as well then two days later had brain flow scan which showed no blood flow ct scan of head showed anoxic brain injury with transtentorial and tonsillar herniation seen by neurolgist pronounced clinincally brain he failed apnea test as well awaiting family from [place] to come the patient lost pulse on 05/03 Condition: - Instructions Disposition: - Home Medications Comprehensive Discharge Medication List: Ambulatory Orders Albuterol Sulfate Inhaler - [Ventolin Hfa Inhaler -] 1 puff IH PRN PRN 04/17/17
== END 2017-05-04 00:13 | disposition expired | DRG 720 ==
LOC: JER 16:52 → JERBED 19:13 → JICU 20:10
PROVIDERS: ADMIT Family Medicine; ATTEND Family Medicine
PROC: 5A1955Z Respiratory Ventilation, Greater than 96 Consecutive Hours (ICD-10-PCS; principal; 2017-04-17)
PROC: 0CHY7BZ Insertion of Airway into Mouth and Throat, Via Natural or Artificial Opening (ICD-10-PCS; 2017-04-17)
PROC: 5A12012 Performance of Cardiac Output, Single, Manual (ICD-10-PCS; 2017-04-17)
PROC: 05HM33Z Insertion of Infusion Device into Right Internal Jugular Vein, Percutaneous Approach (ICD-10-PCS; 2017-04-17)
DX: A41.9 Sepsis, unspecified organism (principal); R65.21 Severe sepsis with septic shock; I46.9 Cardiac arrest, cause unspecified; J96.00 Acute respiratory failure, unspecified whether with hypoxia or hypercapnia; E23.2 Diabetes insipidus; I21.4 Non-ST elevation (NSTEMI) myocardial infarction; N17.0 Acute kidney failure with tubular necrosis; G93.1 Anoxic brain damage, not elsewhere classified; E87.0 Hyperosmolality and hypernatremia; E87.2 Acidosis; I95.9 Hypotension, unspecified; Z68.41 Body mass index [BMI] 40.0-44.9, adult; J45.909 Unspecified asthma, uncomplicated; E87.5 Hyperkalemia; I48.0 Paroxysmal atrial fibrillation; F17.210 Nicotine dependence, cigarettes, uncomplicated; E66.9 Obesity, unspecified; N28.9 Disorder of kidney and ureter, unspecified; R73.9 Hyperglycemia, unspecified; D72.829 Elevated white blood cell count, unspecified; I45.19 Other right bundle-branch block; I45.81 Long QT syndrome; R74.8 Abnormal levels of other serum enzymes; R74.0 Nonspecific elevation of levels of transaminase and lactic acid dehydrogenase [LDH]
CPT/HCPCS: 36415; 36600; 70450-TC; 71010-TC; 74000-TC; 76775-TC; 76856-TC; 78601-TC; 80048; 80053; 80061; 80307; 81003; 81015; 82150; 82375; 82436; 82550; 82553; 82570; 82803; 83036; 83050; 83520; 83605; 83690; 83721; 83735; 83880; 83935; 84100; 84133; 84156; 84300; 84439; 84443; 84481; 84484; 85025; 85027; 85610; 85730; 86038; 86140; 86256; 86704; 86706; 86708; 86803; 86850; 86900; 86901; 87040; 87086; 87340; 87804; 93005; 93010; 93306-TC; 93970-TC; 94002; 94640; 99285-25; J1644